=== PATIENT | female | born 1945 | race Caucasian/White ===

== ENCOUNTER → 2019-03-08 14:11 | Outpatient (BNVA) | payer MEDICARE, BC, MEDICAID, SELFPAY | PROVIDERS: Family Provider Nurse Practitioner Family; PCP Nurse Practitioner Family; Visit Provider Nurse Practitioner Family | DX: I82.409 Acute embolism and thrombosis of unspecified deep veins of unspecified lower extremity (principal) | CPT/HCPCS: 85610 ==

== ENCOUNTER 2019-04-11 08:24 | Outpatient (CLI) | payer MEDICARE, BC, MEDICAID, SELFPAY ==
[2019-04-11] MEDS: iohexol 300 mg/mL 50 mL Btl PO (08:48)
[2019-04-11 09:27] LABS: Blood Urea Nitrogen 18 mg/dL (8-23)
--- NOTE | 2019-04-11 10:00 | CT_ITS ---
WS: [id number] CT ABDOMEN PELVIS TECHNIQUE: Contrast-enhanced CT of the abdomen and pelvis with coronal and sagittal reformatted image s. CLINICAL INFORMATION: annual ct scan for h/o colon cancer COMPARISON: DLP: 1613.[address] scans at [facility] use at least one of these dose optimization techniques: automat ed exposure control; mA and/or kV adjustment per patient size (includes targeted exams where dose is matched to clinical indication); or iterative reconstruction. FINDINGS: Mild diffuse fatty infiltration the liver. Portal vein and splenic vein are patent. Normal spleen. A few splenic granulomas. Lung bases are well aerated. Prior postoperative changes left hemicolectomy w ith rectosigmoid anastomosis. No evidence of recurrent mass or lesion at the anastomosis. No evidence of small or large bowel obstruction. Scattered stool in the colon. Mild prominence of the common david e duct is unchanged. Common bile duct measures 12 mm in maximum dimension and is stable. Normal pancr eatic parenchymal enhancement. Normal gastroesophageal junction. Mesenteric calcification. Adrenal gl ands are normal. Normal renal parenchymal enhancement. A few tiny renal cortical cysts. No upper abdominal or pelvic s idewall lymphadenopathy. No inguinal lymphadenopathy. Diffuse mottled sclerotic appearance to the low er thoracic and lumbar spine likely due to prior treated metastatic disease. A few lytic lesions. The se are unchanged from previous. Also consider multiple myeloma. Bony structures are unchanged in appe arance since 2017. CT/CT abdomen pelvis w con* [id number] IMPRESSION: 1. No evidence of recurrent or progressive disease. 2. Prior postoperative changes left hemicolectomy with rectosigmoid anastomosi s. No local recurrence at the anastomosis. 3. No periaortic or pelvic sidewall lymphadenopathy. 4. Mild diffuse fatty infiltration liver unchanged. 5. Diffuse mottled appearance to the lower thoracic and lumbar spine may be du e to prior treated metastatic disease. Also consider multiple myeloma. Appearan ce is unchanged since 2017
[2019-04-11] MEDS: iodixanol 320 mg/mL 100mL Btl IV (10:42)
== END 2019-04-11 08:25 | disposition home or self-care (01) ==
LOC: RAD 08:26
PROVIDERS: Visit Provider Surgery
DX: Z85.038 Personal history of other malignant neoplasm of large intestine (principal); K76.0 Fatty (change of) liver, not elsewhere classified
CPT/HCPCS: 36415; 74177; 82565; 84520

== ENCOUNTER → 2019-04-14 12:44 | Outpatient (BNVA) | payer MEDICARE, BC, MEDICAID, SELFPAY | PROVIDERS: Visit Provider Family Medicine | DX: E11.9 Type 2 diabetes mellitus without complications (principal); I10 Essential (primary) hypertension; Z79.4 Long term (current) use of insulin; E03.9 Hypothyroidism, unspecified; I48.91 Unspecified atrial fibrillation; D50.9 Iron deficiency anemia, unspecified; I26.99 Other pulmonary embolism without acute cor pulmonale; E78.2 Mixed hyperlipidemia | CPT/HCPCS: 80053; 80061; 84443 ==

== ENCOUNTER → 2019-04-29 15:18 | Outpatient (BNVA) | payer MEDICARE, BC, MEDICAID, SELFPAY | PROVIDERS: Visit Provider Family Medicine | DX: I26.99 Other pulmonary embolism without acute cor pulmonale (principal) | CPT/HCPCS: 85610 ==

== ENCOUNTER 2019-05-02 06:18 | Day surgery (SDC) | payer MEDICARE, BC, MEDICAID, SELFPAY ==
[2019-04-29 12:39] VITALS: BMI 34.8
[2019-05-02 06:44] VITALS: BP 148/63; PULSE 72; RESP 8; TEMP 36.2; O2SAT 97
[2019-05-02 06:56] LABS: Glucose Point of Care 141 mg/dL (70-110)
[2019-05-02] MEDS: sodium chloride 0.9% 1,000 ML 30 ML (06:59)
--- NOTE | 2019-05-02 07:16 | W.PM.OPSUD ---
Surgery/Procedure H&P Update DATE OF PROCEDURE: May 02, 2019 DATE H&P PERFORMED: 04/15/19 H&P UPDATE INFORMATION: I have reviewed H&P completed within last 30 days, I have examined patient prior to procedure and No changes to prior documentation PREOP DIAGNOSIS: Colon cancer history PLANNED PROCEDURE: Operation Date: 05/02/19 07:30 Proposed Procedures p Colonoscopy 80038 Z85.038(Not Applicable) - Isac Mora MD
--- NOTE | 2019-05-02 07:24 | ANES.PREANE2 ---
Pre-Anesthetic Assessment Pre-Anesthetic Assessment: Height/Weight: Height 1.68 m Weight 97.976 kg Temp Pulse Resp BP Pulse Ox 97.2 F L 72 8 L 148/63 97 05/02/19 06:44 05/02/19 06:44 05/02/19 06:44 05/02/19 06:44 05/02/19 06:44 Preop Diagnosis: Colon cancer history Proposed Procedure: Operation Date: 05/02/19 07:30 Proposed Procedures p Colonoscopy 41328 Z85.038(Not Applicable) - Isac Mora MD Was Beta [place] taken within 24 hours: N/A Last intake: Intake Last Liquid Date 05/01/19 Last Liquid Time 23:00 Last Solid Date 04/30/19 Last Solid Time 17:00 Social: Social History: No alcohol and No tobacco Exam: Pre-Anes Outpt Exam: alert, oriented x 3, clear to auscultation bilaterally and regular rate & rhythm Airway: Submandibular: WNL Cervical ROM: WNL MP: 2 History/ROS: No significant history except as noted Pulmonary: Pulmonary: None reported CV/HEM: CV/HEM: DVT and HTN : : None reported Hepatic: Hepatic: None reported GI: GI: None reported Metabolic: Metabolic: DM and Thyroid Musc/skel: Musc/skel: OA/DJD Anesthetic Plan: ASA status: 2 Anesthesia: Anesthesia Evaluation and MAC Risk of > 500 ml blood loss (7ml/kg in children): No PFSH Anesthesia PFSH: Social History Smoking and tobacco status: never smoked Alcohol intake: never Household members: family Marital status: / Current occupational status: retired History of recent travel: No Data Anesthesia Other Labs: Laboratory Results - last 48 hr 05/02/19 06:53 POC Glucose 141 Cardiac Studies: No Data to Display
[2019-05-02 07:55] VITALS: BP 108/53; PULSE 57; RESP 16; TEMP 36.1; O2SAT 97
[2019-05-02 08:07] VITALS: BP 107/53; PULSE 60; RESP 16; O2SAT 98
[2019-05-02 08:27] VITALS: BP 123/64; PULSE 60; RESP 16; O2SAT 97
--- NOTE | 2019-05-02 09:38 | ANE.PACU2 ---
 Inpatient post-anesthesia follow up: Airway intact: Yes Vital signs: Temperature 97 F Pulse Rate 60 Respiratory Rate 16 Blood Pressure 123/64 Pulse Oximetry 97 Oxygen Delivery Me thod Room Air Oxygen Flow Rate 3 Fraction of Inspir ed Oxygen Hydration adequate: Yes Nausea and vomiting: No Mental status: Baseline
[2019-05-02 09:47] LABS: Carcinoembryonic Antigen 0.9 ng/mL (0.0-4.7)
== END 2019-05-02 08:32 | disposition home or self-care (01) ==
PROVIDERS: Visit Provider Surgery
PROC: 0DJD8ZZ Inspection of Lower Intestinal Tract, Via Natural or Artificial Opening Endoscopic (ICD-10-PCS; CPT 45378; principal; 2019-05-02 07:30)
DX: T18.108A Unspecified foreign body in esophagus causing other injury, initial encounter (principal); K29.70 Gastritis, unspecified, without bleeding; D12.2 Benign neoplasm of ascending colon; K57.30 Diverticulosis of large intestine without perforation or abscess without bleeding; D12.4 Benign neoplasm of descending colon; N18.9 Chronic kidney disease, unspecified; E11.9 Type 2 diabetes mellitus without complications; Z79.84 Long term (current) use of oral hypoglycemic drugs; Z86.718 Personal history of other venous thrombosis and embolism; Z85.038 Personal history of other malignant neoplasm of large intestine; E78.5 Hyperlipidemia, unspecified; I10 Essential (primary) hypertension; Z86.711 Personal history of pulmonary embolism
CPT/HCPCS: 12345; 36415; 36416; 45385; 82378; 82962; 88305; J2704; J7030

== ENCOUNTER → 2019-07-18 09:24 | Outpatient (BNVA) | payer MEDICARE, MEDICAID, SELFPAY | PROVIDERS: PCP Family Medicine; Visit Provider Internal Medicine Hematology & Oncology | DX: I82.409 Acute embolism and thrombosis of unspecified deep veins of unspecified lower extremity (principal); Z85.038 Personal history of other malignant neoplasm of large intestine | CPT/HCPCS: 80053; 82378; 85025; 85610 ==

== ENCOUNTER 2019-07-19 06:45 | Outpatient (CLI) | payer MEDICARE, MEDICAID, SELFPAY ==
--- NOTE | 2019-07-19 16:37 | ONC FU_ITS ---
Dr. Shipman follow up note Patient: Maddy Beavers Unit #: [id number]: 1945 Dicatated By: Leni Shipman M.D.Date of Visit:July 19, 2019 Onc Med Follow-up/Prog Note History of Present Illness: Mrs Maddy Beavers, 73-year-old female with h/o sigmoid colon infiltrating adenocarcinoma status post laparoscopic left hemicolectomy done on 07/09/2016. Final path report showed infiltrating adenocarcinoma SIGMOID colon low-grade grade 2 tumor size 2 x 1.7 cm tumor invades full thickness of muscularis propria pT2 Margins clear 14 mesenteric lymph nodes all free of metastatic tumor N0 no lymphovascular/ Venous invasion seen T2, No Stage Diaz A / or 1 Evaluated via phone, patient denies any specific complaints, no fever or chills, no nausea or vomiting, no diarrhea constipation , no jaundice, no abdominal pain, appetite is good Medications: Colace 1 Tablet (of 100 mg) Capsule Oral b.i.d., Coumadin 1 Tablet (of 3 mg) Oral daily, GlipiZIDE 1 Tablet (of 10 mg) Oral daily, Iron 1 (65 mg) Tablet Oral daily, Lantus 15 Units (of 100 Units/mL) Subcutaneous every am, Levothyroxine Sodium 1 Tablet (of 100 mcg) Oral daily, Lisinopril 1 Tablet (of 20 mg) Oral daily, MetFORMIN HCl 1 Tablet (of 500 mg) Oral b.i.d. Allergies: Diovan and Penicillins. Review of Systems: Review of Systems is not available for this patient. Vital Signs: Vitals are not available for this patient. Performance Status: 0 - Fully active, able to carry on all predisease activities without restrictions. (ECOG) Physical Examination: ENMT - denies mouth sores, or jaundice, Respiratory - denies shortness of breath or wheezing, Cardiovascular - denies palpitation or tachycardia, Abdomen - denies abdominal pain or fullness, Extremities - denies edema or rash. Lab/Imaging: Test performed on Jan 24, 2019 07:32 Sodium 137 mmol/L Potassium 4.7 mmol/L Chloride 102 mmol/L CO2 21 mmol/L Anion Gap 18.7 BUN 30 mg/dL Creatinine 1.4 mg/dL Cr Clearance (Est) 54.5900 mL/min Glucose 170 mg/dl Calcium 9.5 mg/dL Protein, Total 6.6 g/dL Albumin 4.7 g/dL Globulin 1.9 gm/dL Bilirubin, Total 0.3 mg/dL ALT (SGPT) 15 U/L AST (SGOT) 16 U/L Alkaline Phosphatase 107 U/L WBC 7.3 10 3/uL RBC 3.80 10 6/uL HGB 12.0 g/dL HCT 36.2 % MCV 95.3 fl MCH 31.6 pg MCHC 33.1 g/dl RDW 13.1 % Platelet Count 201 10 3/cmm MPV 9.2 fl Neutrophils 4.1 10 3/uL Lymphocytes 2.0 10 3/uL Monocytes 0.6 10 3/uL Eosinophils 0.6 10 3/uL Basophils 0.1 10 3/uL Neutrophil % 55.9 % Lymphocyte % 27.1 % Monocyte % 7.7 % Eosinophil % 8.3 % Basophils % 0.7 % CEA 1.3 ng/mL Impression: 1. Infiltrating adenocarcinoma of sigmoid colon T2,NO,Mx stage Diaz A /or 1 , low-grade, no lymphovascular/Venous invasion seen , status post laparoscopic left hemicolectomy on 07/09/2016 CT scan of abdomen pelvis done on 07/11/2016 showed no evidence of disease 3, Anemia etiology uncertain could be multifactorial including due to chronic blood loss , now resolved On chronic Coumadin therapy for more than 40 years for history of pulmonary embolism/lower extremity DVT at age 37 and sister with history of pulmonary embolism.Anticoagulation being managed by PMD Plan: Discussed with patient regarding her labs white blood count 6.5 hemoglobin 12.1 crit 36.2 platelets 197,000 CMP within normal limit except creatinine 1.5 compared to 1.4 earlier and CEA 1.5 Clinically, patient is doing well with no signs symptom suggestive of recurrence of disease , and tumor marker is within normal limits as well as liver function test and hemoglobin. We'll continue to monitor and return to clinic in 6 months with labs CBC CMP CEA Signed By: Leni Shipman M.D. <<Signature on File>>
== END 2019-07-19 06:46 | disposition home or self-care (01) ==
LOC: ONCMED 06:47
PROVIDERS: PCP Family Medicine; Visit Provider Internal Medicine Hematology & Oncology
DX: Z08 Encounter for follow-up examination after completed treatment for malignant neoplasm (principal); Z85.038 Personal history of other malignant neoplasm of large intestine; Z79.01 Long term (current) use of anticoagulants; Z86.718 Personal history of other venous thrombosis and embolism

== ENCOUNTER → 2019-07-20 11:40 | Outpatient (BNVA) | payer MEDICARE, MEDICAID, SELFPAY | PROVIDERS: PCP Family Medicine; Visit Provider Family Medicine | DX: I26.99 Other pulmonary embolism without acute cor pulmonale (principal) | CPT/HCPCS: 85610 ==

== ENCOUNTER → 2019-08-29 09:46 | Outpatient (BNVA) | payer MEDICARE, MEDICAID, SELFPAY | PROVIDERS: PCP Family Medicine; Visit Provider Family Medicine | DX: I82.409 Acute embolism and thrombosis of unspecified deep veins of unspecified lower extremity (principal) | CPT/HCPCS: 85610 ==

== ENCOUNTER → 2019-10-10 11:20 | Outpatient (BNVA) | payer MEDICARE, MEDICAID, SELFPAY | PROVIDERS: PCP Family Medicine; Visit Provider Family Medicine | DX: I26.99 Other pulmonary embolism without acute cor pulmonale (principal) | CPT/HCPCS: 85610 ==

== ENCOUNTER → 2019-10-12 08:47 | Outpatient (BNVA) | payer MEDICARE, MEDICAID, SELFPAY | PROVIDERS: PCP Family Medicine; Visit Provider Family Medicine | DX: E03.9 Hypothyroidism, unspecified (principal); I10 Essential (primary) hypertension; E11.9 Type 2 diabetes mellitus without complications; Z79.4 Long term (current) use of insulin; E78.2 Mixed hyperlipidemia | CPT/HCPCS: 80053; 80061; 83036; 84443; 85025 ==

== ENCOUNTER → 2019-11-04 10:03 | Outpatient (BNVA) | payer MEDICARE, MEDICAID, SELFPAY | PROVIDERS: PCP Family Medicine; Visit Provider Family Medicine | DX: I26.99 Other pulmonary embolism without acute cor pulmonale (principal) | CPT/HCPCS: 85610 ==

== ENCOUNTER 2019-11-24 08:41 | Outpatient (CLI) | payer MEDICARE, MEDICAID, SELFPAY ==
--- NOTE | 2019-11-24 08:50 | MM_ITS ---
WS: [id number] BILATERAL SCREENING DIGITAL MAMMOGRAM WITH CAD HISTORY: SCREENING COMPARISON: 10/21/2018 and 10/21/2017 and 04/30/2016 Bilateral CC and MLO views submitted. Computer aided detection analyzed. Breast composition: There are scattered areas of fibroglandular density. No suspicious masses, microc alcifications or architectural distortion. Multiple bilateral asymmetries. Some of these asymmetries are partially obscured. Various sizes but no interval change. No distortion. MM/[place] [id number] IMPRESSION: BI-RADS: 2-Benign FOLLOW UP: 1 Year Follow-up
== END 2019-11-24 08:42 | disposition home or self-care (01) ==
LOC: RADSHAW 08:46
PROVIDERS: PCP Family Medicine; Visit Provider Family Medicine
DX: Z12.31 Encounter for screening mammogram for malignant neoplasm of breast (principal)
CPT/HCPCS: 77067

== ENCOUNTER → 2020-01-17 14:29 | Outpatient (BNVA) | payer MEDICARE, BC, MEDICAID, SELFPAY | PROVIDERS: PCP Family Medicine; Visit Provider Internal Medicine Hematology & Oncology | DX: I82.409 Acute embolism and thrombosis of unspecified deep veins of unspecified lower extremity (principal); Z85.038 Personal history of other malignant neoplasm of large intestine | CPT/HCPCS: 80053; 82378; 85025; 85610 ==

== ENCOUNTER 2020-01-19 14:09 | Outpatient (CLI) | payer MEDICARE, MEDICAID, SELFPAY ==
--- NOTE | 2020-01-19 15:12 | ONC FU_ITS ---
Dr. Shipman follow up note Patient: Maddy Beavers Unit #: [id number]: 1945 Dicatated By: Leni Shipman M.D.Date of Visit:Jan 19, 2020 Onc Med Follow-up/Prog Note History of Present Illness: Mrs Maddy Beavers, 74-year-old female with h/o sigmoid colon infiltrating adenocarcinoma status post laparoscopic left hemicolectomy done on 07/09/2016. Final path report showed infiltrating adenocarcinoma SIGMOID colon low-grade grade 2 tumor size 2 x 1.7 cm tumor invades full thickness of muscularis propria pT2 Margins clear 14 mesenteric lymph nodes all free of metastatic tumor N0 no lymphovascular/ Venous invasion seen T2, No Stage Diaz A / or 1 Came for follow-up, denies any specific complaints, no fever chills, no nausea or vomiting, no diarrhea or constipation, no melena or hematochezia, no jaundice, no abdominal pain, appetite is good Medications: Colace 1 Tablet (of 100 mg) Capsule Oral b.i.d., Coumadin 1 Tablet (of 3 mg) Oral daily, GlipiZIDE 1 Tablet (of 10 mg) Oral daily, Iron 1 (65 mg) Tablet Oral daily, Lantus 15 Units (of 100 Units/mL) Subcutaneous every am, Levothyroxine Sodium 1 Tablet (of 100 mcg) Oral daily, Lisinopril 1 Tablet (of 20 mg) Oral daily, MetFORMIN HCl 1 Tablet (of 500 mg) Oral b.i.d. Allergies: Diovan and Penicillins. Review of Systems: Review of Systems is not available for this patient. Vital Signs: Performed on Jan 19, 2020 14:16 Height - 66.00 in Weight - 213.0 lbs (HIGH) BSA - 2.05 sq.m BMI - 34.38 (HIGH) Temperature - 99.2 F (HIGH) Pulse - 67 /min Respiration - 24 /min BP - 175/66 mm(hg) (HIGH) O2 Sat - % Pain - 0 Performance Status: 0 - Fully active, able to carry on all predisease activities without restrictions. (ECOG) Physical Examination: ENMT - No mouth sores, no thrush, no jaundice, Respiratory - Lungs are clear to auscultation, Cardiovascular - Regular rate and rhythm of heart , Abdomen - Soft, bowel sounds present, Extremities - No visible edema. Lab/Imaging: Test performed on Jan 19, 2020 09:49 Glucose 172 mg/dL BUN 21 mg/dL Creatinine 1.3 mg/dL Cr Clearance (Est) 57.91 mL/min Sodium 139 mmol/L Potassium 4.2 mmol/L Chloride 101 mmol/L CO2 24 mmol/L Calcium 8.8 mg/dL Protein, Total 6.4 g/dL Albumin 4.0 g/dL Globulin 2.4 g/dL Bilirubin, Total 0.2 mg/dL Alkaline Phosphatase 100 IU/L AST (SGOT) 12 IU/L ALT (SGPT) 14 IU/L PT 36.5 sec WBC 6.1 10^9/L INR 3.00 RBC 3.91 10^12/L HGB 12.3 g/dL HCT 36.2 % MCV 92.7 fl MCH 31.5 pg MCHC 34.0 g/dL RDW 13.8 % Platelet Count 235 10^9/L Neutrophils (Gran) 3.8918 10^9/L Lymphocytes 1.7 10^9/L Monocytes 0.5 10^9/L CEA 1.8 ng/mL Impression: 1. Infiltrating adenocarcinoma of sigmoid colon T2,NO,Mx stage Diaz A /or 1 , low-grade, no lymphovascular/Venous invasion seen , status post laparoscopic left hemicolectomy on 07/09/2016 CT scan of abdomen pelvis done on 07/11/2016 showed no evidence of disease 3, Anemia etiology uncertain could be multifactorial including due to chronic blood loss , now resolved On chronic Coumadin therapy for more than 40 years for history of pulmonary embolism/lower extremity DVT at age 37 and sister with history of pulmonary embolism.Anticoagulation being managed by PMD Plan: Discussed with patient regarding her labs white blood count 6.1 hemoglobin 12.3 hematocrit 36.2 platelets 235,000 CMP within normal limit except glucose 172 and creatinine 1.3 and CEA is 1.8 Clinically, patient doing well with no new signs symptoms suggestive of recurrence of disease her tumor markers within normal limits. We will continue to monitor return to clinic in 6 months with CBC CMP and CEA Signed By: Leni Shipman M.D. <<Signature on File>>
== END 2020-01-19 14:10 | disposition home or self-care (01) ==
LOC: ONCMED 14:14
PROVIDERS: PCP Family Medicine; Visit Provider Internal Medicine Hematology & Oncology
DX: Z08 Encounter for follow-up examination after completed treatment for malignant neoplasm (principal); Z85.038 Personal history of other malignant neoplasm of large intestine; D64.9 Anemia, unspecified; Z90.49 Acquired absence of other specified parts of digestive tract; Z79.01 Long term (current) use of anticoagulants; Z86.718 Personal history of other venous thrombosis and embolism; Z86.711 Personal history of pulmonary embolism
CPT/HCPCS: G0463

== ENCOUNTER → 2020-03-29 11:24 | Outpatient (BNVA) | payer MEDICARE, MEDICAID, SELFPAY | PROVIDERS: PCP Family Medicine; Visit Provider Family Medicine | DX: I82.409 Acute embolism and thrombosis of unspecified deep veins of unspecified lower extremity (principal) | CPT/HCPCS: 85610 ==

== ENCOUNTER → 2020-04-23 15:57 | Outpatient (BNVA) | payer MEDICARE, MEDICAID, SELFPAY | PROVIDERS: PCP Family Medicine; Visit Provider Family Medicine | DX: I26.99 Other pulmonary embolism without acute cor pulmonale (principal) | CPT/HCPCS: 85610 ==

== ENCOUNTER → 2020-05-03 10:14 | Outpatient (BNVA) | payer MEDICARE, MEDICAID, SELFPAY | PROVIDERS: PCP Family Medicine; Visit Provider Family Medicine | DX: I10 Essential (primary) hypertension (principal); E11.9 Type 2 diabetes mellitus without complications; Z79.4 Long term (current) use of insulin; E03.9 Hypothyroidism, unspecified; I26.99 Other pulmonary embolism without acute cor pulmonale | CPT/HCPCS: 80053; 80061; 83036; 84443; 85025; 85610 ==

== ENCOUNTER → 2020-05-22 13:50 | Outpatient (BNVA) | payer MEDICARE, MEDICAID, SELFPAY | PROVIDERS: PCP Family Medicine; Visit Provider Family Medicine | DX: I26.99 Other pulmonary embolism without acute cor pulmonale (principal) | CPT/HCPCS: 85610 ==

== ENCOUNTER → 2020-06-01 13:16 | Outpatient (BNVA) | payer MEDICARE, MEDICAID, SELFPAY | PROVIDERS: PCP Family Medicine; Visit Provider Surgery | DX: Z20.822 Contact with and (suspected) exposure to COVID-19 (principal) | CPT/HCPCS: 87635 ==

== ENCOUNTER → 2020-06-04 08:52 | Outpatient (BNVA) | payer MEDICARE, MEDICAID, SELFPAY | PROVIDERS: PCP Family Medicine; Visit Provider Surgery | DX: I82.409 Acute embolism and thrombosis of unspecified deep veins of unspecified lower extremity (principal) | CPT/HCPCS: 85610 ==

== ENCOUNTER 2020-06-05 08:44 | Day surgery (SDC) | payer MEDICARE, MEDICAID, SELFPAY ==
[2020-06-04 12:16] VITALS: BMI 33.0
--- NOTE | 2020-06-05 07:55 | W.PM.OPSUD ---
Surgery/Procedure H&P Update DATE OF PROCEDURE: June 05, 2020 DATE H&P PERFORMED: 05/09/19 H&P UPDATE INFORMATION: I have reviewed H&P completed within last 30 days, I have examined patient prior to procedure and No changes to prior documentation PREOP DIAGNOSIS: Colon cancer history PLANNED PROCEDURE: Operation Date: 06/05/20 10:30 Proposed Procedures p Colonoscopy 99069 Z85.038(Not Applicable) - Isac Mora MD
--- NOTE | 2020-06-05 09:05 | ANES.PREANE2 ---
Pre-Anesthetic Assessment Pre-Anesthetic Assessment: Height/Weight: Height 1.68 m Weight 92.986 kg Preop Diagnosis: Colon cancer history Proposed Procedure: Operation Date: 06/05/20 10:30 Proposed Procedures p Colonoscopy 07957 Z85.038(Not Applicable) - Isac Mora MD Familial anesthetic complications: None Was Beta [place] taken within 24 hours: N/A Was Clonidine taken within 24 hours: N/A Last intake: NPO > 8 hrs Social: Social History: No alcohol and No tobacco Exam: Pre-Anes Outpt Exam: alert, oriented x 3, clear to auscultation bilaterally and regular rate & rhythm Airway: Cervical ROM: WNL MP: 4 Dentition: Chipped Pulmonary: Comments: Hx PE CV/HEM: CV/HEM: DVT and HTN Comments: holding warfarin for 4 days unknown etiology Metabolic: Metabolic: DM and Thyroid Anesthetic Plan: ASA status: 2 Anesthesia: MAC Risk of > 500 ml blood loss (7ml/kg in children): No PFSH Anesthesia PFSH: Medical History (Updated 05/11/20 @ 17:50 by Isac Mora MD) Chronic anticoagulation Diabetes mellitus, insulin dependent (IDDM), controlled DVT (deep venous thrombosis) History of colon cancer T2N0M0 - 2017 Hyperlipidemia, mixed Hypertension Hypothyroidism Pulmonary embolism Surgical History H/O colonoscopy 05/02/19: polyps ascending and descending colon History of hysterectomy History of subtotal thyroidectomy S/P appendectomy S/P arthroscopic surgery of left knee S/P colon resection Laparoscopic left hemicolectomy: July 09, 2016 Family History Other Bleeding disorder CAD (coronary artery disease) Diabetes Hypertension Denies family history of Anesthesia complication Social History Smoking and tobacco status: never smoked Alcohol intake: never Household members: family Marital status: / Current occupational status: retired History of recent travel: No Data Anesthesia Cardiac Studies: No Data to Display
[2020-06-05 09:52] VITALS: BP 162/94; PULSE 68; RESP 16; TEMP 36.6; O2SAT 98
[2020-06-05] MEDS: sodium chloride 0.9% 1,000 ML 30 ML IV (10:13)
[2020-06-05 10:41] LABS: Glucose Point of Care 151 mg/dL (70-110)
[2020-06-05 11:43] VITALS: BP 99/44; PULSE 56; RESP 18; TEMP 36.2; O2SAT 98
[2020-06-05 11:53] VITALS: BP 134/74; PULSE 54; RESP 18; O2SAT 100
--- NOTE | 2020-06-05 12:26 | ANE.PACU2 ---
Inpatient post-anesthesia follow up: Airway intact: Yes Vital signs: Temperature 97.2 F Pulse Rate 54 Respiratory Rate 18 Blood Pressure 134/74 Pulse Oximetry 100 Oxygen Delivery Me thod Room Air Oxygen Flow Rate Fraction of Inspir ed Oxygen Hydration adequate: Yes Nausea and vomiting: No Pain level: 1 Mental status: Baseline
== END 2020-06-05 12:05 | disposition home or self-care (01) ==
PROVIDERS: PCP Family Medicine; Visit Provider Surgery
PROC: 0DJD8ZZ Inspection of Lower Intestinal Tract, Via Natural or Artificial Opening Endoscopic (ICD-10-PCS; CPT 45378; principal; 2020-06-05 10:30)
DX: Z85.038 Personal history of other malignant neoplasm of large intestine (principal); Z86.010 Personal history of colon polyps; D12.4 Benign neoplasm of descending colon; Z79.01 Long term (current) use of anticoagulants; E11.9 Type 2 diabetes mellitus without complications; Z86.718 Personal history of other venous thrombosis and embolism; E03.9 Hypothyroidism, unspecified; I10 Essential (primary) hypertension; Z86.711 Personal history of pulmonary embolism; Z90.49 Acquired absence of other specified parts of digestive tract
CPT/HCPCS: 45380; 45384; 36416; 82962; 88305; 96360; 96361; J2704; J7030

== ENCOUNTER → 2020-06-12 12:24 | Outpatient (BNVA) | payer MEDICARE, MEDICAID, SELFPAY | PROVIDERS: PCP Family Medicine; Visit Provider Family Medicine | DX: I82.409 Acute embolism and thrombosis of unspecified deep veins of unspecified lower extremity (principal) | CPT/HCPCS: 85610 ==

== ENCOUNTER → 2020-07-13 09:17 | Outpatient (BNVA) | payer MEDICARE, MEDICAID, SELFPAY | PROVIDERS: PCP Family Medicine; Visit Provider Nurse Practitioner Family | DX: I26.99 Other pulmonary embolism without acute cor pulmonale (principal); H66.92 Otitis media, unspecified, left ear | CPT/HCPCS: 85610 ==

== ENCOUNTER → 2020-07-25 10:49 | Outpatient (BNVA) | payer MEDICARE, MEDICAID, SELFPAY | PROVIDERS: PCP Family Medicine; Visit Provider Family Medicine | DX: I82.409 Acute embolism and thrombosis of unspecified deep veins of unspecified lower extremity (principal); E11.42 Type 2 diabetes mellitus with diabetic polyneuropathy; H66.002 Acute suppurative otitis media without spontaneous rupture of ear drum, left ear | CPT/HCPCS: 85610 ==

== ENCOUNTER 2020-07-27 14:09 | Emergency (ER) | payer MEDICARE, MEDICAID, SELFPAY ==
[2020-07-27 14:33] VITALS: BP 156/68; PULSE 67; RESP 18; TEMP 36.6; O2SAT 95; BMI 33.4
--- NOTE | 2020-07-27 15:04 | USR_ITS ---
PROCEDURE INFORMATION: Exam: US Duplex Left Lower Extremity Veins, Limited Exam date and time: 07/27/2020 3:05 PM Age: 74 years old Clinical indication: Pain; Leg, lower; Left; Additional info: Lle swelling, calf pain, h/o of dvt TECHNIQUE: Imaging protocol: Real-time Duplex ultrasound of the Left Lower Extremity with 2-D romero scale, color Doppler flow and spectral waveform analysis with image documentation. Limited exam focused on the left lower extremity veins. Total images: 1902 COMPARISON: No relevant prior studies available. FINDINGS: Left deep veins: Unremarkable. The common femoral, femoral, proximal profunda femoral and popliteal veins are patent without thrombus. Normal Doppler waveforms. Normal compressibility and/or augmentation response. Left superficial veins: Unremarkable. Saphenofemoral junction is patent without thrombus. Soft tissues: Unremarkable. US/CV venous duplex [facility] [id number] IMPRESSION: No evidence of deep vein thrombosis.
--- NOTE | 2020-07-27 15:06 | W.ED.EXTPRO ---
HPI - Extremity Problem General: Chief complaint: Extremity Problem,Nontraumatic Stated complaint: left leg swelling and pain Time Seen by Provider: 07/27/20 14:47 History of Present Illness: HPI Narrative: This is a 74-year-old female patient who has had 3 episodes of DVT and is currently on 3 mg of warfarin daily. She presents today with left leg swelling and pain. She has had left leg pain for about 3 months but this morning when she woke up she noticed some pain around her left calf. Because she has a significant history of DVTs and PEs she decided to come to the emergency department to be evaluated. She denies any shortness of breath. Last time she checked her INR was 3.5 and she has been off her warfarin for a few days. She is due to resume warfarin today. MD Complaint: extremity pain and extremity swelling Onset (ago): day(s) (1) Pain Consistency: constant Location: left and lower extremity Quality: aching Radiation: none Relieving factors: nothing Exacerbating factors: nothing Associated symptoms: Deny arthralgias, chest pain, fever(s), myalgias, rash or short of breath Context: history of DVT Review of Systems General: Reports: 10 or more systems reviewed and unremarkable except in HPI and below Const: Denies: fever(s) Card: Denies: chest pain Skin/Breast: Denies: rash [facility] ED PFSH: Medical History Chronic anticoagulation Diabetes mellitus, insulin dependent (IDDM), controlled DVT (deep venous thrombosis) History of colon cancer T2N0M0 - 2017 Hyperlipidemia, mixed Hypertension Hypothyroidism Pulmonary embolism Surgical History H/O colonoscopy (06/05/20) 05/02/19: polyps ascending and descending colon 06/04/20: IC valve and descending colon polyp History of hysterectomy History of subtotal thyroidectomy S/P appendectomy S/P arthroscopic surgery of left knee S/P colon resection Laparoscopic left hemicolectomy: July 09, 2016 Family History Other Bleeding disorder CAD (coronary artery disease) Diabetes Hypertension Denies family history of Anesthesia complication Social History Smoking and tobacco status: never smoked Second hand smoke exposure: No Alcohol intake: never Caregiver/support person: Yes (sisters) Lives independently: Yes (son lives with her) Household members: children Marital status: / service: No Current occupational status: retired History of recent travel: No Current gender identity: Female Special mark needs: No Agree to transfusion: Yes Physical Exam Const: COMMON NORMALS: no acute distress, average body habitus, patient oriented x3, no limitations, healthy appearing, alert and well nourished HENMT: COMMON NORMALS: normocephalic, atraumatic and moist oral mucous membranes HEAD & SCALP: normocephalic and atraumatic Neck/C-Spine: COMMON NORMALS: no meningeal signs and no JVD Resp: COMMON NORMALS: normal respiratory effort, No retractions, No use of accessory muscles, clear to auscultation bilaterally and percussion normal AUSCULTATION: clear to auscultation bilaterally PERCUSSION: percussion normal Cardio: COMMON NORMALS: no JVD, regular rate, regular rhythm, S1 normal heart sound present, S2 normal heart sound present, No gallops present (Cardio), No clicks present (Cardio), No murmurs present (Cardio), No rub (Cardio) and Peripheral pulses 2+ throughout RATE: regular rate RHYTHM: regular rhythm HEART SOUNDS: S1 normal heart sound present and S2 normal heart sound present PERIPHERAL PULSES: Peripheral pulses 2+ throughout GI: COMMON NORMALS: Normal to inspection, nondistended, normoactive bowel sounds present, Soft to palpation, non-tender, No hepatosplenomegaly present, no masses and no bruits PALPATION: Yes Soft to palpation and Yes No hepatosplenomegaly present Extremity: COMMON NORMALS: normal to inspection, full ROM, capillary refill normal, no calf tenderness and no pedal edema LEFT LOWER EXTREMITY: Yes lower leg Left lower leg: Yes inspection (mild swelling just distal to the knee), Yes palpation (calf tenderness) and Yes neurovascular exam (intact) Neuro: COMMON NORMALS: patient oriented x3 SENSORIUM/ORIENTATION: Yes alert MENINGEAL SIGNS: Yes no meningeal signs Course Reevaluation(s): Reevaluation #1: Discussed her lab and imaging findings with her. Negative for acute findings. INR is therapeutic, venous Doppler negative for DVT. We will discharge her home with no new orders. She voiced understanding and is in agreement with the plan. Time: 16:16 Vital Signs: Vital signs: Vital Signs Temperature 97.8 F 07/27/20 14:33 Pulse Rate 62 07/27/20 16:39 Respiratory Rate 18 07/27/20 14:33 Blood Pressure 145/63 07/27/20 16:39 Pulse Oximetry 97 07/27/20 16:39 MDM - Extremity (Nontraumatic) MDM Narrative: Medical decision making narrative: 74-year-old female patient with a history of multiple DVTs who presents to the emergency department with left leg swelling and pain. She had concerns for a new DVT. She is currently on warfarin. Venous Doppler was negative for DVT. She is discharged home with no new orders. Medical Records: Attestation: I reviewed the patient's medical records. Lab Data: Attestation: I reviewed the patient's lab results. Labs: Lab Results 07/27/20 Range/Units 15:26 PT 24.60 H (12.1-14.9) SECO NDS INR 2.17 H (0.8-1.2) Imaging Data^: US Vascular: Attestation: I personally reviewed and interpreted this imaging study as follows: Radiologist's impression: [address] [id number] ReportSigned Patient: Maddy Beavers #: [id number]: 1945cct#:[id number]/Sex: 74 / FADM Date: 07/27/20Loc: ERRoom/Bed:Attending Dr: Ordering Provider/Ordering MD: Nadia Yin MD, [facility] Date of Service: 07/27/20 Procedure(s): [place] [address] Accession Number(s): [id number] Report Number: [id number] PROCEDURE INFORMATION: Exam: US Duplex Left Lower Extremity Veins, Limited Exam date and time: 07/27/2020 3:05 PM Age: 74 years old Clinical indication: Pain; Leg, lower; Left; Additional info: Lle swelling, calf pain, h/o of dvt TECHNIQUE: Imaging protocol: Real-time Duplex ultrasound of the Left Lower Extremity with 2-D romero scale, color Doppler flow and spectral waveform analysis with image documentation. Limited exam focused on the left lower extremity veins. Total images: 1902 COMPARISON: No relevant prior studies available. FINDINGS: Left deep veins: Unremarkable. The common femoral, femoral, proximal profunda femoral and popliteal veins are patent without thrombus. Normal Doppler waveforms. Normal compressibility and/or augmentation response. Left superficial veins: Unremarkable. Saphenofemoral junction is patent without thrombus. Soft tissues: Unremarkable. US/[place] [address] IMPRESSION: No evidence of deep vein thrombosis. Dictated By:Naun Atkins By:Naun Atkins Date/Time:07/27/201636DD/ 34 Discharge Plan Discharge Patient Disposition: Home Clinical Impression: Left leg swelling, Left leg pain Condition: Stable Prescriptions: Continued docusate sodium [Colace] 100 mg capsule 100 mg PO BID RF: 0 ferrous sulfate [FeroSul] 325 mg (65 mg iron) tablet 325 mg PO DAILY@0800 RF: 0 True Metrix Glucose Test Strip Strip See Rx Instructions .ROUTE .COMPLEX Qty: 100 RF: 12 warfarin 2 mg tablet 2 mg PO DIRECTED Qty: 20 RF: 1 warfarin 3 mg tablet 3 mg PO DAILY@1600 RF: 0 furosemide 20 mg tablet 20 mg PO QAM PRN (Reason: edema) Qty: 30 RF: 4 (DME) pen needle, diabetic [ReliOn [place]] 31 gauge x 1/4 needle See Rx Instructions .ROUTE .MEDSUPPLY Qty: 100 RF: 3 lancets [TRUEplus Lancets] 30 gauge misc See Rx Instructions .ROUTE .COMPLEX Qty: 100 RF: 2 metformin 500 mg tablet 500 mg PO DAILY@0800 RF: 0 glipizide 10 mg tablet extended release 24hr 10 mg PO DAILY RF: 0 lisinopril 20 mg tablet 20 mg PO DAILY@0900 RF: 0 levothyroxine 100 mcg tablet 100 mcg PO DAILY@0800 RF: 0 Lantus Solostar U-100 Insulin 100 unit/mL (3 mL) insulin pen 15 unit SUBCUT DAILY@0800 RF: 0 Discharge Orders: Discharge ED (Routine); Ordered 07/27/20 Ordered By: Nadia Yin Referrals: Penny Sanchez MD [Primary Care Provider] - 1-3 days Discharge Diet: Usual diet Discharge Activity: Increase activity as tolerated Patient Instructions: Leg Cramps (ED), Leg Edema (ED) Activity Restrictions/Additional Instructions: Return for any new or worsening symptoms. Follow-up with your primary care provider within 3 days. Keep your leg elevated to reduce swelling. Continue home medications including your warfarin. 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
[2020-07-27 15:59] LABS: INR 2.17 (0.8-1.2)
[2020-07-27 16:39] VITALS: BP 145/63; PULSE 62; O2SAT 97
== END 2020-07-27 16:49 | disposition home or self-care (01) ==
PROVIDERS: Emergency Provider Family Medicine; PCP Family Medicine
DX: M79.89 Other specified soft tissue disorders (principal); M79.605 Pain in left leg; Z79.01 Long term (current) use of anticoagulants; Z79.4 Long term (current) use of insulin; E11.9 Type 2 diabetes mellitus without complications; Z85.038 Personal history of other malignant neoplasm of large intestine; E78.2 Mixed hyperlipidemia; I10 Essential (primary) hypertension
CPT/HCPCS: 36415; 85610; 93971; 99283

== ENCOUNTER → 2020-08-03 09:30 | Outpatient (BNVA) | payer MEDICARE, MEDICAID, SELFPAY | PROVIDERS: PCP Family Medicine; Visit Provider Family Medicine | DX: I82.409 Acute embolism and thrombosis of unspecified deep veins of unspecified lower extremity (principal) | CPT/HCPCS: 85610 ==

== ENCOUNTER → 2020-08-10 09:42 | Outpatient (BNVA) | payer MEDICARE, MEDICAID, SELFPAY | PROVIDERS: PCP Family Medicine; Visit Provider Family Medicine | DX: I82.409 Acute embolism and thrombosis of unspecified deep veins of unspecified lower extremity (principal) | CPT/HCPCS: 85610 ==

== ENCOUNTER → 2020-08-13 10:58 | Outpatient (BNVA) | payer MEDICARE, MEDICAID, SELFPAY | PROVIDERS: PCP Family Medicine; Visit Provider Internal Medicine Hematology & Oncology | DX: I10 Essential (primary) hypertension (principal); E03.9 Hypothyroidism, unspecified; E78.2 Mixed hyperlipidemia; E11.9 Type 2 diabetes mellitus without complications; Z85.038 Personal history of other malignant neoplasm of large intestine | CPT/HCPCS: 80053; 85025 ==

== ENCOUNTER 2020-08-15 14:30 | Outpatient (CLI) | payer MEDICARE, MEDICAID, SELFPAY ==
--- NOTE | 2020-08-30 15:42 | ONC FU_ITS ---
Dr. Shipman follow up note Patient: Maddy Beavers Unit #: [id number]: 1945 Dicatated By: Leni Shipman M.D.Date of Visit:Aug 15, 2020 Onc Med Follow-up/Prog Note History of Present Illness: Mrs Maddy Beavers, 74-year-old female with h/o sigmoid colon infiltrating adenocarcinoma status post laparoscopic left hemicolectomy done on 07/09/2016. Final path report showed infiltrating adenocarcinoma SIGMOID colon low-grade grade 2 tumor size 2 x 1.7 cm tumor invades full thickness of muscularis propria pT2 Margins clear 14 mesenteric lymph nodes all free of metastatic tumor N0 no lymphovascular/ Venous invasion seen T2, No Stage Diaz A / or 1 Came for follow-up, denies any specific complaints, no fever chills, no nausea or vomiting, no diarrhea or constipation, no jaundice, no abdominal pain, appetite is good Medications: Colace 1 Tablet (of 100 mg) Capsule Oral b.i.d., Coumadin 1 Tablet (of 3 mg) Oral daily, GlipiZIDE 1 Tablet (of 10 mg) Oral daily, Iron 1 (65 mg) Tablet Oral daily, Lantus 15 Units (of 100 Units/mL) Subcutaneous every am, Levothyroxine Sodium 1 Tablet (of 100 mcg) Oral daily, Lisinopril 1 Tablet (of 20 mg) Oral daily, MetFORMIN HCl 1 Tablet (of 500 mg) Oral b.i.d. Allergies: Diovan and Penicillins. Review of Systems: Review of Systems is not available for this patient. Vital Signs: Performed on Aug 15, 2020 16:13 Height - 66.00 in Temperature - 97.3 F (LOW) Pulse - 66 /min Respiration - 18 /min BP - 130/70 mm(hg) O2 Sat - 97 % Pain - 7 Fatigue - 0 Performance Status: 0 - Fully active, able to carry on all predisease activities without restrictions. (ECOG) Physical Examination: ENMT - No mouth sores, no thrush, no jaundice, Respiratory - Lungs are clear to auscultation, Cardiovascular - Regular rate and rhythm of heart, Abdomen - Soft, bowel sounds present, Extremities - No visible edema. Lab/Imaging: Most recent lab results are not available for this patient. Impression: 1. Infiltrating adenocarcinoma of sigmoid colon T2,NO,Mx stage Diaz A /or 1 , low-grade, no lymphovascular/Venous invasion seen , status post laparoscopic left hemicolectomy on 07/09/2016 CT scan of abdomen pelvis done on 07/11/2016 showed no evidence of disease 3, Anemia etiology uncertain could be multifactorial including due to chronic blood loss , now resolved On chronic Coumadin therapy for more than 40 years for history of pulmonary embolism/lower extremity DVT at age 37 and sister with history of pulmonary embolism.Anticoagulation being managed by PMD Plan: Discussed with patient regarding her labs white blood count 6.3 hemoglobin 11.6 hematocrit 33.8 platelets 240,000 CMP within normal limits except creatinine 1.6 compared to 1.3 and January 2020 and BUN 27, glucose 147, CEA is pending Clinically, patient doing well with no new signs symptoms such as recurrence of disease or follow-up labs shows LFTs within normal range hemoglobin within normal range but there is a mild progression chronic renal insufficiency which could be due to dehydration, patient was advised to hydrate well and follow-up with the PMD regarding her renal function tests, as if this is worsening she may benefit from nephrology evaluation. Return to clinic in 6 months with CBC CMP and CEA Signed By: Leni Shipman M.D. <<Signature on File>>
== END 2020-08-15 14:31 | disposition home or self-care (01) ==
LOC: ONCMED 08-16 11:46
PROVIDERS: PCP Family Medicine; Visit Provider Internal Medicine Hematology & Oncology
DX: Z08 Encounter for follow-up examination after completed treatment for malignant neoplasm (principal); Z85.038 Personal history of other malignant neoplasm of large intestine; Z86.711 Personal history of pulmonary embolism; Z79.01 Long term (current) use of anticoagulants; Z79.899 Other long term (current) drug therapy
CPT/HCPCS: G0463

== ENCOUNTER → 2020-08-17 09:24 | Outpatient (BNVA) | payer MEDICARE, MEDICAID, SELFPAY | PROVIDERS: PCP Family Medicine; Visit Provider Family Medicine | DX: E03.9 Hypothyroidism, unspecified (principal); E11.9 Type 2 diabetes mellitus without complications; E78.2 Mixed hyperlipidemia; I10 Essential (primary) hypertension; I82.409 Acute embolism and thrombosis of unspecified deep veins of unspecified lower extremity; Z79.4 Long term (current) use of insulin | CPT/HCPCS: 80053; 80061; 82043; 83036; 84443; 85610 ==

== ENCOUNTER → 2020-08-22 08:57 | Outpatient (BNVA) | payer MEDICARE, MEDICAID, SELFPAY | PROVIDERS: PCP Family Medicine; Visit Provider Family Medicine | DX: I82.409 Acute embolism and thrombosis of unspecified deep veins of unspecified lower extremity (principal); E78.2 Mixed hyperlipidemia; N18.1 Chronic kidney disease, stage 1; Z79.01 Long term (current) use of anticoagulants | CPT/HCPCS: 85610 ==

== ENCOUNTER → 2020-08-29 08:35 | Outpatient (BNVA) | payer MEDICARE, MEDICAID, SELFPAY | PROVIDERS: PCP Family Medicine; Visit Provider Family Medicine | DX: I82.409 Acute embolism and thrombosis of unspecified deep veins of unspecified lower extremity (principal); Z79.01 Long term (current) use of anticoagulants | CPT/HCPCS: 85610 ==

== ENCOUNTER → 2020-09-07 09:56 | Outpatient (BNVA) | payer MEDICARE, MEDICAID, SELFPAY | PROVIDERS: PCP Family Medicine; Visit Provider Family Medicine | DX: I82.409 Acute embolism and thrombosis of unspecified deep veins of unspecified lower extremity (principal); Z79.01 Long term (current) use of anticoagulants | CPT/HCPCS: 85610 ==

== ENCOUNTER → 2020-09-14 09:01 | Outpatient (BNVA) | payer MEDICARE, MEDICAID, SELFPAY | PROVIDERS: PCP Family Medicine; Visit Provider Family Medicine | DX: I26.99 Other pulmonary embolism without acute cor pulmonale (principal); I82.409 Acute embolism and thrombosis of unspecified deep veins of unspecified lower extremity; Z79.01 Long term (current) use of anticoagulants | CPT/HCPCS: 85610 ==

== ENCOUNTER → 2020-09-19 08:36 | Outpatient (BNVA) | payer MEDICARE, MEDICAID, SELFPAY | PROVIDERS: PCP Family Medicine; Visit Provider Family Medicine | DX: E11.9 Type 2 diabetes mellitus without complications (principal); I10 Essential (primary) hypertension; E03.9 Hypothyroidism, unspecified; E78.2 Mixed hyperlipidemia; Z79.01 Long term (current) use of anticoagulants; Z79.4 Long term (current) use of insulin; Z79.899 Other long term (current) drug therapy | CPT/HCPCS: 80048; 82607; 85610 ==

== ENCOUNTER → 2020-10-03 08:32 | Outpatient (BNVA) | payer MEDICARE, MEDICAID, SELFPAY | PROVIDERS: PCP Family Medicine; Visit Provider Family Medicine | DX: I82.409 Acute embolism and thrombosis of unspecified deep veins of unspecified lower extremity (principal) | CPT/HCPCS: 85610 ==

== ENCOUNTER → 2020-10-19 08:26 | Outpatient (BNVA) | payer MEDICARE, MEDICAID, SELFPAY | PROVIDERS: PCP Family Medicine; Visit Provider Family Medicine | DX: I82.409 Acute embolism and thrombosis of unspecified deep veins of unspecified lower extremity (principal); Z79.01 Long term (current) use of anticoagulants | CPT/HCPCS: 85610 ==

== ENCOUNTER → 2020-10-26 08:30 | Outpatient (BNVA) | payer MEDICARE, MEDICAID, SELFPAY | PROVIDERS: PCP Family Medicine; Visit Provider Family Medicine | DX: I26.99 Other pulmonary embolism without acute cor pulmonale (principal); Z79.01 Long term (current) use of anticoagulants | CPT/HCPCS: 85610 ==

== ENCOUNTER → 2020-11-07 08:45 | Outpatient (BNVA) | payer MEDICARE, MEDICAID, SELFPAY | PROVIDERS: PCP Family Medicine; Visit Provider Family Medicine | DX: I26.99 Other pulmonary embolism without acute cor pulmonale (principal); Z79.01 Long term (current) use of anticoagulants | CPT/HCPCS: 85610 ==

== ENCOUNTER 2020-12-28 13:44 | Outpatient (CLI) | payer MEDICARE, MEDICAID, SELFPAY ==
--- NOTE | 2020-12-28 13:52 | MM_ITS ---
WS: [id number] BILATERAL SCREENING DIGITAL MAMMOGRAM WITH CAD HISTORY: SCREEN COMPARISON: 11/24/2019, 11/21/2018 and 04/30/2016 Bilateral CC and MLO views submitted. Computer aided detection analyzed. Breast composition: There are scattered areas of fibroglandular density. No suspicious masses, microc alcifications or architectural distortion. Scattered fibroglandular tubular structures are stable ove r multiple prior years. No new or increasing size of these asymmetries. Bilateral vascular calcificat ions. MM/[place] [id number] IMPRESSION: BI-RADS: 2-Benign FOLLOW UP: 1 Year Follow-up
== END 2020-12-28 13:45 | disposition home or self-care (01) ==
LOC: RADSHAW 13:45
PROVIDERS: PCP Family Medicine; Visit Provider Family Medicine
DX: Z12.31 Encounter for screening mammogram for malignant neoplasm of breast (principal)
CPT/HCPCS: 77067

== ENCOUNTER → 2021-01-02 09:38 | Outpatient (BNVA) | payer MEDICARE, MEDICAID, SELFPAY | PROVIDERS: PCP Family Medicine; Visit Provider Family Medicine | DX: E03.9 Hypothyroidism, unspecified (principal); E11.9 Type 2 diabetes mellitus without complications; E78.2 Mixed hyperlipidemia; I10 Essential (primary) hypertension; I82.409 Acute embolism and thrombosis of unspecified deep veins of unspecified lower extremity; Z79.4 Long term (current) use of insulin | CPT/HCPCS: 80053; 80061; 83036; 84443; 85025; 85610 ==

== ENCOUNTER → 2021-01-04 11:25 | Outpatient (BNVA) | payer MEDICARE, MEDICAID, SELFPAY | PROVIDERS: PCP Family Medicine; Visit Provider Family Medicine | DX: S99.922A Unspecified injury of left foot, initial encounter (principal); X58.XXXA Exposure to other specified factors, initial encounter | CPT/HCPCS: 73630 ==

== ENCOUNTER → 2021-01-14 11:47 | Outpatient (BNVA) | payer MEDICARE, MEDICAID, SELFPAY | PROVIDERS: PCP Family Medicine; Visit Provider Nurse Practitioner Family | DX: S92.415A Nondisplaced fracture of proximal phalanx of left great toe, initial encounter for closed fracture (principal); I82.409 Acute embolism and thrombosis of unspecified deep veins of unspecified lower extremity; X58.XXXA Exposure to other specified factors, initial encounter | CPT/HCPCS: 73630; 80053; 84550; 85025; 85610 ==

== ENCOUNTER → 2021-01-28 08:25 | Outpatient (BNVA) | payer MEDICARE, MEDICAID, SELFPAY | PROVIDERS: PCP Family Medicine; Visit Provider Family Medicine | DX: N18.1 Chronic kidney disease, stage 1 (principal); M10.9 Gout, unspecified; Z79.01 Long term (current) use of anticoagulants | CPT/HCPCS: 80048; 84550; 85610 ==

== ENCOUNTER 2021-02-18 10:51 | Outpatient (CLI) | payer MEDICARE, MEDICAID, SELFPAY ==
[2021-02-18 11:28] LABS: Basophils % 0.3 %; Eosinophils # 0.2 10^3/uL (0.0-0.8); Eosinophils % 3.5 %; Hematocrit 33.8 % (37.0-47.0); Hemoglobin 11.4 g/dL (11.5-15.3); Lymphocytes % 30.4 %; Mean Corpuscular HGB Conc 33.7 g/dL (30.0-36.0); Mean Corpuscular Hemoglobin 31.1 pg (28.0-34.0); Mean Corpuscular Volume 92.1 fl (81-99); Mean Platelet Volume 9.3 fL (7.4-10.4); Monocytes # 0.5 10^3/uL (0.2-0.9); Monocytes % 7.3 %; Neutrophils # 3.78 10^3/uL (1.8-7.7); Neutrophils % 58.3 %; Nucleated Red Blood Cells % 0 %; Platelet Count 237 10^3/cmm (130-400); Red Blood Count 3.67 10^6/uL (4.1-5.3); Red Cell Distribution Width 12.6 % (12.1-15.1); White Blood Count 6.5 10^3/uL (4.0-10.0)
[2021-02-18 12:02] LABS: Carcinoembryonic Antigen 1.3 ng/mL (0.0-4.7)
[2021-02-18 12:14] LABS: Alanine Aminotransferase 12 U/L (0-33); Albumin Level 4.1 g/dL (3.5-5.2); Alkaline Phosphatase 72 IU/L (35-105); Anion Gap 20.1 (5-19); Aspartate Amino Transferase 12 U/L (0-32); Blood Urea Nitrogen 17 mg/dL (8-23); Calcium 8.7 mg/dL (8.5-10.5); Carbon Dioxide 22 mmol/L (22-29); Chloride 102 mmol/L (98-107); Globulin 2.7 g/dL (1.3-4.6); Glucose 149 mg/dL (65-115); Osmolality Calculated 294 mOsm/kg (285-295); Potassium 4.1 mmol/L (3.5-5.1); Sodium 140 mmol/L (136-145); Total Bilirubin 0.4 mg/dL (0.15-1.2); Total Protein 6.8 g/dL (6.6-8.7)
--- NOTE | 2021-02-18 16:26 | ONC FU_ITS ---
Dr. Shipman follow up note Patient: Maddy Beavers Unit #: [id number]: 1945 Dicatated By: Leni Shipman M.D.Date of Visit:Feb 18, 2021 Onc Med Follow-up/Prog Note History of Present Illness: Mrs Maddy Beavers, 75-year-old female with h/o sigmoid colon infiltrating adenocarcinoma status post laparoscopic left hemicolectomy done on 07/09/2016. Final path report showed infiltrating adenocarcinoma SIGMOID colon low-grade grade 2 tumor size 2 x 1.7 cm tumor invades full thickness of muscularis propria pT2 Margins clear 14 mesenteric lymph nodes all free of metastatic tumor N0 no lymphovascular/ Venous invasion seen T2, No Stage Diaz A / or 1 Came for follow-up, denies any specific complaints, no fever chills, no nausea or vomiting, no diarrhea constipation, no melena or hematochezia, no abdominal pain, no jaundice, no weight loss Medications: Colace 1 Tablet (of 100 mg) Capsule Oral b.i.d., Coumadin 1 Tablet (of 3 mg) Oral daily, GlipiZIDE 1 Tablet (of 10 mg) Oral daily, Iron 1 (65 mg) Tablet Oral daily, Lantus 15 Units (of 100 Units/mL) Subcutaneous every am, Levothyroxine Sodium 1 Tablet (of 100 mcg) Oral daily, Lisinopril 1 Tablet (of 20 mg) Oral daily, MetFORMIN HCl 1 Tablet (of 500 mg) Oral b.i.d. Allergies: Diovan and Penicillins. Review of Systems: Review of Systems is not available for this patient. Vital Signs: Performed on Feb 18, 2021 12:43 Height - 66.00 in Weight - 203.4 lbs (LOW) BSA - 2.01 sq.m BMI - 32.83 (HIGH) Temperature - 97.8 F (LOW) Pulse - 69 /min Respiration - 18 /min BP - 155/70 mm(hg) (HIGH) O2 Sat - 97 % Pain - 4 Fatigue - 0 Performance Status: 0 - Fully active, able to carry on all predisease activities without restrictions. (ECOG) Physical Examination: ENMT - No mouth sores, no thrush, No jaundice, Respiratory - Lungs are clear to auscultation, Cardiovascular - Regular rate and rhythm of heart, Abdomen - Soft, bowel sounds present, Extremities - No visible edema. Lab/Imaging: Most recent lab results are not available for this patient. Impression: 1. Infiltrating adenocarcinoma of sigmoid colon T2,NO,Mx stage Diaz A /or 1 , low-grade, no lymphovascular/Venous invasion seen , status post laparoscopic left hemicolectomy on 07/09/2016 CT scan of abdomen pelvis done on 07/11/2016 showed no evidence of disease 3, Anemia etiology uncertain could be multifactorial including due to chronic blood loss , now resolved On chronic Coumadin therapy for more than 40 years for history of pulmonary embolism/lower extremity DVT at age 37 and sister with history of pulmonary embolism.Anticoagulation being managed by PMD Screening mammogram done on December 28, 2020 shows BI-RADS 2, benign Plan: Discussed with patient regarding her labs white blood count 6.5 hemoglobin 11.4 g normal being 11.5 or above hematocrit 33.8 platelets 237,000 CMP within normal limit except creatinine 1.4 CEA 1.3 Clinically, patient is doing well with no new signs suggestive of recurrence of disease her lab work-up is within normal range including tumor marker CEA, will continue to monitor and she will return to clinic in 6 months with CBC CMP and CEA, her screening mammogram done on December 28, 2020 shows BI-RADS 2, benign Mild anemia, stable, will continue to monitor if there is a progression, will consider anemia work-up Signed By: Leni Shipman M.D. <<Signature on File>>
== END 2021-02-18 10:52 | disposition home or self-care (01) ==
LOC: ONCMED 10:53
PROVIDERS: PCP Family Medicine; Visit Provider Internal Medicine Hematology & Oncology
DX: Z85.038 Personal history of other malignant neoplasm of large intestine (principal); D64.9 Anemia, unspecified; Z79.01 Long term (current) use of anticoagulants; Z79.899 Other long term (current) drug therapy; Z86.718 Personal history of other venous thrombosis and embolism; Z86.711 Personal history of pulmonary embolism
CPT/HCPCS: 36415; 80053; 82378; 85025; 99214

== ENCOUNTER → 2021-02-28 09:42 | Outpatient (BNVA) | payer MEDICARE, MEDICAID, SELFPAY | PROVIDERS: PCP Family Medicine; Visit Provider Family Medicine | DX: E03.9 Hypothyroidism, unspecified (principal); E11.9 Type 2 diabetes mellitus without complications; E78.2 Mixed hyperlipidemia; Z79.4 Long term (current) use of insulin; M10.9 Gout, unspecified; I26.99 Other pulmonary embolism without acute cor pulmonale; I10 Essential (primary) hypertension | CPT/HCPCS: 80053; 80061; 83036; 85025; 85610 ==

== ENCOUNTER → 2021-03-05 13:58 | Outpatient (BNVA) | payer MEDICARE, MEDICAID, SELFPAY | PROVIDERS: PCP Family Medicine; Visit Provider Family Medicine | DX: M10.9 Gout, unspecified (principal); I26.99 Other pulmonary embolism without acute cor pulmonale; E03.9 Hypothyroidism, unspecified; I10 Essential (primary) hypertension; E78.2 Mixed hyperlipidemia; E11.9 Type 2 diabetes mellitus without complications; Z79.4 Long term (current) use of insulin | CPT/HCPCS: 84443; 84550 ==

== ENCOUNTER → 2021-04-19 11:16 | Outpatient (BNVA) | payer MEDICARE, MEDICAID, SELFPAY | PROVIDERS: PCP Family Medicine; Visit Provider Family Medicine | DX: I26.99 Other pulmonary embolism without acute cor pulmonale (principal) | CPT/HCPCS: 85610 ==

== ENCOUNTER → 2021-05-15 08:22 | Outpatient (BNVA) | payer MEDICARE, MEDICAID, SELFPAY | PROVIDERS: PCP Family Medicine; Visit Provider Family Medicine | DX: I82.409 Acute embolism and thrombosis of unspecified deep veins of unspecified lower extremity (principal); M10.9 Gout, unspecified; E03.9 Hypothyroidism, unspecified; I10 Essential (primary) hypertension; E78.2 Mixed hyperlipidemia; E11.9 Type 2 diabetes mellitus without complications; Z79.4 Long term (current) use of insulin | CPT/HCPCS: 80053; 80061; 83036; 84443; 84550; 85025; 85610 ==

== ENCOUNTER → 2021-08-07 09:57 | Outpatient (BNVA) | payer MEDICARE, MEDICAID, SELFPAY | PROVIDERS: PCP Family Medicine; Visit Provider Family Medicine | DX: I82.409 Acute embolism and thrombosis of unspecified deep veins of unspecified lower extremity (principal) | CPT/HCPCS: 85610 ==

== ENCOUNTER → 2021-08-26 09:55 | Outpatient (BNVA) | payer MEDICARE, MEDICAID, SELFPAY | PROVIDERS: PCP Family Medicine; Visit Provider Family Medicine | DX: I82.409 Acute embolism and thrombosis of unspecified deep veins of unspecified lower extremity (principal); Z79.01 Long term (current) use of anticoagulants | CPT/HCPCS: 85610 ==

== ENCOUNTER → 2021-09-18 09:15 | Outpatient (BNVA) | payer MEDICARE, MEDICAID, SELFPAY | PROVIDERS: PCP Family Medicine; Visit Provider Podiatrist Foot & Ankle Surgery | DX: E11.42 Type 2 diabetes mellitus with diabetic polyneuropathy (principal); M21.41 Flat foot [pes planus] (acquired), right foot; M21.42 Flat foot [pes planus] (acquired), left foot; M21.611 Bunion of right foot; M21.612 Bunion of left foot; M21.621 Bunionette of right foot; M21.622 Bunionette of left foot; M72.2 Plantar fascial fibromatosis | CPT/HCPCS: 99204 ==

== ENCOUNTER 2021-10-08 10:34 | Oncology outpatient (recurring) (ONCR) | payer MEDICARE, MEDICAID, SELFPAY ==
[2021-10-08 11:12] LABS: Basophils % 0.7 %; Eosinophils # 0.2 10^3/uL (0.0-0.8); Eosinophils % 2.8 %; Hematocrit 37.7 % (37.0-47.0); Hemoglobin 12.4 g/dL (11.5-15.3); Lymphocytes # 1.4 10^3/uL (0.8-4.8); Lymphocytes % 25.2 %; Mean Corpuscular HGB Conc 32.9 g/dL (30.0-36.0); Mean Corpuscular Hemoglobin 30.5 pg (28.0-34.0); Mean Corpuscular Volume 92.6 fl (81-99); Mean Platelet Volume 9.6 fL (7.4-10.4); Monocytes # 0.4 10^3/uL (0.2-0.9); Monocytes % 6.9 %; Neutrophils # 3.62 10^3/uL (1.8-7.7); Neutrophils % 64.2 %; Nucleated Red Blood Cells % 0 %; Platelet Count 190 10^3/cmm (130-400); Red Blood Count 4.07 10^6/uL (4.1-5.3); Red Cell Distribution Width 12.6 % (12.1-15.1); White Blood Count 5.6 10^3/uL (4.0-10.0)
[2021-10-08 12:08] LABS: Carcinoembryonic Antigen 1.5 ng/mL (0.0-4.7)
[2021-10-08 12:19] LABS: Alanine Aminotransferase 13 U/L (0-33); Albumin Level 4.1 g/dL (3.5-5.2); Alkaline Phosphatase 83 IU/L (35-105); Anion Gap 17.5 (5-19); Aspartate Amino Transferase 16 U/L (0-32); Blood Urea Nitrogen 29 mg/dL (8-23); Calcium 8.9 mg/dL (8.5-10.5); Carbon Dioxide 25 mmol/L (22-29); Chloride 101 mmol/L (98-107); Globulin 2.8 g/dL (1.3-4.6); Glucose 153 mg/dL (65-115); Osmolality Calculated 297 mOsm/kg (285-295); Potassium 4.5 mmol/L (3.5-5.1); Sodium 139 mmol/L (136-145); Total Bilirubin 0.5 mg/dL (0.15-1.2); Total Protein 6.9 g/dL (6.6-8.7)
== END 2021-10-30 23:59 | disposition home or self-care (01) ==
PROVIDERS: PCP Family Medicine; Visit Provider Internal Medicine Hematology & Oncology
DX: Z08 Encounter for follow-up examination after completed treatment for malignant neoplasm (principal); Z85.038 Personal history of other malignant neoplasm of large intestine
CPT/HCPCS: 36415; 80053; 82378; 85025; 99214; G0463

== ENCOUNTER → 2021-10-09 10:49 | Outpatient (BNVA) | payer MEDICARE, MEDICAID, SELFPAY | PROVIDERS: PCP Family Medicine; Visit Provider Surgery | DX: C18.9 Malignant neoplasm of colon, unspecified (principal) | CPT/HCPCS: 99213 ==

== ENCOUNTER → 2021-10-15 15:21 | Outpatient (BNVA) | payer MEDICARE, MEDICAID, SELFPAY | PROVIDERS: PCP Family Medicine; Visit Provider Family Medicine | DX: I26.99 Other pulmonary embolism without acute cor pulmonale (principal); E03.9 Hypothyroidism, unspecified; I10 Essential (primary) hypertension; E78.2 Mixed hyperlipidemia; E11.9 Type 2 diabetes mellitus without complications; Z79.4 Long term (current) use of insulin; E11.42 Type 2 diabetes mellitus with diabetic polyneuropathy; E11.8 Type 2 diabetes mellitus with unspecified complications | CPT/HCPCS: 80053; 80061; 83036; 84443; 85025; 85610 ==

== ENCOUNTER → 2021-11-05 09:19 | Outpatient (BNVA) | payer MEDICARE, MEDICAID, SELFPAY | PROVIDERS: PCP Family Medicine; Visit Provider Family Medicine | DX: J02.9 Acute pharyngitis, unspecified (principal); Z11.52 Encounter for screening for COVID-19; U07.1 COVID-19 | CPT/HCPCS: 87071; 87426; 87880 ==

== ENCOUNTER → 2021-11-11 10:26 | Outpatient (BNVA) | payer MEDICARE, MEDICAID, SELFPAY | PROVIDERS: PCP Family Medicine; Visit Provider Family Medicine | DX: I26.99 Other pulmonary embolism without acute cor pulmonale (principal); U07.1 COVID-19 | CPT/HCPCS: 85610; 87426 ==

== ENCOUNTER → 2021-11-15 11:21 | Outpatient (BNVA) | payer MEDICARE, MEDICAID, SELFPAY | PROVIDERS: PCP Family Medicine; Visit Provider Nurse Practitioner Family | DX: U07.1 COVID-19 (principal) | CPT/HCPCS: 87635 ==

== ENCOUNTER → 2021-12-16 09:05 | Outpatient (BNVA) | payer MEDICARE, MEDICAID, SELFPAY | PROVIDERS: PCP Family Medicine; Visit Provider Family Medicine | DX: I26.99 Other pulmonary embolism without acute cor pulmonale (principal) | CPT/HCPCS: 85610 ==

== ENCOUNTER → 2022-01-27 11:26 | Outpatient (BNVA) | payer MEDICARE, MEDICAID, SELFPAY | PROVIDERS: PCP Family Medicine; Visit Provider Family Medicine | DX: I26.99 Other pulmonary embolism without acute cor pulmonale (principal) | CPT/HCPCS: 85610 ==

== ENCOUNTER 2022-01-30 05:30 | Day surgery (SDC) | payer MEDICARE, MEDICAID, SELFPAY ==
[2022-01-28 08:44] VITALS: BMI 31.9
[2022-01-30 06:12] VITALS: BP 137/68; PULSE 53; RESP 18; TEMP 36.5; O2SAT 99
[2022-01-30] MEDS: sodium chloride 0.9% 1,000 ML 30 ML IV (06:23)
[2022-01-30 06:26] LABS: Glucose Point of Care 112 mg/dL (70-110)
--- NOTE | 2022-01-30 06:35 | W.PM.OPSFHP ---
Same Day Surgery H&P Indication for Procedure/HPI DATE OF PROCEDURE: January 30, 2022 CHIEF COMPLAINT/INDICATIONFOR SURGICAL PROCEDURE: History of colon cancer PREOP DIAGNOSIS: Colon cancer PLANNED PROCEDURE: Operation Date: 01/30/22 07:00 Proposed Procedures p Colonoscopy 52385,C18.9(Not Applicable) - Karlos Palacios MD September 2021 This is a pleasant 75 years old.? Patient undergone sigmoid colon resection for infiltrating adenocarcinoma by my partner back in July 09, 2016, patient undergone surveillance colonoscopy more than a year ago and she comes today to establish care for surveillance colonoscopy Patient would like to continue her surveillance colonoscopy. 01/30/2022 Patient comes today for surveillance colonoscopy status post left hemicolectomy resection for infiltrating adenocarcinoma that was done back 07/09/2016 ROS All systems have been reviewed negative except as for the above or per problem list. Medications/Allergies* Home Medications Medication Instructions Recorded Confirmed Type docusate sodium 100 mg capsule 100 mg PO BID 03/08/19 01/30/22 History (Colace) ferrous sulfate 325 mg (65 mg 325 mg PO DAILY@0800 03/08/19 01/30/22 History iron) tablet (FeroSul) warfarin 3 mg tablet 3 mg PO DAILY@1600 07/25/20 01/30/22 History febuxostat 40 mg tablet 80 mg PO DAILY 01/30/22 01/30/22 History furosemide 20 mg tablet 20 mg PO DAILY PRN Edema 01/30/22 01/30/22 History insulin glargine 100 unit/mL (3 15 unit SUBCUT DAILY 01/30/22 01/30/22 History mL) subcutaneous pen (Lantus Solostar U-100 Insulin) levothyroxine 88 mcg tablet 88 mcg PO DAILY 01/30/22 01/30/22 History lisinopril 20 mg tablet 20 mg PO DAILY 01/30/22 01/30/22 History Allergies/Adverse Reactions Allergy/AdvReac Type Severity Reaction Status Date / Time Penicillins Allergy Unknown ALGY-Rash Verified 01/30/22 06:38 valsartan [From Diovan] Allergy Unknown ADR/ALGY-Pa Verified 01/30/22 06:38 lpitations Current Medications: Generic Name Dose Route Start Last Admin Trade Name Freq PRN Reason Stop Dose Admin Sodium Chloride 1,000 mls @ 30 mls/hr 01/30/22 06:00 01/30/22 06:23 Sodium Chloride 0.9% IV 01/31/22 05:59 30 mls/hr .Q24H CARLOS MANUEL Administration Pertinent History/Comorbid Conditions* Medical History (Updated 11/05/21 @ 09:45 by Penny Sanchez MD) Chronic anticoagulation Colon cancer Diabetes mellitus, insulin dependent (IDDM), controlled DVT (deep venous thrombosis) History of colon cancer T2N0M0 - 2017 Hyperlipidemia, mixed Hypertension Hypothyroidism Pulmonary embolism Surgical History (Updated 06/05/20 @ 11:33 by Isac Mora MD) H/O colonoscopy (06/05/20) 05/02/19: polyps ascending and descending colon 06/04/20: IC valve and descending colon polyp History of hysterectomy History of subtotal thyroidectomy S/P appendectomy S/P arthroscopic surgery of left knee S/P colon resection Laparoscopic left hemicolectomy: July 09, 2016 Family History (Updated 10/08/21 @ 12:51 by Isabel Mederos LPN) Diabetes CAD (coronary artery disease) Clotting disorder Bleeding disorder Cancer Father Hypertension Denies family history of Dementia Hyperlipidemia Psychiatric illness Chronic kidney disease (CKD) Suicide Anesthesia complication Lung disease Stroke Social History Smoking and tobacco status: never smoked Second hand smoke exposure: No Alcohol intake: never Caregiver/support person: Yes (sisters) Lives independently: Yes (son lives with her) Household members: children Marital status: / service: No Current occupational status: retired History of recent travel: No Current gender identity: Female Special mark needs: No Agree to transfusion: Yes Pertinent Exam Findings alert, oriented x 3, regular rate & rhythm and procedure specific exam findings (Abdominal exam nontender nondistended soft) Recommendations Surgery/Procedure today (Colonoscopy with possible biopsy) Coding Level of Care Code Acute 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
--- NOTE | 2022-01-30 06:59 | ANES.PREANE2 ---
Pre-Anesthetic Assessment Height/Weight: Height 1.68 m Weight 89.811 kg Temp Pulse Resp BP Pulse Ox O2 Del Method 97.7 F 53 L 18 137/68 99 01/30/22 06:12 01/30/22 06:12 01/30/22 06:12 01/30/22 06:12 01/30/22 06:12 01/30/22 06:12 Preop Diagnosis: Colon cancer Operation Date: 01/30/22 07:00 Proposed Procedures p Colonoscopy 94330,C18.9(Not Applicable) - Karlos Palacios MD Familial anesthetic complications: none Was Beta [place] taken within 24 hours: Yes Was Clonidine taken within 24 hours: N/A Last intake: Intake Last Liquid Date 01/29/22 Last Liquid Time 23: Last Solid Date 01/28/22 Last Intake: 23:30 Social No alcohol and No tobacco Exam alert, oriented x 3, clear to auscultation bilaterally and regular rate & rhythm Airway Submandibular: within normal limits Cervical ROM: within normal limits Mallampati: Class I Dentition: full Pulmonary None reported PE CV/HEM Deep Vein Thrombosis and Hypertension None reported Hepatic None reported GI None reported Metabolic Diabetes Mellitus and Morbid Obesity [facility] [place] None reported Neuropsych None reported Anesthetic Plan ASA status: 3 Anesthesia: MAC Medications/Allergies Home Medications Medication Instructions Recorded Confirmed Last Taken Type docusate sodium 100 mg capsule 100 mg PO BID 03/08/19 01/30/22 01/26/22 History (Colace) ferrous sulfate 325 mg (65 mg 325 mg PO DAILY@0800 03/08/19 01/30/22 01/26/22 History iron) tablet (FeroSul) warfarin 3 mg tablet 3 mg PO DAILY@1600 07/25/20 01/30/22 01/26/22 History Diabetic Shoes with 3 Pairs of #1 ea 09/18/21 11/05/21 Unknown Rx Inserts pen needle, diabetic 32 gauge x #100 ea 09/30/21 11/05/21 Unknown Rx 5/32 Diabetic shoes with inserts #1 ea 10/15/21 11/05/21 Unknown Rx blood sugar diagnostic (True See Rx Instructions .Route 10/15/21 01/30/22 Unknown Rx Metrix Glucose Test Strip) .COMPLEX ##100 warfarin 2 mg tablet See Rx Instructions .Route 12/11/21 01/30/22 01/26/22 Rx .COMPLEX #60 tabs lancets 30 gauge (TRUEplus Lancets) ##100 01/06/22 Unknown Rx febuxostat 40 mg tablet 80 mg PO DAILY 01/30/22 01/30/22 01/26/22 History furosemide 20 mg tablet 20 mg PO DAILY PRN Edema 01/30/22 01/30/22 Unknown History insulin glargine 100 unit/mL (3 15 unit SUBCUT DAILY 01/30/22 01/30/22 01/26/22 History mL) subcutaneous pen (Lantus Solostar U-100 Insulin) levothyroxine 88 mcg tablet 88 mcg PO DAILY 01/30/22 01/30/22 01/30/22 History lisinopril 20 mg tablet 20 mg PO DAILY 01/30/22 01/30/22 01/29/22 History Allergies Allergy/AdvReac Type Severity Reaction Status Date / Time Penicillins Allergy Unknown ALGY-Rash Verified 01/30/22 06:38 valsartan [From Diovan] Allergy Unknown ADR/ALGY-Pa Verified 01/30/22 06:38 lpitations Current Medications Generic Name Dose Route Start Last Admin Trade Name Freq PRN Reason Stop Dose Admin Sodium Chloride 1,000 mls @ 30 mls/hr 01/30/22 06:00 01/30/22 06:23 Sodium Chloride 0.9% IV 01/31/22 05:59 30 mls/hr .Q24H CARLOS MANUEL Administration PFSH Anesthesia Medical History Chronic anticoagulation Colon cancer Diabetes mellitus, insulin dependent (IDDM), controlled DVT (deep venous thrombosis) History of colon cancer T2N0M0 - 2017 Hyperlipidemia, mixed Hypertension Hypothyroidism Pulmonary embolism Surgical History H/O colonoscopy (06/05/20) 05/02/19: polyps ascending and descending colon 06/04/20: IC valve and descending colon polyp History of hysterectomy History of subtotal thyroidectomy S/P appendectomy S/P arthroscopic surgery of left knee S/P colon resection Laparoscopic left hemicolectomy: July 09, 2016 Family History Father Cancer Other Bleeding disorder CAD (coronary artery disease) Clotting disorder Diabetes Hypertension Denies family history of Dementia Hyperlipidemia Psychiatric illness Chronic kidney disease (CKD) Suicide Anesthesia complication Lung disease Stroke Social History Smoking and tobacco status: never smoked Second hand smoke exposure: No Alcohol intake: never Caregiver/support person: Yes (sisters) Lives independently: Yes (son lives with her) Household members: children Marital status: / service: No Current occupational status: retired History of recent travel: No Current gender identity: Female Special mark needs: No Agree to transfusion: Yes Data Anesthesia Cardiac Studies: No Data to Display
[2022-01-30 07:22] VITALS: BP 125/58; PULSE 50; RESP 18; TEMP 36.1; O2SAT 99
[2022-01-30 07:40] VITALS: BP 145/89; PULSE 52; RESP 16; O2SAT 100
--- NOTE | 2022-01-30 15:45 | ANE.PACU2 ---
Inpatient post-anesthesia follow up: Airway intact: Yes Vital signs: Temperature 97.0 F Pulse Rate 52 Respiratory Rate 16 Blood Pressure 145/89 Pulse Oximetry 100 Oxygen Delivery Me thod Room Air Oxygen Flow Rate Fraction of Inspir ed Oxygen Hydration adequate: Yes Nausea and vomiting: No Pain level: 1 Mental status: Baseline
== END 2022-01-30 08:05 | disposition home or self-care (01) ==
PROVIDERS: PCP Family Medicine; Visit Provider Surgery
PROC: 0DJD8ZZ Inspection of Lower Intestinal Tract, Via Natural or Artificial Opening Endoscopic (ICD-10-PCS; CPT 45378; principal; 2022-01-30 07:00)
DX: Z12.11 Encounter for screening for malignant neoplasm of colon (principal); C18.9 Malignant neoplasm of colon, unspecified; D12.2 Benign neoplasm of ascending colon; D12.4 Benign neoplasm of descending colon; Z90.49 Acquired absence of other specified parts of digestive tract; Z79.01 Long term (current) use of anticoagulants; E11.9 Type 2 diabetes mellitus without complications; Z86.718 Personal history of other venous thrombosis and embolism; E78.2 Mixed hyperlipidemia; I10 Essential (primary) hypertension; E03.9 Hypothyroidism, unspecified
CPT/HCPCS: 36416; 45380; 82962; 88305; J2704; J7030

== ENCOUNTER → 2022-02-03 13:56 | Outpatient (BNVA) | payer MEDICARE, MEDICAID, SELFPAY | PROVIDERS: PCP Family Medicine; Visit Provider Family Medicine | DX: I26.99 Other pulmonary embolism without acute cor pulmonale (principal) | CPT/HCPCS: 85610 ==

== ENCOUNTER → 2022-02-07 09:14 | Outpatient (BNVA) | payer MEDICARE, SELFPAY | PROVIDERS: PCP Family Medicine; Visit Provider Family Medicine | DX: I26.99 Other pulmonary embolism without acute cor pulmonale (principal) | CPT/HCPCS: 85610 ==

== ENCOUNTER → 2022-02-12 08:47 | Outpatient (BNVA) | payer MEDICARE, MEDICAID, SELFPAY | PROVIDERS: PCP Family Medicine; Visit Provider Family Medicine | DX: I26.99 Other pulmonary embolism without acute cor pulmonale (principal) | CPT/HCPCS: 85610; 99212 ==

== ENCOUNTER → 2022-03-05 09:15 | Outpatient (BNVA) | payer MEDICARE, SELFPAY | PROVIDERS: PCP Family Medicine; Visit Provider Family Medicine | DX: I26.99 Other pulmonary embolism without acute cor pulmonale (principal) | CPT/HCPCS: 85610 ==

== ENCOUNTER → 2022-03-25 09:04 | Outpatient (BNVA) | payer MEDICARE, MEDICAID, SELFPAY | PROVIDERS: PCP Family Medicine; Visit Provider Podiatrist Foot & Ankle Surgery | DX: E11.8 Type 2 diabetes mellitus with unspecified complications (principal); E11.42 Type 2 diabetes mellitus with diabetic polyneuropathy; M21.41 Flat foot [pes planus] (acquired), right foot; M21.42 Flat foot [pes planus] (acquired), left foot; M72.2 Plantar fascial fibromatosis; M21.621 Bunionette of right foot; M21.622 Bunionette of left foot; M21.611 Bunion of right foot; M21.612 Bunion of left foot; Z79.84 Long term (current) use of oral hypoglycemic drugs | CPT/HCPCS: 99214 ==

== ENCOUNTER → 2022-04-14 15:46 | Outpatient (BNVA) | payer MEDICARE, SELFPAY | PROVIDERS: PCP Family Medicine; Visit Provider Family Medicine | DX: I26.99 Other pulmonary embolism without acute cor pulmonale (principal) | CPT/HCPCS: 85610 ==

== ENCOUNTER → 2022-05-02 13:43 | Outpatient (BNVA) | payer MEDICARE, MEDICAID, SELFPAY | PROVIDERS: PCP Family Medicine; Visit Provider Family Medicine | DX: L23.9 Allergic contact dermatitis, unspecified cause (principal); R21 Rash and other nonspecific skin eruption; I26.99 Other pulmonary embolism without acute cor pulmonale | CPT/HCPCS: 85610 ==

== ENCOUNTER → 2022-05-28 11:44 | Outpatient (BNVA) | payer MEDICARE, MEDICAID, SELFPAY | PROVIDERS: PCP Family Medicine; Visit Provider Family Medicine | DX: I26.99 Other pulmonary embolism without acute cor pulmonale (principal) | CPT/HCPCS: 85610 ==

== ENCOUNTER → 2022-06-03 14:10 | Outpatient (BNVA) | payer MEDICARE, MEDICAID, SELFPAY | PROVIDERS: PCP Family Medicine; Visit Provider Family Medicine | DX: Z79.01 Long term (current) use of anticoagulants (principal) | CPT/HCPCS: 85610 ==

== ENCOUNTER → 2022-06-09 09:50 | Outpatient (BNVA) | payer MEDICARE, SELFPAY | PROVIDERS: PCP Family Medicine; Visit Provider Family Medicine | DX: I26.99 Other pulmonary embolism without acute cor pulmonale (principal) | CPT/HCPCS: 85610 ==

== ENCOUNTER → 2022-07-03 14:17 | Outpatient (BNVA) | payer MEDICARE, MEDICAID, SELFPAY | PROVIDERS: PCP Family Medicine; Visit Provider Family Medicine | DX: B02.9 Zoster without complications (principal); I26.99 Other pulmonary embolism without acute cor pulmonale | CPT/HCPCS: 85610 ==

== ENCOUNTER 2022-07-12 12:41 | Emergency (ER) | payer MEDICARE, MEDICAID, SELFPAY ==
[2022-07-12 12:47] VITALS: BP 188/68; PULSE 82; RESP 18; TEMP 36.6; O2SAT 98
--- NOTE | 2022-07-12 13:25 | XRR_ITS ---
PROCEDURE INFORMATION: Exam: XR Lumbosacral Spine Exam date and time: 07/12/2022 1:35 PM Age: 76 years old Clinical indication: Low back pain; Additional info: Pain left lower back TECHNIQUE: Imaging protocol: Radiologic exam of the lumbosacral spine. Views: 2 or 3 views. COMPARISON: CT abdomen pelvis w con* [id number] 04/11/2019 10:51 AM FINDINGS: Bones/joints: Normal. No acute fracture. Normal alignment. Soft tissues: Unremarkable. XR/XR lumbar spine 2-3V* [id number] IMPRESSION: No acute findings.
--- NOTE | 2022-07-12 13:27 | W.ED.BACK ---
HPI - Back Pain/Injury General: Chief Complaint: Back Pain/Injury Stated Complaint: back pain Time Seen by Provider: 07/12/22 12:55 History of Present Illness: 76-year-old female presents emergency department chief complaint of a 5-day history of progressive lower lumbar back pain. Patient reports she does not recall any recent trauma or injury she reports no prior history of injury noted to the back or lumbar issues she reports a history previous of recent postherpetic neuralgia located to her right lateral chest patient reports that she was placed on gabapentin however has been too strong which made her feel quite fatigued which she discontinued patient is now calling recent trauma or injury she reports moderate pain located to the left lateral flank she reports no recent hematuria urinary frequency or concerns of UTI symptoms patient does not endorse any nausea or vomiting associated with her pain reports sharp in nature worse with movement and increased with rest patient presents to the ER with family for further assessment management. Associated symptoms: Deny abdominal pain, chills, fatigue, fever(s), nausea or vomiting Review of Systems General: Reports: 10 or more systems reviewed and unremarkable except in HPI and below Const: Denies: fever(s), chills, fatigue or malaise Eyes: Denies: change in vision or blurry vision Card: Denies: chest pain or palpitations Resp: Denies: dyspnea or productive cough GI: Denies: abdominal pain, nausea or vomiting : Denies: flank pain Musc: Reports: back pain; Denies: extremity pain or extremity swelling Skin/Breast: Denies: rash or pruritus Neuro: Denies: headache(s) Psych: Denies: anxiety or depression [place]/Lymph: Denies: easy bleeding All/Imm: Denies: urticaria, throat swelling or facial swelling PFSH ED PFSH: Medical History Chronic anticoagulation Colon cancer Diabetes mellitus, insulin dependent (IDDM), controlled DVT (deep venous thrombosis) History of colon cancer T2N0M0 - 2017 Hyperlipidemia, mixed Hypertension Hypothyroidism Pulmonary embolism Surgical History H/O colonoscopy (06/05/20) 05/02/19: polyps ascending and descending colon 06/04/20: IC valve and descending colon polyp History of hysterectomy History of subtotal thyroidectomy S/P appendectomy S/P arthroscopic surgery of left knee S/P colon resection Laparoscopic left hemicolectomy: July 09, 2016 Family History Father Cancer Other Bleeding disorder CAD (coronary artery disease) Clotting disorder Diabetes Hypertension Denies family history of Dementia Hyperlipidemia Psychiatric illness Chronic kidney disease (CKD) Suicide Anesthesia complication Lung disease Stroke Social History Smoking and tobacco status: never smoked Second hand smoke exposure: No Alcohol intake: never Substance/Drug Use: never Caregiver/support person: Yes (sisters) Lives independently: Yes (son lives with her) Household members: children Marital status: / service: No Current occupational status: retired Current gender identity: Female Special mark needs: No Agree to transfusion: Yes Physical Exam Const: COMMON NORMALS: no acute distress, patient oriented x3 and healthy appearing HENMT: COMMON NORMALS: normocephalic and atraumatic HEAD & SCALP: normocephalic and atraumatic Eye: COMMON NORMALS: Equal, round and reactive pupils present and EOMs intact bilaterally PUPIL: Yes Equal, round and reactive pupils present Neck/C-Spine: COMMON NORMALS: full ROM, supple and no JVD Lymph: LYMPHATIC: no lymphadenopathy noted Chest: COMMONS NORMALS: normal inspection of the chest and normal palpation of entire chest wall Resp: COMMON NORMALS: normal respiratory effort, No retractions and clear to auscultation bilaterally EFFORT & INSPECTION: Yes able to speak in complete sentences and Yes symmetric chest movement AUSCULTATION: clear to auscultation bilaterally Cardio: COMMON NORMALS: no JVD, regular rate and regular rhythm RATE: regular rate RHYTHM: regular rhythm GI: COMMON NORMALS: Normal to inspection, nondistended, normoactive bowel sounds present, Soft to palpation and non-tender INSPECTION: Yes normal to inspection PALPATION: Yes Soft to palpation : COMMON NORMALS: Yes no CVA tenderness BLADDER/KIDNEY EXAM: Yes no CVA tenderness Back/Pelvis: COMMON NORMALS: no CVA tenderness; negative for no thoracic nor lumbar tenderness (Thoracolumbar tenderness appreciated the right side with mild spasm noted n) Extremity: COMMON NORMALS: normal to inspection and full ROM Neuro: COMMON NORMALS: patient oriented x3, CN's II-XII intact bilaterally, moves all extremities and no focal motor deficits Psych: COMMON NORMALS: mental status grossly normal, Normal thought process present, cooperative and normal affect THOUGHT PROCESS: Normal thought process present Skin: COMMON NORMALS: no rashes or lesions noted GENERAL SKIN EXAM: no rashes or lesions noted Course Vital Signs: Vital signs: Vital Signs Temperature 97.9 F 07/12/22 12:47 Pulse Rate 82 07/12/22 12:47 Respiratory Rate 18 07/12/22 12:47 Blood Pressure 188/68 07/12/22 12:47 Pulse Oximetry 98 07/12/22 12:47 Oxygen Delivery Me thod Room Air 07/12/22 12:47 MDM - Back Pain/Injury Medical Decision Making Due to patient symptom condition x-ray imaging lumbar spine will be obtained urinalysis will also be obtained we will continue to follow. X-ray imaging came back unremarkable start the patient on additional medications for her lumbar strain advised further follow-up with primary care in 3 to 5 days in which she was advised to return the interim if any of her symptoms persist or worse. Labs Radiology Impressions Lumbar Spine X-Ray 07/12/22 13:25 IMPRESSION: No acute findings. Laboratory Results Urine Color Colorless (Yellow) 07/12/22 14:10 Urine Appearance Clear (CLEAR) 07/12/22 14:10 Urine pH 5 (5-7) 07/12/22 14:10 Ur Specific [place] 1.010 (1.005-1.030) 07/12/22 14:10 Urine Protein Neg (Negative) 07/12/22 14:10 Urine Glucose (UA) Norm (Normal) 07/12/22 14:10 Urine Ketones Negative (Negative) 07/12/22 14:10 Urine Blood Neg (Negative) 07/12/22 14:10 Urine Nitrate Negative (Negative) 07/12/22 14:10 Urine Bilirubin Neg (Negative) 07/12/22 14:10 Urine Urobilinogen Norm mg/dL (Negative) 07/12/22 14:10 Ur Leukocyte Esterase Trace (Negative) H 07/12/22 14:10 Discharge Plan Discharge Patient Disposition: Home Clinical Impression: Acute lumbar myofascial strain Condition: Stable Prescriptions: New tramadol 50 mg tablet 50 mg PO Q8H PRN (Reason: pain) Qty: 20 0RF methocarbamol 500 mg tablet 500 mg PO Q8H PRN (Reason: spasms) Qty: 14 0RF No Action docusate sodium [Colace] 100 mg capsule 100 mg PO BID ferrous sulfate [FeroSul] 325 mg (65 mg iron) tablet 325 mg PO DAILY@0800 warfarin 3 mg tablet 3 mg PO DAILY@1600 Hold Instructions: Resume on 01/31/22. Protocol: Dose Management Condition: Thursday Dose/Route: 2 mg Instruction: 1 x 2 mg tablet Condition: Thursday Dose/Route: 2 mg Instruction: 1 x 2 mg tablet Condition: Thursday Dose/Route: 2 mg Instruction: 1 x 2 mg tablet Condition: Thursday Dose/Route: 2 mg Instruction: 1 x 2 mg tablet Condition: Dose/Route: 2 mg Instruction: 1 x 2 mg tablet Condition: Thursday Dose/Route: 2 mg Instruction: 1 x 2 mg tablet Condition: Thursday Dose/Route: 2 mg Instruction: 1 x 2 mg tablet Protocol Text: Adjustment Start Date: 07/03/22 INR Value: 21.60 SECONDS INR Date: 07/03/22 Recheck Date: 07/17/22 Rx Instructions: *see pharmacy comment* (DME) Diabetic Shoes with 3 Pairs of Inserts See Rx Instructions .Route .MEDSUPPLY Qty: 1 0RF Rx Instructions: As directed by HOME triamcinolone acetonide 0.1 % cream 1 applic topical BID Qty: 30 0RF warfarin 2 mg tablet See Rx Instructions .ROUTE .COMPLEX Qty: 60 0RF Hold Instructions: Resume on 02/01/22. Protocol: Dose Management Condition: Thursday Dose/Route: 2 mg Instruction: 1 x 2 mg tablet Condition: Thursday Dose/Route: 2 mg Instruction: 1 x 2 mg tablet Condition: Thursday Dose/Route: 2 mg Instruction: 1 x 2 mg tablet Condition: Thursday Dose/Route: 2 mg Instruction: 1 x 2 mg tablet Condition: Dose/Route: 2 mg Instruction: 1 x 2 mg tablet Condition: Thursday Dose/Route: 2 mg Instruction: 1 x 2 mg tablet Condition: Thursday Dose/Route: 2 mg Instruction: 1 x 2 mg tablet Protocol Text: Adjustment Start Date: 07/03/22 INR Value: 21.60 SECONDS INR Date: 07/03/22 Recheck Date: 05/18/23 Dose Instruction: TAKE 1 & 1/2 (ONE & ONE-HALF) TABLETS BY MOUTH ONCE DAILY Rx Instructions: TAKE 1 & 1/2 (ONE & ONE-HALF) TABLETS BY MOUTH ONCE DAILY lidocaine [Lidoderm] 5 % adhesive patch,medicated 1 patch topical DAILY Qty: 15 0RF Rx Instructions: leave on most painful area for up to 12 hrs furosemide 40 mg tablet 40 mg PO DAILY PRN (Reason: Edema) Qty: 30 3RF Rx Instructions: TAKE 1 TABLET BY MOUTH IN THE MORNING NEEDED FOR EDEMA potassium chloride 10 mEq capsule, extended release 10 meq PO DAILY Qty: 30 3RF (DME) Diabetic shoes with inserts See Rx Instructions .Route .MEDSUPPLY Qty: 1 0RF Rx Instructions: As directed True Metrix Glucose Test Strip Strip See Rx Instructions .ROUTE .COMPLEX Qty: 100 12RF Dose Instruction: USE DIRECTED FOUR TIMES DAILY Rx Instructions: USE DIRECTED FOUR TIMES DAILY valacyclovir [Valtrex] 1 gram tablet 1,000 mg PO TID Qty: 21 0RF gabapentin 300 mg capsule 300 mg PO TID Qty: 90 0RF (DME) lancets [TRUEplus Lancets] 30 gauge misc See Rx Instructions .ROUTE .COMPLEX Qty: 100 12RF Dose Instruction: USE TO test FOUR times DAILY Rx Instructions: USE TO test FOUR times DAILY (DME) pen needle, diabetic 32 gauge x 5/32 needle See Rx Instructions .ROUTE .COMPLEX Qty: 100 4RF Dose Instruction: USE DIRECTED Rx Instructions: USE DIRECTED febuxostat 80 mg tablet 80 mg PO DAILY Qty: 30 3RF levothyroxine 88 mcg tablet 88 mcg PO DAILY Qty: 90 0RF Rx Instructions: Take 1 tablet by mouth once daily lisinopril 20 mg tablet See Rx Instructions .ROUTE .COMPLEX Qty: 90 0RF Dose Instruction: Take 1 tablet by mouth once daily Rx Instructions: Take 1 tablet by mouth once daily hydrocodone-acetaminophen 5-325 mg tablet 1 tab PO Q4H PRN (Reason: pain) 5 Days Qty: 30 0RF cetirizine [Zyrtec] 10 mg tablet 10 mg PO DAILY Qty: 30 2RF diphenhydramine HCl [Benadryl] 25 mg capsule 50 mg PO .HS Qty: 60 2RF famotidine [Pepcid] 20 mg tablet 20 mg PO DAILY Qty: 30 2RF Lantus Solostar U-100 Insulin 100 unit/mL (3 mL) insulin pen 15 unit SUBCUT DAILY Rx Instructions: INJECT 15 UNITS SUBCUTANEOUSLY ONCE DAILY AT 8AM Discharge Orders: Discharge ED (Routine); Ordered 07/12/22 Ordered By: Evans Zuleta Referrals: Penny Sanchez MD [Primary Care Provider] - 1-3 days Discharge Diet: Advance as tolerated Discharge Activity: Increase activity as tolerated Patient Instructions: Low Back Strain (ED), Core Strengthening Exercises (ED), Opioid Safety, Pain Management Activity Restrictions/Additional Instructions: Please further follow-up with your primary care doctor in 3 to 5 days, take medication as prescribed and please return in the interim if any of her symptoms persist or worse. Coding Level of Care Code ED Register Repairer for Yanick Bauer
[2022-07-12 14:22] LABS: Add Urine Microscopic? NO; Charge for UA Resulting for Rev
[2022-07-12 14:44] LABS: Urine Color Colorless (Yellow)
[2022-07-12 14:45] LABS: Bilirubin Urine Neg (Negative); Blood Urine Neg (Negative); Glucose Urine UA Norm (Normal); Ketones Urine Negative (Negative); Leukocyte Esterase Urine Trace (Negative); Nitrate Urine Negative (Negative); Protein Urine Neg (Negative); Urine Appearance Clear (CLEAR); Urobilinogen Urine Norm (Negative); pH Urine 5 (5-7)
== END 2022-07-12 15:42 | disposition home or self-care (01) ==
PROVIDERS: Emergency Provider Emergency Medicine; PCP Family Medicine
DX: S39.012A Strain of muscle, fascia and tendon of lower back, initial encounter (principal); Z79.01 Long term (current) use of anticoagulants; Z79.4 Long term (current) use of insulin; Z85.038 Personal history of other malignant neoplasm of large intestine; E11.9 Type 2 diabetes mellitus without complications; E78.2 Mixed hyperlipidemia; X58.XXXA Exposure to other specified factors, initial encounter
CPT/HCPCS: 72100; 81003; 99284

== ENCOUNTER → 2022-07-15 10:19 | Outpatient (BNVA) | payer MEDICARE, MEDICAID, SELFPAY | PROVIDERS: PCP Family Medicine; Visit Provider Family Medicine | DX: I26.99 Other pulmonary embolism without acute cor pulmonale (principal) | CPT/HCPCS: 85610 ==

== ENCOUNTER → 2022-07-17 10:30 | Outpatient (BNVA) | payer MEDICARE, MEDICAID, SELFPAY | PROVIDERS: PCP Family Medicine; Visit Provider Family Medicine | DX: I26.99 Other pulmonary embolism without acute cor pulmonale (principal) | CPT/HCPCS: 85610 ==

== ENCOUNTER → 2022-07-22 12:54 | Outpatient (BNVA) | payer MEDICARE, MEDICAID, SELFPAY | PROVIDERS: PCP Family Medicine; Visit Provider Family Medicine | DX: I26.99 Other pulmonary embolism without acute cor pulmonale (principal) | CPT/HCPCS: 85610 ==

== ENCOUNTER → 2022-08-21 08:52 | Outpatient (BNVA) | payer MEDICARE, MEDICAID, SELFPAY | PROVIDERS: PCP Family Medicine; Visit Provider Student in an Organized Health Care Education/Training Program | DX: B02.29 Other postherpetic nervous system involvement (principal); B02.9 Zoster without complications | CPT/HCPCS: 99205 ==

== ENCOUNTER → 2022-08-25 10:12 | Outpatient (BNVA) | payer MEDICARE, MEDICAID, SELFPAY | PROVIDERS: PCP Family Medicine; Visit Provider Family Medicine | DX: I26.99 Other pulmonary embolism without acute cor pulmonale (principal) | CPT/HCPCS: 80076; 85610 ==

== ENCOUNTER 2022-10-10 09:07 | Inpatient (IN) | payer MEDICARE, MEDICAID, SELFPAY ==
[2022-10-10] VITALS (25 sets, daily range): BP systolic 101–176; BP diastolic 46–81; PULSE 58–94; RESP 15–25; TEMP 36.4–37; O2SAT 94–100; BMI 32.8
--- NOTE | 2022-10-10 09:08 | W.ED.GENADLT ---
HPI - General Adult General: Chief complaint: Recheck/Abnormal Lab/Rx Stated complaint: sent by Dr Sánchez/abn labs Time Seen by Provider: 10/10/22 09:08 History of Present Illness: Ms. Beavers is a 76-year-old lady with remote history of colon cancer status post completion of therapy, chronic anticoagulation with history of thromboembolic disease presenting to the emergency department for evaluation of abnormal labs. She notes increased shortness of breath, lightheadedness, fatigue, generalized weakness for a few weeks. Apparently she was seen by primary care and thought to have some increased swelling and initiated on Lasix. Despite that she has not felt better. She was seen for routine appointment at the oncology clinic and labs were reported low hemoglobin. Patient denies sources of bleeding. Denies history of GI bleeds. Course has worsened overall. Moderate to severe in intensity. No other specific changes in health, exacerbating, or alleviating factors identified. Onset (ago): week(s) Severity: moderate Exacerbating factors: other (Exertion) Associated symptoms: Reports dyspnea, malaise, short of breath and weakness Review of Systems General: Reports: 10 or more systems reviewed and unremarkable except in HPI and below Const: Reports: malaise Resp: Reports: dyspnea PFSH ED PFSH: Medical History Chronic anticoagulation Colon cancer Diabetes mellitus, insulin dependent (IDDM), controlled DVT (deep venous thrombosis) History of colon cancer T2N0M0 - 2017 Hyperlipidemia, mixed Hypertension Hypothyroidism Pulmonary embolism Surgical History H/O colonoscopy (06/05/20) 05/02/19: polyps ascending and descending colon 06/04/20: IC valve and descending colon polyp History of hysterectomy History of subtotal thyroidectomy S/P appendectomy S/P arthroscopic surgery of left knee S/P colon resection Laparoscopic left hemicolectomy: July 09, 2016 Family History Father Cancer Other Bleeding disorder CAD (coronary artery disease) Clotting disorder Diabetes Hypertension Denies family history of Dementia Hyperlipidemia Psychiatric illness Chronic kidney disease (CKD) Suicide Anesthesia complication Lung disease Stroke Social History Smoking and tobacco status: never smoked Second hand smoke exposure: No Alcohol intake: never Substance/Drug Use: never Caregiver/support person: Yes (sisters) Lives independently: Yes (son lives with her) Household members: children Marital status: / service: No Current occupational status: retired Current gender identity: Female Special mark needs: No Agree to transfusion: Yes Physical Exam Const: COMMON NORMALS: alert GENERAL APPEARANCE: cooperative and well developed HENMT: COMMON NORMALS: normocephalic and atraumatic HEAD & SCALP: normocephalic and atraumatic Eye: COMMON NORMALS: conjunctivae normal CONJUNCTIVA: Yes conjunctivae normal SCLERA: sclerae normal Neck/C-Spine: COMMON NORMALS: supple GENERAL: Yes trachea midline Resp: COMMON NORMALS: clear to auscultation bilaterally EFFORT & INSPECTION: Yes able to speak in complete sentences AUSCULTATION: clear to auscultation bilaterally OTHER: Mildly labored Cardio: COMMON NORMALS: regular rate and regular rhythm RATE: regular rate RHYTHM: regular rhythm GI: COMMON NORMALS: Soft to palpation PALPATION: Yes Soft to palpation and No Tenderness to palpation present (GI) OTHER: Rectal exam performed with food demonstrator present. External hemorrhoids without evidence of irritation or bleeding. Brown stool with no evidence of balaji blood. Guaiac positive. Extremity: GENERAL: Yes normal exam except as noted and No edema Neuro: COMMON NORMALS: moves all extremities SENSORIUM/ORIENTATION: Yes alert and No Orientation impaired Psych: COMMON NORMALS: mental status grossly normal and Normal thought process present THOUGHT PROCESS: Normal thought process present Course Vital Signs: Vital signs: Vital Signs Temperature 98.3 F 10/12/22 15:20 Pulse Rate 58 L 10/12/22 15:20 Respiratory Rate 17 10/12/22 15:20 Blood Pressure 149/73 10/12/22 15:20 Pulse Oximetry 97 10/12/22 15:20 Oxygen Delivery Me thod Room Air 10/11/22 09:30 Oxygen Flow Rate 4 10/11/22 09:19 [facility] - General Adult Medical Decision Making 76-year-old lady presenting with abnormal labs. Symptoms consistent with low hemoglobin. Exam as above. EKG demonstrates sinus rhythm with left axis deviation, normal intervals, no STEMI. Labs confirm anemia which is present on prior. INR is somewhat elevated. Elevated creatinine. Negative range 2-hour delta troponin. No UTI. Chest x-ray with no lobar consolidation or pneumothorax. CT with no clear etiology of symptoms, no active hemorrhage identified. Patient again noted to have bony abnormalities. Discussed with patient he was unaware of this. Subsequently discussed with oncology and additional labs ordered. Seems less likely to have multiple myeloma given mix of lesions however remains in differential. Consented for transfusion and transfusion ordered. Also given Protonix. The results of ED evaluation were discussed with the patient including plan for admission due to requirement for level of care not available if discharged to prevent significant worsening/deterioration. Patient agreeable with plan. Discussed with hospitalist service who was agreeable to admit patient. Medical Records I reviewed the patient's medical records. Lab Data I reviewed the patient's lab results. 10/12/22 05:45 10/12/22 05:45 Laboratory Results WBC 7.5 10^3/uL (4.0-10.0) 10/11/22 04:26 RBC 3.36 10^6/uL (4.1-5.3) L 10/11/22 04:26 Hgb 8.6 g/dL (11.5-15.3) L 10/11/22 04:26 Hct 27.9 % (37.0-47.0) L 10/11/22 04:26 MCV 83.0 fl (81-99) 10/11/22 04:26 MCH 25.6 pg (28.0-34.0) L 10/11/22 04:26 MCHC 30.8 g/dL (30.0-36.0) D 10/11/22 04:26 RDW 16.1 % (12.1-15.1) H 10/11/22 04:26 Plt Count 193 10^3/cmm (130-400) 10/11/22 04:26 Plt Count 195 10^3/cmm (130-400) 10/11/22 04:26 MPV 9.0 fL (7.4-10.4) 10/11/22 04:26 Neut % (Auto) 66.6 % 10/11/22 04:26 Lymph % (Auto) 18.8 % 10/11/22 04:26 [place] % (Auto) 9.8 % 10/11/22 04:26 Eos % (Auto) 4.0 % 10/11/22 04:26 Baso % (Auto) 0.4 % 10/11/22 04:26 Neut # (Auto) 4.96 10^3/uL (1.8-7.7) 10/11/22 04:26 Lymph # (Auto) 1.4 10^3/uL (0.8-4.8) 10/11/22 04:26 [place] # (Auto) 0.7 10^3/uL (0.2-0.9) 10/11/22 04: Eos # (Auto) 0.3 10^3/uL (0.0-0.8) 10/11/22 04:26 Baso # (Auto) 0.0 10^3/uL (0.0-0.1) 10/11/22 04: Nucleated RBC % (auto) 0 % 10/11/22 04: Nucleated RBCs # 0.0 /100WBC 10/11/22 04:26 Haptoglobin 173.0 mg/L (30-200) 10/10/22 09:10 PT 21.00 SECONDS (12.1-14.9) H 10/11/22 04:26 INR 1.74 (0.8-1.2) H 10/11/22 04:26 APTT 34.5 SECONDS (23.9-36.7) 10/11/22 04:26 Fibrinogen 281 mg/dL (174-498) 10/11/22 04:26 Sodium 139 mmol/L (136-145) 10/11/22 04:26 Potassium 4.7 mmol/L (3.5-5.1) 10/11/22 04:26 Chloride 110 mmol/L (98-107) H 10/11/22 04:26 Carbon Dioxide 19 mmol/L (22-29) L 10/11/22 04:26 Anion Gap 14.7 (5-19) 10/11/22 04:26 BUN 26 mg/dL (8-23) H 10/11/22 04:26 Creatinine 1.8 mg/dL (0.5-0.9) H 10/11/22 04:26 GFR Calculation Not Reportable 10/11/22 04:26 Glucose 120 mg/dL (65-115) H 10/11/22 04:26 POC Glucose 113 mg/dL (70-110) H 10/11/22 11:13 Calculated Osmolality 294 mOsm/kg (285-295) 10/11/22 04:26 Calcium 8.0 mg/dL (8.5-10.5) L 10/11/22 04:26 Magnesium 1.8 mg/dL (1.7-2.3) 10/11/22 04:26 Total Bilirubin 0.9 mg/dL (0.15-1.2) 10/11/22 04:26 AST 20 U/L (0-32) 10/11/22 04:26 ALT 16 U/L (0-33) 10/11/22 04:26 Alkaline Phosphatase 69 U/L (35-105) 10/11/22 04:26 Lactate Dehydrogenase 147 U/L (135-214) 10/10/22 09:10 Troponin T Baseline 21 ng/L (0-10) H 10/10/22 09:10 Troponin T Hi Sens 6Hr 19.12 ng/L (0-10) H 10/10/22 18:22 Troponin T Hi Sens 6Hr Delta -1.88 ng/L (0-12) L 10/10/22 18:22 NT-Pro-B Natriuret Pep 250 pg/mL (0-450) 10/10/22 09:10 Total Protein 5.6 g/dL (6.6-8.7) L 10/11/22 04:26 Albumin 3.4 g/dL (3.5-5.2) L 10/11/22 04:26 Globulin 2.2 g/dL (1.3-4.6) 10/11/22 04:26 Aavie-3-Tsmzefift 0.4 g/dL (0.2-0.3) H 10/10/22 09:10 Mjgog-9-Ntxomhsck 0.7 g/dL (0.5-0.9) 10/10/22 09:10 Pwbr-9-Ycmuqoei 0.4 g/dL (0.4-0.6) 10/10/22 09:10 Xivq-5-Gdihzewo 0.3 g/dL (0.2-0.5) 10/10/22 09:10 Gamma Globulins 0.6 g/dL (0.8-1.7) L 10/10/22 09:10 Abnorm Protein Band 1 Not Reportable 10/10/22 09:10 Vitamin B12 188 pg/mL (232-1245) L 10/10/22 09:10 Folate 12.4 ng/mL (4.8-37.3) 10/10/22 09:10 TSH 0.92 uIU/mL (0.27-4.20) 10/10/22 07:45 Urine Color Yellow (Yellow) 10/10/22 10:30 Urine Appearance Clear (CLEAR) 10/10/22 10:30 Urine pH 5 (5-7) 10/10/22 10:30 Ur Specific [place] 1.010 (1.005-1.030) 10/10/22 10:30 Urine Protein Neg (Negative) 10/10/22 10:30 Urine Glucose (UA) Norm (Normal) 10/10/22 10:30 Urine Ketones Negative (Negative) 10/10/22 10:30 Urine Blood Neg (Negative) 10/10/22 10:30 Urine Nitrate Negative (Negative) 10/10/22 10:30 Urine Bilirubin Neg (Negative) 10/10/22 10:30 Urine Urobilinogen Norm mg/dL (Negative) 10/10/22 10:30 Ur Leukocyte Esterase Negative (Negative) 10/10/22 10:30 U Abnormal Prot Band 2 Not Reportable 10/10/22 09:10 U Abnormal Prot Band 3 Not Reportable 10/10/22 09:10 Pro Electrophoresis Int See note 10/10/22 09:10 Free [place] Light Chains 44.4 mg/L (3.3-19.4) H 10/10/22 09:10 Free Lambda Light Chain 27.7 mg/L (5.7-26.3) H 10/10/22 09:10 Free [place]/Lambda Ratio 1.60 (0.26-1.65) 10/10/22 09:10 Blood Type O Negative 10/10/22 09:10 Rho(D) Type Negative 10/10/22 09:10 Antibody Screen Negative 10/10/22 09:10 Crossmatch See Detail 10/10/22 09:10 Discharge Plan Discharge Patient Disposition: Placed in Observation Admit Provider: Cailin Golden Clinical Impression: Signs and symptoms of anemia, Warfarin-induced coagulopathy, GI bleed, CKD (chronic kidney disease) Discharge Diet: Usual diet Discharge Activity: Resume usual activity Coding Level of Care Code ED Test Automation Architect for g Lizette
--- NOTE | 2022-10-10 09:09 | XR_ITS ---
WS: [id number] XR chest 1V portable [id number] REASON FOR EXAM: sob FINDINGS: The chest is unchanged compared to 01/29/2018. The heart and the mediastinum are within normal limits. Calcified granulomas disease in both hemithoraces. No acute pulmonary parenchymal or pleural abnormality. Significant degenerative spondylosis in the thoracic spine. IMPRESSION: Stable chest without acute abnormality.
--- NOTE | 2022-10-10 09:10 | ECG_ITS ---
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 Measurements Intervals [place] Rate: 76 P: 76 MS: 159 QRS: -30 QRSD: 94 T: 64 QT: 383 QTc: 433 Interpretive Statements SINUS RHYTHM WITH OCCASIONAL VENTRICULAR PREMATURE COMPLEXES BORDERLINE LEFT AXIS DEVIATION [QRS AXIS < -20] LOW QRS VOLTAGE IN PRECORDIAL LEADS [QRS DEFLECTION < 1.0 mV IN CHEST LEADS] INCOMPLETE RIGHT BUNDLE BRANCH BLOCK [90+ ms QRS DURATION, TERMINAL R IN V1/V2, 40+ ms S IN I/aVL/V4/V5/V6] Compared to ECG 01/29/2018 11:56:57 Ventricular premature complex(es) now present Low QRS voltage now present Sinus arrhythmia no longer present Left anterior fascicular block no longer present Electronically Signed On 10-10-2022 9:24:58 CDT by Yon Velázquez M.D. [id number]
[2022-10-10 09:34] LABS: Hematocrit 18.4 % (37.0-47.0); Hemoglobin 5.3 g/dL (11.5-15.3)
[2022-10-10 09:39] LABS: INR 1.96 (0.8-1.2)
[2022-10-10 09:41] LABS: Partial Thromboplastin Time 35.2 SECONDS (23.9-36.7)
--- NOTE | 2022-10-10 09:44 | CT_ITS ---
WS: [id number] CTA ABDOMEN TECHNIQUE: Contrast enhanced CTA of the abdominal aorta with coronal and sagittal reformatted images and additional MIP Images. CLINICAL INFORMATION: GI bleed COMPARISON: 2019 DLP: 855.[address] scans at [facility] use at least one of these dose optimization techniques: automated e xposure control; mA and/or kV adjustment per patient size (includes targeted exams where dose is matc hed to clinical indication); or iterative reconstruction. FINDINGS: Normal caliber abdominal aorta. Mild aortic calcification. Celiac and SMA are patent. Mesen teric artery calcification. Moderate stenosis at the celiac origin which remains patent. Splenic cherelle ry calcification. No evidence of active GI bleed in the small or large bowel. Calcification of the renal artery origins which remain patent. Densely calcified JOSE MANUEL appears chronically occluded. Mild diffuse fatty infiltration the liver. Portal vein and splenic vein are patent. Normal spleen. A few splenic granulomas. Lung bases are well aerated. Prior postoperative changes left hemicolectomy with rectosigmoid anastomosis. Tiny esophageal hiatal hernia. Prominence of the common bile duct is unchanged. Normal pancreatic parenchymal enhancement. Adrenal glands are normal. Normal renal parenchymal enhancement. A few tiny renal cortical cysts. Previously described diffuse mottled lytic and sclerotic appearance to the visualized bony structures including the lower thoracic and lumbar spine extending into the pelvis and sacrum is unchanged and may be due to prior treated metastatic disease versus multiple myeloma. Disc osteophyte complex L3-4 with moderate central canal stenosis. IMPRESSION: 1. Normal caliber abdominal aorta. No aortic calcification. Moderate narrowing of the celiac origin which remains patent. SMA is patent. 2. No evidence of active contrast extravasation in the remaining large bowel or small bowel. 3. Splenic artery calcification. 4. Small esophageal hernia. 5. Prior postoperative changes left hemicolectomy with rectosigmoid anastomosis. 6. Previously described mottled lytic and sclerotic appearance to the visualized bony structures inc luding the lower thoracic and lumbar spine extending into the pelvic and sacrum is unchanged and may be due to prior treated metastatic disease versus multiple myeloma.
[2022-10-10 09:52] LABS: Troponin(5th) Baseline 21 ng/L (0-10)
[2022-10-10] MEDS: pantoprazole 40 mg SDV 80 MG IVP (09:52)
[2022-10-10 10:00] LABS: NT Pro B Type Natriuretic Pept 250 pg/mL (0-450)
[2022-10-10] MEDS: iohexol 350 mg/mL 500 mL Btl (per mL) IV (10:02)
[2022-10-10 11:04] LABS: Lactate Dehydrogenase 147 U/L (135-214)
[2022-10-10 11:08] LABS: Add Urine Microscopic? NO; Charge for UA Resulting for Rev
--- NOTE | 2022-10-10 11:10 | ECG_ITS ---
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 Measurements Intervals [place] Rate: 61 P: -10 HI: 169 QRS: 70 QRSD: 92 T: 4 QT: 416 QTc: 420 Interpretive Statements SINUS RHYTHM INCOMPLETE RIGHT BUNDLE BRANCH BLOCK [90+ ms QRS DURATION, TERMINAL R IN V1/V2, 40+ ms S IN I/aVL/V4/V5/V6] Compared to ECG 10/10/2022 09:22:22 Ventricular premature complex(es) no longer present Electronically Signed On 10-10-2022 14:24:26 CDT by Yon Velázquez M.D. [id number]
[2022-10-10 11:13] LABS: Bilirubin Urine Neg (Negative); Blood Urine Neg (Negative); Glucose Urine UA Norm (Normal); Ketones Urine Negative (Negative); Leukocyte Esterase Urine Negative (Negative); Nitrate Urine Negative (Negative); Protein Urine Neg (Negative); Urine Appearance Clear (CLEAR); Urine Color Yellow (Yellow); Urobilinogen Urine Norm (Negative); pH Urine 5 (5-7)
[2022-10-10 11:20] LABS: Vitamin B12 188 pg/mL (232-1245)
--- NOTE | 2022-10-10 11:21 | P.HP_ITS ---
Providers/Chief Complaint Admitting Physician: Cailin Golden MD Primary Care Provider: Penny Sanchez MD Chief Complaint: sent by Dr Sánchez/abn labs History of Present Illness Maddy Beavers is a 76 year old female presenting to the hospital after laboratory in oncology clinic was noted to have severe anemia. Patient reports for the last month or so she has been short of breath, decreased energy, dizziness on exertion with some resolution with resting. She has not had any fevers. She has not seen any blood in her stool. She states she is occasionally constipated. She has a past history of colon cancer, and last colonoscopy was done in January 2022 identifying some colon polyps removed by cold forcep. She has not had any nosebleeds. She is on Coumadin, for past history of PE/DVT at 37 years of age. She believes this may have been associated with her hysterectomy. Stool in the emergency department appeared normal, brown but was heme positive. Review of Systems General: Reports: 10 or more systems reviewed and unremarkable except in HPI and below Resp: Reports: dyspnea GI: Denies: abdominal pain, nausea, vomiting, hematochezia or melena Medications/Allergies Home Medications Medication Instructions Recorded Confirmed Last Taken Type docusate sodium 100 mg capsule 100 mg PO BID 03/08/19 10/10/22 01/26/22 History (Colace) ferrous sulfate 325 mg (65 mg 325 mg PO DAILY@0800 03/08/19 10/10/22 01/26/22 History iron) tablet (FeroSul) Diabetic Shoes with 3 Pairs of #1 ea 09/18/21 10/10/22 Unknown Rx Inserts Diabetic shoes with inserts #1 ea 10/15/21 10/10/22 Unknown Rx lancets 30 gauge (TRUEplus Lancets) ##100 01/06/22 10/10/22 Unknown Rx pen needle, diabetic 32 gauge x #100 ea 04/02/22 10/10/22 Unknown Rx / furosemide 40 mg tablet 40 mg PO DAILY PRN Edema #30 tabs 06/09/22 10/10/22 Unknown Rx potassium chloride 10 mEq 10 meq PO DAILY #30 caps 06/09/22 10/10/22 Unknown Rx capsule,extended release lysine 1,000 mg tablet 1,000 mg PO DAILY 90 days #90 tabs 07/31/22 10/10/22 Unknown Rx Lantus Solostar U-100 Insulin 100 See Rx Instructions .Route 09/29/22 10/10/22 10/10/22 Rx unit/mL (3 mL) subcutaneous pen .COMPLEX #3 mL (insulin glargine) febuxostat 80 mg tablet 80 mg PO DAILY 10/10/22 10/10/22 10/10/22 History levothyroxine 88 mcg tablet 88 mcg PO DAILY 10/10/22 10/10/22 10/10/22 History lisinopril 20 mg tablet 20 mg PO DAILY 10/10/22 10/10/22 10/10/22 History warfarin 2 mg tablet 2 mg PO DAILY 10/10/22 10/10/22 Unknown History Allergies Allergy/AdvReac Type Severity Reaction Status Date / Time gabapentin Allergy Severe tremors Verified 10/10/22 08:57 Penicillins Allergy Unknown ALGY-Rash Verified 10/10/22 08:57 valsartan [From Diovan] Allergy Unknown ADR/ALGY-Pa Verified 10/10/22 08:57 lpitations lidocaine Allergy ALGY-Redness Verified 10/10/22 08:57 of Skin triamcinolone Allergy ALGY-Redness Verified 10/10/22 10:34 of Skin pregabalin [From Lyrica] AdvReac Unknown Verified 10/10/22 08:57 PFSH Acute PFSH: Medical History Chronic anticoagulation Colon cancer Diabetes mellitus, insulin dependent (IDDM), controlled DVT (deep venous thrombosis) History of colon cancer T2N0M0 - 2017 Hyperlipidemia, mixed Hypertension Hypothyroidism Pulmonary embolism Surgical History H/O colonoscopy (06/05/20) 05/02/19: polyps ascending and descending colon 06/04/20: IC valve and descending colon polyp History of hysterectomy History of subtotal thyroidectomy S/P appendectomy S/P arthroscopic surgery of left knee S/P colon resection Laparoscopic left hemicolectomy: July 09, 2016 Family History Father Cancer Other Bleeding disorder CAD (coronary artery disease) Clotting disorder Diabetes Hypertension Denies family history of Dementia Hyperlipidemia Psychiatric illness Chronic kidney disease (CKD) Suicide Anesthesia complication Lung disease Stroke Social History Smoking and tobacco status: never smoked Second hand smoke exposure: No Alcohol intake: never Substance/Drug Use: never Caregiver/support person: Yes (sisters) Lives independently: Yes (son lives with her) Household members: children Marital status: / service: No Current occupational status: retired Current gender identity: Female Special mark needs: No Agree to transfusion: Yes Vitals/I&O/Wt Last Vital Signs Temp 98.2 F 10/10/22 11:05 Pulse 84 10/10/22 11:10 Resp 23 H 10/10/22 11:10 BP 147/75 10/10/22 11:10 Pulse Ox 100 10/10/22 11:10 O2 Del Method Room Air 10/10/22 10:28 10/09/22 10/10/22 10/10/22 22:59 06:59 14:59 Intake Total 0 / 0 Balance 0 / 0 Weight last 48 hrs Weight 92.079 kg Physical Exam Narrative: General exam is white female, no distress. She does report she is very sensitive on the skin on the right side of her neck and chest secondary to shingles in April HEENT: Atraumatic normocephalic. Oropharynx clear. Neck is supple no lymphadenopathy or thyromegaly Cardiovascular regular rate and rhythm, no murmur Lungs clear no wheezing or crackles Abdomen is soft nontender with positive bowel sounds. No obvious organomegaly exams deferred Extremities no cyanosis clubbing or edema, cap refill brisk Skin no rash Neuro no obvious focal deficits Data 10/10/22 09:10 Other Labs: MCV, platelets, white blood cell count is normal Electrolyte panel is also reviewed. Creatinine is 1.7. Calcium, iron saturation, bilirubin, LFTs, BNP are all normal. Serum protein electrophoresis was ordered. B12 low at 188, CEA level normal, folate level pending, urinalysis negative, free kappa lambda light chains has been ordered. Haptoglobin is normal. Abdomen pelvis CTA demonstrate splenic artery calcification, small esophageal hernia, postoperative changes with left hemicolectomy, mottled lytic and sclerotic appearance to the lower thoracic lumbar spine, pelvis and sacrum unchanged from 2017 Chest x-ray which I reviewed no infiltrate EKG which I reviewed demonstrates sinus rhythm, left axis deviation. Incomplete right bundle. A&P Assessment and plan (1) Anemia: Patient with severe symptomatic anemia Stool is heme positive in the emergency department but is not bloody in a ppearance or even dark or tarry Initiate Protonix 40 mg IV every 12 hours Clear liquids Surgery consult for possible EGD Note colonoscopy was done in January 2022 Hold Coumadin INR in the morning SCDs for DVT prophylaxis Haptoglobin, serum electrophoresis, anemia panel all ordered Avoid all anti-inflammatories. (2) Chronic anticoagulation: Hold Coumadin currently Will have to determine if she is a candidate or even needs this in the future. She indicates to me that her DVT and PE were associated with hysterectomy at 37 years of age (3) History of colon cancer: CEA level not elevated CT abdomen and pelvis show no mass Sclerotic lesions in pelvis/spine present since 2017 (4) Diabetes mellitus, insulin dependent (IDDM), controlled: Consistent carb diet when diet is initiated Sliding scale insulin Plan Multiple other medical problems as outlined in past medical history Full code SCDs for DVT prophylaxis. Anticoagulation contraindicated secondary to severe anemia Attestations Medical Necessity Statement*: Will likely require less than 2 midnight stay for evaluation of severe symptomatic anemia Diagnoses Anemia D64.9 Chronic anticoagulation Z79.01 History of colon cancer Z85.038 Diabetes mellitus, insulin dependent (IDDM), controlled E11.9; Z79.4 Time Spent (min) 50
[2022-10-10 11:42] LABS: Folate Level 12.4 ng/mL (4.8-37.3)
[2022-10-10 12:30] LABS: Thyroid Stimulating Hormone 0.92 uIU/mL (0.27-4.20)
[2022-10-10] MEDS: cyanocobalamin 1,000 mcg/mL SDV 1000 MCG SUBCUT (13:45)
[2022-10-10] MEDS: sodium chloride 0.9% 1,000 ML 50 ML IV (13:45)
--- NOTE | 2022-10-10 15:10 | ECG_ITS ---
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 Measurements Intervals [place] Rate: 59 P: 45 TN: 165 QRS: -10 QRSD: 86 T: 53 QT: 413 QTc: 411 Interpretive Statements SINUS BRADYCARDIA WITH SINUS ARRHYTHMIA LOW QRS VOLTAGE IN PRECORDIAL LEADS [QRS DEFLECTION < 1.0 mV IN CHEST LEADS] POSSIBLE RIGHT VENTRICULAR CONDUCTION DELAY [RSR (QR) IN V1/V2] Compared to ECG 10/10/2022 14:15:46 Low QRS voltage now present Sinus rhythm no longer present Incomplete right bundle-branch block no longer present Electronically Signed On 10-10-2022 18:58:03 CDT by Elizabeth Horn M.D. [id number]
[2022-10-10 16:38] LABS: Glucose Point of Care 111 mg/dL (70-110)
--- NOTE | 2022-10-10 18:07 | PM.CONSULT ---
Providers/Reason For Consult Consulting Physician/Specialty*: Dr. Nayan Fay, DO/General surgery Reason for Consult*: GI bleed/anemia Attending Physician: Shakeel Golden MD Primary Care Provider: Penny Sanchez MD History of Present Illness History of Present Illness Maddy Beavers is a 76 year old female who presented to the hospital with weakness, fatigue, dizziness and anemia. She reports that she had 1 episode of bright red blood per rectum in the last week but otherwise has not noticed any blood in her stool. Denies any nausea, emesis, diarrhea, constipation and/or melena. Denies any abdominal pain. Review of Systems General: Reports: 10 or more systems reviewed and unremarkable except in HPI and below Medications/Allergies Home Medications Medication Instructions Recorded Confirmed Last Taken Type docusate sodium 100 mg capsule 100 mg PO BID 03/08/19 10/10/22 01/26/22 History (Colace) ferrous sulfate 325 mg (65 mg 325 mg PO DAILY@0800 03/08/19 10/10/22 01/26/22 History iron) tablet (FeroSul) Diabetic Shoes with 3 Pairs of #1 ea 09/18/21 10/10/22 Unknown Rx Inserts Diabetic shoes with inserts #1 ea 10/15/21 10/10/22 Unknown Rx lancets 30 gauge (TRUEplus Lancets) ##100 01/06/22 10/10/22 Unknown Rx pen needle, diabetic 32 gauge x #100 ea 04/02/22 10/10/22 Unknown Rx 5/32 furosemide 40 mg tablet 40 mg PO DAILY PRN Edema #30 tabs 06/09/22 10/10/22 Unknown Rx potassium chloride 10 mEq 10 meq PO DAILY #30 caps 06/09/22 10/10/22 Unknown Rx capsule,extended release lysine 1,000 mg tablet 1,000 mg PO DAILY 90 days #90 tabs 07/31/22 10/10/22 Unknown Rx Lantus Solostar U-100 Insulin 100 See Rx Instructions .Route 09/29/22 10/10/22 10/10/22 Rx unit/mL (3 mL) subcutaneous pen .COMPLEX #3 mL (insulin glargine) febuxostat 80 mg tablet 80 mg PO DAILY 10/10/22 10/10/22 10/10/22 History levothyroxine 88 mcg tablet 88 mcg PO DAILY 10/10/22 10/10/22 10/10/22 History lisinopril 20 mg tablet 20 mg PO DAILY 10/10/22 10/10/22 10/10/22 History warfarin 2 mg tablet 2 mg PO DAILY 10/10/22 10/10/22 Unknown History Allergies Allergy/AdvReac Type Severity Reaction Status Date / Time gabapentin Allergy Severe tremors Verified 10/10/22 08:57 Penicillins Allergy Unknown ALGY-Rash Verified 10/10/22 08:57 valsartan [From Diovan] Allergy Unknown ADR/ALGY-Pa Verified 10/10/22 08:57 lpitations lidocaine Allergy ALGY-Redness Verified 10/10/22 08:57 of Skin triamcinolone Allergy ALGY-Redness Verified 10/10/22 10:34 of Skin pregabalin [From Lyrica] AdvReac Unknown Verified 10/10/22 08:57 Current Medications Generic Name Dose Route Start Last Admin Trade Name Freq PRN Reason Stop Dose Admin Sodium Chloride 1,000 mls @ 50 mls/hr 10/10/22 11:45 10/10/22 17:29 Sodium Chloride 0.9% IV 50 mls/hr .Q20H CARLOS MANUEL Infusion Insulin Human Lispro 0 unit 10/10/22 18:00 10/10/22 17:29 Insulin Lispro 100 Unit/1 Ml SUBCUT Not Given WM&BEDTIME CARLOS MANUEL Protocol PFSH Acute PFSH: Medical History Chronic anticoagulation Colon cancer Diabetes mellitus, insulin dependent (IDDM), controlled DVT (deep venous thrombosis) History of colon cancer T2N0M0 - 2017 Hyperlipidemia, mixed Hypertension Hypothyroidism Pulmonary embolism Surgical History H/O colonoscopy (06/05/20) 05/02/19: polyps ascending and descending colon 06/04/20: IC valve and descending colon polyp History of hysterectomy History of subtotal thyroidectomy S/P appendectomy S/P arthroscopic surgery of left knee S/P colon resection Laparoscopic left hemicolectomy: July 09, 2016 Family History Father Cancer Other Bleeding disorder CAD (coronary artery disease) Clotting disorder Diabetes Hypertension Denies family history of Dementia Hyperlipidemia Psychiatric illness Chronic kidney disease (CKD) Suicide Anesthesia complication Lung disease Stroke Social History Smoking and tobacco status: never smoked Second hand smoke exposure: No Alcohol intake: never Substance/Drug Use: never Caregiver/support person: Yes (sisters) Lives independently: Yes (son lives with her) Household members: children Marital status: / service: No Current occupational status: retired Current gender identity: Female Special mark needs: No Agree to transfusion: Yes Vitals/I&O/Wt Last Vital Signs Temp 98.3 F 10/10/22 16:30 Pulse 58 L 10/10/22 16:30 Resp 25 H 10/10/22 16:30 BP 122/64 10/10/22 16:30 Pulse Ox 100 10/10/22 16:30 O2 Del Method Room Air 10/10/22 15:21 10/10/22 10/10/22 10/10/22 06:59 14:59 22:59 Intake Total 950.833 / 950.833 950 / 1900.833 Output Total 200 / 200 350 / 550 Balance 750.833 / 750.833 600 / 1350.833 Weight last 48 hrs Weight 203 lb Physical Exam Narrative: General : Patient is well developed , no acute distress, oriented x3 Head : Normal cephalic, a-traumatic. Ears : Pinnae and external canal are normal. Hearing is normal. Eyes : PERRLA, Sclera and injection are normal. No conjunctival discharge. Nose : Mucous membranes are without erythema. Throat : buccal mucosa is normal, gums are without significant recession or hypertrophy. Lungs : Equal chest rise bilaterally, no use of accessory muscles, trachea is midline. Cor : Rate and rhythm are normal. Abdomen : Soft, ND, NT, no g/r/m Extremities : No edema, no cyanosis or clubbing, dorsalis pedis pulses are present bilaterally, non-tender to palpation of calves. Upper extremities are normal bilaterally. Back : non-tender to palpation, no CVA tenderness. Neuro : CN II - XII intact, Upper and lower extremities have equal and full strength Data 10/10/22 09:10 A&P Assessment and plan (1) Chronic anticoagulation: (2) Anemia: Plan EGD in the morning The risks and benefits of the procedure, including bleeding, infection, intestinal perforation requiring surgery, missed lesion were explained to the patient. The patient is understanding of the risks and wishes to proceed. Need to see if she needs to be given FFP Coding Level of Care Code 66533 Diagnoses Chronic anticoagulation Z79.01 Anemia D64.9
[2022-10-10] MEDS: docusate sodium 100 mg Capsule PO (18:32)
[2022-10-10 18:42] LABS: Hematocrit 24.6 % (37.0-47.0); Hemoglobin 7.4 g/dL (11.5-15.3)
[2022-10-10 19:08] LABS: Troponin 5 6HR 19.12 ng/L (0-10)
[2022-10-10 19:14] LABS: Troponin 5 6HR Delta -1.88 ng/L (0-12)
[2022-10-10 20:11] LABS: INR 1.85 (0.8-1.2)
[2022-10-10] MEDS: pantoprazole 40 mg SDV IVP (20:14)
[2022-10-10 21:31] LABS: Glucose Point of Care 119 mg/dL (70-110)
[2022-10-11] VITALS (16 sets, daily range): BP systolic 120–173; BP diastolic 50–76; PULSE 58–102; RESP 13–18; TEMP 36.4–36.9; O2SAT 91–99
[2022-10-11 04:58] LABS: Platelet Count 195 10^3/cmm (130-400)
[2022-10-11 04:59] LABS: Basophils % 0.4 %; Eosinophils # 0.3 10^3/uL (0.0-0.8); Hematocrit 27.9 % (37.0-47.0); Hemoglobin 8.6 g/dL (11.5-15.3); Lymphocytes # 1.4 10^3/uL (0.8-4.8); Lymphocytes % 18.8 %; Mean Corpuscular Hemoglobin 25.6 pg (28.0-34.0); Monocytes # 0.7 10^3/uL (0.2-0.9); Monocytes % 9.8 %; Neutrophils # 4.96 10^3/uL (1.8-7.7); Neutrophils % 66.6 %; Nucleated Red Blood Cells % 0 %; Platelet Count 193 10^3/cmm (130-400); Red Blood Count 3.36 10^6/uL (4.1-5.3); Red Cell Distribution Width 16.1 % (12.1-15.1); White Blood Count 7.5 10^3/uL (4.0-10.0)
[2022-10-11 05:08] LABS: Mean Corpuscular HGB Conc 30.8 g/dL (30.0-36.0)
[2022-10-11 05:12] LABS: INR 1.74 (0.8-1.2); Partial Thromboplastin Time 34.5 SECONDS (23.9-36.7)
[2022-10-11 05:13] LABS: Fibrinogen 281 mg/dL (174-498)
[2022-10-11 05:30] LABS: Alanine Aminotransferase 16 U/L (0-33); Albumin Level 3.4 g/dL (3.5-5.2); Alkaline Phosphatase 69 U/L (35-105); Anion Gap 14.7 (5-19); Aspartate Amino Transferase 20 U/L (0-32); Carbon Dioxide 19 mmol/L (22-29); Chloride 110 mmol/L (98-107); Globulin 2.2 g/dL (1.3-4.6); Glucose 120 mg/dL (65-115); Magnesium 1.8 mg/dL (1.7-2.3); Potassium 4.7 mmol/L (3.5-5.1); Sodium 139 mmol/L (136-145); Total Bilirubin 0.9 mg/dL (0.15-1.2); Total Protein 5.6 g/dL (6.6-8.7)
[2022-10-11 05:54] LABS: Blood Urea Nitrogen 26 mg/dL (8-23); Osmolality Calculated 294 mOsm/kg (285-295)
[2022-10-11 06:55] LABS: Glucose Point of Care 122 mg/dL (70-110)
[2022-10-11] MEDS: pantoprazole 40 mg SDV IVP ×2 (08:18→10:38)
--- NOTE | 2022-10-11 08:26 | P.ANESASSM_ITS ---
Pre-Anesthetic Assessment Height/Weight: Height 1.68 m Weight 92.079 kg Temp Pulse Resp BP Pulse Ox O2 Del Method 98.1 F 60 16 157/76 96 Room Air 10/11/22 07:50 10/11/22 07:50 10/11/22 07:50 10/11/22 07:50 10/11/22 07:50 10/11/22 04:00 Operation Date: 10/11/22 09:00 Proposed Procedures p EGD(Not Applicable) - Nayan Fay DO Familial anesthetic complications: Lidocaine - redness over upper half of blody Was Beta [place] taken within 24 hours: N/A Was Clonidine taken within 24 hours: N/A Last intake: Intake Last Liquid Date 10/10/22 Last Liquid Time 23:45 Last Solid Date 10/10/22 Last Solid Time 17:00 Social No alcohol and No tobacco Exam alert, oriented x 3, clear to auscultation bilaterally and regular rate & rhythm Airway Mallampati: Class II Dentition: full Pulmonary hx DVT w/ PE at age 37 following surgery CV/HEM Anemia and Hypertension Chronic Renal Insufficiency GI GI bleed Metabolic Diabetes Mellitus and Thyroid Disease Anesthetic Plan ASA status: 3 Anesthesia: MAC Risk of > 500 ml blood loss (7ml/kg in children): No Medications/Allergies Home Medications Medication Instructions Recorded Confirmed Last Taken Type docusate sodium 100 mg capsule 100 mg PO BID 03/08/19 10/10/22 01/26/22 History (Colace) ferrous sulfate 325 mg (65 mg 325 mg PO DAILY@0800 03/08/19 10/10/22 01/26/22 History iron) tablet (FeroSul) Diabetic Shoes with 3 Pairs of #1 ea 09/18/21 10/10/22 Unknown Rx Inserts Diabetic shoes with inserts #1 ea 10/15/21 10/10/22 Unknown Rx lancets 30 gauge (TRUEplus Lancets) ##100 01/06/22 10/10/22 Unknown Rx pen needle, diabetic 32 gauge x #100 ea 04/02/22 10/10/22 Unknown Rx 5/32 furosemide 40 mg tablet 40 mg PO DAILY PRN Edema #30 tabs 06/09/22 10/10/22 Unknown Rx potassium chloride 10 mEq 10 meq PO DAILY #30 caps 06/09/22 10/10/22 Unknown Rx capsule,extended release lysine 1,000 mg tablet 1,000 mg PO DAILY 90 days #90 tabs 07/31/22 10/10/22 Unknown Rx Lantus Solostar U-100 Insulin 100 See Rx Instructions .Route 09/29/22 10/10/22 10/10/22 Rx unit/mL (3 mL) subcutaneous pen .COMPLEX #3 mL (insulin glargine) febuxostat 80 mg tablet 80 mg PO DAILY 10/10/22 10/10/22 10/10/22 History levothyroxine 88 mcg tablet 88 mcg PO DAILY 10/10/22 10/10/22 10/10/22 History lisinopril 20 mg tablet 20 mg PO DAILY 10/10/22 10/10/22 10/10/22 History warfarin 2 mg tablet 2 mg PO DAILY 10/10/22 10/10/22 Unknown History Allergies Allergy/AdvReac Type Severity Reaction Status Date / Time gabapentin Allergy Severe tremors Verified 10/10/22 08:57 Penicillins Allergy Unknown ALGY-Rash Verified 10/10/22 08:57 valsartan [From Diovan] Allergy Unknown ADR/ALGY-Pa Verified 10/10/22 08:57 lpitations lidocaine Allergy ALGY-Redness Verified 10/10/22 08:57 of Skin triamcinolone Allergy ALGY-Redness Verified 10/10/22 10:34 of Skin pregabalin [From Lyrica] AdvReac Unknown Verified 10/10/22 08:57 Current Medications Generic Name Dose Route Start Last Admin Trade Name Yuryq PRN Reason Stop Dose Admin Docusate Sodium 100 mg 10/10/22 18:00 10/10/22 18:32 Docusate Sodium 100 Mg Capsule PO 100 mg BID CARLOS MANUEL Administration Sodium Chloride 1,000 mls @ 50 mls/hr 10/10/22 11:45 10/10/22 17:29 Sodium Chloride 0.9% IV 50 mls/hr .Q20H CARLOS MANUEL Infusion Insulin Human Lispro 0 unit 10/10/22 18:00 10/11/22 07:41 Insulin Lispro 100 Unit/1 Ml SUBCUT Not Given WM&BEDTIME CARLOS MANUEL Protocol Pantoprazole Sodium 40 mg 10/10/22 20:00 10/11/22 08:18 Pantoprazole 40 Mg Sdv IVP 40 mg Q12H CARLOS MANUEL Administration PFSH Anesthesia Medical History Chronic anticoagulation Colon cancer Diabetes mellitus, insulin dependent (IDDM), controlled DVT (deep venous thrombosis) History of colon cancer T2N0M0 - 2017 Hyperlipidemia, mixed Hypertension Hypothyroidism Pulmonary embolism Surgical History H/O colonoscopy (06/05/20) 05/02/19: polyps ascending and descending colon 06/04/20: IC valve and descending colon polyp History of hysterectomy History of subtotal thyroidectomy S/P appendectomy S/P arthroscopic surgery of left knee S/P colon resection Laparoscopic left hemicolectomy: July 09, 2016 Family History Father Cancer Other Bleeding disorder CAD (coronary artery disease) Clotting disorder Diabetes Hypertension Denies family history of Dementia Hyperlipidemia Psychiatric illness Chronic kidney disease (CKD) Suicide Anesthesia complication Lung disease Stroke Social History Smoking and tobacco status: never smoked Second hand smoke exposure: No Alcohol intake: never Substance/Drug Use: never Caregiver/support person: Yes (sisters) Lives independently: Yes (son lives with her) Household members: children Marital status: / service: No Current occupational status: retired Current gender identity: Female Special mark needs: No Agree to transfusion: Yes Data Anesthesia 10/11/22 04:26 10/11/22 04:26 Short CBC 10/10/22 10/10/22 10/11/22 Range/Units 09:10 18:22 04:26 WBC 7.5 (4.0-10.0) 10^3/uL Hgb 5.3 L* 7.4 L D 8.6 L (11.5-15.3) g/dL Hct 18.4 L* 24.6 L D 27.9 L (37.0-47.0) % MCV 83.0 (81-99) fl Plt Count 193 (130-400) 10^3/cmm Neut % (Auto) 66.6 % Neut # (Auto) 4.96 (1.8-7.7) 10^3/uL 10/11/22 Range/Units 04:26 WBC (4.0-10.0) 10^3/uL Hgb (11.5-15.3) g/dL Hct (37.0-47.0) % MCV (81-99) fl Plt Count 195 (130-400) 10^3/cmm Neut % (Auto) % Neut # (Auto) (1.8-7.7) 10^3/uL BMP 10/11/22 04:26 Sodium 139 Potassium 4.7 Chloride 110 H Carbon Dioxide 19 L BUN 26 H Creatinine 1.8 H Glucose 120 H Calcium 8.0 L Cardiac Enzymes 10/10/22 10/10/22 10/10/22 Range/Units 09:10 09:10 18:22 Troponin T Baseline 21 H (0-10) ng/L Troponin T Hi Sens 6Hr 19.12 H (0-10) ng/L Troponin T Hi Sens 6Hr Delta -1.88 L (0-12) ng/L NT-Pro-B Natriuret Pep 250 (0-450) pg/mL Liver Function 10/11/22 Range/Units 04:26 Total Bilirubin 0.9 (0.15-1.2) mg/dL AST 20 (0-32) U/L ALT 16 (0-33) U/L Alkaline Phosphatase 69 (35-105) U/L Albumin 3.4 L (3.5-5.2) g/dL Urine 10/10/22 Range/Units 10:30 Urine Color Yellow (Yellow) Urine Appearance Clear (CLEAR) Urine pH 5 (5-7) Ur Specific [place] 1.010 (1.005-1.030) Urine Protein Neg (Negative) Urine Glucose (UA) Norm (Normal) Urine Ketones Negative (Negative) Urine Nitrate Negative (Negative) Urine Bilirubin Neg (Negative) Ur Leukocyte Esterase Negative (Negative) Blood Bank 10/10/22 09:10 Blood Type O Negative Rho(D) Type Negative Antibody Screen Negative Coags 10/10/22 10/10/22 10/11/22 09:10 19:33 04:26 PT 23.10 H 22.00 H 21.00 H INR 1.96 H 1.85 H 1.74 H APTT 35.2 34.5 Fibrinogen 281 Cardiac Studies: No Data to Display
--- NOTE | 2022-10-11 08:42 | PM.PN ---
Vitals/I&O/Wt Last Vital Signs Temp 98.1 F 10/11/22 07:50 Pulse 60 10/11/22 07:50 Resp 16 10/11/22 07:50 BP 157/76 10/11/22 07:50 Pulse Ox 96 10/11/22 07:50 O2 Del Method Room Air 10/11/22 04:00 10/10/22 10/11/22 10/11/22 22:59 06:59 14:59 Intake Total 950 / 1900.833 350 / 2250.833 Output Total 850 / 1050 350 / 1400 Balance 100 / 850.833 0 / 850.833 Weight last 48 hrs Weight 203 lb Data 10/11/22 04:26 10/11/22 04:26 A&P Assessment and plan (1) Chronic anticoagulation: (2) Anemia: Plan EGD The risks and benefits of the procedure, including bleeding, infection, intestinal perforation requiring surgery, missed lesion were explained to the patient. The patient is understanding of the risks and wishes to proceed. Attestations Medical Necessity Statement*: per primary Coding Level of Care Code Acute Code for Chg Fwd Diagnoses Chronic anticoagulation Z79.01 Anemia D64.9
[2022-10-11] MEDS: sodium chloride 0.9% 1,000 ML 30 ML IV (08:55)
--- NOTE | 2022-10-11 09:32 | ANE.PACU2 ---
Inpatient post-anesthesia follow up: Airway intact: Yes Vital signs: Temperature 97.5 F Pulse Rate 66 Respiratory Rate 16 Blood Pressure 127/55 Pulse Oximetry 98 Oxygen Delivery Me thod Room Air Oxygen Flow Rate 4 Fraction of Inspir ed Oxygen Hydration adequate: Yes Nausea and vomiting: No Pain level: 1 Mental status: Baseline
[2022-10-11 09:54] LABS: PROTEIN, TOTAL 5.7 g/dL (6.1-8.1)
[2022-10-11 11:33] LABS: Glucose Point of Care 113 mg/dL (70-110)
[2022-10-11] MEDS: sodium chloride 0.9% 1,000 ML 50 ML IV (14:56)
--- NOTE | 2022-10-11 15:59 | P.PN_ITS ---
Subjective Subjective: Hemoglobin at 8.6 today. Underwent upper GI endoscopy today which showed a normal esophagus stomach and duodenum. No bleeding was encountered. She has been started on a regular diet which she is currently tolerating. Medications: Reviewed: Yes Vitals/I&O/Wt Last Vital Signs Temp 98.2 F 10/11/22 15:10 Pulse 68 10/11/22 15:10 Resp 16 10/11/22 15:10 BP 148/64 10/11/22 15:10 Pulse Ox 94 10/11/22 15:10 O2 Del Method Room Air 10/11/22 09:30 O2 Flow Rate 4 10/11/22 09:19 10/11/22 10/11/22 10/11/22 06:59 14:59 22:59 Intake Total 350 / 2250.833 1459.167 / 1459.167 Output Total 350 / 1400 Balance 0 / 428.020 7554.167 / 1459.167 Weight last 48 hrs Weight 92.079 kg Physical Exam Narrative: General: No acute distress, AO x3 HEENT: PERRLA, pupils bilaterally equal and reactive, pallors not present Chest: Normal vesicular breath sounds, no added sounds, equal good air entry bilaterally CVS: S1-S2 regular, no murmurs, no tachycardia, no gallops, no rubs Abdomen: Soft, nontender, no organomegaly, bowel sounds present Neuro: No focal deficits, no facial deformity, AO x3, power 5/5 in all limbs Data 10/11/22 04:26 10/11/22 04:26 A&P Assessment and plan (1) Anemia: Patient with severe symptomatic anemia Stool is heme positive in the emergency department s/p UGIE endoscopy today which was grossly without any signs of bleeding. No gross abnormalities were seen in the esophagus stomach or duodenum. Note colonoscopy was done in January 2022- noted polyps at that time. INR in the morning SCDs for DVT prophylaxis Pending serum electrophoresis Iron levels 123 TIBC 344 grossly within range, haptoglobin normal. Pending methylmalonic acid, low B12 at 188 Will refer patient to GI for capsule endoscopy at time of discharge - referral to Dr. Summers in [place] outpatient follow up with hematology recommended - if pending w/up negative, may need BM biopsy. (2) Chronic anticoagulation: Hold Coumadin currently. Will have to determine if she is a candidate or even needs this in the future. She indicates to me that her DVT and PE were associated with hysterectomy at 37 years of age. Other than that she had superficial thrombophlebitis around childbirth for which she also received a/c. (3) History of colon cancer: CEA level not elevated CT abdomen and pelvis show no mass or bleeding Sclerotic lesions in pelvis/spine present since 2017 (4) Diabetes mellitus, insulin dependent (IDDM), controlled: Consistent carb diet when diet is initiated Sliding scale insulin Plan Multiple other medical problems as outlined in past medical history Full code SCDs for DVT prophylaxis. Anticoagulation contraindicated secondary to severe anemia Attestations Medical Necessity Statement*: hb recheck in am, s/p UGIe today, diet advanced Coding Level of Care Code Acute Code for Chg Fwd Diagnoses Anemia D64.9 Chronic anticoagulation Z79.01 History of colon cancer Z85.038 Diabetes mellitus, insulin dependent (IDDM), controlled E11.9; Z79.4
[2022-10-11 17:41] LABS: Glucose Point of Care 149 mg/dL (70-110)
[2022-10-11] MEDS: insulin lispro 100 unit/1 mL SUBCUT ×2 (18:04→21:15)
[2022-10-11] MEDS: docusate sodium 100 mg Capsule PO (18:04)
[2022-10-11 20:51] LABS: Glucose Point of Care 167 mg/dL (70-110)
[2022-10-12 04:00] VITALS: BP 145/73; PULSE 59; RESP 17; TEMP 36.5; O2SAT 97
[2022-10-12 06:06] LABS: Basophils % 0.5 %; Eosinophils # 0.3 10^3/uL (0.0-0.8); Eosinophils % 4.3 %; Lymphocytes # 1.2 10^3/uL (0.8-4.8); Lymphocytes % 18.8 %; Mean Corpuscular Hemoglobin 26.2 pg (28.0-34.0); Mean Corpuscular Volume 84.5 fl (81-99); Mean Platelet Volume 8.8 fL (7.4-10.4); Monocytes # 0.7 10^3/uL (0.2-0.9); Monocytes % 10.8 %; Neutrophils # 4.29 10^3/uL (1.8-7.7); Neutrophils % 65.3 %; Nucleated Red Blood Cells % 0 %; Platelet Count 186 10^3/cmm (130-400); Red Blood Count 3.43 10^6/uL (4.1-5.3); Red Cell Distribution Width 16.8 % (12.1-15.1); White Blood Count 6.6 10^3/uL (4.0-10.0)
[2022-10-12 06:29] LABS: Alanine Aminotransferase 13 U/L (0-33); Albumin Level 3.5 g/dL (3.5-5.2); Alkaline Phosphatase 72 U/L (35-105); Anion Gap 15.7 (5-19); Aspartate Amino Transferase 18 U/L (0-32); Blood Urea Nitrogen 28 mg/dL (8-23); Calcium 7.9 mg/dL (8.5-10.5); Carbon Dioxide 20 mmol/L (22-29); Chloride 109 mmol/L (98-107); Globulin 2.3 g/dL (1.3-4.6); Glucose 127 mg/dL (65-115); Osmolality Calculated 297 mOsm/kg (285-295); Potassium 4.7 mmol/L (3.5-5.1); Sodium 140 mmol/L (136-145); Total Bilirubin 0.5 mg/dL (0.15-1.2); Total Protein 5.8 g/dL (6.6-8.7)
[2022-10-12 06:41] LABS: Glucose Point of Care 117 mg/dL (70-110)
[2022-10-12 08:00] VITALS: BP 143/52; PULSE 70; RESP 16; TEMP 36.8; O2SAT 97
[2022-10-12] MEDS: cyanocobalamin 1,000 mcg Tablet 1000 MCG PO (08:34)
[2022-10-12] MEDS: levothyroxine 88 mcg Tablet PO (08:34)
[2022-10-12] MEDS: docusate sodium 100 mg Capsule PO (08:34)
[2022-10-12] MEDS: sodium chloride 0.9% 1,000 ML 50 ML IV (08:42)
[2022-10-12] MEDS: pantoprazole DR 40 mg Tablet PO (09:17)
[2022-10-12 10:59] LABS: Glucose Point of Care 192 mg/dL (70-110)
[2022-10-12] MEDS: insulin lispro 100 unit/1 mL SUBCUT (11:59)
[2022-10-12 12:00] VITALS: BP 149/73; PULSE 58; RESP 17; TEMP 36.8; O2SAT 97
--- NOTE | 2022-10-12 14:14 | P.DS_ITS ---
Discharge Providers Date of Admission: 10/11/22 16:41 Date of Discharge: October 12, 2022 Attending Provider at Admission: Cailin Golden MD Attending Provider at Discharge: Madyson Batres MD Primary Care Provider: Penny Sanchez MD Diagnoses at Discharge Discharge Diagnosis (1) Anemia: Status: Acute (2) Chronic anticoagulation: Status: Acute (3) History of colon cancer: Status: Acute Permanent problem details: T2N0M0 - 2017 (4) Diabetes mellitus, insulin dependent (IDDM), controlled: Status: Acute Reason for Visit Reason for Visit: sent by Dr Sánchez/abn labs Brief History: Taken from H&P: Maddy Beavers is a 76 year old female presenting to the hospital after laboratory in oncology clinic was noted to have severe anemia.? Patient reports for the last month or so she has been short of breath, decreased energy, dizziness on exertion with some resolution with resting.? She has not had any fevers.? She has not seen any blood in her stool.? She states she is occasionally constipated.? She has a past history of colon cancer, and last colonoscopy was done in January 2022 identifying some colon polyps removed by cold forcep.? She has not had any nosebleeds.? She is on Coumadin, for past history of PE/DVT at 37 years of age.? She believes this may have been associated with her hysterectomy.? Stool in the emergency department appeared normal, brown but was heme positive.\ hospital course as below: Hospital Course Hospital Course (1) Anemia: Patient with severe symptomatic anemia Stool is heme positive in the emergency department s/p UGIE endoscopy which was grossly without any signs of bleeding.? No gross abnormalities were seen in the esophagus stomach or duodenum. Note colonoscopy was done in January 2022- noted polyps at that time. No signs of cancer recurrence. INR was < 2 at time of presentation Pending serum electrophoresis, to follow up as outpatient with heme/onc Iron levels 123 TIBC 344 grossly within range, haptoglobin normal. Pending methylmalonic acid, low B12 at 188 patient given referral to GI for capsule endoscopy at time of discharge - referral to Dr. Summers in [place] outpatient follow up with hematology recommended - if pending w/up negative, may need bone marrow biopsy. she received PRBC transfusion during hospital stay, Hb improved to 9.0 at time of discharge (2) Chronic anticoagulation: Hold Coumadin currently. her DVT and PE were associated with hysterectomy at 37 years of age. Other than that she had superficial thrombophlebitis around childbirth for which she also received a/c. Since her history is remote at this point, recommneded to hold A/c in view of severe anemia until capsule endoscopy can be completed and evaluates for any small bowel bleeding since stool is FOBT +. (3) History of colon cancer: CEA level not elevated CT abdomen and pelvis show no mass or bleeding Sclerotic lesions in pelvis/spine present since 2017, less suspicious for multiple myeloma Physical Exam Narrative: General: No acute distress, AO x3 HEENT: PERRLA, pupils bilaterally equal and reactive, pallors not present Chest: Normal vesicular breath sounds, no added sounds, equal good air entry bilaterally CVS: S1-S2 regular, no murmurs, no tachycardia, no gallops, no rubs Abdomen: Soft, nontender, no organomegaly, bowel sounds present Neuro: No focal deficits, no facial deformity, AO x3, power 5/5 in all limbs Discharge Data Studies Completed and Pending Completed Studies During Hospitalization Category Date Time Status CTA abdomen pelvis [CT angio abdomen pelvis 51356] Stat Cat Scan 10/10/22 09:44 Completed XR chest 1V portable [id number] Stat Exams 10/10/22 09:09 Completed Pending at discharge Category Date Time Status FREE LIGHT CHAIN SERUM [KAPPA/LAMBDA LIGHT FREE SERUM] Lab 10/10/22 09:10 Received Routine MMA [Methylmalonic Acid] Routine Lab 10/10/22 18:22 Received Serum Protien Electrophoresis [Total Protein Lab 10/10/22 09:10 Results Electrophoresis] Routine Laboratory Results WBC 6.6 10^3/uL (4.0-10.0) 10/12/22 05:45 RBC 3.43 10^6/uL (4.1-5.3) L 10/12/22 05:45 Hgb 9.0 g/dL (11.5-15.3) L 10/12/22 05:45 Hct 29.0 % (37.0-47.0) L 10/12/22 05:45 MCV 84.5 fl (81-99) 10/12/22 05:45 MCH 26.2 pg (28.0-34.0) L 10/12/22 05:45 MCHC 31.0 g/dL (30.0-36.0) 10/12/22 05:45 RDW 16.8 % (12.1-15.1) H 10/12/22 05:45 Plt Count 186 10^3/cmm (130-400) 10/12/22 05:45 MPV 8.8 fL (7.4-10.4) 10/12/22 05:45 Neut % (Auto) 65.3 % 10/12/22 05:45 Lymph % (Auto) 18.8 % 10/12/22 05:45 [place] % (Auto) 10.8 % 10/12/22 05:45 Eos % (Auto) 4.3 % 10/12/22 05:45 Baso % (Auto) 0.5 % 10/12/22 05:45 Neut # (Auto) 4.29 10^3/uL (1.8-7.7) 10/12/22 05:45 Lymph # (Auto) 1.2 10^3/uL (0.8-4.8) 10/12/22 05:45 [place] # (Auto) 0.7 10^3/uL (0.2-0.9) 10/12/22 05:45 Eos # (Auto) 0.3 10^3/uL (0.0-0.8) 10/12/22 05:45 Baso # (Auto) 0.0 10^3/uL (0.0-0.1) 10/12/22 05:45 Nucleated RBC % (auto) 0 % 10/12/22 05:45 Nucleated RBCs # 0.0 /100WBC 10/12/22 05:45 Haptoglobin 173.0 mg/L (30-200) 10/10/22 09:10 PT 21.00 SECONDS (12.1-14.9) H 10/11/22 04:26 INR 1.74 (0.8-1.2) H 10/11/22 04:26 APTT 34.5 SECONDS (23.9-36.7) 10/11/22 04:26 Fibrinogen 281 mg/dL (174-498) 10/11/22 04:26 Sodium 140 mmol/L (136-145) 10/12/22 05:45 Potassium 4.7 mmol/L (3.5-5.1) 10/12/22 05:45 Chloride 109 mmol/L (98-107) H 10/12/22 05:45 Carbon Dioxide 20 mmol/L (22-29) L 10/12/22 05:45 Anion Gap 15.7 (5-19) 10/12/22 05:45 BUN 28 mg/dL (8-23) H 10/12/22 05:45 Creatinine 1.7 mg/dL (0.5-0.9) H 10/12/22 05:45 GFR Calculation Not Reportable 10/12/22 05:45 Glucose 127 mg/dL (65-115) H 10/12/22 05:45 POC Glucose 192 mg/dL (70-110) H 10/12/22 10:47 Calculated Osmolality 297 mOsm/kg (285-295) H 10/12/22 05:45 Calcium 7.9 mg/dL (8.5-10.5) L 10/12/22 05:45 Magnesium 1.8 mg/dL (1.7-2.3) 10/11/22 04:26 Total Bilirubin 0.5 mg/dL (0.15-1.2) 10/12/22 05:45 AST 18 U/L (0-32) 10/12/22 05:45 ALT 13 U/L (0-33) 10/12/22 05:45 Alkaline Phosphatase 72 U/L (35-105) 10/12/22 05:45 Lactate Dehydrogenase 147 U/L (135-214) 10/10/22 09:10 Troponin T Baseline 21 ng/L (0-10) H 10/10/22 09:10 Troponin T Hi Sens 6Hr 19.12 ng/L (0-10) H 10/10/22 18:22 Troponin T Hi Sens 6Hr Delta -1.88 ng/L (0-12) L 10/10/22 18:22 NT-Pro-B Natriuret Pep 250 pg/mL (0-450) 10/10/22 09:10 Total Protein 5.8 g/dL (6.6-8.7) L 10/12/22 05:45 Albumin 3.5 g/dL (3.5-5.2) 10/12/22 05:45 Globulin 2.3 g/dL (1.3-4.6) 10/12/22 05:45 Vitamin B12 188 pg/mL (232-1245) L 10/10/22 09:10 Folate 12.4 ng/mL (4.8-37.3) 10/10/22 09:10 TSH 0.92 uIU/mL (0.27-4.20) 10/10/22 07:45 Urine Color Yellow (Yellow) 10/10/22 10:30 Urine Appearance Clear (CLEAR) 10/10/22 10:30 Urine pH 5 (5-7) 10/10/22 10:30 Ur Specific [place] 1.010 (1.005-1.030) 10/10/22 10:30 Urine Protein Neg (Negative) 10/10/22 10:30 Urine Glucose (UA) Norm (Normal) 10/10/22 10:30 Urine Ketones Negative (Negative) 10/10/22 10:30 Urine Blood Neg (Negative) 10/10/22 10:30 Urine Nitrate Negative (Negative) 10/10/22 10:30 Urine Bilirubin Neg (Negative) 10/10/22 10:30 Urine Urobilinogen Norm mg/dL (Negative) 10/10/22 10:30 Ur Leukocyte Esterase Negative (Negative) 10/10/22 10:30 Blood Type O Negative 10/10/22 09:10 Rho(D) Type Negative 10/10/22 09:10 Antibody Screen Negative 10/10/22 09:10 Crossmatch See Detail 10/10/22 09:10 Vitals Last Vital Signs Temp 98.3 F 10/12/22 12:00 Pulse 58 L 10/12/22 12:00 Resp 17 10/12/22 12:00 BP 149/73 10/12/22 12:00 Pulse Ox 97 10/12/22 12:00 O2 Del Method Room Air 10/11/22 09:30 Discharge Plan Discharge Patient Disposition: Home Condition: Stable Prescriptions: Continued docusate sodium [Colace] 100 mg capsule 100 mg PO BID ferrous sulfate [FeroSul] 325 mg (65 mg iron) tablet 325 mg PO DAILY@0800 (DME) Diabetic Shoes with 3 Pairs of Inserts See Rx Instructions .Route .MEDSUPPLY Qty: 1 0RF Rx Instructions: As directed by HOME furosemide 40 mg tablet 40 mg PO DAILY PRN (Reason: Edema) Qty: 30 3RF lysine 1,000 mg tablet 1,000 mg PO DAILY 90 Days Qty: 90 1RF (DME) Diabetic shoes with inserts See Rx Instructions .Route .MEDSUPPLY Qty: 1 0RF Rx Instructions: As directed (DME) lancets [TRUEplus Lancets] 30 gauge misc See Rx Instructions .ROUTE .COMPLEX Qty: 100 12RF Dose Instruction: USE TO test FOUR times DAILY Rx Instructions: USE TO test FOUR times DAILY (DME) pen needle, diabetic 32 gauge x 5/32 needle See Rx Instructions .ROUTE .COMPLEX Qty: 100 4RF Dose Instruction: USE DIRECTED Rx Instructions: USE DIRECTED Lantus Solostar U-100 Insulin 100 unit/mL (3 mL) insulin pen See Rx Instructions .ROUTE .COMPLEX Qty: 3 0RF Dose Instruction: INJECT 15 UNITS SUBCUTANEOUSLY ONCE DAILY AT 8AM Rx Instructions: INJECT 15 UNITS SUBCUTANEOUSLY ONCE DAILY AT 8AM lisinopril 20 mg tablet 20 mg PO DAILY levothyroxine 88 mcg tablet 88 mcg PO DAILY febuxostat 80 mg tablet 80 mg PO DAILY Discontinued potassium chloride 10 mEq capsule, extended release 10 meq PO DAILY Qty: 30 3RF warfarin 2 mg tablet 2 mg PO DAILY Discharge Orders: Discharge Order (Routine); Ordered 10/12/22 Ordered By: Madyson Batres Referrals: Penny Sanchez MD [Primary Care Provider] - Tiburcio Summers MD [Other] - 4-7 days (capsule endoscopy ) Loi Sánchez MD [Hospitalist] - 7-10 days Discharge Diet: Usual diet Discharge Activity: Resume usual activity Patient Instructions: GI Discharge Instructions, Opioid Safety Discharge Attestations Time Spent in Discharge Care*: greater than 30 min Quality Metrics Clinical Quality Measures [ No reported AMI, CVA or VTE this stay] Coding Level of Care Code Acute Code for Chg Fwd Total time (in minutes) for Discharge: 30 Diagnoses Anemia D64.9 Chronic anticoagulation Z79.01 History of colon cancer Z85.038 Diabetes mellitus, insulin dependent (IDDM), controlled E11.9; Z79.4
[2022-10-12 15:20] VITALS: BP 149/73; PULSE 58; RESP 17; TEMP 36.8; O2SAT 97
[2022-10-13 12:35] LABS: ALBUMIN 3.3 g/dL (3.8-4.8); ALPHA 1 GLOBULIN 0.4 g/dL (0.2-0.3); ALPHA 2 GLOBULIN 0.7 g/dL (0.5-0.9); BETA 1 GLOBULIN 0.4 g/dL (0.4-0.6); BETA 2 GLOBULIN 0.3 g/dL (0.2-0.5); GAMMA GLOBULIN 0.6 g/dL (0.8-1.7)
[2022-10-13 13:45] LABS: KAPPA LIGHT CHAIN, FREE, SERUM 44.4 mg/L (3.3-19.4); LAMBDA LIGHT CHAIN, FREE, SERU 27.7 mg/L (5.7-26.3)
[2022-10-17 14:05] LABS: Methylmalonic Acid 3300 nmol/L (87-318)
== END 2022-10-12 15:22 | disposition home or self-care (01) | DRG 812 ==
LOC: ER 10:56 → MEDSURG 11:09
PROVIDERS: Internal Medicine; Surgery; Admitting Provider Family Medicine; Emergency Provider Emergency Medicine; PCP Family Medicine; Visit Provider Student in an Organized Health Care Education/Training Program
PROC: 0DJ08ZZ Inspection of Upper Intestinal Tract, Via Natural or Artificial Opening Endoscopic (ICD-10-PCS; CPT 43235; principal; 2022-10-11 09:00)
DX: D64.9 Anemia, unspecified (principal); Z85.038 Personal history of other malignant neoplasm of large intestine; E11.9 Type 2 diabetes mellitus without complications; Z79.4 Long term (current) use of insulin; Z86.010 Personal history of colon polyps; R19.5 Other fecal abnormalities; Z86.718 Personal history of other venous thrombosis and embolism; E78.2 Mixed hyperlipidemia; E89.0 Postprocedural hypothyroidism; I10 Essential (primary) hypertension; Z86.711 Personal history of pulmonary embolism; Z90.49 Acquired absence of other specified parts of digestive tract
CPT/HCPCS: 36415; 36416; 36430; 43235; 71045; 74174; 80053; 81003; 82378; 82607; 82746; 82962; 83010; 83540; 83550; 83615; 83735; 83880; 83883; 83921; 84155; 84165; 84443; 84484; 85014; 85018; 85025; 85049; 85384; 85610; 85730; 86850; 86900; 86920; 93005; 96372; 96374; 99213; 99285; C9113; G0378; J1815; J2704; J3420; J7030; P9016; Q9967

== ENCOUNTER → 2022-10-15 10:02 | Outpatient (BNVA) | payer MEDICARE, MEDICAID, SELFPAY | PROVIDERS: PCP Family Medicine; Visit Provider Anesthesiology Pain Medicine | DX: B02.22 Postherpetic trigeminal neuralgia | CPT/HCPCS: 99203 ==

== ENCOUNTER → 2022-10-16 13:37 | Outpatient (BNVA) | payer MEDICARE, MEDICAID, SELFPAY | PROVIDERS: PCP Family Medicine; Visit Provider Family Medicine | DX: K92.2 Gastrointestinal hemorrhage, unspecified (principal); Z09 Encounter for follow-up examination after completed treatment for conditions other than malignant neoplasm; D64.9 Anemia, unspecified | CPT/HCPCS: 85025 ==

== ENCOUNTER 2022-10-21 10:00 | Oncology outpatient (recurring) (ONCR) | payer MEDICARE, MEDICAID, SELFPAY ==
[2022-10-10 07:46] VITALS: BP 160/63; PULSE 82; RESP 18; TEMP 36.4; O2SAT 100
[2022-10-10 08:00] LABS: Basophils % 0.5 %; Eosinophils # 0.3 10^3/uL (0.0-0.8); Eosinophils % 4.3 %; Lymphocytes # 1.5 10^3/uL (0.8-4.8); Lymphocytes % 24.2 %; Mean Corpuscular HGB Conc 28.5 g/dL (30.0-36.0); Mean Corpuscular Hemoglobin 24.4 pg (28.0-34.0); Mean Corpuscular Volume 85.7 fl (81-99); Mean Platelet Volume 8.8 fL (7.4-10.4); Monocytes # 0.6 10^3/uL (0.2-0.9); Neutrophils # 3.83 10^3/uL (1.8-7.7); Neutrophils % 61.7 %; Nucleated Red Blood Cells % 0.3 %; Platelet Count 232 10^3/cmm (130-400); Red Blood Count 2.17 10^6/uL (4.1-5.3); Red Cell Distribution Width 15.3 % (12.1-15.1); White Blood Count 6.2 10^3/uL (4.0-10.0)
[2022-10-10 08:11] LABS: Hematocrit 18.6 % (37.0-47.0); Hemoglobin 5.3 g/dL (11.5-15.3)
[2022-10-10 08:28] LABS: Carcinoembryonic Antigen 1.4 ng/mL (0.0-4.7)
[2022-10-10 08:39] LABS: Alanine Aminotransferase 15 U/L (0-33); Albumin Level 3.7 g/dL (3.5-5.2); Alkaline Phosphatase 72 U/L (35-105); Aspartate Amino Transferase 15 U/L (0-32); Blood Urea Nitrogen 27 mg/dL (8-23); Calcium 8.2 mg/dL (8.5-10.5); Carbon Dioxide 19 mmol/L (22-29); Chloride 106 mmol/L (98-107); Globulin 2.2 g/dL (1.3-4.6); Glucose 142 mg/dL (65-115); Osmolality Calculated 296 mOsm/kg (285-295); Sodium 139 mmol/L (136-145); Total Bilirubin 0.2 mg/dL (0.15-1.2); Total Protein 5.9 g/dL (6.6-8.7)
[2022-10-10 08:59] LABS: Iron 123 ug/dL (37-145); Percent Saturation 35.7 % (20-50); Total Iron Binding Capacity 344 mcg/dl; Unsaturated Iron Binding 221 ug/dL (112-347)
[2022-10-21 11:35] LABS: Basophils % 0.8 %; Eosinophils # 0.3 10^3/uL (0.0-0.8); Eosinophils % 5.3 %; Hematocrit 31.3 % (37.0-47.0); Hemoglobin 9.4 g/dL (11.5-15.3); Lymphocytes # 1.2 10^3/uL (0.8-4.8); Lymphocytes % 24.8 %; Mean Corpuscular Hemoglobin 26.6 pg (28.0-34.0); Mean Corpuscular Volume 88.4 fl (81-99); Mean Platelet Volume 9.2 fL (7.4-10.4); Monocytes # 0.4 10^3/uL (0.2-0.9); Monocytes % 8.2 %; Neutrophils # 2.89 10^3/uL (1.8-7.7); Neutrophils % 60.9 %; Nucleated Red Blood Cells % 0 %; Platelet Count 213 10^3/cmm (130-400); Red Blood Count 3.54 10^6/uL (4.1-5.3); Red Cell Distribution Width 17.6 % (12.1-15.1); White Blood Count 4.75 10^3/uL (3.29-11.43)
[2022-10-21 11:53] LABS: Ferritin 81 ng/mL (15-150); Homocysteine 15.97; Iron 42 ug/dL (37-145); Percent Saturation 12.9 % (20-50); Total Iron Binding Capacity 325 mcg/dl; Unsaturated Iron Binding 283 ug/dL (112-347)
[2022-10-22 07:54] LABS: PROTEIN, TOTAL 6.3 g/dL (6.1-8.1)
[2022-10-22 12:36] LABS: ALBUMIN 3.8 g/dL (3.8-4.8); ALPHA 1 GLOBULIN 0.4 g/dL (0.2-0.3); ALPHA 2 GLOBULIN 0.7 g/dL (0.5-0.9); BETA 1 GLOBULIN 0.5 g/dL (0.4-0.6); BETA 2 GLOBULIN 0.4 g/dL (0.2-0.5); GAMMA GLOBULIN 0.7 g/dL (0.8-1.7)
[2022-10-22 13:40] LABS: Creatinine, Random Urine 79 mg/dL (20-275); Protein, Total, Random 7 mg/dL (5-24); Protein/Creatinine Ratio 0.089 (0.024-0.184); Protein/Creatinine Ratio 89 mg/g creat (24-184)
[2022-10-24 08:48] LABS: Albumin,Urine Random 0 %; Alpha-1-Globulins Urine Random 0 %; Alpha-2-Globulins Urine Random 0 %; Beta-Globulin,Urine Random 0 %; Gamma Globulin,Urine Random 0 %
[2022-10-28 11:39] LABS: Soluble Transferrin Receptor 3.51 mg/L (0.76-1.76)
== END 2022-10-30 23:59 | disposition home or self-care (01) ==
PROVIDERS: Internal Medicine Hematology & Oncology; Internal Medicine Medical Oncology; PCP Family Medicine; Visit Provider Internal Medicine Medical Oncology
DX: C18.7 Malignant neoplasm of sigmoid colon (principal); D64.9 Anemia, unspecified; C18.9 Malignant neoplasm of colon, unspecified; E11.42 Type 2 diabetes mellitus with diabetic polyneuropathy; E78.2 Mixed hyperlipidemia
CPT/HCPCS: 36415; 80053; 82180; 82378; 82570; 82728; 83090; 83540; 83550; 84155; 84156; 84165; 84166; 84238; 85025; 86255; 86334; 86340; 99203; 99215

== ENCOUNTER → 2022-10-30 13:31 | Outpatient (BNVA) | payer MEDICARE, SELFPAY | PROVIDERS: PCP Family Medicine; Visit Provider Family Medicine | DX: D64.9 Anemia, unspecified (principal) | CPT/HCPCS: 85025 ==

== ENCOUNTER → 2022-11-06 09:46 | Outpatient (BNVA) | payer MEDICARE, MEDICAID, SELFPAY | PROVIDERS: PCP Family Medicine; Visit Provider Family Medicine | DX: D64.9 Anemia, unspecified (principal) | CPT/HCPCS: 85025 ==

== ENCOUNTER 2022-11-24 14:30 | Oncology outpatient (recurring) (ONCR) | payer MEDICARE, MEDICAID, SELFPAY ==
[2022-11-13] MEDS: sodium chloride 0.9% 250 ML 100 ML IV (15:25)
[2022-11-13] MEDS: iron sucrose 200 MG in sodium chloride 0.9% (100 ml) 100 ML 220 MG IV (15:26)
[2022-11-13 16:20] VITALS: BP 141/62; PULSE 53; TEMP 36.4; O2SAT 99
[2022-11-17 14:20] VITALS: BP 160/55; PULSE 92; RESP 16; TEMP 36.8; O2SAT 98
[2022-11-17] MEDS: iron sucrose 200 MG in sodium chloride 0.9% (100 ml) 100 ML 220 MG IV (14:24)
[2022-11-17 14:54] VITALS: BP 137/78; PULSE 67; RESP 16; TEMP 36.9; O2SAT 98
[2022-11-19 15:20] VITALS: BP 148/57; PULSE 65; RESP 18; TEMP 36.8; O2SAT 99
[2022-11-19] MEDS: iron sucrose 200 MG in sodium chloride 0.9% (100 ml) 100 ML 220 MG IV (15:26)
[2022-11-19 16:15] VITALS: BP 144/73; PULSE 58; RESP 18; TEMP 36.2; O2SAT 99
[2022-11-21 09:15] VITALS: BP 167/69; PULSE 71; RESP 16; TEMP 36.2; O2SAT 99
[2022-11-21] MEDS: iron sucrose 200 MG in sodium chloride 0.9% (100 ml) 100 ML 220 MG IV (09:27)
[2022-11-21 10:00] VITALS: BP 140/66; PULSE 64; RESP 16; TEMP 36.3; O2SAT 95
[2022-11-24 13:00] VITALS: BP 186/71; PULSE 67; RESP 16; TEMP 36.4; O2SAT 98
[2022-11-24] MEDS: iron sucrose 200 MG in sodium chloride 0.9% (100 ml) 100 ML 220 MG IV (13:04)
[2022-11-24 13:35] VITALS: BP 164/71; PULSE 60; RESP 17; TEMP 36.6; O2SAT 96
== END 2022-11-29 23:59 | disposition home or self-care (01) ==
PROVIDERS: PCP Family Medicine; Visit Provider Internal Medicine Medical Oncology
DX: D64.9 Anemia, unspecified
CPT/HCPCS: 96365; J1756; J7050

== ENCOUNTER 2022-12-24 12:48 | Oncology outpatient (recurring) (ONCR) | payer MEDICARE, MEDICAID, SELFPAY ==
[2022-12-24 12:59] VITALS: BP 145/60; PULSE 97; RESP 16; TEMP 36.2; O2SAT 99
[2022-12-24 13:15] LABS: Basophils # 0.1 10^3/uL (0.0-0.1); Basophils % 0.8 %; Eosinophils # 0.3 10^3/uL (0.0-0.8); Eosinophils % 4.6 %; Hematocrit 30.1 % (36-47); Lymphocytes # 1.6 10^3/uL (0.8-4.8); Lymphocytes % 26.1 %; Mean Corpuscular HGB Conc 33.2 g/dL (30-55); Mean Corpuscular Hemoglobin 31.1 pg (27-33); Mean Corpuscular Volume 93.5 fl (85-98); Mean Platelet Volume 9.1 fL (7.4-10.4); Monocytes # 0.4 10^3/uL (0.2-0.9); Monocytes % 6.9 %; Neutrophils # 3.64 10^3/uL (1.8-7.7); Neutrophils % 61.4 %; Nucleated Red Blood Cells % 0 %; Platelet Count 196 10^3/cmm (157-399); Red Blood Count 3.22 10^6/uL (3.85-5.65); Red Cell Distribution Width 15.7 % (12.1-15.1); White Blood Count 5.93 10^3/uL (3.29-11.43)
[2022-12-24 13:49] LABS: Vitamin B12 606 pg/mL (232-1245)
[2022-12-24 14:15] LABS: Alanine Aminotransferase 12 U/L (0-33); Alkaline Phosphatase 74 U/L (35-105); Anion Gap 16.1 (5-19); Aspartate Amino Transferase 15 U/L (0-32); Blood Urea Nitrogen 28 mg/dL (8-23); Calcium 8.8 mg/dL (8.5-10.5); Carbon Dioxide 22 mmol/L (22-29); Chloride 107 mmol/L (98-107); Globulin 2.3 g/dL (1.3-4.6); Glucose 183 mg/dL (65-115); Osmolality Calculated 302 mOsm/kg (285-295); Potassium 4.1 mmol/L (3.5-5.1); Sodium 141 mmol/L (136-145); Total Bilirubin 0.3 mg/dL (0.15-1.2); Total Protein 6.3 g/dL (6.6-8.7)
[2022-12-24 16:41] LABS: Carcinoembryonic Antigen 1.5 ng/mL (0.0-4.7)
== END 2022-12-30 23:59 | disposition home or self-care (01) ==
PROVIDERS: Nurse Practitioner Family; PCP Family Medicine; Visit Provider Internal Medicine Medical Oncology
DX: D64.9 Anemia, unspecified (principal); C18.7 Malignant neoplasm of sigmoid colon; Z08 Encounter for follow-up examination after completed treatment for malignant neoplasm; I82.409 Acute embolism and thrombosis of unspecified deep veins of unspecified lower extremity; Z79.899 Other long term (current) drug therapy; Z53.9 Procedure and treatment not carried out, unspecified reason
CPT/HCPCS: 36415; 80053; 82378; 82607; 85025; 99214

== ENCOUNTER 2023-01-06 09:55 | Outpatient (CLI) | payer MEDICARE, MEDICAID, SELFPAY ==
--- NOTE | 2023-01-06 10:30 | MM_ITS ---
WS: [id number] Bilateral screening 3D tomosynthesis digital mammogram, 01/06/2023 Clinical Data: screening for breast cancer Comparison: 12/28/2020, 11/24/2019, 10/21/2018, 10/21/2017, 10/14/2017, 04/30/2016, 03/23/2013, 01/17/2019, 12/23/2010, 12/13/2010. Findings: The breast parenchymal pattern shows heterogeneous density. No spiculated masses or clustered calcifi cations are seen. There are no secondary signs of carcinoma. There are fibro glandular nodules throug hout both breasts unchanged. There are vascular calcifications. Impression: 1. Negative bilateral mammogram unchanged. 2. Recommend annual screening mammograms. MM/[place] [id number] BIRADS: 1-Negative FOLLOW UP: 1 Year Follow-up The CAD checkering machine operator was used.
== END 2023-01-06 09:56 | disposition home or self-care (01) ==
LOC: MOBLMAM 10:03
PROVIDERS: PCP Family Medicine; Visit Provider Internal Medicine Medical Oncology
DX: Z12.31 Encounter for screening mammogram for malignant neoplasm of breast (principal)
CPT/HCPCS: 77063; 77067

== ENCOUNTER → 2023-01-20 10:17 | Outpatient (BNVA) | payer MEDICARE, MEDICAID, SELFPAY | PROVIDERS: PCP Family Medicine; Visit Provider Nurse Practitioner Family | DX: J02.9 Acute pharyngitis, unspecified (principal) | CPT/HCPCS: 87071; 87880 ==

== ENCOUNTER → 2023-02-17 12:34 | Outpatient (BNVA) | payer MEDICARE, MEDICAID, SELFPAY | PROVIDERS: PCP Family Medicine; Visit Provider Student in an Organized Health Care Education/Training Program | DX: B02.9 Zoster without complications (principal) | CPT/HCPCS: 99213 ==

== ENCOUNTER 2023-02-20 15:48 | Outpatient (CLI) | payer MEDICARE, MEDICAID, SELFPAY ==
--- NOTE | 2023-02-20 15:45 | USCV_ITS ---
Maddy Beavers Age: 77 Gender: F : 1945 Exam Date: 02/20/2023 16:10 Ordering Phys: Eileen Nicholas NP Technologist: CT [place] [facility] [place] Indication: left le pain PROCEDURES: Venous duplex imaging was performed in only the left lower extremity. On the left side, the common femoral, superficial femoral, profunda femoral, popliteal, posterior tibial, greater saphenous veins, and the peroneal trunk were identified and interrogated in the standard fashion. These veins were found to be easily compressible with spontaneous blood flow. No evidence of insufficiency or thrombus noted. FINDINGS: no dvt CONCLUSIONS No evidence of left lower extremity DVT. Umer Miller MD (Electronically Signed) Final Date: 20 February 2023 16:56 S
== END 2023-02-20 15:49 | disposition home or self-care (01) ==
LOC: RAD 15:48
PROVIDERS: PCP Family Medicine; Visit Provider Nurse Practitioner Family
DX: M79.89 Other specified soft tissue disorders (principal); M79.605 Pain in left leg
CPT/HCPCS: 93971

== ENCOUNTER 2023-02-24 13:12 | Oncology outpatient (recurring) (ONCR) | payer MEDICARE, MEDICAID, SELFPAY ==
[2023-02-24 13:48] VITALS: BP 145/62; PULSE 80; RESP 16; TEMP 35.8; O2SAT 98
[2023-02-24 14:09] LABS: Basophils % 0.5 %; Eosinophils # 0.3 10^3/uL (0.0-0.8); Eosinophils % 4.1 %; Hematocrit 27.9 % (36-47); Lymphocytes # 1.4 10^3/uL (0.8-4.8); Lymphocytes % 22.6 %; Mean Corpuscular HGB Conc 32.3 g/dL (30-55); Mean Corpuscular Hemoglobin 31.1 pg (27-33); Mean Corpuscular Volume 96.5 fl (85-98); Mean Platelet Volume 8.9 fL (7.4-10.4); Monocytes # 0.4 10^3/uL (0.2-0.9); Monocytes % 7.1 %; Neutrophils # 3.96 10^3/uL (1.8-7.7); Neutrophils % 65.5 %; Nucleated Red Blood Cells % 0 %; Platelet Count 225 10^3/cmm (157-399); Red Blood Count 2.89 10^6/uL (3.85-5.65); Red Cell Distribution Width 13.4 % (12.1-15.1); White Blood Count 6.05 10^3/uL (3.29-11.43)
[2023-02-24 14:28] LABS: Alanine Aminotransferase 9 U/L (0-33); Albumin Level 4.1 g/dL (3.5-5.2); Alkaline Phosphatase 67 U/L (35-105); Anion Gap 17.6 (5-19); Aspartate Amino Transferase 14 U/L (0-32); Blood Urea Nitrogen 28 mg/dL (8-23); Calcium 8.8 mg/dL (8.5-10.5); Carbon Dioxide 22 mmol/L (22-29); Chloride 108 mmol/L (98-107); Ferritin 99 ng/mL (15-150); Globulin 2.5 g/dL (1.3-4.6); Glucose 131 mg/dL (65-115); Iron 38 ug/dL (37-145); Osmolality Calculated 303 mOsm/kg (285-295); Percent Saturation 14.6 % (20-50); Potassium 4.6 mmol/L (3.5-5.1); Sodium 143 mmol/L (136-145); Total Bilirubin 0.2 mg/dL (0.15-1.2); Total Iron Binding Capacity 259 mcg/dl; Total Protein 6.6 g/dL (6.6-8.7); Unsaturated Iron Binding 221 ug/dL (112-347)
[2023-02-24 14:41] LABS: Carcinoembryonic Antigen 1.5 ng/mL (0.0-4.7)
== END 2023-03-01 23:59 | disposition home or self-care (01) ==
PROVIDERS: Nurse Practitioner Family; PCP Family Medicine; Visit Provider Internal Medicine Medical Oncology
DX: D64.9 Anemia, unspecified (principal); C18.7 Malignant neoplasm of sigmoid colon; Z08 Encounter for follow-up examination after completed treatment for malignant neoplasm
CPT/HCPCS: 36415; 80053; 82378; 82728; 83540; 83550; 85025; 99214

== ENCOUNTER 2023-03-11 14:30 | Oncology outpatient (recurring) (ONCR) | payer MEDICARE, MEDICAID, SELFPAY ==
[2023-03-04] MEDS: ferric carboxy (IVPB) 750 MG in sodium chloride 0.9% (100 ml) 100 ML 345 MG IV (15:16)
[2023-03-04 15:22] VITALS: BP 114/66; PULSE 56; RESP 18; TEMP 36.6; O2SAT 98
[2023-03-04 15:50] VITALS: BP 112/78; PULSE 74; RESP 18; TEMP 36.6; O2SAT 98
[2023-03-11] MEDS: ferric carboxy (IVPB) 750 MG in sodium chloride 0.9% (100 ml) 100 ML 345 MG IV (14:58)
[2023-03-11] MEDS: sodium chloride 0.9% 250 ML 75 ML IV (14:58)
[2023-03-11 15:46] VITALS: BP 151/72; PULSE 81; RESP 17; TEMP 35.8; O2SAT 98
== END 2023-04-01 23:59 | disposition home or self-care (01) ==
PROVIDERS: PCP Family Medicine; Visit Provider Internal Medicine Medical Oncology
DX: Z53.9 Procedure and treatment not carried out, unspecified reason (principal); D50.9 Iron deficiency anemia, unspecified
CPT/HCPCS: 82274; 96365; J1439; J7050

== ENCOUNTER → 2023-03-19 08:17 | Outpatient (BNVA) | payer MEDICARE, MEDICAID, SELFPAY | PROVIDERS: PCP Family Medicine; Referring Provider Nurse Practitioner Family; Visit Provider Surgery | DX: Z79.01 Long term (current) use of anticoagulants; K92.1 Melena | CPT/HCPCS: 99214 ==

== ENCOUNTER 2023-04-15 06:52 | Day surgery (SDC) | payer MEDICARE, MEDICAID, SELFPAY ==
[2023-04-15 07:11] VITALS: BP 158/50; PULSE 63; RESP 18; TEMP 36.2; O2SAT 99; BMI 30.8
--- NOTE | 2023-04-15 07:23 | P.ANESASSM_ITS ---
Pre-Anesthetic Assessment Height/Weight: Height 1.68 m Weight 86.636 kg Temp Pulse Resp BP Pulse Ox O2 Del Method 97.2 F L 63 18 158/50 99 Room Air 04/15/23 07:11 04/15/23 07:11 04/15/23 07:11 04/15/23 07:11 04/15/23 07:11 04/15/23 07:11 Preop Diagnosis: melana Operation Date: 04/15/23 08:15 Proposed Procedures p 62037 colon G0121 screen colon A risk K92.1(Not Applicable) - Nayan Fay, DO Was Beta [place] taken within 24 hours: N/A Was Clonidine taken within 24 hours: N/A Last intake: Intake Last Liquid Date 04/14/23 Last Liquid Time 22:30 Last Solid Date 04/13/23 Social No alcohol and No tobacco Exam alert and oriented x 3 Airway Submandibular: within normal limits Cervical ROM: within normal limits Mallampati: Class II Dentition: full History/ROS No significant history except as noted Pulmonary None reported CV/HEM Hypertension None reported Hepatic None reported GI Gastroesophageal Reflux Disease s/p colo rectal CA history Metabolic Diabetes Mellitus, Hyperlipidemia and Thyroid Disease [facility] [place] None reported Neuropsych None reported Anesthetic Plan ASA status: 3 Anesthesia: MAC Risk of > 500 ml blood loss (7ml/kg in children): No Medications/Allergies Home Medications Medication Instructions Recorded Confirmed Last Taken Type Diabetic Shoes with 3 Pairs of #1 ea 09/18/21 04/07/23 Unknown Rx Inserts Diabetic shoes with inserts #1 ea 10/15/21 04/07/23 Unknown Rx lancets 30 gauge (TRUEplus Lancets) ##100 01/06/22 04/07/23 Unknown Rx pen needle, diabetic 32 gauge x #100 ea 04/02/22 04/07/23 Unknown Rx lysine 1,000 mg tablet 1,000 mg PO DAILY 90 days #90 tabs 07/31/22 04/15/23 04/14/23 Rx insulin syringe-needle U-100 1 mL #100 ea 10/21/22 04/07/23 Unknown Rx 31 gauge x 07/15 ascorbate calcium (vitamin C) 500 500 mg PO DAILY 12/24/22 04/15/23 04/14/23 History mg tablet docusate sodium 100 mg capsule 100 mg PO BID 12/24/22 04/15/23 04/13/23 History febuxostat 80 mg tablet 80 mg PO DAILY #30 tabs 01/29/23 04/15/23 04/14/23 Rx pen needle, diabetic 32 gauge x #100 ea 02/06/23 04/07/23 Unknown Rx 5/16 (Comfort EZ Pen [place]) furosemide 40 mg tablet 40 mg PO DAILY PRN Edema #30 tabs 03/03/23 04/15/23 Unknown Rx cyanocobalamin (vitamin B-12) 1,000 mcg SUBCUT .COMPLEX #10 mL 03/11/23 04/15/23 04/10/23 Rx 1,000 mcg/mL injection solution insulin glargine 100 unit/mL (3 15 unit (0.15 mL) SUBCUT DAILY #15 04/07/23 04/15/23 04/14/23 Rx mL) subcutaneous pen (Lantus mL Solostar U-100 Insulin) levothyroxine 88 mcg tablet 88 mcg PO DAILY 04/15/23 04/15/23 04/14/23 History lisinopril 20 mg tablet 20 mg PO DAILY 04/15/23 04/15/23 04/14/23 History Allergies Allergy/AdvReac Type Severity Reaction Status Date / Time gabapentin Allergy Severe tremors Verified 04/15/23 07:08 Penicillins Allergy Unknown ALGY-Rash Verified 04/15/23 07:08 valsartan [From Diovan] Allergy Unknown ADR/ALGY-Pa Verified 04/15/23 07:08 lpitations lidocaine Allergy ALGY-Redness Verified 04/15/23 07:08 of Skin triamcinolone Allergy ALGY-Redness Verified 04/15/23 07:08 of Skin pregabalin [From Lyrica] AdvReac Unknown Verified 04/15/23 07:08 [facility] Anesthesia Medical History History of DVT (deep vein thrombosis) Colon cancer Chronic anticoagulation Hypothyroidism Pulmonary embolism Hyperlipidemia, mixed History of colon cancer T2N0M0 - 2017 DVT (deep venous thrombosis) Hypertension Diabetes mellitus, insulin dependent (IDDM), controlled Surgical History S/P colon resection Laparoscopic left hemicolectomy: July 09, 2016 History of subtotal thyroidectomy History of hysterectomy S/P appendectomy S/P arthroscopic surgery of left knee H/O colonoscopy (06/05/20) 05/02/19: polyps ascending and descending colon 06/04/20: IC valve and descending colon polyp Family History Father Cancer Other Bleeding disorder CAD (coronary artery disease) Clotting disorder Diabetes Hypertension Denies family history of Dementia Hyperlipidemia Psychiatric illness Chronic kidney disease (CKD) Suicide Anesthesia complication Lung disease Stroke Social History Smoking and tobacco/nicotine status: never used tobacco/nicotine Second hand smoke exposure: No Alcohol intake: never Substance/Drug Use: never Caregiver/support person: Yes (sisters) Lives independently: Yes (son lives with her) Household members: children Marital status: / service: No Current occupational status: retired Current gender identity: Female Special mark needs: No Agree to transfusion: Yes Data Anesthesia Cardiac Studies: No Data to Display
[2023-04-15] MEDS: sodium chloride 0.9% 1,000 ML 30 ML IV (07:25)
[2023-04-15 07:27] LABS: Glucose Point of Care 115 mg/dL (70-110)
--- NOTE | 2023-04-15 08:07 | W.PM.OPSUD ---
Surgery/Procedure H&P Update DATE OF PROCEDURE: April 15, 2023 DATE H&P PERFORMED: 03/19/23 H&P UPDATE INFORMATION: I have reviewed H&P completed within last 30 days, I have examined patient prior to procedure and No changes to prior documentation PREOP DIAGNOSIS: melana PLANNED PROCEDURE: Operation Date: 04/15/23 08:15 Proposed Procedures p 81124 colon G0121 screen colon A risk K92.1(Not Applicable) - Nayan Fay,
[2023-04-15 08:35] VITALS: BP 90/41; PULSE 58; RESP 16; TEMP 36.1; O2SAT 99
[2023-04-15 08:49] VITALS: BP 118/48; PULSE 54; RESP 18; O2SAT 99
--- NOTE | 2023-04-15 14:48 | ANE.PACU2 ---
Inpatient post-anesthesia follow up: Airway intact: Yes Vital signs: Temperature 97 F Pulse Rate 54 Respiratory Rate 18 Blood Pressure 118/48 Pulse Oximetry 99 Oxygen Delivery Me thod Room Air Oxygen Flow Rate Fraction of Inspir ed Oxygen Hydration adequate: Yes Nausea and vomiting: No Pain level: 2 Mental status: Baseline
[2023-04-22 08:13] LABS: Mismatch Repari Proteins-IHC See Report
== END 2023-04-15 09:02 | disposition home or self-care (01) ==
PROVIDERS: PCP Family Medicine; Visit Provider Surgery
PROC: 0DJD8ZZ Inspection of Lower Intestinal Tract, Via Natural or Artificial Opening Endoscopic (ICD-10-PCS; CPT 45378; principal; 2023-04-15 08:15)
DX: K92.1 Melena (principal); C18.2 Malignant neoplasm of ascending colon; I10 Essential (primary) hypertension; K21.9 Gastro-esophageal reflux disease without esophagitis; E11.9 Type 2 diabetes mellitus without complications; Z79.4 Long term (current) use of insulin; Z86.718 Personal history of other venous thrombosis and embolism; Z79.01 Long term (current) use of anticoagulants; E03.9 Hypothyroidism, unspecified; Z86.711 Personal history of pulmonary embolism; E78.2 Mixed hyperlipidemia; Z90.49 Acquired absence of other specified parts of digestive tract
CPT/HCPCS: 36416; 45380; 82962; 88305; 88341; 88342; J2704; J7030

== ENCOUNTER → 2023-04-17 13:04 | Outpatient (BNVA) | payer MEDICARE, MEDICAID, SELFPAY | PROVIDERS: PCP Family Medicine; Visit Provider Surgery | DX: C18.9 Malignant neoplasm of colon, unspecified (principal); N18.1 Chronic kidney disease, stage 1; Z09 Encounter for follow-up examination after completed treatment for conditions other than malignant neoplasm | CPT/HCPCS: 99212 ==

== ENCOUNTER 2023-04-20 13:13 | Outpatient (CLI) | payer MEDICARE, MEDICAID, SELFPAY ==
--- NOTE | 2023-04-20 13:34 | XRR_ITS ---
PROCEDURE INFORMATION: Exam: XR Chest Exam date and time: 04/20/2023 2:11 PM Age: 77 years old Clinical indication: Screening exam; Other screening; Additional info: Colon cancer TECHNIQUE: Imaging protocol: Radiologic exam of the chest. Views: 2 views. COMPARISON: CR XR chest 1V portable [id number] 10/10/2022 9:26 AM FINDINGS: Lungs: Unremarkable. No consolidation. Minimal benign healed granulomatous disease. Pleural spaces: Unremarkable. No pleural effusion. No pneumothorax. Heart/Mediastinum: Unremarkable. No cardiomegaly. Bones/joints: Spondylotic change thoracic spine. Other findings: No significant change with prior exam. XR/XR chest 3V [id number] IMPRESSION: No acute cardiopulmonary abnormality.
[2023-04-20 14:03] LABS: Basophils % 0.4 %; Eosinophils # 0.3 10^3/uL (0.0-0.8); Eosinophils % 5.6 %; Hematocrit 27.6 % (36-47); Lymphocytes # 1.5 10^3/uL (0.8-4.8); Lymphocytes % 28.3 %; Mean Corpuscular HGB Conc 31.9 g/dL (30-55); Mean Corpuscular Hemoglobin 32.4 pg (27-33); Mean Corpuscular Volume 101.5 fl (85-98); Monocytes # 0.4 10^3/uL (0.2-0.9); Monocytes % 7.6 %; Neutrophils # 2.98 10^3/uL (1.8-7.7); Neutrophils % 57.9 %; Nucleated Red Blood Cells % 0 %; Platelet Count 184 10^3/cmm (157-399); Red Blood Count 2.72 10^6/uL (3.85-5.65); Red Cell Distribution Width 13.7 % (12.1-15.1); White Blood Count 5.15 10^3/uL (3.29-11.43)
[2023-04-20 14:43] LABS: Carcinoembryonic Antigen 1.3 ng/mL (0.0-4.7)
[2023-04-20 14:57] LABS: Alanine Aminotransferase 13 U/L (0-33); Albumin Level 3.9 g/dL (3.5-5.2); Alkaline Phosphatase 73 U/L (35-105); Anion Gap 15.5 (5-19); Aspartate Amino Transferase 13 U/L (0-32); Blood Urea Nitrogen 25 mg/dL (8-23); Calcium 8.1 mg/dL (8.5-10.5); Carbon Dioxide 22 mmol/L (22-29); Chloride 111 mmol/L (98-107); Globulin 2.6 g/dL (1.3-4.6); Glucose 106 mg/dL (65-115); Osmolality Calculated 303 mOsm/kg (285-295); Potassium 4.5 mmol/L (3.5-5.1); Sodium 144 mmol/L (136-145); Total Bilirubin 0.2 mg/dL (0.15-1.2); Total Protein 6.5 g/dL (6.6-8.7)
== END 2023-04-20 13:14 | disposition home or self-care (01) ==
PROVIDERS: PCP Family Medicine; Visit Provider Surgery
DX: C18.9 Malignant neoplasm of colon, unspecified (principal)
CPT/HCPCS: 36415; 71047; 80053; 82378; 85025

== ENCOUNTER 2023-04-23 12:02 | Outpatient (CLI) | payer MEDICARE, MEDICAID, SELFPAY ==
--- NOTE | 2023-04-23 13:00 | CT_ITS ---
WS: [id number] CT ABDOMEN PELVIS TECHNIQUE: Contrast-enhanced CT of the abdomen and pelvis with coronal and sagittal reformatted image s. CLINICAL INFORMATION: colon cancer COMPARISON: CT 04/11/2019 and CTA 10/10/2022 DLP: 736.[address] scans at [facility] use at least one of these dose optimization techniques: automated e xposure control; mA and/or kV adjustment per patient size (includes targeted exams where dose is matc hed to clinical indication); or iterative reconstruction. FINDINGS: Prior postoperative changes LEFT hemicolectomy with rectosigmoid anastomosis. Mild thickening and enh ancement involving the distal cecum and ileocecal valve. This could be further evaluated with colonos copy if not previously performed. Prior hysterectomy. Diffuse fatty infiltration of the liver. Normal portal vein and splenic vein. Nor mal spleen. Normal GE junction. Tiny esophageal hiatal hernia. Lung bases are well aerated. Gallbladder is contracted. Dense splenic artery calcification. Adrenal glands are normal. Normal panc reatic parenchymal enhancement. Mild prominence of the common bile duct is unchanged. Normal caliber abdominal aorta. No hydronephrosis in either kidney. Small bilateral renal cysts. No evidence of high-grade small or large bowel obstruction. No adenopathy in the abdomen or pelvis. N o other interval changes. Stable mottled lytic and sclerotic appearance of the visualized bony structures as previously describ ed. IMPRESSION: 1. Stable postoperative changes LEFT hemicolectomy with rectosigmoid anastomosis. 2. No adenopathy in the abdomen or pelvis. 3. Mild thickening and enhancement involving the distal cecum and terminal ileum at the ileocecal va lve. This could be further evaluated with colonoscopy if not previously performed. 4. Diffuse fatty infiltration of the liver. 5. Tiny esophageal hiatal hernia. 6. Stable mottled lytic and sclerotic appearance of the visualized bony structures as previously subhash cribed.
[2023-04-23] MEDS: iohexol 350 mg/mL 100 mL Btl IV (13:08)
== END 2023-04-23 12:03 | disposition home or self-care (01) ==
PROVIDERS: PCP Family Medicine; Visit Provider Surgery
DX: C18.9 Malignant neoplasm of colon, unspecified (principal)
CPT/HCPCS: 74177; 80048; 85025; Q9967

== ENCOUNTER 2023-04-27 17:23 | Inpatient (IN) | payer MEDICARE, MEDICAID, SELFPAY ==
[2023-04-27] VITALS (23 sets, daily range): BP systolic 130–163; BP diastolic 58–99; PULSE 56–84; RESP 14–18; TEMP 36.1–36.8; O2SAT 90–100; BMI 31.8
[2023-04-27 11:58] LABS: Glucose Point of Care 114 mg/dL (70-110)
--- NOTE | 2023-04-27 12:30 | W.PM.OPSUD ---
Surgery/Procedure H&P Update DATE OF PROCEDURE: April 27, 2023 DATE H&P PERFORMED: 04/17/23 H&P UPDATE INFORMATION: I have reviewed H&P completed within last 30 days, I have examined patient prior to procedure and No changes to prior documentation PLANNED PROCEDURE: Operation Date: 04/27/23 12:50 Proposed Procedures p [id number] LAP RIGHT HEMICOLECTOMY C18.9(Right) - Nayan Fay DO
--- NOTE | 2023-04-27 13:39 | ANES.PREANE2 ---
Pre-Anesthetic Assessment Height/Weight: Height 1.68 m Weight 89.358 kg Temp Pulse Resp BP Pulse Ox O2 Del Method 97.0 F L 56 L 17 145/99 99 Room Air 04/27/23 11:39 04/27/23 11:39 04/27/23 11:39 04/27/23 11:39 04/27/23 11:39 04/27/23 11:39 Preop Diagnosis: melana Operation Date: 04/27/23 12:50 Proposed Procedures p 36101 LAP RIGHT HEMICOLECTOMY C18.9(Right) - Nayan Fay, DO Was Beta [place] taken within 24 hours: N/A Was Clonidine taken within 24 hours: N/A Last intake: Intake Last Liquid Date 04/26/23 Last Liquid Time 23:00 Last Solid Date 04/25/23 Last Solid Time 17:00 Social No alcohol and No tobacco Exam alert and oriented x 3 Airway Submandibular: within normal limits Cervical ROM: within normal limits Mallampati: Class II Dentition: full History/ROS No significant history except as noted Pulmonary None reported CV/HEM Hypertension None reported Hepatic None reported GI Gastroesophageal Reflux Disease s/p colo rectal CA history Metabolic Diabetes Mellitus, Hyperlipidemia and Thyroid Disease [facility] None reported Neuropsych None reported Anesthetic Plan ASA status: 3 Anesthesia: General Risk of > 500 ml blood loss (7ml/kg in children): Yes, adequate IV access and fluids planned Medications/Allergies Home Medications Medication Instructions Recorded Confirmed Last Taken Type Diabetic Shoes with 3 Pairs of #1 ea 09/18/21 04/17/23 Unknown Rx Inserts Diabetic shoes with inserts #1 10/15/21 04/17/23 Unknown Rx pen needle, diabetic 32 gauge x #100 ea 04/02/22 04/17/23 Unknown Rx lysine 1,000 mg tablet 1,000 mg PO DAILY 90 days #90 tabs 07/31/22 04/27/23 04/26/23 Rx insulin syringe-needle U-100 1 mL #100 10/21/22 04/17/23 Unknown Rx 31 gauge x 07/15 ascorbate calcium (vitamin C) 500 500 mg PO DAILY 12/24/22 04/27/23 04/26/23 History mg tablet docusate sodium 100 mg capsule 100 mg PO BID 12/24/22 04/24/23 04/24/23 History febuxostat 80 mg tablet 80 mg PO DAILY #30 tabs 01/29/23 04/27/23 04/26/23 Rx pen needle, diabetic 32 gauge x #100 ea 02/06/23 04/17/23 Unknown Rx 07/15 (Comfort EZ Pen [place]) furosemide 40 mg tablet 40 mg PO DAILY PRN Edema #30 tabs 03/03/23 04/24/23 Unknown Rx cyanocobalamin (vitamin B-12) 1,000 mcg SUBCUT .COMPLEX #10 mL 03/11/23 04/24/23 04/10/23 Rx 1,000 mcg/mL injection solution levothyroxine 88 mcg tablet 88 mcg PO DAILY 04/15/23 04/27/23 04/27/23 History lisinopril 20 mg tablet 20 mg PO DAILY 04/15/23 04/27/23 04/26/23 History insulin glargine 100 unit/mL (3 15 unit (0.15 mL) SUBCUT DAILY #15 04/21/23 04/27/23 04/03/23 Rx mL) subcutaneous pen (Lantus mL Solostar U-100 Insulin) lancets 30 gauge (TRUEplus Lancets) #100 ea 04/21/23 Unknown Rx blood sugar diagnostic (Blood #100 ea 04/23/23 04/23/23 Unknown Rx Glucose Test strips) Allergies Allergy/AdvReac Type Severity Reaction Status Date / Time gabapentin Allergy Severe tremors Verified 04/17/23 13:00 Penicillins Allergy Unknown ALGY-Rash Verified 04/17/23 13:00 valsartan [From Diovan] Allergy Unknown ADR/ALGY-Pa Verified 04/17/23 13:00 lpitations lidocaine Allergy ALGY-Redness Verified 04/17/23 13:00 of Skin triamcinolone Allergy ALGY-Redness Verified 04/17/23 13:00 of Skin pregabalin [From Lyrica] AdvReac Unknown Verified 04/17/23 13:00 [facility] Anesthesia Medical History (Updated 04/27/23 @ 12:28 by Nayan Fay DO) Adenocarcinoma of colon History of DVT (deep vein thrombosis) Colon cancer Chronic anticoagulation Hypothyroidism Pulmonary embolism Hyperlipidemia, mixed History of colon cancer [id number] - 2017 DVT (deep venous thrombosis) Hypertension Diabetes mellitus, insulin dependent (IDDM), controlled Surgical History S/P colon resection Laparoscopic left hemicolectomy: July 09, 2016 History of subtotal thyroidectomy History of hysterectomy S/P appendectomy S/P arthroscopic surgery of left knee H/O colonoscopy (06/05/20) 05/02/19: polyps ascending and descending colon 06/04/20: IC valve and descending colon polyp Family History Father Cancer Other Bleeding disorder CAD (coronary artery disease) Clotting disorder Diabetes Hypertension Denies family history of Dementia Hyperlipidemia Psychiatric illness Chronic kidney disease (CKD) Suicide Anesthesia complication Lung disease Stroke Social History Smoking and tobacco/nicotine status: never used tobacco/nicotine Second hand smoke exposure: No Alcohol intake: never Substance/Drug Use: never Caregiver/support person: Yes (sisters) Lives independently: Yes (son lives with her) Household members: children Marital status: / service: No Current occupational status: retired Current gender identity: Female Special mark needs: No Agree to transfusion: Yes Data Anesthesia Cardiac Studies: No Data to Display
[2023-04-27] MEDS: clindamycin 600 MG/50 ML PREMIX 100 MG IV ×2 (14:17→20:41)
[2023-04-27] MEDS: BUPivacaine 0.5% INJ 30 mL INJECTION (15:19)
[2023-04-27 17:24] LABS: Hematocrit 22.5 % (36-47)
[2023-04-27 18:27] LABS: Glucose Point of Care 185 mg/dL (70-110)
--- NOTE | 2023-04-27 18:45 | P.OP_ITS ---
Operative Report Date of procedure: April 27, 2023 Pre-op diagnosis: Colon cancer Post-op diagnosis: same Procedure done: Laparoscopic converted to open right hemicolectomy Extensive laparoscopic lysis of adhesions Implants: None Specimens removed/disposition: Right colon and terminal ileum Surgeon: Nayan Fay DO Anesthesia: General Estimated blood loss (mL): 400 Complications: None apparent Brief History: This very pleasant 77-year-old female who underwent colonoscopy and was found to have adenocarcinoma and the proximal ascending colon. She previously had colon cancer which resulted in a left hemicolectomy. Laparoscopic right hemicolectomy was indicated. The risk and benefits were explained and documented. Procedure: Patient was wheeled operative room placed on the OR table in supine position. General endotracheal ovation was achieved by the department of anesthesia. The abdomen was inspected prepped and draped in usual sterile fashion. A timeout was performed. All present were in agreement. A nasogastric tube was placed to low intermittent suction and a Caicedo catheter was placed. Marcaine was used to anesthetize the skin over Soni's point and a 5 mm incision was made with a 15 blade scalpel. A Veress needle was placed in the abdomen and the abdomen was insufflated to 15 mmHg. A 5 mm trocar was then placed through this site under Optiview. There were extensive adhesions to the anterior abdominal wall as well as down in the pelvis. Under direct visualization, a 5 mm trocar was placed in the left lower quadrant. The anterior adhesions were taken down with the laparoscopic LigaSure. A 12 mm trocar was placed through the umbilicus. Tyler's bands to the cecum were taken down with LigaSure. The right white line of Toldt was taken down sharply and bluntly. The hepatic flexure was taken down with the LigaSure. Meticulous dissection was then performed to mobilize the terminal ileum. Greater than 1 hour of laparoscopic lysis of adhesions was performed to take down the anterior abdominal wall adhesions and adhesions in the pelvis to mobilize the terminal ileum. This area was densely adhered around her previous anastomosis in the pelvis. The decision was made to convert to an open procedure due to the difficulty of mobilizing the away from the adhesions and terminal ileum the pelvis. A 10 blade scalpel was used to extend the midline incision from the umbilicus both cephalad and caudad. Bovie cautery was used to dissect down through the subcutaneous fat and fascia. Electrocautery was then used to completely mobilize the terminal ileum for an appropriate length so as to create an anastomosis. The right colon was then completely freed bluntly and with electrocautery. An appropriate position on the transverse colon was selected as was a portion of ileum approximately 20 cm from the ileocecal valve. Electrocautery was used to make an enterotomy and a colotomy at the sites. A 100 mm MANUEL stapler with a blue load was then used to create a [id number], functional end-to-end anastomosis. The terminal ileum and right colon were then transected using the 100 mm MANUEL stapler with a blue load. Omentum and mesentery were transected with the LigaSure. Special care was taken to seal the right c olic vessels with LigaSure. Specimen was passed off. All bleeding was controlled with LigaSure and electrocautery. The abdomen was inspected and no further bleeding was seen. The midline incision was then closed with looped PDS in a running fashion x 2. Skin was closed with jerri. Patient tolerated procedure well and was wheeled in the postop anesthesia care unit in good condition.
--- NOTE | 2023-04-27 19:34 | ANE.PACU2 ---
Inpatient post-anesthesia follow up: Airway intact: Yes Vital signs: Temperature 98.2 F Pulse Rate 75 Respiratory Rate 17 Blood Pressure 152/63 Pulse Oximetry 92 Oxygen Delivery Me thod Room Air Oxygen Flow Rate 6 Fraction of Inspir ed Oxygen Hydration adequate: Yes Nausea and vomiting: No Pain level: Other Pain level: No complaints of pain in PACU Mental status: Baseline
[2023-04-27] MEDS: sodium chloride 0.9% 1,000 ML 125 ML IV (19:50)
[2023-04-27] MEDS: HYDROmorphone 1 mg/mL INJ 1 mL IVP ×2 (19:50→23:49)
--- NOTE | 2023-04-27 20:02 | PC.NURSE ---
Called Dr. Fay to verify to give SQ Heparin with last known hemoglobin of 7.4 and no recheck until 4 am. Ordered to give SQ Heparin as ordered.
[2023-04-27 20:35] LABS: Glucose Point of Care 261 mg/dL (70-110)
[2023-04-27] MEDS: heparin 5,000 unit/mL INJ 1 mL 5000 UNIT SUBCUT (20:41)
--- NOTE | 2023-04-27 20:55 | PC.NURSE ---
Unable to complete social drivers of health, immunization assessment, or suicide assessment at this time. Patient is drowsy. These questions/assessments will need to be completed at a later time. Sister at bedside is unable to answer these questions. Patient is easily aroused by touch and can tell me where she is at and why she is here.
--- NOTE | 2023-04-27 21:30 | PC.NURSE ---
Unable to complete social drivers of health, immunization assessment, or suicide assessment at this time. Patient is drowsy. These questions/assessments will need to be completed at a later time. Sister at bedside is unable to answer these questions. Patient having short periods of apnea. Patient is easily aroused by touch and can tell me where she is at and why she is here. When asking patietn if she feels okay, patient states yes. Oxygen saturation 97 percent on 2 liters nasal cannula. Patient on telemetry and continuous pulse ox monitoring.
[2023-04-28] VITALS (11 sets, daily range): BP systolic 115–158; BP diastolic 53–72; PULSE 65–81; RESP 16–18; TEMP 36.4–36.8; O2SAT 90–99; BMI 31.7
[2023-04-28 02:52] LABS: Glucose Point of Care 312 mg/dL (70-110)
[2023-04-28] MEDS: phenol oral Spray 177 mL 3 SPRAY MUCOUS MEM ×2 (04:49→20:46)
[2023-04-28] MEDS: clindamycin 600 MG/50 ML PREMIX 100 MG IV ×2 (04:50→14:47)
[2023-04-28] MEDS: sodium chloride 0.9% 1,000 ML 125 ML IV ×3 (04:53→20:09)
[2023-04-28 06:02] LABS: Basophils % 0.1 %; Hematocrit 25.1 % (36-47); Lymphocytes # 0.5 10^3/uL (0.8-4.8); Lymphocytes % 5.4 %; Mean Corpuscular HGB Conc 31.1 g/dL (30-55); Mean Corpuscular Hemoglobin 32.1 pg (27-33); Mean Corpuscular Volume 103.3 fl (85-98); Mean Platelet Volume 9.3 fL (7.4-10.4); Monocytes # 0.5 10^3/uL (0.2-0.9); Monocytes % 5.7 %; Neutrophils # 8.01 10^3/uL (1.8-7.7); Neutrophils % 88.6 %; Nucleated Red Blood Cells % 0 %; Platelet Count 189 10^3/cmm (157-399); Red Blood Count 2.43 10^6/uL (3.85-5.65); Red Cell Distribution Width 14.1 % (12.1-15.1); White Blood Count 9.05 10^3/uL (3.29-11.43)
[2023-04-28 06:22] LABS: Anion Gap 17.1 (5-19); Blood Urea Nitrogen 21 mg/dL (8-23); Calcium 7.2 mg/dL (8.5-10.5); Carbon Dioxide 18 mmol/L (22-29); Chloride 110 mmol/L (98-107); Creatinine Clr Calc Pharmacy 35.3644; Glucose 306 mg/dL (65-115); Magnesium 1.9 mg/dL (1.7-2.3); Osmolality Calculated 305 mOsm/kg (285-295); Potassium 5.1 mmol/L (3.5-5.1); Sodium 140 mmol/L (136-145)
[2023-04-28 07:08] LABS: Slide Review Slide Review Perform
[2023-04-28 07:20] LABS: Glucose Point of Care 348 mg/dL (70-110)
--- NOTE | 2023-04-28 09:28 | PC.CHAP ---
Pastoral Care Encounter/Spiritual Assessment Type of Contact [] Declined group social worker visit [] Patient/Family/Request visit [] Outpatient visit [] Follow-up visit [] Physician referral [] Code/Alert [x] Routine visit [] Staff referral [] Actively dying [] Patient sleeping [x] Family support [] [] Out of room [] Palliative care [] [] Receiving care in room [] Pre-surgical visit [] Trauma [] Long length of stay [] ICU visit [] Other: Relational/Emotional Strength [x] Patient feels connected with others/family/visitors/staff [] Distress [] Loneliness/isolation [] Abandonment Spirituality of Patient [x] Person of [place] [] Attends Hoahaoism of their [place] [x] Believes in Prayer [] Reads Bible or Taoist materials [] There are Spiritual issues to be addressed C Software Developer Interventions [x] Prayer [x] Active listening [] Non-anxious presence [x] Spiritual/emotional support [] Crisis/trauma care [] Spiritual counseling [] Bereavement support [] Provided bereavement packet [] Provided Bible/devotional materials [] Provided toy/stuffed animal, coloring book to patient or family member [] Provided Communion [] Anointing/[place] [] Salvation [x] Completed spiritual assessment [] Other: Impact on Illness or Injury [] Angry [] Fearful [] Anxious [] Often cries [] Exhaustion [] Unable to work [] Unable to attend synagogue [] Unable to walk/stand [] Unable to read [] Unable to drive [] Unable to eat/drink [] Unable to sleep [] Unable to be with family [] Patient intubated [] Other: Summary Time spent with patient 5 min
[2023-04-28] MEDS: HYDROmorphone 1 mg/mL INJ 1 mL IVP ×2 (09:46→17:32)
[2023-04-28] MEDS: heparin 5,000 unit/mL INJ 1 mL 5000 UNIT SUBCUT ×2 (09:52→20:06)
[2023-04-28 11:09] LABS: Glucose Point of Care 340 mg/dL (70-110)
--- NOTE | 2023-04-28 15:45 | P.PN_ITS ---
Subjective 2 Subjective: Patient seen and examined. Pain controlled Vitals/I&O/Wt Last Vital Signs Temp 98.0 F 04/30/23 12:00 Pulse 72 04/30/23 15:41 Resp 16 04/30/23 12:00 BP 160/68 04/30/23 12:00 Pulse Ox 95 04/30/23 15:41 O2 Del Method Room Air 04/30/23 15:41 O2 Flow Rate 1 04/29/23 08:46 04/30/23 04/30/23 04/30/23 06:59 14:59 22:59 Intake Total 1457.083 / 3187.083 943.75 / 943.75 Output Total 600 / 1975 400 / 400 Balance 857.083 / 1212.083 543.75 / 543.75 Weight last 48 hrs Weight 113 lb 4 oz Physical Exam 2 Narrative: General: No acute distress Abdomen: Soft, mildly distended, appropriately tender Dressings clean dry and intact Urinary Catheter Management: Caicedo: Cath Placed During This Visit: yes, but has since been removed by the nurse Reason for Continuing Indwelling Catheter: Decision to DC Catheter Urinary Catheter Date of Insertion: 04/27/23 Urinary Catheter Time of Insertion: 14:30 Date Urinary Catheter Removed: 04/29/23 Time Urinary Catheter Discontinued: 15:30 Data 04/30/23 05:08 04/30/23 05:08 A&P Assessment and plan (1) Colon cancer: (2) Status post right hemicolectomy: Plan Postoperative day #1 status post [id number]-open right hemicolectomy IV fluids NG tube to LIWS Await return of bowel function Subcu heparin Ambulate A.m. labs Attestations 2 Medical Necessity Statement*: Patient requires at least 2 more nights in the hospital for recovery after right hemicolectomy for colon cancer Coding Level of Care Code Acute Code for Chg Fwd Diagnoses Colon cancer C18.9 Status post right hemicolectomy Z90.49
[2023-04-28 16:53] LABS: Glucose Point of Care 272 mg/dL (70-110)
--- NOTE | 2023-04-28 20:15 | PC.NURSE ---
Patient's oxygen saturation ranging 87-92 percent on room air. Patient placed on one liter nasal cannula. Patient has active bowel sounds, however states that she is not passing any gas. Patient states I do this at home. If they would just let me have something warm to drink, I would, but they won't listen to me. Patient's current diet order is NPO.
[2023-04-28 20:53] LABS: Glucose Point of Care 235 mg/dL (70-110)
[2023-04-29] VITALS (21 sets, daily range): BP systolic 125–162; BP diastolic 55–80; PULSE 58–87; RESP 11–18; TEMP 36.6–37; O2SAT 93–100
[2023-04-29] MEDS: phenol oral Spray 177 mL 3 SPRAY MUCOUS MEM ×5 (02:47→20:24)
[2023-04-29] MEDS: HYDROmorphone 1 mg/mL INJ 1 mL IVP ×5 (02:47→21:22)
[2023-04-29] MEDS: sodium chloride 0.9% 1,000 ML 125 ML IV ×2 (02:50→16:26)
[2023-04-29 05:00] LABS: Basophils % 0.1 %; Hematocrit 22.7 % (36-47); Lymphocytes # 0.6 10^3/uL (0.8-4.8); Lymphocytes % 8.3 %; Mean Corpuscular HGB Conc 30.4 g/dL (30-55); Mean Corpuscular Hemoglobin 32.2 pg (27-33); Mean Corpuscular Volume 106.1 fl (85-98); Mean Platelet Volume 8.9 fL (7.4-10.4); Monocytes # 0.5 10^3/uL (0.2-0.9); Monocytes % 6.9 %; Neutrophils # 6.38 10^3/uL (1.8-7.7); Neutrophils % 84.3 %; Nucleated Red Blood Cells % 0 %; Platelet Count 154 10^3/cmm (157-399); Red Blood Count 2.14 10^6/uL (3.85-5.65); Red Cell Distribution Width 14.2 % (12.1-15.1); White Blood Count 7.57 10^3/uL (3.29-11.43)
[2023-04-29 05:31] LABS: Anion Gap 13.6 (5-19); Blood Urea Nitrogen 30 mg/dL (8-23); Carbon Dioxide 19 mmol/L (22-29); Chloride 114 mmol/L (98-107); Creatinine Clr Calc Pharmacy 26.0906; Glucose 194 mg/dL (65-115); Magnesium 2.2 mg/dL (1.7-2.3); Osmolality Calculated 305 mOsm/kg (285-295); Potassium 4.6 mmol/L (3.5-5.1); Sodium 142 mmol/L (136-145)
--- NOTE | 2023-04-29 06:15 | PC.NURSE ---
Patient up to chair with 2 assist.
[2023-04-29 06:32] LABS: Glucose Point of Care 198 mg/dL (70-110)
[2023-04-29] MEDS: lanolin oint 7 gm 1 APPLIC TOPICAL (06:33)
[2023-04-29] MEDS: heparin 5,000 unit/mL INJ 1 mL 5000 UNIT SUBCUT ×2 (08:05→18:27)
--- NOTE | 2023-04-29 11:24 | PC.SOCIAL ---
IMM Update pg 2 of IMM updated and reviewed w/ patient. Copy signed by patient. Copy provided and copy dated and initialed and placed in chart.
[2023-04-29 11:46] LABS: Glucose Point of Care 173 mg/dL (70-110)
--- NOTE | 2023-04-29 15:47 | P.PN_ITS ---
Subjective 2 Subjective: Patient seen and examined. Pain controlled Vitals/I&O/Wt Last Vital Signs Temp 98.0 F 04/30/23 12:00 Pulse 72 04/30/23 15:41 Resp 16 04/30/23 12:00 BP 160/68 04/30/23 12:00 Pulse Ox 95 04/30/23 15:41 O2 Del Method Room Air 04/30/23 15:41 O2 Flow Rate 1 04/29/23 08:46 04/30/23 04/30/23 04/30/23 06:59 14:59 22:59 Intake Total 1457.083 / 3187.083 943.75 / 943.75 Output Total 600 / 1975 400 / 400 Balance 857.083 / 1212.083 543.75 / 543.75 Weight last 48 hrs Weight 113 lb 4 oz Physical Exam 2 Narrative: General: No acute distress Abdomen: Soft, mildly distended, appropriately tender Incisions intact without erythema or exudate Urinary Catheter Management: Caicedo: Cath Placed During This Visit: yes, but has since been removed by the nurse Reason for Continuing Indwelling Catheter: Decision to DC Catheter Urinary Catheter Date of Insertion: 04/27/23 Urinary Catheter Time of Insertion: 14:30 Date Urinary Catheter Removed: 04/29/23 Time Urinary Catheter Discontinued: 15:30 Data 04/30/23 05:08 04/30/23 05:08 A&P Assessment and plan (1) Colon cancer: (2) Status post right hemicolectomy: Plan Postoperative day #2 status post [id number]-tj-open right hemicolectomy IV fluids NG tube to LIWS Await return of bowel function Subcu heparin Ambulate A.m. labs Attestations 2 Medical Necessity Statement*: Patient requires at least 2 more nights in the hospital for recovery after right hemicolectomy for colon cancer Coding Level of Care Code Acute Code for Chg Fwd Diagnoses Colon cancer C18.9 Status post right hemicolectomy Z90.49
[2023-04-29 16:51] LABS: Glucose Point of Care 122 mg/dL (70-110)
[2023-04-29 20:21] LABS: Glucose Point of Care 130 mg/dL (70-110)
[2023-04-30] VITALS (15 sets, daily range): BP systolic 142–161; BP diastolic 60–75; PULSE 67–86; RESP 14–18; TEMP 36.6–37.1; O2SAT 95–99
[2023-04-30] MEDS: sodium chloride 0.9% 1,000 ML 125 ML IV ×3 (00:15→18:57)
[2023-04-30] MEDS: phenol oral Spray 177 mL 3 SPRAY MUCOUS MEM ×5 (00:16→07:55)
[2023-04-30] MEDS: HYDROmorphone 1 mg/mL INJ 1 mL IVP ×4 (01:51→19:00)
[2023-04-30 05:18] LABS: Basophils % 0.1 %; Hematocrit 27.9 % (36-47); Lymphocytes # 0.8 10^3/uL (0.8-4.8); Lymphocytes % 10.7 %; Mean Corpuscular HGB Conc 30.5 g/dL (30-55); Mean Corpuscular Hemoglobin 31.1 pg (27-33); Mean Corpuscular Volume 102.2 fl (85-98); Mean Platelet Volume 8.4 fL (7.4-10.4); Monocytes # 0.5 10^3/uL (0.2-0.9); Neutrophils # 5.83 10^3/uL (1.8-7.7); Neutrophils % 81.8 %; Nucleated Red Blood Cells % 0 %; Platelet Count 158 10^3/cmm (157-399); Red Blood Count 2.73 10^6/uL (3.85-5.65); Red Cell Distribution Width 16.7 % (12.1-15.1); White Blood Count 7.13 10^3/uL (3.29-11.43)
[2023-04-30 05:43] LABS: Anion Gap 14.5 (5-19); Blood Urea Nitrogen 28 mg/dL (8-23); Calcium 7.6 mg/dL (8.5-10.5); Carbon Dioxide 22 mmol/L (22-29); Chloride 112 mmol/L (98-107); Creatinine Clr Calc Pharmacy 29.8178; Glucose 173 mg/dL (65-115); Osmolality Calculated 308 mOsm/kg (285-295); Potassium 4.5 mmol/L (3.5-5.1); Sodium 144 mmol/L (136-145)
[2023-04-30 06:08] LABS: Glucose Point of Care 176 mg/dL (70-110)
[2023-04-30] MEDS: heparin 5,000 unit/mL INJ 1 mL 5000 UNIT SUBCUT ×2 (07:48→18:57)
[2023-04-30 11:08] LABS: Glucose Point of Care 152 mg/dL (70-110)
--- NOTE | 2023-04-30 15:48 | P.PN_ITS ---
Subjective 2 Subjective: Patient seen and examined. Pain controlled. Still no flatus or bowel movement Vitals/I&O/Wt Last Vital Signs Temp 98.0 F 04/30/23 12:00 Pulse 72 04/30/23 15:41 Resp 16 04/30/23 12:00 BP 160/68 04/30/23 12:00 Pulse Ox 95 04/30/23 15:41 O2 Del Method Room Air 04/30/23 15:41 O2 Flow Rate 1 04/29/23 08:46 04/30/23 04/30/23 04/30/23 06:59 14:59 22:59 Intake Total 1457.083 / 3187.083 943.75 / 943.75 Output Total 600 / 1975 400 / 400 Balance 857.083 / 1212.083 543.75 / 543.75 Weight last 48 hrs Weight 113 lb 4 oz Physical Exam 2 Narrative: General: No acute distress Abdomen: Soft, mildly distended, appropriately tender Incisions intact without erythema or exudate Urinary Catheter Management: Caicedo: Cath Placed During This Visit: yes, but has since been removed by the nurse Reason for Continuing Indwelling Catheter: Decision to DC Catheter Urinary Catheter Date of Insertion: 04/27/23 Urinary Catheter Time of Insertion: 14:30 Date Urinary Catheter Removed: 04/29/23 Time Urinary Catheter Discontinued: 15:30 Data 04/30/23 05:08 04/30/23 05:08 A&P Assessment and plan (1) Colon cancer: (2) Status post right hemicolectomy: Plan Postoperative day #3 status post [id number]-[id number]-dy-open right hemicolectomy IV fluids NG tube to LIWS Await return of bowel function Subcu heparin Ambulate A.m. labs Attestations 2 Medical Necessity Statement*: Patient requires at least 2 more nights in the hospital for recovery after right hemicolectomy for colon cancer Coding Level of Care Code Acute Code for Chg Fwd Diagnoses Colon cancer C18.9 Status post right hemicolectomy Z90.49
--- NOTE | 2023-04-30 16:45 | P.CONIM_ITS ---
Providers/Reason For Consult 2 Consulting Physician/Specialty*: General surgery Reason for Consult*: Management of anemia, hypertension, hyperlipidemia, hypothyroidism, history of DVT history of PE,sacral dti Attending Physician: Nayan Fay DO Primary Care Provider: Penny Sanchez MD History of Present Illness History of Present Illness Maddy Beavers is a 77 year old female with a past medical history of infiltrating sigmoid colon adenocarcinoma, status post laparoscopic hemicolectomy, history of B12 deficiency, history of iron deficient anemia, history of hypothyroidism, insulin-dependent type 2 diabetes mellitus, hypertension, history of prior DVT, history of PE, hyperlipidemia, who presents [facility] laparoscopic converted to right hemicolectomy extensive laparoscopic lysis of adhesions, for adenocarcinoma of the proximal ascending colon. Hospitalist team has been consulted, given patient's NANNETTE, hypothyroidism, hypertension, B12, iron deficiency, type 2 diabetes mellitus. Currently patient sitting up in a chair, NG tube in place she is n.p.o., she tells me she has not passed any gas, she has not had a bowel movement, but she did ambulate this morning. Her pain is under control however she does have a stage II deep tissue injury over the sacrum, which is being managed here as inpatient. She does report a prior history of shingles, no current outbreak. She has been anemic here, blood loss 400 mL,, has required blood transfusion. Review of Systems 2 Card: Denies: chest pain Resp: Denies: dyspnea GI: Denies: abdominal pain : Denies: flank pain Musc: Reports: back pain Medications/Allergies Home Medications Medication Instructions Recorded Confirmed Last Taken Type Diabetic Shoes with 3 Pairs of #1 ea 09/18/21 04/28/23 Unknown Rx Inserts Diabetic shoes with inserts #1 ea 10/15/21 04/28/23 Unknown Rx pen needle, diabetic 32 gauge x #100 ea 04/02/22 04/28/23 Unknown Rx lysine 1,000 mg tablet 1,000 mg PO DAILY 90 days #90 tabs 07/31/22 04/27/23 04/26/23 Rx insulin syringe-needle U-100 1 mL #100 ea 10/21/22 04/28/23 Unknown Rx 31 gauge x 07/15 ascorbate calcium (vitamin C) 500 500 mg PO DAILY 12/24/22 04/27/23 04/26/23 History mg tablet docusate sodium 100 mg capsule 100 mg PO BID 12/24/22 04/24/23 04/24/23 History pen needle, diabetic 32 gauge x #100 ea 02/06/23 04/28/23 Unknown Rx 5/16 (Comfort EZ Pen Convent) furosemide 40 mg tablet 40 mg PO DAILY PRN Edema #30 tabs 03/03/23 04/24/23 Unknown Rx cyanocobalamin (vitamin B-12) 1,000 mcg SUBCUT .COMPLEX #10 mL 03/11/23 04/24/23 04/10/23 Rx 1,000 mcg/mL injection solution levothyroxine 88 mcg tablet 88 mcg PO DAILY 04/15/23 04/27/23 04/27/23 History lisinopril 20 mg tablet 20 mg PO DAILY 04/15/23 04/27/23 04/26/23 History insulin glargine 100 unit/mL (3 15 unit (0.15 mL) SUBCUT DAILY #15 04/21/23 04/27/23 04/03/23 Rx mL) subcutaneous pen (Lantus mL Solostar U-100 Insulin) lancets 30 gauge (TRUEplus Lancets) #100 ea 04/21/23 04/28/23 Unknown Rx blood sugar diagnostic (Blood #100 ea 04/23/23 04/28/23 Unknown Rx Glucose Test strips) febuxostat 80 mg tablet 80 mg PO DAILY #30 tabs 04/28/23 Unknown Rx Allergies Allergy/AdvReac Type Severity Reaction Status Date / Time gabapentin Allergy Severe tremors Verified 04/28/23 08:36 Penicillins Allergy Unknown ALGY-Rash Verified 04/28/23 08:36 valsartan [From Diovan] Allergy Unknown ADR/ALGY-Pa Verified 04/28/23 08:36 lpitations lidocaine Allergy ALGY-Redness Verified 04/28/23 08:36 of Skin triamcinolone Allergy ALGY-Redness Verified 04/28/23 08:36 of Skin pregabalin [From Lyrica] AdvReac Unknown Verified 04/28/23 08:36 Current Medications Generic Name Dose Route Start Last Admin Trade Name Freq PRN Reason Stop Dose Admin Heparin Sodium (Porcine) 5,000 unit 04/27/23 19:14 04/30/23 07:48 Heparin 5,000 Unit/Ml Inj 1 Ml SUBCUT 5,000 unit Q12H CARLOS MANUEL Administration Hydromorphone HCl 1 mg 04/27/23 19:14 04/30/23 11:27 Hydromorphone 1 Mg/Ml Inj 1 Ml IVP 1 mg Q3H PRN Administration PAIN Sodium Chloride 1,000 mls @ 125 mls/hr 04/27/23 19:14 04/30/23 07:48 Sodium Chloride 0.9% IV 125 mls/hr .Q8H CARLOS MANUEL Administration Lanolin 1 applic 04/29/23 06:16 04/29/23 06:33 Lanolin Oint 7 Gm TOPICAL 1 applic PRN PRN Administration DRYNESS Phenol 3 spray 04/28/23 04:24 04/30/23 07:55 Phenol Oral Hermon 177 Ml MUCOUS MEM 3 spray Q2H PRN Administration SORE THROAT PFSH Acute 2 PFSH: Medical History Adenocarcinoma of colon History of DVT (deep vein thrombosis) Colon cancer Chronic anticoagulation Hypothyroidism Pulmonary embolism Hyperlipidemia, mixed History of colon cancer [id number] - 2017 DVT (deep venous thrombosis) Hypertension Diabetes mellitus, insulin dependent (IDDM), controlled Surgical History S/P colon resection Laparoscopic left hemicolectomy: July 09, 2016 History of subtotal thyroidectomy History of hysterectomy S/P appendectomy S/P arthroscopic surgery of left knee H/O colonoscopy (06/05/20) 05/02/19: polyps ascending and descending colon 06/04/20: IC valve and descending colon polyp Family History Father Cancer Other Bleeding disorder CAD (coronary artery disease) Clotting disorder Diabetes Hypertension Denies family history of Dementia Hyperlipidemia Psychiatric illness Chronic kidney disease (CKD) Suicide Anesthesia complication Lung disease Stroke Social History Smoking and tobacco/nicotine status: never used tobacco/nicotine Second hand smoke exposure: No Alcohol intake: never Substance/Drug Use: never Caregiver/support person: Yes (sisters) Lives independently: Yes (son lives with her) Household members: children Marital status: / service: No Current occupational status: retired Current gender identity: Female Special mark needs: No Agree to transfusion: Yes Vitals/I&O/Wt Last Vital Signs Temp 98.0 F 04/30/23 12:00 Pulse 72 04/30/23 15:41 Resp 16 04/30/23 12:00 BP 160/68 04/30/23 12:00 Pulse Ox 95 04/30/23 15:41 O2 Del Method Room Air 04/30/23 15:41 O2 Flow Rate 1 04/29/23 08:46 04/30/23 04/30/23 04/30/23 06:59 14:59 22:59 Intake Total 1457.083 / 3187.083 943.75 / 943.75 Output Total 600 / 1975 400 / 400 Balance 857.083 / 1212.083 543.75 / 543.75 Weight last 48 hrs Weight 51.369 kg Physical Exam 2 Const: COMMON NORMALS: no acute distress and patient oriented x3 HENMT: COMMON NORMALS: normocephalic HEAD & SCALP: normocephalic Neck/C-Spine: COMMON NORMALS: no JVD Resp: COMMON NORMALS: normal respiratory effort, No retractions, No use of accessory muscles and clear to auscultation bilaterally AUSCULTATION: clear to auscultation bilaterally Cardio: COMMON NORMALS: no JVD, regular rate, regular rhythm, S1 normal heart sound present and S2 normal heart sound present RATE: regular rate RHYTHM: regular rhythm HEART SOUNDS: S1 normal heart sound present and S2 normal heart sound present GI: OTHER: Abdomen soft, slightly distended, diminished bowel sounds, scattered, no guarding, rebound, rigidity, surgical site looks clean and dry : COMMON NORMALS: Yes no CVA tenderness BLADDER/KIDNEY EXAM: Yes no CVA tenderness Back/Pelvis: COMMON NORMALS: no CVA tenderness Extremity: COMMON NORMALS: no pedal edema NARRATIVE EXTREMITY EXAM: Does have slight bilateral calf tenderness Neuro: COMMON NORMALS: patient oriented x3, CN's II-XII intact bilaterally and moves all extremities Psych: COMMON NORMALS: mental status grossly normal Urinary Catheter Management: Caicedo: Cath Placed During This Visit: yes, but has since been removed by the nurse Reason for Continuing Indwelling Catheter: Decision to DC Catheter Urinary Catheter Date of Insertion: 04/27/23 Urinary Catheter Time of Insertion: 14:30 Date Urinary Catheter Removed: 04/29/23 Time Urinary Catheter Discontinued: 15:30 Data 04/30/23 05:08 04/30/23 05:08 A&P Assessment and plan (1) Hypertension: (2) Hyperlipidemia, mixed: (3) History of DVT (deep vein thrombosis): (4) Diabetes mellitus, insulin dependent (IDDM), controlled: (5) Hypothyroidism: Qualifiers: Hypothyroidism type: unspecified Qualified Code(s): E03.9 - Hypothyroidism, unspecified (6) Kidney disease, chronic, stage I (GFR over 89 ml/min): (7) Postoperative anemia due to acute blood loss: (8) Anemia: (9) Status post right hemicolectomy: (10) Pressure injury of deep tissue of sacral region: Plan s/p right hemicolectomy extensive laparoscopic lysis of adhesions, for adenocarcinoma of the proximal ascending colon. -with history of infiltrating sigmoid colon adenocarcinoma, status post laparoscopic hemicolectomy, 2016 Plan -NG tube in place -N.p.o. -Dilaudid for pain control -Up out of bed -Serial abdominal exams -Monitor for stooling, monitor for passage of flatus -Full code -Heparin for DVT prophylaxis # History of hypothyroidism -IV levothyroxine -Check TSH Postoperative anemia secondary blood loss anemia with underlying B12 and iron deficiency anemia -Check B12, folate, ferritin, iron -Will consider IV infusions, with B12 -Monitor hemoglobin Type 2 diabetes mellitus -As needed labetalol -Will resume home blood pressure medications once patient is able to take p.o. medications Hyperlipidemia History of DVT PE does have bilateral calf tenderness, will order venous ultrasound History of CKD, NANNETTE, and IV fluids Type 2 diabetes mellitus, low-dose sliding scale sacral deep tissue injury -reposition every 2 hours -offloading -can consider ppn based on clinical progress, consult dietary -wound care Consult Attestations 2 Medical Necessity Statement: Patient requires hospitalization, status post right hemicolectomy, required medical management hypothyroidism, hypertension, postop anemia, hyperlipidemia, DVT history, CKD history, sacral DTI Diagnoses Hypertension I10 Hyperlipidemia, mixed E78.2 History of DVT (deep vein thrombosis) Z86.718 Diabetes mellitus, insulin dependent (IDDM), controlled E11.9; Z79.4 Hypothyroidism, unspecified type E03.9 Hypothyroidism type: unspecified Kidney disease, chronic, stage I (GFR over 89 ml/min) N18.1 Postoperative anemia due to acute blood loss D62 Anemia D64.9 Status post right hemicolectomy Z90.49 Pressure injury of deep tissue of sacral region L89.156
[2023-04-30 17:04] LABS: Glucose Point of Care 144 mg/dL (70-110)
[2023-04-30 17:20] LABS: Basophils % 0.1 %; Hematocrit 27.3 % (36-47); Lymphocytes # 0.8 10^3/uL (0.8-4.8); Lymphocytes % 10.5 %; Mean Corpuscular HGB Conc 31.5 g/dL (30-55); Mean Corpuscular Hemoglobin 31.7 pg (27-33); Mean Corpuscular Volume 100.7 fl (85-98); Mean Platelet Volume 9.2 fL (7.4-10.4); Monocytes # 0.6 10^3/uL (0.2-0.9); Monocytes % 7.7 %; Neutrophils # 6.28 10^3/uL (1.8-7.7); Neutrophils % 81.4 %; Nucleated Red Blood Cells % 0 %; Platelet Count 169 10^3/cmm (157-399); Red Blood Count 2.71 10^6/uL (3.85-5.65); Red Cell Distribution Width 16.3 % (12.1-15.1); White Blood Count 7.71 10^3/uL (3.29-11.43)
[2023-04-30 17:32] LABS: Estmated Average Glucose 108; Hemoglobin A1C 5.4 % (4.0-6.0)
[2023-04-30 17:35] LABS: Ferritin 425 ng/mL (15-150); Iron 15 ug/dL (37-145); Thyroid Stimulating Hormone 0.34 uIU/mL (0.27-4.20); Vitamin B12 838 pg/mL (232-1245)
[2023-04-30 20:22] LABS: Glucose Point of Care 169 mg/dL (70-110)
--- NOTE | 2023-04-30 23:10 | PC.NURSE ---
Prior to shift change patient removed NG tube herself. Day shift nurse tried to place a new NG tube in place. After two attempts with meeting resistance NG tube could not be placed. At [address] Fay to see if 3rd attempt should be done to place NG tube. notified this nurse to not attempt a 3rd placement.
[2023-05-01] VITALS (12 sets, daily range): BP systolic 129–154; BP diastolic 61–78; PULSE 51–62; RESP 14–18; TEMP 36.4–36.9; O2SAT 96–99
[2023-05-01] MEDS: HYDROmorphone 1 mg/mL INJ 1 mL IVP ×3 (00:58→19:49)
[2023-05-01] MEDS: sodium chloride 0.9% 1,000 ML 125 ML IV ×3 (04:26→20:49)
[2023-05-01 04:47] LABS: Anion Gap 13.4 (5-19); Blood Urea Nitrogen 29 mg/dL (8-23); Calcium 7.2 mg/dL (8.5-10.5); Carbon Dioxide 21 mmol/L (22-29); Chloride 117 mmol/L (98-107); Creatinine Clr Calc Pharmacy 34.7874; Glucose 169 mg/dL (65-115); Magnesium 2.2 mg/dL (1.7-2.3); Osmolality Calculated 314 mOsm/kg (285-295); Potassium 4.4 mmol/L (3.5-5.1); Sodium 147 mmol/L (136-145)
[2023-05-01] MEDS: phenol oral Spray 177 mL 3 SPRAY MUCOUS MEM (06:23)
[2023-05-01] MEDS: heparin 5,000 unit/mL INJ 1 mL 5000 UNIT SUBCUT ×2 (06:23→19:01)
[2023-05-01 06:38] LABS: Glucose Point of Care 155 mg/dL (70-110)
[2023-05-01] MEDS: levothyroxine 100 mcg SDV 44 MCG IVP (08:11)
--- NOTE | 2023-05-01 10:33 | P.PN_ITS ---
Subjective 2 Subjective: Patient seen and examined. She pulled her NG tube overnight. Still has not passed flatus. Vitals/I&O/Wt Last Vital Signs Temp 97.8 F 05/01/23 08:00 Pulse 57 L 05/01/23 08:00 Resp 16 05/01/23 10:28 BP 154/70 05/01/23 08:00 Pulse Ox 99 05/01/23 10:28 O2 Del Method Room Air 05/01/23 08:00 O2 Flow Rate 1 04/29/23 08:46 04/30/23 05/01/23 05/01/23 22:59 06:59 14:59 Intake Total 1000 / 1943.75 1120 / 3063.75 Output Total 400 / 800 850 / 1650 Balance 600 / 1143.75 270 / 1413.75 Physical Exam 2 Narrative: General: No acute distress Abdomen: Soft, mildly distended, appropriately tender Incisions intact without erythema or exudate Urinary Catheter Management: Caicedo: Cath Placed During This Visit: yes, but has since been removed by the nurse Reason for Continuing Indwelling Catheter: Decision to DC Catheter Urinary Catheter Date of Insertion: 04/27/23 Urinary Catheter Time of Insertion: 14:30 Date Urinary Catheter Removed: 04/29/23 Time Urinary Catheter Discontinued: 15:30 Data 04/30/23 16:52 05/01/23 03:35 A&P Assessment and plan (1) Colon cancer: (2) Status post right hemicolectomy: Plan Postoperative day #4 status post [id number]-[id number]-open right hemicolectomy IV fluids Leave NG tube out Await return of bowel function Subcu heparin Ambulate A.m. labs Attestations 2 Medical Necessity Statement*: Patient requires at least 1 more night in the hospital for return of bowel function after laparoscopic right hemicolectomy for colon cancer Coding Level of Care Code Acute Code for Chg Fwd Diagnoses Colon cancer C18.9 Status post right hemicolectomy Z90.49
--- NOTE | 2023-05-01 10:58 | P.PN_ITS ---
Subjective 2 Subjective: Patient was seen this morning, she has no complaints, except that she is hungry and she wants to eat, she has not had a bowel movement has not passed gas no fevers overnight, she is sitting up in a chair, she accidentally removed NG tube overnight Vitals/I&O/Wt Last Vital Signs Temp 97.8 F 05/01/23 08:00 Pulse 60 05/01/23 10:33 Resp 16 05/01/23 10:28 BP 154/70 05/01/23 08:00 Pulse Ox 99 05/01/23 10:28 O2 Del Method Room Air 05/01/23 08:00 O2 Flow Rate 1 04/29/23 08:46 04/30/23 05/01/23 05/01/23 22:59 06:59 14:59 Intake Total 1000 / 1943.75 1120 / 3063.75 Output Total 400 / 800 850 / 1650 Balance 600 / 1143.75 270 / 1413.75 Physical Exam 2 Const: COMMON NORMALS: no acute distress and patient oriented x3 Resp: COMMON NORMALS: normal respiratory effort, No retractions, No use of accessory muscles and clear to auscultation bilaterally AUSCULTATION: clear to auscultation bilaterally Cardio: COMMON NORMALS: regular rate, regular rhythm, S1 normal heart sound present and S2 normal heart sound present RATE: regular rate RHYTHM: r egular rhythm HEART SOUNDS: S1 normal heart sound present and S2 normal heart sound present GI: COMMON NORMALS: Normal to inspection, nondistended, normoactive bowel sounds present and non-tender OTHER: Surgical site, does have serous drainage from lower abdominal incision area Extremity: COMMON NORMALS: no pedal edema Neuro: COMMON NORMALS: patient oriented x3 Psych: COMMON NORMALS: mental status grossly normal Urinary Catheter Management: Caicedo: Cath Placed During This Visit: yes, but has since been removed by the nurse Reason for Continuing Indwelling Catheter: Decision to DC Catheter Urinary Catheter Date of Insertion: 04/27/23 Urinary Catheter Time of Insertion: 14:30 Date Urinary Catheter Removed: 04/29/23 Time Urinary Catheter Discontinued: 15:30 Data 04/30/23 16:52 05/01/23 03:35 A&P Assessment and plan (1) Colon cancer: (2) Status post right hemicolectomy: (3) Hypertension: (4) Hyperlipidemia, mixed: (5) History of DVT (deep vein thrombosis): (6) Diabetes mellitus, insulin dependent (IDDM), controlled: (7) Hypothyroidism: Qualifiers: Hypothyroidism type: unspecified Qualified Code(s): E03.9 - Hypothyroidism, unspecified (8) Kidney disease, chronic, stage I (GFR over 89 ml/min): (9) Postoperative anemia due to acute blood loss: (10) Anemia: (11) Pressure injury of deep tissue of sacral region: Plan s/p right hemicolectomy extensive laparoscopic lysis of adhesions, for adenocarcinoma of the proximal ascending colon. -with history of infiltrating sigmoid colon adenocarcinoma, status post laparoscopic hemicolectomy, 2017 Plan -NG tube in place -N.p.o. -Dilaudid for pain control -Up out of bed -Serial abdominal exams -Monitor for stooling, monitor for passage of flatus -Full code -Heparin for DVT prophylaxis # History of hypothyroidism -IV levothyroxine Postoperative anemia secondary blood loss anemia with underlying B12 and iron deficiency anemia -Check B12, folate, ferritin, iron -Will consider IV infusions, with B12 -Monitor hemoglobin Type 2 diabetes mellitus, low-dose sliding scale Hypertension -As needed labetalol -Will resume home blood pressure medications once patient is able to take p.o. medications Hyperlipidemia History of DVT PE does have bilateral calf tenderness, will order venous ultrasound History of CKD, NANNETTE, and IV fluids Type 2 diabetes mellitus, low-dose sliding scale sacral deep tissue injury -reposition every 2 hours -offloading -can consider ppn based on clinical progress, consult dietary -wound care Plan for today, continue serial abdominal exams, continue to monitor closely, blood pressure monitoring, Attestations 2 Medical Necessity Statement*: Patient requires hospitalization for right hemicolectomy, presents with results for diabetes, CKD Diagnoses Colon cancer C18.9 Status post right hemicolectomy Z90.49 Hypertension I10 Hyperlipidemia, mixed E78.2 History of DVT (deep vein thrombosis) Z86.718 Diabetes mellitus, insulin dependent (IDDM), controlled E11.9; Z79.4 Hypothyroidism, unspecified type E03.9 Hypothyroidism type: unspecified Kidney disease, chronic, stage I (GFR over 89 ml/min) N18.1 Postoperative anemia due to acute blood loss D62 Anemia D64.9 Pressure injury of deep tissue of sacral region L89.156
--- NOTE | 2023-05-01 11:01 | PC.SOCIAL ---
IMM Update pg 2 of IMM updated and reviewed w/ patient. Copy provided and copy dated, initialed and placed in chart.
[2023-05-01 11:40] LABS: Glucose Point of Care 132 mg/dL (70-110)
[2023-05-01 16:41] LABS: Glucose Point of Care 125 mg/dL (70-110)
--- NOTE | 2023-05-01 16:53 | USCV_ITS ---
Maddy Beavers Age: 77 Gender: F : 1945 Exam Date: 05/01/2023 01:22 Ordering Phys: Jameel Salmon MD Technologist: JENNIFER Exam Location: [facility] Indication: calf tenderness. HISTORY: calf tenderness. PROCEDURES: Venous duplex imaging was performed in bilateral lower extremities. The following venous structures were evaluated: common femoral vein, profunda vein, proximal portion of the greater saphenous vein, superficial femoral vein, and the popliteal vein. In addition, the posterior tibial veins were evaluated. FINDINGS: Normal 2-D Doppler and augmentation and compressibility throughout the lower extremity venous structures. Additional imaging through the proximal calf veins also reveals no thrombus. Limited evaluation of the greater saphenous vein is patent with no thrombus. CONCLUSIONS No DVT bilateral lower extremities. Dr. Marlin Kim DO (Electronically Signed) Final Date: 01 May 2023 07:40 S
[2023-05-01 16:59] LABS: Basophils % 0.3 %; Eosinophils # 0.1 10^3/uL (0.0-0.8); Eosinophils % 0.7 %; Hematocrit 29.2 % (36-47); Lymphocytes # 1.3 10^3/uL (0.8-4.8); Lymphocytes % 17.7 %; Mean Corpuscular HGB Conc 30.5 g/dL (30-55); Mean Corpuscular Hemoglobin 30.8 pg (27-33); Mean Platelet Volume 9.2 fL (7.4-10.4); Monocytes # 0.5 10^3/uL (0.2-0.9); Monocytes % 6.4 %; Neutrophils # 5.26 10^3/uL (1.8-7.7); Neutrophils % 74.6 %; Nucleated Red Blood Cells % 0 %; Platelet Count 191 10^3/cmm (157-399); Red Blood Count 2.89 10^6/uL (3.85-5.65); Red Cell Distribution Width 15.4 % (12.1-15.1); White Blood Count 7.05 10^3/uL (3.29-11.43)
[2023-05-01 21:12] LABS: Glucose Point of Care 125 mg/dL (70-110)
[2023-05-02] VITALS (12 sets, daily range): BP systolic 144–167; BP diastolic 65–78; PULSE 49–59; RESP 16–17; TEMP 36.4–36.9; O2SAT 97–100
[2023-05-02] MEDS: HYDROmorphone 1 mg/mL INJ 1 mL IVP ×3 (04:31→22:22)
[2023-05-02 05:32] LABS: Anion Gap 12.8 (5-19); Blood Urea Nitrogen 24 mg/dL (8-23); Calcium 7.2 mg/dL (8.5-10.5); Carbon Dioxide 22 mmol/L (22-29); Chloride 115 mmol/L (98-107); Creatinine Clr Calc Pharmacy 41.7449; Glucose 112 mg/dL (65-115); Magnesium 1.9 mg/dL (1.7-2.3); Osmolality Calculated 307 mOsm/kg (285-295); Potassium 3.8 mmol/L (3.5-5.1); Sodium 146 mmol/L (136-145)
[2023-05-02] MEDS: sodium chloride 0.9% 1,000 ML 125 ML IV ×2 (06:05→13:16)
[2023-05-02] MEDS: heparin 5,000 unit/mL INJ 1 mL 5000 UNIT SUBCUT ×2 (06:26→19:00)
[2023-05-02 06:50] LABS: Glucose Point of Care 109 mg/dL (70-110)
[2023-05-02] MEDS: levothyroxine 100 mcg SDV 44 MCG IVP (08:33)
--- NOTE | 2023-05-02 10:24 | P.PN_ITS ---
Subjective 2 Subjective: This a 77-year-old female who is postoperative day 5 status post laparoscopic converted to open right hemicolectomy for colon cancer. Postoperative course has been prolonged due to a postoperative ileus. This morning patient has been ambulating, no significant abdominal pain, no nausea or vomiting, has had minimal amount of gas and no significant bowel movement. Vitals/I&O/Wt Last Vital Signs Temp 97.6 F 05/02/23 08:00 Pulse 50 L 05/02/23 08:00 Resp 17 05/02/23 08:00 BP 144/65 05/02/23 08:00 Pulse Ox 100 05/02/23 08:00 O2 Del Method Room Air 05/02/23 04:00 O2 Flow Rate 1 04/29/23 08:46 05/01/23 05/02/23 05/02/23 22:59 06:59 14:59 Intake Total 1000 / 1962.5 1000 / 2962.5 Balance 1000 / 1962.5 1000 / 2962.5 Physical Exam 2 GI: OTHER: Abdominal examination is benign, surgical incisions are healing well, abdomen is soft, appropriately tender to palpation, no rebound tenderness. Urinary Catheter Management: Caicedo: Cath Placed During This Visit: yes, but has since been removed by the nurse Reason for Continuing Indwelling Catheter: Decision to DC Catheter Urinary Catheter Date of Insertion: 04/27/23 Urinary Catheter Time of Insertion: 14:30 Date Urinary Catheter Removed: 04/29/23 Time Urinary Catheter Discontinued: 15:30 Data 05/01/23 16:50 05/02/23 04:30 A&P Assessment and plan (1) Adenocarcinoma of colon: Plan Is a 77-year-old female who is postoperative day 5 status post laparoscopic converted to open right colectomy for colon cancer, who has had a postoperative course complicated by ileus. I will be evaluating patient today and tomorrow as my colleague Dr. Fay is out of town. Still no significant bowel function. I have explained to the patient that she needs to ambulate is much as possible and stayed out of bed, there has been no nausea or vomiting abdominal exam is benign. Therefore no need for NG tube at this moment. Will continue n.p.o. today, if there is bowel function I will plan to advance to clear liquid diet tomorrow and advance as tolerated after that. Vital signs are stable, laboratory workup is stable. Attestations 2 Medical Necessity Statement*: Patient will require 24 to 48 hours more of hospital stay for postoperative ileus Coding Level of Care Code Acute Code for Chg Fwd Diagnoses Adenocarcinoma of colon C18.9
[2023-05-02 11:12] LABS: Glucose Point of Care 85 mg/dL (70-110)
--- NOTE | 2023-05-02 12:23 | PC.NURSE ---
notified Dr. Miranda due to patients blood sugar and being NPO for few days. Verbal orders to give half a cup of orange juice but keep NPO until tomorrow.
--- NOTE | 2023-05-02 15:09 | P.PN_ITS ---
Subjective 2 Subjective: Patient was seen this morning, she is laying in bed, she still has not passed any gas from below, has not had a bowel movement she tells me that she is very hungry Vitals/I&O/Wt Last Vital Signs Temp 98.3 F 05/02/23 12:00 Pulse 57 L 05/02/23 12:00 Resp 17 05/02/23 12:00 BP 167/68 05/02/23 12:00 Pulse Ox 99 05/02/23 12:00 O2 Del Method Room Air 05/02/23 04:00 O2 Flow Rate 1 04/29/23 08:46 05/02/23 05/02/23 05/02/23 06:59 14:59 22:59 Intake Total 1000 / 2962.5 897.917 / 897.917 Balance 1000 / 2962.5 897.917 / 897.917 Physical Exam 2 Const: COMMON NORMALS: no acute distress and patient oriented x3 Resp: COMMON NORMALS: normal respiratory effort, No retractions, No use of accessory muscles and clear to auscultation bilaterally AUSCULTATION: clear to auscultation bilaterally Cardio: COMMON NORMALS: regular rate, regular rhythm, S1 normal heart sound present and S2 normal heart sound present RATE: regular rate RHYTHM: r egular rhythm HEART SOUNDS: S1 normal heart sound present and S2 normal heart sound present GI: OTHER: Abdomen is soft, distended, scattered bowel sounds, no guarding, rebound, rigidity, surgical site looks clean and dry Extremity: COMMON NORMALS: no pedal edema Neuro: COMMON NORMALS: patient oriented x3 Psych: COMMON NORMALS: mental status grossly normal Urinary Catheter Management: Caicedo: Cath Placed During This Visit: yes, but has since been removed by the nurse Reason for Continuing Indwelling Catheter: Decision to DC Catheter Urinary Catheter Date of Insertion: 04/27/23 Urinary Catheter Time of Insertion: 14:30 Date Urinary Catheter Removed: 04/29/23 Time Urinary Catheter Discontinued: 15:30 Data 05/01/23 16:50 05/02/23 04:30 A&P Assessment and plan (1) Colon cancer: (2) Status post right hemicolectomy: (3) Hypertension: (4) Hyperlipidemia, mixed: (5) History of DVT (deep vein thrombosis): (6) Diabetes mellitus, insulin dependent (IDDM), controlled: (7) Hypothyroidism: Qualifiers: Hypothyroidism type: unspecified Qualified Code(s): E03.9 - Hypothyroidism, unspecified (8) Kidney disease, chronic, stage I (GFR over 89 ml/min): (9) Postoperative anemia due to acute blood loss: (10) Anemia: (11) Pressure injury of deep tissue of sacral region: Plan s/p right hemicolectomy extensive laparoscopic lysis of adhesions, for adenocarcinoma of the proximal ascending colon. -with history of infiltrating sigmoid colon adenocarcinoma, status post laparoscopic hemicolectomy, 2017 Plan -NG tube in place -N.p.o. -Dilaudid for pain control -Up out of bed -Serial abdominal exams -Monitor for stooling, monitor for passage of flatus -Full code -Heparin for DVT prophylaxis # History of hypothyroidism -IV levothyroxine Postoperative anemia secondary blood loss anemia with underlying B12 and iron deficiency anemia -Check B12, folate, ferritin, iron -Will consider IV infusions, with B12 -Monitor hemoglobin Type 2 diabetes mellitus, low-dose sliding scale Hypertension -As needed labetalol -Will resume home blood pressure medications once patient is able to take p.o. medications Hyperlipidemia History of DVT PE does have bilateral calf tenderness, will order venous ultrasound History of CKD, NANNETTE, and IV fluids Type 2 diabetes mellitus, low-dose sliding scale sacral deep tissue injury -reposition every 2 hours -offloading -can consider ppn based on clinical progress, consult dietary -wound care Plan for today, continue serial abdominal exams, continue to monitor closely, blood pressure monitoring, Attestations 2 Medical Necessity Statement*: Patient requires hospitalization for right hemicolectomy requiring blood pressure monitoring, monitoring hemoglobin, sacral decubitus ulcer requiring repositioning Diagnoses Colon cancer C18.9 Status post right hemicolectomy Z90.49 Hypertension I10 Hyperlipidemia, mixed E78.2 History of DVT (deep vein thrombosis) Z86.718 Diabetes mellitus, insulin dependent (IDDM), controlled E11.9; Z79.4 Hypothyroidism, unspecified type E03.9 Hypothyroidism type: unspecified Kidney disease, chronic, stage I (GFR over 89 ml/min) N18.1 Postoperative anemia due to acute blood loss D62 Anemia D64.9 Pressure injury of deep tissue of sacral region L89.156
[2023-05-02 16:11] LABS: Glucose Point of Care 101 mg/dL (70-110)
[2023-05-02 17:07] LABS: Basophils % 0.2 %; Eosinophils # 0.1 10^3/uL (0.0-0.8); Eosinophils % 2.7 %; Hematocrit 24.2 % (36-47); Lymphocytes % 22.9 %; Mean Corpuscular HGB Conc 31.8 g/dL (30-55); Mean Corpuscular Hemoglobin 31.3 pg (27-33); Mean Corpuscular Volume 98.4 fl (85-98); Mean Platelet Volume 9.4 fL (7.4-10.4); Monocytes # 0.3 10^3/uL (0.2-0.9); Monocytes % 7.2 %; Neutrophils # 2.98 10^3/uL (1.8-7.7); Neutrophils % 66.8 %; Nucleated Red Blood Cells % 0 %; Platelet Count 153 10^3/cmm (157-399); Red Blood Count 2.46 10^6/uL (3.85-5.65); Red Cell Distribution Width 14.6 % (12.1-15.1); White Blood Count 4.46 10^3/uL (3.29-11.43)
[2023-05-02 17:23] LABS: Glucose Point of Care 107 mg/dL (70-110)
[2023-05-02] MEDS: phenol oral Spray 177 mL 3 SPRAY MUCOUS MEM (20:16)
[2023-05-02] MEDS: D5-NS 0.45% + KCL 20 mEq 20 MEQ/1,000 ML BAG 75 MEQ IV (21:11)
[2023-05-02 21:53] LABS: Glucose Point of Care 122 mg/dL (70-110)
[2023-05-03] VITALS (11 sets, daily range): BP systolic 125–155; BP diastolic 53–81; PULSE 52–72; RESP 17–18; TEMP 36.1–36.8; O2SAT 96–98
[2023-05-03 05:31] LABS: Anion Gap 10.6 (5-19); Blood Urea Nitrogen 20 mg/dL (8-23); Calcium 7.5 mg/dL (8.5-10.5); Carbon Dioxide 22 mmol/L (22-29); Chloride 111 mmol/L (98-107); Creatinine Clr Calc Pharmacy 37.9499; Glucose 133 mg/dL (65-115); Magnesium 1.9 mg/dL (1.7-2.3); Osmolality Calculated 295 mOsm/kg (285-295); Potassium 3.6 mmol/L (3.5-5.1); Sodium 140 mmol/L (136-145)
[2023-05-03] MEDS: heparin 5,000 unit/mL INJ 1 mL 5000 UNIT SUBCUT ×2 (06:35→19:14)
[2023-05-03] MEDS: phenol oral Spray 177 mL 3 SPRAY MUCOUS MEM (06:36)
[2023-05-03 06:55] LABS: Glucose Point of Care 135 mg/dL (70-110)
--- NOTE | 2023-05-03 07:46 | P.PN_ITS ---
Subjective 2 Subjective: 77-year-old female who is postoperative day 6 status post laparoscopic converted to open right colectomy for colon cancer. Patient doing well over the last 24 hours, no nausea no vomiting. Patient states that she passed gas yesterday and this morning she passed a large amount of gas. Indicating return of bowel function. No significant abdominal pain. Vitals/I&O/Wt Last Vital Signs Temp 97.9 F 05/03/23 04:00 Pulse 53 L 05/03/23 05:03 Resp 17 05/03/23 04:00 BP 130/65 05/03/23 04:00 Pulse Ox 97 05/03/23 04:00 O2 Del Method Room Air 05/03/23 04:00 O2 Flow Rate 1 04/29/23 08:46 05/02/23 05/03/23 05/03/23 22:59 06:59 14:59 Output Total 800 / 800 Balance -800 / 97.917 Physical Exam 2 GI: OTHER: Surgical incisions are healing, midline laparotomy incision without signs of infection. Abdomen soft, nontender nondistended. Urinary Catheter Management: Caicedo: Cath Placed During This Visit: yes, but has since been removed by the nurse Reason for Continuing Indwelling Catheter: Decision to DC Catheter Urinary Catheter Date of Insertion: 04/27/23 Urinary Catheter Time of Insertion: 14:30 Date Urinary Catheter Removed: 04/29/23 Time Urinary Catheter Discontinued: 15:30 Data 05/02/23 16:42 05/03/23 04:25 A&P Assessment and plan (1) Adenocarcinoma of colon: Plan After complete history, physical examination and review of all available clinical data the following is my assessment. Patient has very good progression over the last 24 hours. Ileus appears to have resolved and patient is passing significant amount of gas. We will start patient on clear liquid diet and advance as tolerated. The plan is to discharge in the morning to rehab facility as patient appears to be slightly deconditioned after surgery. Attestations 2 Medical Necessity Statement*: Patient will require 24 to 48 hours of hospital stay for placement and to ensure she is tolerating diet. Coding Level of Care Code Acute Code for [facility] Diagnoses Adenocarcinoma of colon C18.9
[2023-05-03] MEDS: levothyroxine 100 mcg SDV 44 MCG IVP (08:10)
[2023-05-03 11:43] LABS: Glucose Point of Care 161 mg/dL (70-110)
[2023-05-03] MEDS: insulin lispro 100 unit/1 mL SUBCUT (12:20)
--- NOTE | 2023-05-03 13:09 | P.PN_ITS ---
Subjective 2 Subjective: Patient was seen this morning, she reports passing gas, she has been started on clear liquids, she feels significantly better, she does report lower extremity edema no fevers, no chills, no cough, no abdominal pain Vitals/I&O/Wt Last Vital Signs Temp 97.0 F L 05/03/23 09:17 Pulse 57 L 05/03/23 09:17 Resp 17 05/03/23 09:17 BP 155/53 05/03/23 09:17 Pulse Ox 96 05/03/23 09:17 O2 Del Method Room Air 05/03/23 09:17 O2 Flow Rate 1 04/29/23 08:46 05/02/23 05/03/23 05/03/23 22:59 06:59 14:59 Output Total 800 / 800 Balance -800 / 97.917 Physical Exam 2 Const: COMMON NORMALS: no acute distress and patient oriented x3 Resp: COMMON NORMALS: normal respiratory effort, No retractions, No use of accessory muscles and clear to auscultation bilaterally AUSCULTATION: clear to auscultation bilaterally Cardio: COMMON NORMALS: regular rate, regular rhythm, S1 normal heart sound present and S2 normal heart sound present RATE: regular rate RHYTHM: r egular rhythm HEART SOUNDS: S1 normal heart sound present and S2 normal heart sound present GI: OTHER: Abdomen soft, distended, good bowel sounds, no guarding, no rebound, no rigidity, Extremity: COMMON NORMALS: no pedal edema Neuro: COMMON NORMALS: patient oriented x3 Psych: COMMON NORMALS: mental status grossly normal Urinary Catheter Management: Caicedo: Cath Placed During This Visit: yes, but has since been removed by the nurse Reason for Continuing Indwelling Catheter: Decision to DC Catheter Urinary Catheter Date of Insertion: 04/27/23 Urinary Catheter Time of Insertion: 14:30 Date Urinary Catheter Removed: 04/29/23 Time Urinary Catheter Discontinued: 15:30 Data 05/02/23 16:42 05/03/23 04:25 A&P Assessment and plan (1) Colon cancer: (2) Status post right hemicolectomy: (3) Hypertension: (4) Hyperlipidemia, mixed: (5) History of DVT (deep vein thrombosis): (6) Diabetes mellitus, insulin dependent (IDDM), controlled: (7) Hypothyroidism: Qualifiers: Hypothyroidism type: unspecified Qualified Code(s): E03.9 - Hypothyroidism, unspecified (8) Kidney disease, chronic, stage I (GFR over 89 ml/min): (9) Postoperative anemia due to acute blood loss: (10) Anemia: (11) Pressure injury of deep tissue of sacral region: Plan s/p right hemicolectomy extensive laparoscopic lysis of adhesions, for adenocarcinoma of the proximal ascending colon. -with history of infiltrating sigmoid colon adenocarcinoma, status post laparoscopic hemicolectomy, 2017 Plan -NG tube removed -on clears -Dilaudid for pain control -Up out of bed -Serial abdominal exams -Monitor for stooling, monitor for passage of flatus -Full code -Heparin for DVT prophylaxis # History of hypothyroidism -IV levothyroxine Postoperative anemia secondary blood loss anemia with underlying B12 and iron deficiency anemia -Check B12, folate, ferritin, iron -Will consider IV infusions, with B12 -Monitor hemoglobin Type 2 diabetes mellitus, low-dose sliding scale Hypertension -As needed labetalol -Will resume home blood pressure medications once patient is able to take p.o. medications Hyperlipidemia History of DVT PE does have bilateral calf tenderness, will order venous ultrasound, negative for DVT History of CKD, NANNETTE, and IV fluids completed Type 2 diabetes mellitus, low-dose sliding scale sacral deep tissue injury -reposition every 2 hours -offloading -can consider ppn based on clinical progress, consult dietary -wound care Plan for today, continue serial abdominal exams, continue to monitor closely, blood pressure monitoring, follow lower extremity edema Attestations 2 Medical Necessity Statement*: Patient requires hospitalization for right hemicolectomy, monitoring blood pressure, serial abdominal exams Diagnoses Colon cancer C18.9 Status post right hemicolectomy Z90.49 Hypertension I10 Hyperlipidemia, mixed E78.2 History of DVT (deep vein thrombosis) Z86.718 Diabetes mellitus, insulin dependent (IDDM), controlled E11.9; Z79.4 Hypothyroidism, unspecified type E03.9 Hypothyroidism type: unspecified Kidney disease, chronic, stage I (GFR over 89 ml/min) N18.1 Postoperative anemia due to acute blood loss D62 Anemia D64.9 Pressure injury of deep tissue of sacral region L89.156
[2023-05-03 13:26] LABS: Hematocrit 26.2 % (36-47)
[2023-05-03 16:15] LABS: Glucose Point of Care 140 mg/dL (70-110)
[2023-05-03] MEDS: HYDROmorphone 1 mg/mL INJ 1 mL IVP (16:17)
[2023-05-03 20:37] LABS: Glucose Point of Care 191 mg/dL (70-110)
[2023-05-04] MEDS: HYDROcodone-acetaminophen 5-325 mg Tablet 1 TAB PO ×3 (03:24→18:37)
[2023-05-04 03:44] VITALS: BP 165/65; PULSE 61; RESP 18; TEMP 36.8; O2SAT 99
[2023-05-04 05:37] VITALS: PULSE 46
[2023-05-04 05:45] LABS: Basophils % 0.4 %; Eosinophils # 0.2 10^3/uL (0.0-0.8); Eosinophils % 4.1 %; Hematocrit 24.4 % (36-47); Lymphocytes # 1.1 10^3/uL (0.8-4.8); Mean Corpuscular Hemoglobin 30.7 pg (27-33); Mean Corpuscular Volume 96.1 fl (85-98); Mean Platelet Volume 9.4 fL (7.4-10.4); Monocytes # 0.4 10^3/uL (0.2-0.9); Monocytes % 8.6 %; Neutrophils % 62.7 %; Nucleated Red Blood Cells % 0 %; Platelet Count 180 10^3/cmm (157-399); Red Blood Count 2.54 10^6/uL (3.85-5.65); Red Cell Distribution Width 14.4 % (12.1-15.1); White Blood Count 4.63 10^3/uL (3.29-11.43)
[2023-05-04 06:06] LABS: Anion Gap 10.5 (5-19); Blood Urea Nitrogen 13 mg/dL (8-23); Calcium 7.2 mg/dL (8.5-10.5); Carbon Dioxide 22 mmol/L (22-29); Chloride 109 mmol/L (98-107); Creatinine Clr Calc Pharmacy 45.3548; Glucose 118 mg/dL (65-115); Osmolality Calculated 287 mOsm/kg (285-295); Potassium 3.5 mmol/L (3.5-5.1); Sodium 138 mmol/L (136-145)
[2023-05-04 06:18] LABS: Glucose Point of Care 113 mg/dL (70-110)
[2023-05-04] MEDS: heparin 5,000 unit/mL INJ 1 mL 5000 UNIT SUBCUT ×2 (06:21→18:37)
--- NOTE | 2023-05-04 08:27 | P.PN_ITS ---
Subjective 2 Subjective: Patient seen and examined. Tolerating full liquid diet and having bowel movements. Pain controlled Vitals/I&O/Wt Last Vital Signs Temp 97.6 F 05/05/23 03:58 Pulse 51 L 05/05/23 03:58 Resp 17 05/05/23 03:58 BP 145/61 05/05/23 03:58 Pulse Ox 97 05/05/23 03:58 O2 Del Method Room Air 05/04/23 17:35 O2 Flow Rate 1 04/29/23 08:46 05/04/23 05/05/23 05/05/23 22:59 06:59 14:59 Intake Total 480 / 1080 Balance 480 / 1080 Weight last 48 hrs Weight 212 lb 9.6 oz Weight 140 lb Physical Exam 2 Narrative: General: No acute distress, awake alert and oriented x 3 Abdomen: Soft, nontender, nondistended, no guarding rebound or masses Urinary Catheter Management: Caicedo: Cath Placed During This Visit: yes, but has since been removed by the nurse Reason for Continuing Indwelling Catheter: Decision to DC Catheter Urinary Catheter Date of Insertion: 04/27/23 Urinary Catheter Time of Insertion: 14:30 Date Urinary Catheter Removed: 04/29/23 Time Urinary Catheter Discontinued: 15:30 Data 05/05/23 05:25 05/05/23 05:25 A&P Assessment and plan (1) Colon cancer: (2) Status post right hemicolectomy: Plan Status post [id number]-dh-open right hemicolectomy advance to soft diet Plan for discharge in am Attestations 2 Medical Necessity Statement*: if patient tolerates solid food this evening after bowel resection, will discharge home in the morning Coding Level of Care Code Acute Code for [facility] Diagnoses Colon cancer C18.9 Status post right hemicolectomy Z90.49
[2023-05-04 09:47] VITALS: BP 169/68; PULSE 54; RESP 18; TEMP 36.2; O2SAT 96
--- NOTE | 2023-05-04 09:56 | XRR_ITS ---
PROCEDURE INFORMATION: Exam: XR Abdomen Exam date and time: 05/04/2023 10:20 AM Age: 77 years old Clinical indication: Abdominal pain; Generalized; Prior surgery; Surgery date: 6+ months; Surgery type: Colorectal, hyst; Patient HX: HX of colon cancer TECHNIQUE: Imaging protocol: Radiologic exam of the abdomen. Views: Frontal supine view of the abdomen. 1 View. COMPARISON: CT abdomen pelvis w con* [id number] 04/23/2023 1:00 PM FINDINGS: Gastrointestinal tract: No air-filled dilated bowel loops or evidence of bowel thickening. Bones/joints: Degenerative changes along the imaged axial skeletal system. Soft tissues: Vertically oriented presumed anterior abdominal wall skin jerri. Couple left abdominal staple/surgical clips. XR/XR KUB portable [id number] IMPRESSION: 1. Reason postsurgical change. 2. Nonobstructive bowel gas pattern.
[2023-05-04] MEDS: levothyroxine 100 mcg SDV 44 MCG IVP (10:05)
[2023-05-04 10:57] LABS: Glucose Point of Care 151 mg/dL (70-110)
--- NOTE | 2023-05-04 11:35 | P.PN_ITS ---
Subjective 2 Subjective: Patient was seen this morning, she tells me that she had a bowel movement yesterday she continues to pass gas however this morning she has a lot of abdominal bloating, diffuse abdominal pain, no nausea, no vomiting no fevers continues to pass gas from below, compared to yesterday she has persistent bilateral lower extremity edema 2+ pitting edema, will start diuresis today Vitals/I&O/Wt Last Vital Signs Temp 97.2 F L 05/04/23 09:47 Pulse 54 L 05/04/23 09:47 Resp 18 05/04/23 09:47 BP 169/68 05/04/23 09:47 Pulse Ox 96 05/04/23 09:47 O2 Del Method Room Air 05/04/23 09:47 O2 Flow Rate 1 04/29/23 08:46 05/03/23 05/04/23 05/04/23 22:59 06:59 14:59 Intake Total 840 / 2840 240 / 3080 360 / 360 Output Total 300 / 300 Balance 840 / 2840 -60 / 2780 360 / 360 Weight last 48 hrs Weight 63.503 kg Physical Exam 2 Const: COMMON NORMALS: no acute distress and patient oriented x3 Resp: COMMON NORMALS: normal respiratory effort, No retractions, No use of accessory muscles and clear to auscultation bilaterally AUSCULTATION: clear to auscultation bilaterally Cardio: COMMON NORMALS: regular rate, regular rhythm, S1 normal heart sound present and S2 normal heart sound present RATE: regular rate RHYTHM: r egular rhythm HEART SOUNDS: S1 normal heart sound present and S2 normal heart sound present GI: OTHER: Abdomen soft, distended, good bowel sounds in all 4 quadrants, no guarding, no rebound, no rigidity, has nonspecific diffuse tenderness to palpation, surgical site looks clean and dry Extremity: NARRATIVE EXTREMITY EXAM: 2+ pitting edema Neuro: COMMON NORMALS: patient oriented x3 Psych: COMMON NORMALS: mental status grossly normal Urinary Catheter Management: Caicedo: Cath Placed During This Visit: yes, but has since been removed by the nurse Reason for Continuing Indwelling Catheter: Decision to DC Catheter Urinary Catheter Date of Insertion: 04/27/23 Urinary Catheter Time of Insertion: 14:30 Date Urinary Catheter Removed: 04/29/23 Time Urinary Catheter Discontinued: 15:30 Data 05/04/23 05:23 05/04/23 05:23 A&P Assessment and plan (1) Colon cancer: (2) Status post right hemicolectomy: (3) Hypertension: (4) Hyperlipidemia, mixed: (5) History of DVT (deep vein thrombosis): (6) Diabetes mellitus, insulin dependent (IDDM), controlled: (7) Hypothyroidism: Qualifiers: Hypothyroidism type: unspecified Qualified Code(s): E03.9 - Hypothyroidism, unspecified (8) Kidney disease, chronic, stage I (GFR over 89 ml/min): (9) Postoperative anemia due to acute blood loss: (10) Anemia: (11) Pressure injury of deep tissue of sacral region: Plan s/p right hemicolectomy extensive laparoscopic lysis of adhesions, for adenocarcinoma of the proximal ascending colon. -with history of infiltrating sigmoid colon adenocarcinoma, status post laparoscopic hemicolectomy, 2016 Plan -NG tube removed -on clears -Dilaudid for pain control -Up out of bed -Serial abdominal exams -Monitor for stooling, monitor for passage of flatus -Will do KUB today -Full code -Heparin for DVT prophylaxis # History of hypothyroidism -levothyroxine Postoperative anemia secondary blood loss anemia with underlying B12 and iron deficiency anemia -Check B12, folate, ferritin, iron -Will consider IV infusions, with B12 -Monitor hemoglobin Type 2 diabetes mellitus, low-dose sliding scale Hypertension -Norvasc 10 mg daily Hyperlipidemia History of DVT PE does have bilateral calf tenderness, will order venous ultrasound, negative for DVT History of CKD, NANNETTE, and IV fluids completed Type 2 diabetes mellitus, low-dose sliding scale sacral deep tissue injury -reposition every 2 hours -offloading -can consider ppn based on clinical progress, consult dietary -wound care Plan for today, continue serial abdominal exams, start Norvasc, switch to p.o. medications, blood pressure monitoring Lasix for lower extremity edema, repeat KUB await surgical evaluation Attestations 2 Medical Necessity Statement*: Patient requires hospitalization for abdominal pain status post right hemicolectomy, with fluid overload requiring diuresis, Diagnoses Colon cancer C18.9 Status post right hemicolectomy Z90.49 Hypertension I10 Hyperlipidemia, mixed E78.2 History of DVT (deep vein thrombosis) Z86.718 Diabetes mellitus, insulin dependent (IDDM), controlled E11.9; Z79.4 Hypothyroidism, unspecified type E03.9 Hypothyroidism type: unspecified Kidney disease, chronic, stage I (GFR over 89 ml/min) N18.1 Postoperative anemia due to acute blood loss D62 Anemia D64.9 Pressure injury of deep tissue of sacral region L89.156
[2023-05-04 12:00] VITALS: BP 161/61; PULSE 65; RESP 18; TEMP 36.7; O2SAT 98
[2023-05-04] MEDS: potassium chloride ER 20 mEq Tablet PO (13:17)
[2023-05-04] MEDS: amlodipine 10 mg Tablet PO (13:17)
[2023-05-04] MEDS: FUROsemide 10 mg/mL SDV 2mL 20 MG IVP (13:17)
[2023-05-04 17:01] LABS: Glucose Point of Care 138 mg/dL (70-110)
[2023-05-04 17:35] VITALS: BP 161/69; PULSE 59; RESP 19; TEMP 36.5; O2SAT 98
[2023-05-04] MEDS: lisinopril 20 mg Tablet PO (18:36)
[2023-05-04 19:46] VITALS: BP 144/73; PULSE 63; RESP 18; TEMP 36.8; O2SAT 96
[2023-05-04 20:50] LABS: Glucose Point of Care 216 mg/dL (70-110)
[2023-05-05] VITALS: BP 156/70; PULSE 56; RESP 16; TEMP 36.8; O2SAT 97
[2023-05-05] MEDS: HYDROcodone-acetaminophen 5-325 mg Tablet 1 TAB PO ×2 (03:55→09:45)
[2023-05-05 03:58] VITALS: BP 145/61; PULSE 51; RESP 17; TEMP 36.4; O2SAT 97
[2023-05-05 06:03] LABS: Basophils % 0.5 %; Eosinophils # 0.3 10^3/uL (0.0-0.8); Eosinophils % 6.7 %; Hematocrit 25.4 % (36-47); Lymphocytes # 1.1 10^3/uL (0.8-4.8); Lymphocytes % 28.4 %; Mean Corpuscular HGB Conc 32.3 g/dL (30-55); Mean Corpuscular Hemoglobin 31.3 pg (27-33); Mean Corpuscular Volume 96.9 fl (85-98); Mean Platelet Volume 9.6 fL (7.4-10.4); Monocytes # 0.4 10^3/uL (0.2-0.9); Monocytes % 9.3 %; Neutrophils # 2.12 10^3/uL (1.8-7.7); Neutrophils % 54.8 %; Nucleated Red Blood Cells % 0 %; Platelet Count 178 10^3/cmm (157-399); Red Blood Count 2.62 10^6/uL (3.85-5.65); Red Cell Distribution Width 14.6 % (12.1-15.1); White Blood Count 3.87 10^3/uL (3.29-11.43)
[2023-05-05 06:23] LABS: Anion Gap 13.6 (5-19); Blood Urea Nitrogen 12 mg/dL (8-23); Calcium 7.5 mg/dL (8.5-10.5); Carbon Dioxide 24 mmol/L (22-29); Chloride 107 mmol/L (98-107); Creatinine Clr Calc Pharmacy 45.9598; Glucose 161 mg/dL (65-115); Osmolality Calculated 295 mOsm/kg (285-295); Potassium 3.6 mmol/L (3.5-5.1); Sodium 141 mmol/L (136-145)
[2023-05-05] MEDS: heparin 5,000 unit/mL INJ 1 mL 5000 UNIT SUBCUT (06:24)
[2023-05-05 06:39] LABS: Glucose Point of Care 159 mg/dL (70-110)
[2023-05-05 08:00] VITALS: BP 144/67; PULSE 56; RESP 15; TEMP 36.4; O2SAT 97
--- NOTE | 2023-05-05 08:30 | PM.DCS ---
Discharge Providers Date of Admission: 04/27/23 17:23 Date of Discharge: May 05, 2023 Attending Provider at Admission: Nayan Fay DO Attending Provider at Discharge: Nayan Fay DO Primary Care Provider: Penny Sanchez MD Diagnoses at Discharge Discharge Diagnosis (1) Colon cancer: Status: Acute (2) Status post right hemicolectomy: Status: Acute Reason for Visit Reason for Visit: C18.9 Hospital Course Hospital Course Ms. Beavers is a very pleasant 77-year-old female who was found to have ascending colon cancer on colonoscopy. She previously had left-sided colon cancer and received a left hemicolectomy but did not require any chemotherapy afterwards. She has been to the hospital for recovery after laparoscopic converted to open right hemicolectomy. She did well postoperatively and was tolerating a diet moving her bowels prior to discharge Physical Exam Narrative: General : Patient is well developed , no acute distress, oriented x3 Head : Normal cephalic, a-traumatic. Ears : Pinnae and external canal are normal. Hearing is normal. Eyes : PERRLA, Sclera and injection are normal. No conjunctival discharge. Nose : Mucous membranes are without erythema. Throat : buccal mucosa is normal, gums are without significant recession or hypertrophy. Lungs : Equal chest rise bilaterally, no use of accessory muscles, trachea is midline. Cor : Rate and rhythm are normal. Abdomen : Soft, ND, appropriately tender, incisions intact, no g/r/m Extremities : No edema, no cyanosis or clubbing, dorsalis pedis pulses are present bilaterally, non-tender to palpation of calves. Upper extremities are normal bilaterally. Back : non-tender to palpation, no CVA tenderness. Neuro : CN II - XII intact, Upper and lower extremities have equal and full strength Urinary Catheter Management: Caicedo: Cath Placed During This Visit: yes, but has since been removed by the nurse Reason for Continuing Indwelling Catheter: Decision to DC Catheter Urinary Catheter Date of Insertion: 04/27/23 Urinary Catheter Time of Insertion: 14:30 Date Urinary Catheter Removed: 04/29/23 Time Urinary Catheter Discontinued: 15:30 Discharge Data Studies Completed and Pending Completed Studies During Hospitalization Category Date Time Status XR KUB portable [id number] Routine Exams 05/04/23 09:56 [place] [id number] Routine Ultrasound 05/01/23 16:53 Completed Pending at discharge Category Date Time Status Basic Metabolic Panel AM LABS Lab 05/06/23 04:00 Ordered Complete Blood Count w/Auto AM LABS Lab 05/06/23 04:00 Ordered Pathology: Surgical [PTH] Routine Pth 04/27/23 17:02 Received Radiology Impressions KUB X-Ray 05/04/23 09:56 IMPRESSION: 1. Reason postsurgical change. 2. Nonobstructive bowel gas pattern. Laboratory Results WBC 3.87 10^3/uL (3.29-11.43) 05/05/23 05:25 RBC 2.62 10^6/uL (3.85-5.65) L 05/05/23 05:25 Hgb 8.20 g/dL (11.27-16.99) L 05/05/23 05:25 Hct 25.4 % (36-47) L 05/05/23 05:25 MCV 96.9 fl (85-98) 05/05/23 05:25 MCH 31.3 pg (27-33) 05/05/23 05:25 MCHC 32.3 g/dL (30-55) 05/05/23 05:25 RDW 14.6 % (12.1-15.1) 05/05/23 05:25 Plt Count 178 10^3/cmm (157-399) 05/05/23 05:25 MPV 9.6 fL (7.4-10.4) 05/05/23 05:25 Neut % (Auto) 54.8 % 05/05/23 05:25 Lymph % (Auto) 28.4 % 05/05/23 05:25 [facility] [place] % (Auto) 9.3 % 05/05/23 05:25 Eos % (Auto) 6.7 % 05/05/23 05:25 Baso % (Auto) 0.5 % 05/05/23 05:25 Neut # (Auto) 2.12 10^3/uL (1.8-7.7) 05/05/23 05:25 Lymph # (Auto) 1.1 10^3/uL (0.8-4.8) 05/05/23 05:25 [facility] [place] # (Auto) 0.4 10^3/uL (0.2-0.9) 05/05/23 05:25 Eos # (Auto) 0.3 10^3/uL (0.0-0.8) 05/05/23 05:25 Baso # (Auto) 0.0 10^3/uL (0.0-0.1) 05/05/23 05:25 Nucleated RBC % (auto) 0 % 05/05/23 05:25 Nucleated RBCs # 0.0 /100WBC 05/05/23 05:25 Sodium 141 mmol/L (136-145) 05/05/23 05:25 Potassium 3.6 mmol/L (3.5-5.1) 05/05/23 05:25 Chloride 107 mmol/L (98-107) 05/05/23 05:25 Carbon Dioxide 24 mmol/L (22-29) 05/05/23 05:25 Anion Gap 13.6 (5-19) 05/05/23 05:25 BUN 12 mg/dL (8-23) 05/05/23 05:25 Creatinine 1.2 mg/dL (0.5-0.9) H 05/05/23 05:25 GFR Calculation Not Reportable 05/05/23 05:25 Glucose 161 mg/dL (65-115) H 05/05/23 05:25 POC Glucose 159 mg/dL (70-110) H 05/05/23 06:21 Estimat Average Glucose 108 04/30/23 05:08 Hemoglobin A1c 5.4 % (4.0-6.0) 04/30/23 05:08 Calculated Osmolality 295 mOsm/kg (285-295) 05/05/23 05:25 Calcium 7.5 mg/dL (8.5-10.5) L 05/05/23 05:25 Magnesium 1.9 mg/dL (1.7-2.3) 05/03/23 04:25 Iron 15 ug/dL (37-145) L 04/30/23 05:08 Ferritin 425 ng/mL (15-150) H 04/30/23 05:08 Vitamin B12 838 pg/mL (232-1245) 04/30/23 05:08 TSH 0.34 uIU/mL (0.27-4.20) 04/30/23 05:08 Blood Type O Negative 04/27/23 14:15 Rho(D) Type Negative 04/27/23 14:15 Antibody Screen Negative 04/27/23 14:15 Crossmatch See Detail 04/27/23 14:15 Procedures Performed Laparoscopic converted to open right hemicolectomy Vitals Last Vital Signs Temp 97.6 F 05/05/23 03:58 Pulse 51 L 05/05/23 03:58 Resp 17 05/05/23 03:58 BP 145/61 05/05/23 03:58 Pulse Ox 97 05/05/23 03:58 O2 Del Method Room Air 05/04/23 17:35 O2 Flow Rate 1 04/29/23 08:46 Discharge Plan Discharge Patient Disposition: Home Health Service Condition: Stable Prescriptions: New amlodipine 10 mg Tablet 10 mg PO DAILY 30 Days Qty: 30 0RF Novolog FlexPen U-100 Insulin 100 unit/mL (3 mL) insulin pen See Rx Instructions .ROUTE .COMPLEX Qty: 15 0RF Rx Instructions: inject, subcut, TID, after meals, based on sliding scale provided hydrocodone-acetaminophen 10-325 mg tablet 1 tab PO Q6H PRN (Reason: pain) Qty: 20 0RF Rx Instructions: May split pill in half Continued (DME) Diabetic Shoes with 3 Pairs of Inserts See Rx Instructions .Route .MEDSUPPLY Qty: 1 0RF Rx Instructions: As directed by HOME lysine 1,000 mg tablet 1,000 mg PO DAILY 90 Days Qty: 90 1RF (DME) insulin syringe-needle U-100 1 mL 31 gauge x 5/16 syringe See Rx Instructions .Route Qty: 100 0RF Rx Instructions: As directed ascorbate calcium (vitamin C) 500 mg tablet 500 mg PO DAILY docusate sodium 100 mg capsule 100 mg PO BID Rx Instructions: morning and night (DME) Diabetic shoes with inserts See Rx Instructions .Route .MEDSUPPLY Qty: 1 0RF Rx Instructions: As directed (DME) Blood Glucose Test Strip See Rx Instructions miscellaneous .MEDSUPPLY Qty: 100 4RF Rx Instructions: As directed; To test 4 x day (DME) pen needle, diabetic 32 gauge x 5/32 needle See Rx Instructions .ROUTE .COMPLEX Qty: 100 4RF Dose Instruction: USE DIRECTED Rx Instructions: USE DIRECTED (DME) pen needle, diabetic [Comfort EZ Pen [place]] 32 gauge x 5/16 needle See Rx Instructions .Route Qty: 100 0RF Rx Instructions: As directed furosemide 40 mg tablet 40 mg PO DAILY PRN (Reason: Edema) Qty: 30 3RF cyanocobalamin (vitamin B-12) 1,000 mcg/mL solution 1,000 mcg SUBCUT .COMPLEX Qty: 10 0RF Rx Instructions: 1,000 mcg subcutaneously; monthly (DME) lancets [TRUEplus Lancets] 30 gauge misc See Rx Instructions .ROUTE .COMPLEX Qty: 100 12RF Dose Instruction: USE TO test FOUR times DAILY Rx Instructions: USE TO test FOUR times DAILY febuxostat 80 mg tablet 80 mg PO DAILY Qty: 30 2RF lisinopril 20 mg tablet 20 mg PO DAILY Rx Instructions: Take 1 tablet by mouth once daily levothyroxine 88 mcg tablet 88 mcg PO DAILY Rx Instructions: Take 1 tablet by mouth once daily Changed Lantus Solostar U-100 Insulin 100 unit/mL (3 mL) insulin pen 5 unit SUBCUT DAILY Qty: 15 3RF Discharge Orders: Discharge Order (Routine); Ordered 05/05/23 Ordered By: Nayan Fay Referrals: [facility] [Other] Nayan Fay DO [Physician] - 1 week Loi Vega MD [Hospitalist] - 05/12/23 1:30 pm (APPOINTMENT FOR LABS MAY 11 AT 1:[address] VEGA AT 3:00 PM.) Penny Sanchez MD [Primary Care Provider] - 05/12/23 2:00 pm ( ) Discharge Diet: As Directed Discharge Activity: Resume usual activity Patient Instructions: Opioid Safety Activity Restrictions/Additional Instructions: -Please monitor your blood sugars closely -Monitor your blood sugars 3 times daily as after meals -Please record your blood sugars, and a blood sugar log -For your NovoLog -Please inject blood sugar after meals based on sliding scale provided -Do not inject insulin if you do not eat as hypoglycemia kills -This is a NovoLog sliding scale -Insulin sliding ?fingerstick? Insulin ?141-180?0 units/sq 181-220?2 units/sq ?221-260?4 units/sq ?261-300 6 units/sq ?301-350?8 units/sq ?351-400 10 units/sq ?401-450?12 units/sq >450? 14units/sq -If your blood sugar is greater than 500 go to the emergency room -If your blood sugar is less than 60 or at anytime you feel lightheaded or dizzy or diaphoretic or have chest palpitations check your blood sugar, and eat a hard candy or drink orange juice and go immediately to the emergency room -Remember hypoglycemia kills, so if his blood sugar is less than 60 we have to increase it by taking in a sugary meal such as a hard candy or orange juice and go to the emergency room -If you have any questions please call us where here to help Discharge Attestations Time Spent in Discharge Care*: less than 30 min Quality Metrics Clinical Quality Measures [ No reported AMI, CVA or VTE this stay] Coding Level of Care Code Acute Code for Chg Fwd Diagnoses Colon cancer C18.9 Status post right hemicolectomy Z90.49
[2023-05-05] MEDS: lisinopril 20 mg Tablet PO (09:45)
[2023-05-05] MEDS: insulin lispro 100 unit/1 mL SUBCUT (09:45)
[2023-05-05] MEDS: levothyroxine 88 mcg Tablet PO (09:45)
[2023-05-05] MEDS: amlodipine 10 mg Tablet PO (09:45)
--- NOTE | 2023-05-05 10:49 | PM.PN ---
Subjective Subjective: Patient was seen this morning, had a detailed discussion about her discharge, she is planning on going to [facility], initially she thought she was going home, but she has been excepted at [facility], we discussed insulin sliding scale, her reduced dose of Lantus, continue to do serial abdominal exams she continues to pass gas continues to have bowel movements no fevers, chills, she has a history of DVTs in the past but had to be taken off anticoagulant therapy due to GI bleed, discussed continued calf raises Exercises could continue mobility if she develops sudden onset shortness of breath, calf pain or calf swelling to go to emergency room immediately, continue to monitor closely, she is agreeable, I had extensive discussion with patient and her sister at bedside about her sacral DTI she continues to need to be offloading, for her colon cancer, will have to have her follow-up with Dr. Sánchez as outpatient have already spoken to Dr. Sánchez, we have an appointment hopefully in the next few weeks, follow-up with Dr. Fay Vitals/I&O/Wt Last Vital Signs Temp 97.6 F 05/05/23 08:00 Pulse 56 L 05/05/23 08:00 Resp 15 05/05/23 08:00 BP 144/67 05/05/23 08:00 Pulse Ox 97 05/05/23 08:00 O2 Del Method Room Air 05/05/23 08:00 O2 Flow Rate 1 04/29/23 08:46 05/04/23 05/05/23 05/05/23 22:59 06:59 14:59 Intake Total 480 / 1080 240 / 240 Balance 480 / 1080 240 / 240 Weight last 48 hrs Weight 96.434 kg Weight 63.503 kg Physical Exam Const: COMMON NORMALS: no acute distress and patient oriented x3 Resp: COMMON NORMALS: normal respiratory effort, No retractions, No use of accessory muscles and clear to auscultation bilaterally AUSCULTATION: clear to auscultation bilaterally Cardio: COMMON NORMALS: regular rate, regular rhythm, S1 normal heart sound present and S2 normal heart sound present RATE: regular rate RHYTHM: regular rhythm HEART SOUNDS: S1 normal heart sound present and S2 normal heart sound present GI: OTHER: Abdomen soft, slightly distended good bowel sounds, no guarding, no rebound, no rigidity Extremity: COMMON NORMALS: no pedal edema Neuro: COMMON NORMALS: patient oriented x3 Psych: COMMON NORMALS: mental status grossly normal Urinary Catheter Management: Caicedo: Cath Placed During This Visit: yes, but has since been removed by the nurse Reason for Continuing Indwelling Catheter: Decision to DC Catheter Urinary Catheter Date of Insertion: 04/27/23 Urinary Catheter Time of Insertion: 14:30 Date Urinary Catheter Removed: 04/29/23 Time Urinary Catheter Discontinued: 15:30 Data 05/05/23 05:25 05/05/23 05:25 A&P Assessment and plan (1) Colon cancer: (2) Status post right hemicolectomy: (3) Hypertension: (4) Hyperlipidemia, mixed: (5) History of DVT (deep vein thrombosis): (6) Diabetes mellitus, insulin dependent (IDDM), controlled: (7) Hypothyroidism: Qualifiers: Hypothyroidism type: unspecified Qualified Code(s): E03.9 - Hypothyroidism, unspecified (8) Kidney disease, chronic, stage I (GFR over 89 ml/min): (9) Postoperative anemia due to acute blood loss: (10) Anemia: (11) Pressure injury of deep tissue of sacral region: Plan s/p right hemicolectomy extensive laparoscopic lysis of adhesions, for adenocarcinoma of the proximal ascending colon. -with history of infiltrating sigmoid colon adenocarcinoma, status post laparoscopic hemicolectomy, 2016 Plan -Up out of bed -Serial abdominal exams -Monitor for stooling, monitor for passage of flatus -Full code -Heparin for DVT prophylaxis # History of hypothyroidism -levothyroxine Postoperative anemia secondary blood loss anemia with underlying B12 and iron deficiency anemia -Check B12, folate, ferritin, iron -Will consider IV infusions, with B12 -Monitor hemoglobin Type 2 diabetes mellitus, low-dose sliding scale Hypertension -Norvasc 10 mg daily Hyperlipidemia History of DVT PE does have bilateral calf tenderness, will order venous ultrasound, negative for DVT History of CKD, NANNETTE, and IV fluids completed Type 2 diabetes mellitus, low-dose sliding scale sacral deep tissue injury -reposition every 2 hours -offloading -can consider ppn based on clinical progress, consult dietary -wound care Attestations Medical Necessity Statement*: Patient will be discharged today Diagnoses Colon cancer C18.9 Status post right hemicolectomy Z90.49 Hypertension I10 Hyperlipidemia, mixed E78.2 History of DVT (deep vein thrombosis) Z86.718 Diabetes mellitus, insulin dependent (IDDM), controlled E11.9; Z79.4 Hypothyroidism, unspecified type E03.9 Hypothyroidism type: unspecified Kidney disease, chronic, stage I (GFR over 89 ml/min) N18.1 Postoperative anemia due to acute blood loss D62 Anemia D64.9 Pressure injury of deep tissue of sacral region L89.156
[2023-05-05 11:21] VITALS: BP 144/67; PULSE 56; RESP 15; TEMP 36.4; O2SAT 97
== END 2023-05-05 10:30 | disposition skilled nursing facility (03) | DRG 330 ==
LOC: MEDSURG 17:23
PROVIDERS: Family Medicine; Admitting Provider Surgery; PCP Family Medicine; Visit Provider Surgery
PROC: 0DTF0ZZ Resection of Right Large Intestine, Open Approach (ICD-10-PCS; 2023-04-27 12:40)
PROC: 0DTF0ZZ Resection of Right Large Intestine, Open Approach (ICD-10-PCS; 2023-04-27 12:40)
PROC: 0DTF4ZZ Resection of Right Large Intestine, Percutaneous Endoscopic Approach (ICD-10-PCS; CPT 44205; 2023-04-27 12:40)
DX: C18.2 Malignant neoplasm of ascending colon (principal); D62 Acute posthemorrhagic anemia; K56.7 Ileus, unspecified; K91.89 Other postprocedural complications and disorders of digestive system; N17.9 Acute kidney failure, unspecified; L89.156 Pressure-induced deep tissue damage of sacral region; E53.8 Deficiency of other specified B group vitamins; D50.9 Iron deficiency anemia, unspecified; Z86.718 Personal history of other venous thrombosis and embolism; Z86.711 Personal history of pulmonary embolism; Z85.038 Personal history of other malignant neoplasm of large intestine; E03.9 Hypothyroidism, unspecified; E11.22 Type 2 diabetes mellitus with diabetic chronic kidney disease; N18.9 Chronic kidney disease, unspecified; Z79.4 Long term (current) use of insulin; I12.9 Hypertensive chronic kidney disease with stage 1 through stage 4 chronic kidney disease, or unspecified chronic kidney disease; R60.0 Localized edema; E78.5 Hyperlipidemia, unspecified
CPT/HCPCS: 36415; 36416; 36430; 51702; 74018; 80048; 82607; 82728; 82962; 83036; 83540; 83735; 84443; 85014; 85018; 85025; 86850; 86900; 86920; 88309; 93970; 96372; 97110; 97161; J0131; J0330; J1100; J1170; J1644; J1815; J1940; J2371; J2405; J2704; J3010; J3490; J7030; P9040; P9045

== ENCOUNTER → 2023-05-14 14:35 | Outpatient (BNVA) | payer MEDICARE, MEDICAID, SELFPAY | PROVIDERS: PCP Family Medicine; Visit Provider Surgery | DX: Z90.49 Acquired absence of other specified parts of digestive tract (principal); C18.2 Malignant neoplasm of ascending colon; C18.3 Malignant neoplasm of hepatic flexure; Z98.890 Other specified postprocedural states | CPT/HCPCS: 99024 ==

== ENCOUNTER → 2023-05-18 08:03 | Outpatient (BNVA) | payer MEDICARE, MEDICAID, SELFPAY | PROVIDERS: PCP Family Medicine; Visit Provider Nurse Practitioner Family | DX: I96 Gangrene, not elsewhere classified (principal); L89.153 Pressure ulcer of sacral region, stage 3 | CPT/HCPCS: 97597; 99213; A6212 ×2 ==

== ENCOUNTER 2023-05-25 10:00 | Oncology outpatient (recurring) (ONCR) | payer OTHER, SELFPAY ==
[2023-05-12 14:13] LABS: Basophils % 0.5 %; Eosinophils # 0.3 10^3/uL (0.0-0.8); Eosinophils % 3.8 %; Hematocrit 29.4 % (36-47); Lymphocytes # 1.2 10^3/uL (0.8-4.8); Lymphocytes % 17.7 %; Mean Corpuscular Hemoglobin 30.4 pg (27-33); Mean Corpuscular Volume 98.3 fl (85-98); Mean Platelet Volume 9.1 fL (7.4-10.4); Monocytes # 0.5 10^3/uL (0.2-0.9); Monocytes % 8.2 %; Neutrophils # 4.57 10^3/uL (1.8-7.7); Neutrophils % 69.6 %; Nucleated Red Blood Cells % 0 %; Platelet Count 281 10^3/cmm (157-399); Red Blood Count 2.99 10^6/uL (3.85-5.65); Red Cell Distribution Width 14.4 % (12.1-15.1); White Blood Count 6.56 10^3/uL (3.29-11.43)
[2023-05-12 14:56] LABS: Carcinoembryonic Antigen 1.1 ng/mL (0.0-4.7)
[2023-05-12 15:07] LABS: Alanine Aminotransferase 17 U/L (0-33); Albumin Level 3.7 g/dL (3.5-5.2); Alkaline Phosphatase 71 U/L (35-105); Anion Gap 16.2 (5-19); Aspartate Amino Transferase 21 U/L (0-32); Blood Urea Nitrogen 17 mg/dL (8-23); Calcium 8.2 mg/dL (8.5-10.5); Carbon Dioxide 27 mmol/L (22-29); Chloride 101 mmol/L (98-107); Globulin 2.7 g/dL (1.3-4.6); Glucose 158 mg/dL (65-115); Osmolality Calculated 295 mOsm/kg (285-295); Potassium 4.2 mmol/L (3.5-5.1); Sodium 140 mmol/L (136-145); Total Bilirubin 0.4 mg/dL (0.15-1.2); Total Protein 6.4 g/dL (6.6-8.7)
[2023-05-15 10:29] LABS: Iron 34 ug/dL (37-145); Total Iron Binding Capacity 212 mcg/dl; Unsaturated Iron Binding 178 ug/dL (112-347)
[2023-05-15 10:46] LABS: Vitamin B12 1091 pg/mL (232-1245)
[2023-05-25 09:35] VITALS: BP 159/68; PULSE 61; RESP 16; TEMP 36.5; O2SAT 93
[2023-05-25] MEDS: ferric carboxy (IVPB) 750 MG in sodium chloride 0.9% (100 ml) 100 ML 345 MG IV (10:08)
[2023-05-25 10:39] VITALS: BP 141/52; PULSE 52; RESP 18; TEMP 36; O2SAT 95
== END 2023-05-31 23:59 | disposition home or self-care (01) ==
PROVIDERS: PCP Family Medicine; Visit Provider Internal Medicine Medical Oncology
DX: Z53.9 Procedure and treatment not carried out, unspecified reason (principal); D50.9 Iron deficiency anemia, unspecified; L89.153 Pressure ulcer of sacral region, stage 3
CPT/HCPCS: 36415; 80053; 82378; 82607; 83540; 83550; 85025; 96365; 97597; A6212; J1439

== ENCOUNTER 2023-06-01 09:44 | Oncology outpatient (recurring) (ONCR) | payer MEDICARE, MEDICAID, SELFPAY ==
[2023-06-01 10:15] VITALS: BP 149/71; PULSE 57; RESP 18; TEMP 36.1; O2SAT 95
[2023-06-01] MEDS: ferric carboxy (IVPB) 750 MG in sodium chloride 0.9% (100 ml) 100 ML 345 MG IV (10:48)
[2023-06-01 11:14] VITALS: BP 133/57; PULSE 53; RESP 18; TEMP 36; O2SAT 95
== END 2023-06-30 23:59 | disposition home or self-care (01) ==
PROVIDERS: PCP Family Medicine; Visit Provider Internal Medicine Medical Oncology
DX: D50.9 Iron deficiency anemia, unspecified; L89.153 Pressure ulcer of sacral region, stage 3; C18.9 Malignant neoplasm of colon, unspecified; Z79.899 Other long term (current) drug therapy; I96 Gangrene, not elsewhere classified; L97.421 Non-pressure chronic ulcer of left heel and midfoot limited to breakdown of skin
CPT/HCPCS: 87070; 87077; 87176; 87186; 87205; 96365; 97597; 99212; J1439

== ENCOUNTER → 2023-06-08 07:57 | Outpatient (BNVA) | payer MEDICARE, MEDICAID, SELFPAY | PROVIDERS: PCP Family Medicine; Visit Provider Nurse Practitioner Family | DX: I96 Gangrene, not elsewhere classified (principal); L89.153 Pressure ulcer of sacral region, stage 3 | CPT/HCPCS: 97597 ==

== ENCOUNTER → 2023-06-15 09:52 | Outpatient (BNVA) | payer MEDICARE, MEDICAID, SELFPAY | PROVIDERS: PCP Family Medicine; Visit Provider Nurse Practitioner Family | DX: I96 Gangrene, not elsewhere classified (principal); L89.153 Pressure ulcer of sacral region, stage 3 | CPT/HCPCS: 97597 ==

== ENCOUNTER → 2023-06-22 08:49 | Outpatient (BNVA) | payer MEDICARE, MEDICAID, SELFPAY | PROVIDERS: PCP Family Medicine; Visit Provider Nurse Practitioner Family | DX: I96 Gangrene, not elsewhere classified (principal); L89.153 Pressure ulcer of sacral region, stage 3 | CPT/HCPCS: 97597; 99212 ==

== ENCOUNTER → 2023-06-29 08:40 | Outpatient (BNVA) | payer MEDICARE, MEDICAID, SELFPAY | PROVIDERS: PCP Family Medicine; Visit Provider Nurse Practitioner Family | DX: Z09 Encounter for follow-up examination after completed treatment for conditions other than malignant neoplasm (principal); Z87.2 Personal history of diseases of the skin and subcutaneous tissue | CPT/HCPCS: 99212 ==

== ENCOUNTER 2023-07-02 07:02 | Oncology outpatient (recurring) (ONCR) | payer MEDICARE, MEDICAID, SELFPAY ==
[2023-07-02 08:10] LABS: Basophils % 0.6 %; Eosinophils # 0.3 10^3/uL (0.0-0.8); Eosinophils % 4.8 %; Hematocrit 32.6 % (36-47); Lymphocytes # 1.7 10^3/uL (0.8-4.8); Mean Corpuscular HGB Conc 33.1 g/dL (30-55); Mean Corpuscular Hemoglobin 32.1 pg (27-33); Mean Platelet Volume 9.1 fL (7.4-10.4); Monocytes # 0.5 10^3/uL (0.2-0.9); Monocytes % 9.3 %; Neutrophils # 2.86 10^3/uL (1.8-7.7); Neutrophils % 53.1 %; Nucleated Red Blood Cells % 0 %; Platelet Count 175 10^3/cmm (157-399); Red Blood Count 3.36 10^6/uL (3.85-5.65); Red Cell Distribution Width 13.8 % (12.1-15.1); White Blood Count 5.38 10^3/uL (3.29-11.43)
[2023-07-02 08:28] LABS: Alanine Aminotransferase 12 U/L (0-33); Alkaline Phosphatase 84 U/L (35-105); Anion Gap 14.1 (5-19); Aspartate Amino Transferase 14 U/L (0-32); Blood Urea Nitrogen 23 mg/dL (8-23); Calcium 8.3 mg/dL (8.5-10.5); Carbon Dioxide 25 mmol/L (22-29); Chloride 104 mmol/L (98-107); Glucose 151 mg/dL (65-115); Iron 65 ug/dL (37-145); Osmolality Calculated 293 mOsm/kg (285-295); Percent Saturation 34.7 % (20-50); Potassium 5.1 mmol/L (3.5-5.1); Sodium 138 mmol/L (136-145); Total Bilirubin 0.2 mg/dL (0.15-1.2); Total Iron Binding Capacity 187 mcg/dl; Unsaturated Iron Binding 122 ug/dL (112-347)
[2023-07-02 08:30] LABS: Estmated Average Glucose 126
[2023-07-02 08:45] LABS: Ferritin 1087 ng/mL (15-150)
== END 2023-07-31 23:59 | disposition home or self-care (01) ==
PROVIDERS: PCP Family Medicine; Visit Provider Internal Medicine Medical Oncology
DX: C78.5 Secondary malignant neoplasm of large intestine and rectum; D50.9 Iron deficiency anemia, unspecified; Z90.49 Acquired absence of other specified parts of digestive tract; Z85.038 Personal history of other malignant neoplasm of large intestine; E11.9 Type 2 diabetes mellitus without complications; Z79.4 Long term (current) use of insulin; Z86.2 Personal history of diseases of the blood and blood-forming organs and certain disorders involving the immune mechanism
CPT/HCPCS: 36415; 80053; 82728; 83036; 83540; 83550; 85025; 99214

== ENCOUNTER → 2023-07-06 14:07 | Outpatient (BNVA) | payer MEDICARE, MEDICAID, SELFPAY | PROVIDERS: PCP Family Medicine; Visit Provider Surgery | DX: C18.2 Malignant neoplasm of ascending colon (principal); C18.3 Malignant neoplasm of hepatic flexure; Z90.49 Acquired absence of other specified parts of digestive tract | CPT/HCPCS: 99214 ==

== ENCOUNTER 2023-07-14 09:00 | Day surgery (SDC) | payer MEDICARE, SELFPAY ==
[2023-07-14] VITALS (7 sets, daily range): BP systolic 132–155; BP diastolic 56–101; PULSE 50–60; RESP 10–18; TEMP 36–36.4; O2SAT 95–98; BMI 30.5
--- NOTE | 2023-07-14 09:07 | XRR_ITS ---
PROCEDURE INFORMATION: Exam: XR Chest Exam date and time: 07/14/2023 11:52 AM Age: 77 years old Clinical indication: Device placement; Other: Postop mediport placement; Prior surgery; Surgery date: Post-operative (0-2 days) TECHNIQUE: Imaging protocol: Radiologic exam of the chest. Views: 1 view. COMPARISON: CR XR chest 3V [id number] 04/20/2023 2:11 PM FINDINGS: Tubes, catheters and devices: Left chest wall port tip terminates in the proximal SVC. Lungs: No consolidation. Pleural spaces: No sizable pleural effusion or pneumothorax. Heart/Mediastinum: No cardiomegaly. Bones/joints: Unremarkable. XR/XR chest 1V portable [id number] IMPRESSION: Left chest wall port tip terminates in the proximal SVC.
--- NOTE | 2023-07-14 09:07 | SC_ITS ---
WS: [id number] C-ARM RADIOGRAPHS CHEST; 2 IMAGES HISTORY: Mediport placement COMPARISON: None available. Intraoperative imaging during LEFT subclavian Mediport placement. The tip is difficult to see on C ar m imaging. SC/C-arm FL for CVA [id number] IMPRESSION: Intraoperative imaging during LEFT subclavian Mediport placement.
[2023-07-14] MEDS: sodium chloride 0.9% 1,000 ML 30 ML IV (10:03)
--- NOTE | 2023-07-14 10:07 | W.PM.OPSUD ---
Surgery/Procedure H&P Update DATE OF PROCEDURE: July 14, 2023 DATE H&P PERFORMED: 07/06/23 H&P UPDATE INFORMATION: I have reviewed H&P completed within last 30 days, I have examined patient prior to procedure and No changes to prior documentation PLANNED PROCEDURE: Operation Date: 07/14/23 11:20 Proposed Procedures p Portacath Placement 40528(Not Applicable) - Nayan Fay DO
--- NOTE | 2023-07-14 10:15 | ANES.PREANE2 ---
Pre-Anesthetic Assessment Height/Weight: Height 1.68 m Weight 85.842 kg Temp Pulse Resp BP Pulse Ox O2 Del Method 96.8 F L 58 L 18 151/63 97 Room Air 07/14/23 09:38 07/14/23 09:38 07/14/23 09:38 07/14/23 09:38 07/14/23 09:38 07/14/23 09:39 Operation Date: 07/14/23 11:20 Proposed Procedures p Portacath Placement 99110(Not Applicable) - Nayan Fay DO Last intake: Intake Last Liquid Date 07/13/23 Last Liquid Time 22:00 Last Solid Date 07/13/23 Last Solid Time 21:00 Social No tobacco Exam alert, oriented x 3, clear to auscultation bilaterally and regular rate & rhythm Airway Submandibular: within normal limits Cervical ROM: within normal limits Mallampati: Class II CV/HEM Hypertension None reported Hepatic None reported GI None reported Metabolic Diabetes Mellitus and Thyroid Disease [facility] [place] None reported Anesthetic Plan ASA status: 3 Anesthesia: MAC Risk of > 500 ml blood loss (7ml/kg in children): No Medications/Allergies Home Medications Medication Instructions Recorded Confirmed Last Taken Type Diabetic Shoes with 3 Pairs of #1 ea 09/18/21 07/06/23 Unknown Rx Inserts Diabetic shoes with inserts #1 ea 10/15/21 07/06/23 Unknown Rx pen needle, diabetic 32 gauge x #100 ea 04/02/22 07/06/23 Unknown Rx lysine 1,000 mg tablet 1,000 mg PO DAILY 90 days #90 tabs 07/31/22 07/13/23 07/13/23 Rx insulin syringe-needle U-100 1 mL #100 ea 10/21/22 07/06/23 Unknown Rx 31 gauge x 5/16 ascorbate calcium (vitamin C) 500 500 mg PO DAILY 12/24/22 07/13/23 07/13/23 History mg tablet docusate sodium 100 mg capsule 100 mg PO BID 12/24/22 07/13/23 07/13/23 History pen needle, diabetic 32 gauge x #100 ea 02/06/23 07/06/23 Unknown Rx /16 (Comfort EZ Pen [place]) furosemide 40 mg tablet 40 mg PO DAILY PRN Edema #30 tabs 03/03/23 07/13/23 Unknown Rx cyanocobalamin (vitamin B-12) 1,000 mcg SUBCUT .COMPLEX #10 mL 03/11/23 07/13/23 07/10/23 Rx 1,000 mcg/mL injection solution lancets 30 gauge (TRUEplus Lancets) #100 ea 04/21/23 07/06/23 Unknown Rx blood sugar diagnostic (Blood #100 ea 04/23/23 07/06/23 Unknown Rx Glucose Test strips) febuxostat 80 mg tablet 80 mg PO DAILY #30 tabs 04/28/23 07/13/23 07/13/23 Rx insulin aspart U-100 100 unit/mL See Rx Instructions .Route 05/04/23 07/14/23 07/11/23 Rx (3 mL) subcutaneous pen (Novolog .COMPLEX #15 mL FlexPen U-100 Insulin aspart) insulin glargine 100 unit/mL (3 5 unit (0.05 mL) SUBCUT DAILY #15 05/04/23 07/14/23 07/10/23 Rx mL) subcutaneous pen (Lantus mL Solostar U-100 Insulin) hydrocodone 10 mg-acetaminophen 1 tab PO Q6H PRN pain #20 tabs 05/05/23 07/13/23 07/13/23 Rx 325 mg tablet ondansetron 4 mg disintegrating 4 mg PO Q8H PRN nausea and 06/22/23 07/13/23 Unknown Rx tablet vomiting #30 tabs levothyroxine 88 mcg tablet 88 mcg PO DAILY #30 tabs 07/03/23 07/13/23 07/13/23 Rx lisinopril 20 mg tablet 20 mg PO DAILY 07/14/23 07/14/23 07/13/23 History Allergies Allergy/AdvReac Type Severity Reaction Status Date / Time gabapentin Allergy Severe tremors Verified 07/06/23 14:09 Penicillins Allergy Unknown ALGY-Rash Verified 07/06/23 14:09 valsartan [From Diovan] Allergy Unknown ADR/ALGY-Pa Verified 07/06/23 14:09 lpitations lidocaine Allergy ALGY-Redness Verified 07/06/23 14:09 of Skin triamcinolone Allergy ALGY-Redness Verified 07/06/23 14:09 of Skin pregabalin [From Lyrica] AdvReac Unknown Verified 07/06/23 14:09 Current Medications Generic Name Dose Route Start Last Admin Trade Name Freq PRN Reason Stop Dose Admin Sodium Chloride 1,000 mls @ 30 mls/hr 07/14/23 09:15 07/14/23 10:03 Sodium Chloride 0.9% IV 07/15/23 09:14 30 mls/hr .Q24H CARLOS MANUEL Administration PFSH Anesthesia Medical History Adenocarcinoma of colon History of DVT (deep vein thrombosis) Colon cancer Chronic anticoagulation Hypothyroidism Pulmonary embolism Hyperlipidemia, mixed History of colon cancer [id number] - 2017 DVT (deep venous thrombosis) Hypertension Diabetes mellitus, insulin dependent (IDDM), controlled Surgical History S/P colon resection Laparoscopic left hemicolectomy: July 09, 2016 History of subtotal thyroidectomy History of hysterectomy S/P appendectomy S/P arthroscopic surgery of left knee H/O colonoscopy (06/05/20) 05/02/19: polyps ascending and descending colon 06/04/20: IC valve and descending colon polyp Family History Father Cancer Other Bleeding disorder CAD (coronary artery disease) Clotting disorder Diabetes Hypertension Denies family history of Dementia Hyperlipidemia Psychiatric illness Chronic kidney disease (CKD) Suicide Anesthesia complication Lung disease Stroke Social History Smoking and tobacco/nicotine status: never used tobacco/nicotine Second hand smoke exposure: No Alcohol intake: never Substance/Drug Use: never Caregiver/support person: Yes (sisters) Marital status: / service: No Current occupational status: retired Current gender identity: Female Special mark needs: No Agree to transfusion: Yes Data Anesthesia Cardiac Studies: No Data to Display
[2023-07-14] MEDS: vancomycin 1,500 MG/300 ML PIGGYBACK 200 MG IV (10:47)
[2023-07-14] MEDS: heparin, porcine 1,000 unit/mL INJ 10 mL 10000 UNIT IRRIGATION (11:15)
[2023-07-14] MEDS: BUPivacaine 0.5% INJ 30 mL INJECTION (11:37)
--- NOTE | 2023-07-14 11:41 | PM.OP ---
Operative Report Date of procedure: July 14, 2023 Pre-op diagnosis: Colon cancer Post-op diagnosis: same Procedure done: Mediport placement Intraoperative interpretation of fluoroscopy Implants: PowerPort Specimens removed/disposition: None Surgeon: Nayan Fay DO Anesthesia: MAC and Local Estimated blood loss (mL): 5 Complications: None apparent Brief History: This very pleasant 77-year-old female with colon cancer. Mediport placement was indicated for chemotherapy access. The risk benefits were explained and documented. Procedure: They put another order I will do right now things the patient was taken to the operating room and placed supine on the operating room table. All bony prominences were padded. She was given IV sedation and monitored throughout the case by the anesthesia personnel. SCDs were placed and turned on. The arms were tucked to the side. Patient received Ancef 2 g preoperatively IV. The bilateral chest wall was prepped and draped in usual sterile fashion using chlorhexidine base prep. Sterile drapes were applied. We did procedure pause prior to beginning. An 18 gauge needle was placed in the left subclavian vein after multiple attempts. Dark, nonpulsatile blood was aspirated. A guidewire was placed through the needle centrally toward the atrial/vena caval junction. Fluoroscopy visualized good placement. The needle was removed and the guidewire was clipped to the drape with a hemostat. Further local anesthetic was infiltrated in the soft tissues of the left chest wall and a #15 blade was used to make a horizontal skin incision. A subcutaneous Mediport pocket was created using Bovie cautery, dissecting down through the skin and subcutaneous tissues. Meticulous hemostasis was achieved. The Mediport was sutured in position using 3-0 vicryl suture x2 stitches. A #15 blade was used to make a small skin eren around the guidewire insertion area. The Mediport tubing was tunneled through the subcutaneous tissues up to the needle insertion location. A dilator with a peel-away sheath was placed over the guidewire and placed centrally. After measuring the Mediport tubing was cut to length so that the tip would end at the atrial/vena caval junction. The inner cannula and the guidewire were removed, leaving the dilator sheath in place. The Mediport was flushed. The tip of the catheter was inserted through the peel-away sheath and the peel-away sheath removed in the standard fashion. The Mediport was accessed with a straight Valadez needle and dark, nonpulsatile blood was aspirated and flushed using heparinized saline to hep-lock the Mediport. Final fluoroscopy visualization showed no kink in the catheter and the tip of the Mediport tubing near the atrial/vena caval junction. There was no obvious pneumothorax but because of the multiple attempts, all plate close attention to the postoperative x-ray. Both skin incisions were thoroughly irrigated and suctioned dry. Meticulous hemostasis noted. The dermis was approximated with 3-0 Vicryl in an interrupted fashion. Skin was closed with Dermabond. Patient was awakened from anesthesia and transferred via her cart to the recovery room in stable condition. All needle, sponge, and instrument counts were correct per the operating personnel x2 counts.
--- NOTE | 2023-07-14 13:48 | P.ANESPOST_ITS ---
Inpatient post-anesthesia follow up: Vital signs: Temperature 97.0 F Pulse Rate 53 Respiratory Rate 16 Blood Pressure 148/101 Pulse Oximetry 98 Oxygen Delivery Me thod Room Air Oxygen Flow Rate Fraction of Inspir ed Oxygen Hydration adequate: Yes Nausea and vomiting: Yes Pain level: co ntrolled Additional Comments: no apparent anesthetic complcations noted
[2023-07-14 14:03] LABS: Glucose Point of Care 141 mg/dL (70-110)
== END 2023-07-14 12:50 | disposition home or self-care (01) ==
PROVIDERS: PCP Family Medicine; Visit Provider Surgery
PROC: (CPT 36561; principal; 2023-07-14 11:20)
DX: C18.9 Malignant neoplasm of colon, unspecified (principal)
CPT/HCPCS: 36561; 36416; 71045; 76000; 77001; 82962; C1788; J1100; J1644; J2405; J2704; J3010; J3370; J3490; J7030

== ENCOUNTER → 2023-07-31 08:23 | Outpatient (BNVA) | payer MEDICARE, SELFPAY | PROVIDERS: PCP Family Medicine; Visit Provider Surgery | DX: Z95.828 Presence of other vascular implants and grafts (principal); Z90.49 Acquired absence of other specified parts of digestive tract; C18.9 Malignant neoplasm of colon, unspecified | CPT/HCPCS: 99214 ==

== ENCOUNTER 2023-08-27 13:00 | Oncology outpatient (recurring) (ONCR) | payer MEDICARE, SELFPAY ==
--- NOTE | 2023-08-11 09:30 | PETR_ITS ---
PROCEDURE INFORMATION: Exam: PET/CT Skull Base to Mid-thigh Exam date and time: 08/11/2023 9:56 AM Age: 77 years old Clinical indication: Condition or disease; Initial oncological staging assessment; Condition/disease: Colon cancer ascending colon; Prior surgery; Surgery date: 6+ months; Surgery type: Colorectal, hyst LABS AND CLINICAL REPORTS: Glucose: 146 mg/dl Treatment strategy for malignancy (PET staging): Initial Staging (PI) TECHNIQUE: Imaging protocol: Following at least four-hour fasting and following the injection of radiopharmaceutical, low dose CT images were obtained. Then, PET images were obtained. Attenuation corrected images were constructed using the CT scan. Fused images of PET and CT were reviewed. The standardized uptake values (SUV) reported below are maximum values within a region of interest, expressed in gm/ml. Exam includes orbital meatal line to mid-thigh. Radiopharmaceutical: 13.7 mCi F-18 FDG (Fluorodeoxyglucose), IV. Time of imaging post radiopharmaceutical administration: 1 hour Injection site: Right antecubital COMPARISON: CT abdomen pelvis w con* [id number] 04/23/2023 1:00 PM, CTA abdomen and pelvis 10/10/2022 FINDINGS: Tubes, catheters and devices: A left subclavian central venous port catheter terminates in the distal SVC. Brain: Visualized brain has normal physiologic uptake. Pharynx: No abnormal uptake. Larynx: No abnormal uptake. Lungs, pleura and trachea: No abnormal uptake. Mild non radiotracer avid biapical pleural scarring is noted. Right lung calcified granulomas are noted. Heart: Normal physiologic uptake. Mediastinal space: No abnormal uptake. Liver: No abnormal uptake. Gallbladder and bile ducts: No abnormal uptake. Pancreas: No abnormal uptake. Spleen: No abnormal uptake. Calcified granulomas in the spleen are present. Adrenal glands: No abnormal uptake. Kidneys and ureters: Normal physiologic uptake. Stomach and bowel: A surgical anastomotic staple line in the sigmoid colon is noted. Immediately superior to the level of the staple line elevated uptake in the colon is noted, SUV max 5.9 on series 3, image 209. Assessment of the wall of the colon is limited in this region by incomplete distension. This uptake occurs over a distance of approximately 4 cm. No definite mass is noted in this region on the CT images. There is physiologic appearing uptake within the rectum. Reproductive: The uterus is not identified, likely surgically absent. No abnormal uptake. Vasculature: No abnormal uptake. Diffuse atherosclerotic calcifications are present including within the coronary arteries. Lymph nodes: No abnormal uptake. No lymphadenopathy in the head, neck, chest, abdomen, pelvis, and extremities. Small benign-appearing calcified subcarinal lymph nodes are present. An ovoid soft tissue density which may represent a lymph node within the fat between bowel loops in the left anterior pelvis appears similar measuring 1.0 x 0.7 cm on series 3, image 205 without elevated uptake. Skeleton: No abnormal uptake in the visualized axial and appendicular skeleton. The bones appear demineralized. Degenerative changes in the spine are present. There is moderate appearing canal stenosis at C5-C6. Non radiotracer avid ovoid similar lucency with vertically oriented linear regions of sclerotic density in the T12 vertebral body in a region measuring 1.7 x 1.4 cm in the axial plane on series 3, image 133 is compatible with a benign hemangioma. In the T11 vertebral body there is a similar rounded circumscribed focus of non radiotracer avid lucency measuring approximately 6 mm in diameter on series 3, image 126. Soft tissues: No abnormal uptake in the visualized head, neck, chest, abdomen, pelvis, and extremities. Streaky soft tissue density in the region of the rectus abdominis muscular sheath is noted in the abdomen and superior pelvis consistent with scarring related to an abdominal incision site, without elevated uptake. Small foci of asymmetric soft tissue nodularity in the lateral right breast are noted for example measuring up to 1.6 x 0.8 cm on series 3 image 113 without elevated uptake in these areas. METRICS: Mediastinal blood pool: SUV max 1.9 [facility] [id number] IMPRESSION: 1. Superior to the anastomotic staple line involving the sigmoid colon within the pelvis, elevated uptake over a distance of approximately 4 cm is noted without a definite correlating lesion on the CT images. This is likely physiologic or inflammatory in etiology. A malignant etiology cannot be entirely excluded as this segment of bowel is not well assessed secondary to incomplete distension. 2. A non radiotracer avid small soft tissue nodule between bowel loops in the left pelvis is similar in size possibly representing a lymph node. Lack of uptake favors a benign etiology. 3. The osseous structures appear demineralized, with no evidence of abnormal uptake. Degenerative changes are noted with evidence of benign-appearing lucent lesions in the T12 and T11 vertebral bodies. No definitive evidence of osseous metastatic disease. 4. Non radiotracer avid asymmetric soft tissue density nodularity of the right breast is noted. Lack of uptake favors a benign etiology. 5. Old granulomatous changes. 6. Additional nonurgent findings as detailed above.
[2023-08-19 08:55] LABS: Basophils % 0.7 %; Eosinophils # 0.4 10^3/uL (0.0-0.8); Eosinophils % 5.9 %; Hematocrit 34.2 % (36-47); Lymphocytes # 1.6 10^3/uL (0.8-4.8); Mean Corpuscular HGB Conc 34.8 g/dL (30-55); Mean Corpuscular Hemoglobin 32.6 pg (27-33); Mean Corpuscular Volume 93.7 fl (85-98); Mean Platelet Volume 8.7 fL (7.4-10.4); Monocytes # 0.4 10^3/uL (0.2-0.9); Monocytes % 6.7 %; Neutrophils # 3.61 10^3/uL (1.8-7.7); Neutrophils % 60.4 %; Nucleated Red Blood Cells % 0 %; Platelet Count 182 10^3/cmm (157-399); Red Blood Count 3.65 10^6/uL (3.85-5.65); Red Cell Distribution Width 13.2 % (12.1-15.1); White Blood Count 5.97 10^3/uL (3.29-11.43)
[2023-08-19 09:23] LABS: Alanine Aminotransferase 14 U/L (0-33); Albumin Level 4.3 g/dL (3.5-5.2); Alkaline Phosphatase 66 U/L (35-105); Anion Gap 14.7 (5-19); Aspartate Amino Transferase 15 U/L (0-32); Blood Urea Nitrogen 41 mg/dL (8-23); Calcium 9.1 mg/dL (8.5-10.5); Carbon Dioxide 23 mmol/L (22-29); Chloride 109 mmol/L (98-107); Ferritin 905 ng/mL (15-150); Globulin 2.8 g/dL (1.3-4.6); Glucose 147 mg/dL (65-115); Iron 94 ug/dL (37-145); Lactate Dehydrogenase 165 U/L (135-214); Osmolality Calculated 307 mOsm/kg (285-295); Percent Saturation 42.9 % (20-50); Potassium 4.7 mmol/L (3.5-5.1); Sodium 142 mmol/L (136-145); Total Bilirubin 0.4 mg/dL (0.15-1.2); Total Iron Binding Capacity 219 mcg/dl; Total Protein 7.1 g/dL (6.6-8.7); Unsaturated Iron Binding 125 ug/dL (112-347)
[2023-08-19 10:59] LABS: Carcinoembryonic Antigen 1.9 ng/mL (0.0-4.7)
[2023-08-19 15:28] LABS: Thyroid Stimulating Hormone 1.91 uIU/mL (0.27-4.20); Vitamin B12 751 pg/mL (232-1245)
[2023-08-19 15:30] LABS: Folate Level 10.4 ng/mL (4.8-37.3)
[2023-08-20 11:44] LABS: KAPPA LIGHT CHAIN, FREE, SERUM 63.2 mg/L (3.3-19.4); KAPPA/LAMBDA LIGHT CHAINS FREE 2.12 (0.26-1.65); LAMBDA LIGHT CHAIN, FREE, SERU 29.8 mg/L (5.7-26.3)
[2023-08-20 12:20] LABS: PROTEIN, TOTAL 6.7 g/dL (6.1-8.1)
[2023-08-21 12:15] LABS: ALPHA 1 GLOBULIN 0.3 g/dL (0.2-0.3); ALPHA 2 GLOBULIN 0.6 g/dL (0.5-0.9); BETA 1 GLOBULIN 0.4 g/dL (0.4-0.6); BETA 2 GLOBULIN 0.4 g/dL (0.2-0.5)
[2023-08-25 08:16] LABS: Basophils % 0.5 %; Eosinophils # 0.3 10^3/uL (0.0-0.8); Eosinophils % 4.4 %; Hematocrit 31.3 % (36-47); Lymphocytes # 1.5 10^3/uL (0.8-4.8); Mean Corpuscular HGB Conc 34.5 g/dL (30-55); Mean Corpuscular Hemoglobin 32.7 pg (27-33); Mean Corpuscular Volume 94.8 fl (85-98); Mean Platelet Volume 9.1 fL (7.4-10.4); Monocytes # 0.4 10^3/uL (0.2-0.9); Monocytes % 7.2 %; Neutrophils # 3.52 10^3/uL (1.8-7.7); Neutrophils % 61.7 %; Nucleated Red Blood Cells % 0 %; Platelet Count 157 10^3/cmm (157-399); Red Cell Distribution Width 13.2 % (12.1-15.1)
[2023-08-25 08:46] LABS: Carcinoembryonic Antigen 1.6 ng/mL (0.0-4.7)
[2023-08-25 08:58] LABS: Alanine Aminotransferase 11 U/L (0-33); Alkaline Phosphatase 73 U/L (35-105); Anion Gap 18.8 (5-19); Aspartate Amino Transferase 14 U/L (0-32); Blood Urea Nitrogen 47 mg/dL (8-23); Calcium 8.8 mg/dL (8.5-10.5); Carbon Dioxide 20 mmol/L (22-29); Chloride 107 mmol/L (98-107); Globulin 2.7 g/dL (1.3-4.6); Glucose 172 mg/dL (65-115); Osmolality Calculated 308 mOsm/kg (285-295); Potassium 4.8 mmol/L (3.5-5.1); Sodium 141 mmol/L (136-145); Total Bilirubin 0.5 mg/dL (0.15-1.2); Total Protein 6.7 g/dL (6.6-8.7)
[2023-08-25] MEDS: sodium chloride 0.9% 500 ML 999 ML IV (10:17)
[2023-08-25] MEDS: palonosetron 0.25 mg/5 mL SDV IVP (10:19)
[2023-08-25] MEDS: dexamethasone 4 mg/mL INJ 5 mL 12 MG IVP (10:22)
[2023-08-25] MEDS: DEXTROSE 5% IV (10:56)
[2023-08-25] MEDS: leucovorin 770 MG in dextrose 5% 250 ML 62.5 MG IV (10:56)
[2023-08-25] MEDS: OXALIPLATIN IV (10:56)
[2023-08-25] MEDS: dextrose 5% 250 ML 75 ML IV (11:00)
[2023-08-25] MEDS: fluorouraciL 50 mg/ml MDV 100 mL 750 MG IVP (13:19)
[2023-08-25] MEDS: fluorouraciL 4,650 MG in elastomeric pump 1 PUMP IV (13:24)
[2023-08-25 13:30] VITALS: BP 163/76; PULSE 61; RESP 17; TEMP 35.7; O2SAT 97
[2023-08-27] MEDS: sodium chloride 0.9% 1,000 ML 999 ML IV (11:45)
[2023-08-27 11:50] VITALS: BP 139/61; PULSE 68; RESP 17; TEMP 35.8; O2SAT 97
[2023-08-27 13:10] VITALS: BP 164/72; PULSE 56; RESP 17; TEMP 35.7; O2SAT 99
== END 2023-08-30 23:59 | disposition home or self-care (01) ==
PROVIDERS: Internal Medicine; PCP Family Medicine; Visit Provider Internal Medicine Medical Oncology
DX: Z45.2 Encounter for adjustment and management of vascular access device (principal); Z53.9 Procedure and treatment not carried out, unspecified reason; Z79.899 Other long term (current) drug therapy; Z85.038 Personal history of other malignant neoplasm of large intestine
CPT/HCPCS: 36415; 78815; 80053; 82378; 82607; 82728; 82746; 83540; 83550; 83615; 83883; 84155; 84165; 84443; 85025; 85045; 96360; 96365; 96366; 96375; 96409; 96413; 96415; 96416; 96523; 99213; 99215; A9552; J0640; J1100; J2469; J7030; J7040; J7060; J9190; J9263

== ENCOUNTER 2023-09-28 09:21 | Oncology outpatient (recurring) (ONCR) | payer MEDICARE, MEDICAID, SELFPAY ==
[2023-09-01 12:55] LABS: Basophils % 0.4 %; Eosinophils # 0.6 10^3/uL (0.0-0.8); Eosinophils % 10.6 %; Hematocrit 32.7 % (36-47); Lymphocytes # 1.7 10^3/uL (0.8-4.8); Lymphocytes % 31.7 %; Mean Corpuscular HGB Conc 34.6 g/dL (30-55); Mean Corpuscular Hemoglobin 32.1 pg (27-33); Mean Corpuscular Volume 92.9 fl (85-98); Mean Platelet Volume 8.9 fL (7.4-10.4); Monocytes # 0.4 10^3/uL (0.2-0.9); Neutrophils # 2.66 10^3/uL (1.8-7.7); Neutrophils % 50.1 %; Nucleated Red Blood Cells % 0 %; Platelet Count 150 10^3/cmm (157-399); Red Blood Count 3.52 10^6/uL (3.85-5.65); Red Cell Distribution Width 12.7 % (12.1-15.1)
[2023-09-01 13:13] LABS: Alanine Aminotransferase 13 U/L (0-33); Albumin Level 4.2 g/dL (3.5-5.2); Alkaline Phosphatase 73 U/L (35-105); Anion Gap 15.6 (5-19); Aspartate Amino Transferase 14 U/L (0-32); Blood Urea Nitrogen 42 mg/dL (8-23); Calcium 8.7 mg/dL (8.5-10.5); Carbon Dioxide 25 mmol/L (22-29); Chloride 104 mmol/L (98-107); Globulin 2.5 g/dL (1.3-4.6); Glucose 155 mg/dL (65-115); Osmolality Calculated 304 mOsm/kg (285-295); Potassium 4.6 mmol/L (3.5-5.1); Sodium 140 mmol/L (136-145); Total Bilirubin 0.6 mg/dL (0.15-1.2); Total Protein 6.7 g/dL (6.6-8.7)
[2023-09-08 08:58] LABS: Basophils % 0.7 %; Eosinophils # 0.2 10^3/uL (0.0-0.8); Eosinophils % 4.5 %; Hematocrit 30.3 % (36-47); Lymphocytes # 1.2 10^3/uL (0.8-4.8); Mean Corpuscular HGB Conc 33.7 g/dL (30-55); Mean Corpuscular Hemoglobin 32.1 pg (27-33); Mean Corpuscular Volume 95.3 fl (85-98); Mean Platelet Volume 8.9 fL (7.4-10.4); Monocytes # 0.3 10^3/uL (0.2-0.9); Monocytes % 7.8 %; Neutrophils # 2.48 10^3/uL (1.8-7.7); Neutrophils % 58.8 %; Nucleated Red Blood Cells % 0 %; Platelet Count 136 10^3/cmm (157-399); Red Blood Count 3.18 10^6/uL (3.85-5.65); Red Cell Distribution Width 13.1 % (12.1-15.1); White Blood Count 4.22 10^3/uL (3.29-11.43)
[2023-09-08 09:16] LABS: Alanine Aminotransferase 13 U/L (0-33); Alkaline Phosphatase 83 U/L (35-105); Anion Gap 17.2 (5-19); Aspartate Amino Transferase 17 U/L (0-32); Blood Urea Nitrogen 52 mg/dL (8-23); Calcium 8.7 mg/dL (8.5-10.5); Carbon Dioxide 23 mmol/L (22-29); Chloride 104 mmol/L (98-107); Creatinine Clr Calc Pharmacy 32.1421; Globulin 2.5 g/dL (1.3-4.6); Glucose 209 mg/dL (65-115); Osmolality Calculated 310 mOsm/kg (285-295); Potassium 4.2 mmol/L (3.5-5.1); Sodium 140 mmol/L (136-145); Total Bilirubin 0.4 mg/dL (0.15-1.2); Total Protein 6.5 g/dL (6.6-8.7)
[2023-09-08] MEDS: dextrose 5% 250 ML 75 ML IV (10:46)
[2023-09-08] MEDS: dexamethasone 4 mg/mL INJ 5 mL 12 MG IVP (10:46)
[2023-09-08] MEDS: palonosetron 0.25 mg/5 mL SDV IVP (10:47)
[2023-09-08] MEDS: OXALIPLATIN IV (11:33)
[2023-09-08] MEDS: DEXTROSE 5% IV (11:33)
[2023-09-08] MEDS: leucovorin 770 MG in dextrose 5% 250 ML 62.5 MG IV (11:33)
[2023-09-08 14:33] VITALS: BP 136/67; PULSE 61; RESP 17; TEMP 36.1; O2SAT 98
[2023-09-08] MEDS: fluorouraciL 4,650 MG in elastomeric pump 1 PUMP IV (14:36)
[2023-09-08] MEDS: fluorouraciL 50 mg/ml MDV 100 mL 750 MG IVP (14:36)
[2023-09-10 13:22] VITALS: BP 145/71; PULSE 62; RESP 16; TEMP 36.6; O2SAT 98
[2023-09-22 08:48] LABS: Eosinophils # 0.1 10^3/uL (0.0-0.8); Eosinophils % 2.9 %; Hematocrit 29.4 % (36-47); Lymphocytes % 31.4 %; Mean Corpuscular Hemoglobin 33.2 pg (27-33); Mean Corpuscular Volume 97.7 fl (85-98); Monocytes # 0.4 10^3/uL (0.2-0.9); Monocytes % 14.1 %; Neutrophils # 1.55 10^3/uL (1.8-7.7); Neutrophils % 50.6 %; Nucleated Red Blood Cells % 0 %; Platelet Count 94 10^3/cmm (157-399); Red Blood Count 3.01 10^6/uL (3.85-5.65); Red Cell Distribution Width 14.3 % (12.1-15.1); White Blood Count 3.06 10^3/uL (3.29-11.43)
[2023-09-22 09:03] LABS: Alanine Aminotransferase 16 U/L (0-33); Alkaline Phosphatase 86 U/L (35-105); Anion Gap 16.1 (5-19); Aspartate Amino Transferase 18 U/L (0-32); Blood Urea Nitrogen 26 mg/dL (8-23); Calcium 8.5 mg/dL (8.5-10.5); Carbon Dioxide 22 mmol/L (22-29); Chloride 105 mmol/L (98-107); Globulin 2.6 g/dL (1.3-4.6); Glucose 198 mg/dL (65-115); Osmolality Calculated 298 mOsm/kg (285-295); Potassium 4.1 mmol/L (3.5-5.1); Sodium 139 mmol/L (136-145); Total Bilirubin 0.7 mg/dL (0.15-1.2); Total Protein 6.6 g/dL (6.6-8.7)
[2023-09-22 09:05] LABS: Creatinine Clr Calc Pharmacy 36.8301
[2023-09-22] MEDS: dextrose 5% 250 ML 75 ML IV (11:35)
[2023-09-22] MEDS: palonosetron 0.25 mg/5 mL SDV IVP (11:37)
[2023-09-22] MEDS: dexamethasone 4 mg/mL INJ 5 mL 12 MG IVP (11:39)
[2023-09-22] MEDS: OXALIPLATIN IV (12:17)
[2023-09-22] MEDS: DEXTROSE 5% IV (12:17)
[2023-09-22] MEDS: leucovorin 770 MG in dextrose 5% 250 ML 62.5 MG IV (12:18)
[2023-09-22] MEDS: fluorouraciL 50 mg/ml MDV 100 mL 750 MG IVP (14:38)
[2023-09-22] MEDS: fluorouraciL 4,650 MG in elastomeric pump 1 PUMP IV (14:46)
[2023-09-22 14:57] VITALS: BP 156/68; PULSE 60; TEMP 36.2
[2023-09-24 12:43] VITALS: BP 122/63; PULSE 62; RESP 17; TEMP 36.5; O2SAT 96
--- NOTE | 2023-09-28 09:23 | US_ITS ---
WS: [id number] ADDITIONAL VIEWS RIGHT MAMMOGRAM WITH DIGITAL BREAST TOMOSYNTHESIS. RIGHT BREAST ULTRASOUND HISTORY: abnormal PET right breast mass COMPARISON: 01/06/2023, 12/28/2020, 10/21/2018, PET/CT 08/11/2023 RIGHT MAMMOGRAM: Spot compression views and true ML with digital breast tomosynthesis and SM. Benign-appearing PET/CT nodule in the RIGHT breast is identified is an ovoid mass in the lateral RIGH T breast near 10:00 which has been previously described. This mass has been present on multiple prior mammograms dating back for several years. Benign appearance of the lesion due to its long-term stabi lity. Ultrasound to follow. RIGHT BREAST ULTRASOUND 2-D and color Doppler imaging submitted. Mass noted within the RIGHT breast which was nonavid for radiotracer uptake is identified at 10:00, 3 cm from the nipple. This is an ovoid mass measuring 1.9 x 0.9 x 0.6 cm. There are few small low leve l echoes present. No increased vascularity. This mass has been described on multiple prior studies in cluding mammograms and ultrasounds in the past. US/US breast RT limited* [id number] IMPRESSION: BI-RADS: 2-Benign FOLLOW UP: 1 Year Follow-up PET/CT RIGHT breast mass is benign. This mass has been described on multiple pr ior examinations. This is a cyst.
--- NOTE | 2023-09-28 09:30 | MM_ITS ---
WS: [id number] ADDITIONAL VIEWS RIGHT MAMMOGRAM WITH DIGITAL BREAST TOMOSYNTHESIS. RIGHT BREAST ULTRASOUND HISTORY: abnormal PET right breast mass COMPARISON: 01/06/2023, 12/28/2020, 10/21/2018, PET/CT 08/11/2023 RIGHT MAMMOGRAM: Spot compression views and true ML with digital breast tomosynthesis and SM. Benign-appearing PET/CT nodule in the RIGHT breast is identified is an ovoid mass in the lateral RIGH T breast near 10:00 which has been previously described. This mass has been present on multiple prior mammograms dating back for several years. Benign appearance of the lesion due to its long-term stabi lity. Ultrasound to follow. RIGHT BREAST ULTRASOUND 2-D and color Doppler imaging submitted. Mass noted within the RIGHT breast which was nonavid for radiotracer uptake is identified at 10:00, 3 cm from the nipple. This is an ovoid mass measuring 1.9 x 0.9 x 0.6 cm. There are few small low leve l echoes present. No increased vascularity. This mass has been described on multiple prior studies in cluding mammograms and ultrasounds in the past. MM/[place] [id number] IMPRESSION: BI-RADS: 2-Benign FOLLOW UP: 1 Year Follow-up PET/CT RIGHT breast mass is benign. This mass has been described on multiple pr ior examinations. This is a cyst.
== END 2023-09-30 23:59 | disposition home or self-care (01) ==
PROVIDERS: Internal Medicine Medical Oncology; Nurse Practitioner Family; PCP Family Medicine; Visit Provider Internal Medicine
DX: Z53.9 Procedure and treatment not carried out, unspecified reason (principal); N60.01 Solitary cyst of right breast; R92.8 Other abnormal and inconclusive findings on diagnostic imaging of breast
CPT/HCPCS: 36591; 76642; 77061; 80053; 85025; 96368; 96375; 96409; 96411; 96413; 96415; 96416; 96523; 99214; G0279; J0640; J1100; J2469; J7060; J9190; J9263

== ENCOUNTER 2023-10-29 12:15 | Oncology outpatient (recurring) (ONCR) | payer MEDICARE, MEDICAID, SELFPAY ==
[2023-10-06 08:44] LABS: Basophils % 0.7 %; Eosinophils # 0.1 10^3/uL (0.0-0.8); Eosinophils % 3.4 %; Hematocrit 27.8 % (36-47); Lymphocytes # 0.9 10^3/uL (0.8-4.8); Lymphocytes % 35.1 %; Mean Corpuscular HGB Conc 34.2 g/dL (30-55); Mean Corpuscular Hemoglobin 33.7 pg (27-33); Mean Corpuscular Volume 98.6 fl (85-98); Mean Platelet Volume 9.3 fL (7.4-10.4); Monocytes # 0.5 10^3/uL (0.2-0.9); Monocytes % 17.9 %; Neutrophils # 1.15 10^3/uL (1.8-7.7); Neutrophils % 42.9 %; Nucleated Red Blood Cells % 0 %; Platelet Count 80 10^3/cmm (157-399); Red Blood Count 2.82 10^6/uL (3.85-5.65); Red Cell Distribution Width 16.7 % (12.1-15.1); White Blood Count 2.68 10^3/uL (3.29-11.43)
[2023-10-06 09:08] LABS: Alanine Aminotransferase 17 U/L (0-33); Albumin Level 3.8 g/dL (3.5-5.2); Alkaline Phosphatase 88 U/L (35-105); Anion Gap 15.6 (5-19); Aspartate Amino Transferase 23 U/L (0-32); Blood Urea Nitrogen 21 mg/dL (8-23); Calcium 8.4 mg/dL (8.5-10.5); Carbon Dioxide 19 mmol/L (22-29); Chloride 109 mmol/L (98-107); Creatinine Clr Calc Pharmacy 39.8707; Globulin 2.4 g/dL (1.3-4.6); Glucose 199 mg/dL (65-115); Osmolality Calculated 299 mOsm/kg (285-295); Potassium 3.6 mmol/L (3.5-5.1); Sodium 140 mmol/L (136-145); Total Bilirubin 0.9 mg/dL (0.15-1.2); Total Protein 6.2 g/dL (6.6-8.7)
[2023-10-13 09:18] LABS: Basophils % 0.5 %; Eosinophils # 0.1 10^3/uL (0.0-0.8); Eosinophils % 2.8 %; Hematocrit 27.8 % (36-47); Lymphocytes # 1.2 10^3/uL (0.8-4.8); Lymphocytes % 31.2 %; Mean Corpuscular HGB Conc 33.5 g/dL (30-55); Mean Corpuscular Hemoglobin 33.9 pg (27-33); Mean Corpuscular Volume 101.5 fl (85-98); Mean Platelet Volume 9.7 fL (7.4-10.4); Monocytes # 0.8 10^3/uL (0.2-0.9); Monocytes % 19.6 %; Neutrophils # 1.68 10^3/uL (1.8-7.7); Neutrophils % 42.4 %; Nucleated Red Blood Cells % 0.5 %; Platelet Count 113 10^3/cmm (157-399); Red Blood Count 2.74 10^6/uL (3.85-5.65); Red Cell Distribution Width 16.9 % (12.1-15.1); White Blood Count 3.97 10^3/uL (3.29-11.43)
[2023-10-13 09:43] LABS: Carcinoembryonic Antigen 2.8 ng/mL (0.0-4.7)
[2023-10-13 09:54] LABS: Alanine Aminotransferase 20 U/L (0-33); Albumin Level 3.7 g/dL (3.5-5.2); Alkaline Phosphatase 123 U/L (35-105); Anion Gap 15.7 (5-19); Aspartate Amino Transferase 22 U/L (0-32); Blood Urea Nitrogen 19 mg/dL (8-23); Calcium 7.8 mg/dL (8.5-10.5); Carbon Dioxide 22 mmol/L (22-29); Chloride 108 mmol/L (98-107); Creatinine Clr Calc Pharmacy 43.1933; Globulin 2.3 g/dL (1.3-4.6); Glucose 202 mg/dL (65-115); Osmolality Calculated 302 mOsm/kg (285-295); Potassium 3.7 mmol/L (3.5-5.1); Sodium 142 mmol/L (136-145); Total Bilirubin 0.4 mg/dL (0.15-1.2)
[2023-10-13] MEDS: dextrose 5% 250 ML 75 ML IV (12:46)
[2023-10-13] MEDS: dexamethasone 4 mg/mL INJ 5 mL 12 MG IVP (12:51)
[2023-10-13] MEDS: palonosetron 0.25 mg/5 mL SDV IVP (12:52)
[2023-10-13] MEDS: leucovorin 770 MG in dextrose 5% 250 ML 62.5 MG IV (13:27)
[2023-10-13] MEDS: oxaliplatin 100 MG, oxaliplatin 44 MG in dextrose 5% 250 ML 139.4 MG IV (13:27)
[2023-10-13 15:40] VITALS: BP 167/63; PULSE 46; RESP 16; TEMP 36.2; O2SAT 98
[2023-10-13] MEDS: FLUOROURACIL IV (15:52)
[2023-10-13] MEDS: ELASTOMERIC PUMP PUMP IV (15:52)
[2023-10-13] MEDS: SODIUM CHLORIDE IV (15:52)
[2023-10-15 13:50] VITALS: BP 155/69; PULSE 67; RESP 18; TEMP 35.6; O2SAT 96
[2023-10-27 09:17] VITALS: BP 131/57; PULSE 59; RESP 17; TEMP 36.2; O2SAT 97
[2023-10-27 09:27] LABS: Basophils % 0.8 %; Eosinophils # 0.1 10^3/uL (0.0-0.8); Eosinophils % 2.7 %; Hematocrit 32.5 % (36-47); Lymphocytes # 0.9 10^3/uL (0.8-4.8); Lymphocytes % 19.2 %; Mean Corpuscular HGB Conc 33.5 g/dL (30-55); Mean Corpuscular Hemoglobin 34.8 pg (27-33); Mean Corpuscular Volume 103.8 fl (85-98); Mean Platelet Volume 10.1 fL (7.4-10.4); Monocytes # 0.6 10^3/uL (0.2-0.9); Monocytes % 12.1 %; Neutrophils # 3.07 10^3/uL (1.8-7.7); Nucleated Red Blood Cells % 0 %; Platelet Count 139 10^3/cmm (157-399); Red Blood Count 3.13 10^6/uL (3.85-5.65); Red Cell Distribution Width 15.9 % (12.1-15.1); White Blood Count 4.73 10^3/uL (3.29-11.43)
[2023-10-27 10:08] LABS: Alanine Aminotransferase 18 U/L (0-33); Albumin Level 3.9 g/dL (3.5-5.2); Alkaline Phosphatase 99 U/L (35-105); Aspartate Amino Transferase 24 U/L (0-32); Blood Urea Nitrogen 22 mg/dL (8-23); Calcium 8.4 mg/dL (8.5-10.5); Carbon Dioxide 27 mmol/L (22-29); Chloride 101 mmol/L (98-107); Creatinine Clr Calc Pharmacy 37.4085; Globulin 2.4 g/dL (1.3-4.6); Glucose 252 mg/dL (65-115); Osmolality Calculated 302 mOsm/kg (285-295); Sodium 140 mmol/L (136-145); Total Bilirubin 0.4 mg/dL (0.15-1.2); Total Protein 6.3 g/dL (6.6-8.7)
[2023-10-27 10:09] LABS: Anion Gap 16.1 (5-19); Potassium 4.1 mmol/L (3.5-5.1)
[2023-10-27] MEDS: dextrose 5% 250 ML 75 ML IV (11:45)
[2023-10-27] MEDS: palonosetron 0.25 mg/5 mL SDV IVP (11:46)
[2023-10-27] MEDS: dexamethasone 4 mg/mL INJ 5 mL 12 MG IVP (11:51)
[2023-10-27] MEDS: leucovorin 790 MG in dextrose 5% 250 ML 62.5 MG IV (12:39)
[2023-10-27] MEDS: oxaliplatin 100 MG, oxaliplatin 48 MG in dextrose 5% 250 ML 139.8 MG IV (12:39)
[2023-10-27] MEDS: fluorouraciL 3,800 MG, elastomeric pump 1 PUMP in sodium chloride 0.9% (100 ml) 16 ML IV (14:59)
[2023-10-27 15:04] VITALS: BP 175/69; PULSE 73; RESP 17; TEMP 35.6; O2SAT 99
[2023-10-29 11:56] VITALS: BP 127/80; PULSE 64; RESP 16; TEMP 36.6; O2SAT 98
== END 2023-10-31 23:59 | disposition home or self-care (01) ==
PROVIDERS: Nurse Practitioner Family; PCP Family Medicine; Visit Provider Internal Medicine Medical Oncology
DX: Z45.1 Encounter for adjustment and management of infusion pump (principal); Z53.9 Procedure and treatment not carried out, unspecified reason
CPT/HCPCS: 80053; 82378; 85025; 96368; 96375; 96413; 96415; 96416; 96523; 99214; J0640; J1100; J2469; J7060; J9190; J9263

== ENCOUNTER 2023-11-11 06:39 | Outpatient (CLI) | payer MEDICARE, MEDICAID, SELFPAY ==
--- NOTE | 2023-11-11 07:15 | US_ITS ---
WS: [id number] RIGHT UPPER QUADRANT ULTRASOUND HISTORY: bilirubin 1.8 and liver enzymes COMPARISON: 07/10/2016 Liver: 14.4 cm in length. Normal size liver. Surface irregularity and nodularity consistent with cirr hosis. There is additional hepatic steatosis. No mass identified. Portal Vein: Normal hepatopetal flow with monophasic waveform. Gallbladder: Gallbladder is slightly distended. There is minimal wall thickening with no adjacent per icholecystic fluid. CBD: 0.8 cm Pancreas: Poorly visualized. Tail is obscured by bowel gas. Right kidney: 8.7 cm in length. Mild atrophy with no hydronephrosis. Poorly visualized kidney. Aorta and IVC: Unremarkable abdominal aorta and IVC. No ascites. US/US gall bladder [id number] IMPRESSION: 1. Quality of this examination is compromised by patient's body habitus. 2. Gallbladder is very minimally hydropic with mild wall thickening. No stones are identified. 3. Common bile duct is top normal size is just slightly enlarged. This can be further evaluated by MRCP. 4. Mild RIGHT renal atrophy. Kidney is poorly visualized otherwise.
[2023-11-11] MEDS: iohexol 350 mg/mL 500 mL Btl (per mL) IV (07:23)
--- NOTE | 2023-11-11 08:15 | CT_ITS ---
WS: [id number] CT ABDOMEN AND PELVIS WITH CONTRAST HISTORY: elevated liver enzymes, history of colon cancer. TECHNIQUE: Imaging performed of the abdomen and pelvis with IV contrast. Single phase imaging of the abdomen. Coronal and sagittal reformats are submitted. All CT scans at [facility] use at [address] one of these dose optimization techniques: automated exposure control; mA and/or kV adjustment per patient size (includes targeted exams where dose is matched to clinical indication); or iterative re construction. IV CONTRAST: Omnipaque 350; 100 mL IV. Oral contrast: No DLP: 627.83 mGy.cm COMPARISON: 04/23/2023, 04/11/2019 Lower thorax: 3 mm nodule at the RIGHT lung base abutting the diaphragm is unchanged. Heart is normal size. Liver/biliary system: Normal size liver. Surface irregularity of the liver is not quite as apparent b y CT as noted on the ultrasound. Normal portal vein. No intrahepatic bile duct dilatation. Common david e duct is dilated to 12 mm. This dilatation has been present since at least 04/11/2019. Common bile du ct tapers normally to the pancreatic head. No pancreatic duct dilatation. Gallbladder: Nondilated gallbladder. No pericholecystic fluid no inflammation. Pancreas: Normal size pancreas and pancreatic duct. No adjacent inflammation. Spleen: Normal size spleen with several granulomata. Adrenal glands: Normal. Some of these cortical cysts are too small to characterize. Right kidney: Normal size with cortical cysts. No solid mass or obstruction. Left kidney: Normal size with a few too small to characterize cortical hypodensities. There is no obs truction. Aorta: Mild atherosclerosis with no aneurysm. Lymphadenopathy: There are a few small retroperitoneal and mesenteric lymph nodes which do not appear pathologic. Free fluid: None. GI tract: Nondistended stomach. No small bowel obstruction. Patient is status post LEFT hemicolectomy and RIGHT hemicolectomy. No obstruction at the anastomosis. There is no recurrent mass or adenopathy identified. Abdominal wall: Surgical changes are noted along the midline of the abdominal wall. Pelvis: Prior hysterectomy. There is a small amount of edema and soft tissue infiltration posterior t o the coccyx is new. This should be evaluated for developing decubitus ulcer. There is no abscess at this time. Bones: No destructive bone lesions. Mild osteopenia. CT/CT abdomen pelvis w con* [id number] IMPRESSION: 1. No intrahepatic bile duct dilatation or metastatic disease to the liver. 2. Common bile duct is dilated to 12 mm. This is not a new finding. Similar di latation was noted on the study from 04/11/2019. If further evaluation is necess linette consider evaluation by MRCP. 3. Status post LEFT hemicolectomy and RIGHT hemicolectomy. No recurrent mass o r complication at the anastomosis. 4. New soft tissue thickening posterior to the coccyx. Although no abscess at this time this should be evaluated for possible developing decubitus ulcer. 5. No renal obstruction. Bilateral renal too small to characterize hypodensiti es.
== END 2023-11-11 06:40 | disposition home or self-care (01) ==
LOC: RAD 06:39
PROVIDERS: PCP Family Medicine; Visit Provider Nurse Practitioner Family
DX: C18.9 Malignant neoplasm of colon, unspecified (principal); R91.1 Solitary pulmonary nodule; Q61.02 Congenital multiple renal cysts; R93.2 Abnormal findings on diagnostic imaging of liver and biliary tract; R17 Unspecified jaundice; Z90.49 Acquired absence of other specified parts of digestive tract; Z90.710 Acquired absence of both cervix and uterus
CPT/HCPCS: 74177; 76705

== ENCOUNTER 2023-11-19 12:00 | Oncology outpatient (recurring) (ONCR) | payer MEDICARE, MEDICAID, SELFPAY ==
[2023-11-10 09:24] LABS: Basophils % 0.5 %; Eosinophils % 0.7 %; Hematocrit 29.9 % (36-47); Lymphocytes # 0.5 10^3/uL (0.8-4.8); Lymphocytes % 8.2 %; Mean Corpuscular HGB Conc 33.8 g/dL (30-55); Mean Corpuscular Hemoglobin 34.5 pg (27-33); Mean Platelet Volume 9.8 fL (7.4-10.4); Monocytes # 0.8 10^3/uL (0.2-0.9); Monocytes % 15.2 %; Neutrophils # 4.14 10^3/uL (1.8-7.7); Nucleated Red Blood Cells % 0 %; Platelet Count 61 10^3/cmm (157-399); Red Blood Count 2.93 10^6/uL (3.85-5.65); Red Cell Distribution Width 14.4 % (12.1-15.1); White Blood Count 5.52 10^3/uL (3.29-11.43)
[2023-11-10 09:47] LABS: Carcinoembryonic Antigen 2.6 ng/mL (0.0-4.7)
[2023-11-10 09:58] LABS: Alanine Aminotransferase 136 U/L (0-33); Albumin Level 3.5 g/dL (3.5-5.2); Alkaline Phosphatase 132 U/L (35-105); Anion Gap 15.9 (5-19); Aspartate Amino Transferase 121 U/L (0-32); Blood Urea Nitrogen 20 mg/dL (8-23); Carbon Dioxide 24 mmol/L (22-29); Chloride 98 mmol/L (98-107); Globulin 2.5 g/dL (1.3-4.6); Glucose 244 mg/dL (65-115); Osmolality Calculated 289 mOsm/kg (285-295); Potassium 3.9 mmol/L (3.5-5.1); Sodium 134 mmol/L (136-145); Total Bilirubin 1.8 mg/dL (0.15-1.2)
--- NOTE | 2023-11-10 13:50 | PC.NURSE ---
Port left accessed per Son TOSCANO. Pt is scheduled to have CT scan in the morning. Will return to CTC after to be deaccessed.[email or web address]
[2023-11-17 08:35] LABS: Basophils % 0.7 %; Eosinophils # 0.1 10^3/uL (0.0-0.8); Hematocrit 29.5 % (36-47); Lymphocytes # 1.1 10^3/uL (0.8-4.8); Lymphocytes % 25.2 %; Mean Corpuscular HGB Conc 33.2 g/dL (30-55); Mean Corpuscular Hemoglobin 34.8 pg (27-33); Mean Corpuscular Volume 104.6 fl (85-98); Mean Platelet Volume 9.8 fL (7.4-10.4); Monocytes # 0.5 10^3/uL (0.2-0.9); Monocytes % 10.4 %; Nucleated Red Blood Cells % 0 %; Platelet Count 132 10^3/cmm (157-399); Red Blood Count 2.82 10^6/uL (3.85-5.65); White Blood Count 4.33 10^3/uL (3.29-11.43)
[2023-11-17 08:57] LABS: Alanine Aminotransferase 42 U/L (0-33); Albumin Level 3.6 g/dL (3.5-5.2); Alkaline Phosphatase 119 U/L (35-105); Anion Gap 15.1 (5-19); Aspartate Amino Transferase 30 U/L (0-32); Blood Urea Nitrogen 14 mg/dL (8-23); Calcium 8.5 mg/dL (8.5-10.5); Carbon Dioxide 27 mmol/L (22-29); Chloride 105 mmol/L (98-107); Creatinine Clr Calc Pharmacy 39.6632; Globulin 2.8 g/dL (1.3-4.6); Glucose 225 mg/dL (65-115); Osmolality Calculated 304 mOsm/kg (285-295); Potassium 4.1 mmol/L (3.5-5.1); Sodium 143 mmol/L (136-145); Total Bilirubin 0.5 mg/dL (0.15-1.2); Total Protein 6.4 g/dL (6.6-8.7)
[2023-11-17 10:50] VITALS: BP 158/74; PULSE 47; RESP 16; TEMP 35.8; O2SAT 97
[2023-11-17] MEDS: dextrose 5% 250 ML 75 ML IV (10:58)
[2023-11-17] MEDS: palonosetron 0.25 mg/5 mL SDV IVP (10:59)
[2023-11-17] MEDS: dexamethasone 4 mg/mL INJ 5 mL 12 MG IVP (11:00)
[2023-11-17] MEDS: leucovorin 790 MG in dextrose 5% 250 ML 62.5 MG IV (11:36)
[2023-11-17] MEDS: oxaliplatin 100 MG, oxaliplatin 48 MG in dextrose 5% 250 ML 139.8 MG IV (11:37)
[2023-11-17 13:45] VITALS: BP 172/63; PULSE 56; RESP 16; TEMP 35.7; O2SAT 96
[2023-11-17] MEDS: fluorouraciL 3,800 MG, elastomeric pump 1 PUMP in sodium chloride 0.9% (100 ml) 16 ML IV (13:48)
[2023-11-17 14:38] LABS: Iron 49 ug/dL (37-145); Total Iron Binding Capacity 196 mcg/dl; Unsaturated Iron Binding 147 ug/dL (112-347)
[2023-11-17 14:50] LABS: Ferritin 1687 ng/mL (15-150)
== END 2023-11-30 23:59 | disposition home or self-care (01) ==
PROVIDERS: Nurse Practitioner Family; PCP Family Medicine; Visit Provider Internal Medicine Medical Oncology
DX: Z45.1 Encounter for adjustment and management of infusion pump; Z53.9 Procedure and treatment not carried out, unspecified reason
CPT/HCPCS: 80053; 82378; 82728; 83540; 83550; 85025; 96368; 96375; 96413; 96415; 96416; 96523; 99214; J0640; J1100; J2469; J7060; J9190; J9263

== ENCOUNTER → 2023-12-23 11:01 | Outpatient (BNVA) | payer MEDICARE, SELFPAY | PROVIDERS: PCP Nurse Practitioner Family; Visit Provider Nurse Practitioner Family | DX: E78.2 Mixed hyperlipidemia (principal) | CPT/HCPCS: 80061 ==

== ENCOUNTER 2023-12-24 12:30 | Oncology outpatient (recurring) (ONCR) | payer MEDICARE, SELFPAY ==
[2023-12-01 09:47] LABS: Basophils % 0.6 %; Eosinophils # 0.1 10^3/uL (0.0-0.8); Eosinophils % 2.2 %; Hematocrit 32.2 % (36-47); Lymphocytes # 0.8 10^3/uL (0.8-4.8); Lymphocytes % 26.6 %; Mean Corpuscular HGB Conc 33.5 g/dL (30-55); Mean Corpuscular Hemoglobin 34.7 pg (27-33); Mean Corpuscular Volume 103.5 fl (85-98); Mean Platelet Volume 10.4 fL (7.4-10.4); Monocytes # 0.4 10^3/uL (0.2-0.9); Monocytes % 13.1 %; Neutrophils # 1.78 10^3/uL (1.8-7.7); Neutrophils % 57.2 %; Nucleated Red Blood Cells % 0 %; Platelet Count 87 10^3/cmm (157-399); Red Blood Count 3.11 10^6/uL (3.85-5.65); Red Cell Distribution Width 13.9 % (12.1-15.1); White Blood Count 3.12 10^3/uL (3.29-11.43)
[2023-12-01 10:01] LABS: Alanine Aminotransferase 18 U/L (0-33); Albumin Level 3.8 g/dL (3.5-5.2); Alkaline Phosphatase 103 U/L (35-105); Anion Gap 15.2 (5-19); Aspartate Amino Transferase 27 U/L (0-32); Blood Urea Nitrogen 17 mg/dL (8-23); Calcium 8.6 mg/dL (8.5-10.5); Carbon Dioxide 26 mmol/L (22-29); Chloride 105 mmol/L (98-107); Globulin 2.4 g/dL (1.3-4.6); Glucose 229 mg/dL (65-115); Osmolality Calculated 303 mOsm/kg (285-295); Potassium 4.2 mmol/L (3.5-5.1); Sodium 142 mmol/L (136-145); Total Bilirubin 0.6 mg/dL (0.15-1.2); Total Protein 6.2 g/dL (6.6-8.7)
[2023-12-01 12:46] LABS: Estmated Average Glucose 154
[2023-12-01] MEDS: dextrose 5% 250 ML 75 ML IV (13:19)
[2023-12-01] MEDS: dexamethasone 4 mg/mL INJ 5 mL 12 MG IVP (13:24)
[2023-12-01] MEDS: palonosetron 0.25 mg/5 mL SDV IVP (13:29)
[2023-12-01] MEDS: leucovorin 780 MG in dextrose 5% 250 ML 62.5 MG IV (14:05)
[2023-12-01] MEDS: oxaliplatin 100 MG, oxaliplatin 48 MG in dextrose 5% 250 ML 139.8 MG IV (14:06)
[2023-12-01] MEDS: fluorouraciL 3,750 MG, elastomeric pump 1 PUMP in sodium chloride 0.9% (100 ml) 17 ML IV (16:34)
[2023-12-01 16:35] VITALS: BP 190/69; PULSE 58; RESP 16; TEMP 35.6; O2SAT 95
[2023-12-08 14:32] LABS: Basophils % 0.5 %; Eosinophils # 0.1 10^3/uL (0.0-0.8); Eosinophils % 3.8 %; Hematocrit 32.2 % (36-47); Lymphocytes # 1.1 10^3/uL (0.8-4.8); Mean Corpuscular HGB Conc 33.9 g/dL (30-55); Mean Corpuscular Hemoglobin 34.5 pg (27-33); Mean Corpuscular Volume 101.9 fl (85-98); Mean Platelet Volume 9.2 fL (7.4-10.4); Monocytes # 0.6 10^3/uL (0.2-0.9); Monocytes % 15.7 %; Neutrophils # 1.76 10^3/uL (1.8-7.7); Neutrophils % 48.5 %; Nucleated Red Blood Cells % 0 %; Platelet Count 114 10^3/cmm (157-399); Red Blood Count 3.16 10^6/uL (3.85-5.65); Red Cell Distribution Width 13.1 % (12.1-15.1); White Blood Count 3.64 10^3/uL (3.29-11.43)
[2023-12-15 08:40] LABS: Basophils % 0.7 %; Eosinophils # 0.1 10^3/uL (0.0-0.8); Eosinophils % 2.4 %; Hematocrit 31.8 % (36-47); Lymphocytes # 0.8 10^3/uL (0.8-4.8); Lymphocytes % 27.3 %; Mean Corpuscular HGB Conc 33.3 g/dL (30-55); Mean Corpuscular Volume 101.9 fl (85-98); Mean Platelet Volume 9.7 fL (7.4-10.4); Monocytes # 0.5 10^3/uL (0.2-0.9); Monocytes % 17.3 %; Neutrophils # 1.51 10^3/uL (1.8-7.7); Neutrophils % 52.3 %; Nucleated Red Blood Cells % 0 %; Platelet Count 73 10^3/cmm (157-399); Red Blood Count 3.12 10^6/uL (3.85-5.65); Red Cell Distribution Width 13.6 % (12.1-15.1); White Blood Count 2.89 10^3/uL (3.29-11.43)
[2023-12-15 08:51] LABS: Alanine Aminotransferase 19 U/L (0-33); Albumin Level 3.8 g/dL (3.5-5.2); Alkaline Phosphatase 105 U/L (35-105); Aspartate Amino Transferase 28 U/L (0-32); Blood Urea Nitrogen 17 mg/dL (8-23); Calcium 8.1 mg/dL (8.5-10.5); Carbon Dioxide 25 mmol/L (22-29); Chloride 103 mmol/L (98-107); Globulin 2.2 g/dL (1.3-4.6); Glucose 316 mg/dL (65-115); Osmolality Calculated 302 mOsm/kg (285-295); Sodium 139 mmol/L (136-145); Total Bilirubin 0.5 mg/dL (0.15-1.2)
[2023-12-15 08:52] LABS: Anion Gap 15.1 (5-19); Potassium 4.1 mmol/L (3.5-5.1)
[2023-12-22 09:36] LABS: Eosinophils # 0.1 10^3/uL (0.0-0.8); Eosinophils % 1.6 %; Hematocrit 35.4 % (36-47); Lymphocytes # 0.8 10^3/uL (0.8-4.8); Lymphocytes % 25.1 %; Mean Corpuscular HGB Conc 32.2 g/dL (30-55); Mean Corpuscular Hemoglobin 32.5 pg (27-33); Mean Corpuscular Volume 100.9 fl (85-98); Mean Platelet Volume 9.6 fL (7.4-10.4); Monocytes # 0.5 10^3/uL (0.2-0.9); Monocytes % 17.4 %; Neutrophils % 54.6 %; Nucleated Red Blood Cells % 0 %; Platelet Count 114 10^3/cmm (157-399); Red Blood Count 3.51 10^6/uL (3.85-5.65); Red Cell Distribution Width 13.6 % (12.1-15.1); White Blood Count 3.11 10^3/uL (3.29-11.43)
[2023-12-22 09:56] LABS: Alanine Aminotransferase 17 U/L (0-33); Alkaline Phosphatase 90 U/L (35-105); Anion Gap 17.3 (5-19); Aspartate Amino Transferase 25 U/L (0-32); Blood Urea Nitrogen 19 mg/dL (8-23); Carbon Dioxide 27 mmol/L (22-29); Chloride 100 mmol/L (98-107); Creatinine Clr Calc Pharmacy 39.0336; Globulin 2.5 g/dL (1.3-4.6); Glucose 253 mg/dL (65-115); Osmolality Calculated 301 mOsm/kg (285-295); Potassium 4.3 mmol/L (3.5-5.1); Sodium 140 mmol/L (136-145); Total Bilirubin 0.6 mg/dL (0.15-1.2); Total Protein 6.5 g/dL (6.6-8.7)
[2023-12-22] MEDS: dexamethasone 4 mg/mL INJ 5 mL 12 MG IVP (11:21)
[2023-12-22] MEDS: dextrose 5% 250 ML 75 ML IV (11:21)
[2023-12-22] MEDS: palonosetron 0.25 mg/5 mL SDV IVP (11:22)
[2023-12-22] MEDS: leucovorin 780 MG in dextrose 5% 250 ML 62.5 MG IV (12:05)
[2023-12-22] MEDS: oxaliplatin 100 MG, oxaliplatin 48 MG in dextrose 5% 250 ML 139.8 MG IV (12:05)
[2023-12-22 13:51] VITALS: BP 179/99; PULSE 64; RESP 16; TEMP 35.7; O2SAT 95
[2023-12-22] MEDS: fluorouraciL 3,750 MG, elastomeric pump 1 PUMP in sodium chloride 0.9% (100 ml) 17 ML IV (13:52)
[2023-12-24 12:27] VITALS: BP 152/66; PULSE 60; RESP 16; TEMP 36.6; O2SAT 95
[2023-12-24] MEDS: sodium chloride 0.9% 1,000 ML 999 ML IV (12:50)
== END 2023-12-31 23:59 | disposition home or self-care (01) ==
PROVIDERS: Nurse Practitioner; Nurse Practitioner Family; PCP Family Medicine; Visit Provider Internal Medicine Hematology & Oncology
DX: Z45.1 Encounter for adjustment and management of infusion pump (principal)
CPT/HCPCS: 36591; 80053; 83036; 85025; 96360; 96368; 96375; 96413; 96415; 96416; 96523; 99214; J0640; J1100; J2469; J7030; J7060; J9190; J9263

== ENCOUNTER 2024-01-21 14:00 | Oncology outpatient (recurring) (ONCR) | payer MEDICARE, SELFPAY ==
--- NOTE | 2024-01-08 09:00 | PETR_ITS ---
PROCEDURE INFORMATION: Exam: PET/CT Skull Base to Mid-thigh Exam date and time: 01/08/2024 9:38 AM Age: 78 years old Clinical indication: Condition or disease; Primary cancer: Primary adenocarcinoma of ascending colon; Follow-up oncological assessment; Prior surgery; Surgery date: 6+ months; Surgery type: Colon, hyst, port; Patient HX: Post treatment followup; Abnormal CT on 11/11/2023 LABS AND CLINICAL REPORTS: Glucose: 153 mg/dl Treatment strategy for malignancy (PET staging): Restaging (PS) TECHNIQUE: Imaging protocol: Following at least four-hour fasting and following the injection of radiopharmaceutical, low dose CT images were obtained. Then, PET images were obtained. Attenuation corrected images were constructed using the CT scan. Fused images of PET and CT were reviewed. The standardized uptake values (SUV) reported below are maximum values within a region of interest, expressed in gm/ml. Exam includes orbital meatal line to mid-thigh. Radiopharmaceutical: 10.32 mCi F-18 FDG (Fluorodeoxyglucose), IV. Time of imaging post radiopharmaceutical administration: 48 minutes Injection site: Right antecubital COMPARISON: 1. CT angio abdomen pelvis [id number] 10/10/2022 9:57 AM 2. PT PET [facility] INITIAL [id number] 08/11/2023 9:[address] abdomen pelvis w con* [id number] 11/11/2023 7:13 AM FINDINGS: Tubes, catheters and devices: Left chest port terminates near the superior cavoatrial junction. Brain: Visualized brain has normal physiologic uptake. Oral cavity: Bandlike FDG uptake along the midline posterior tongue shows SUV max of 10.2 on axial image 311 of series 202. No underlying CT abnormality. Mild asymmetric nodularity at the right posterior tongue measures 5 mm on axial image 308 of series 202 and shows lower level FDG uptake (SUV max 3.9) symmetric to the left side. Pharynx: No abnormal uptake. Larynx: Symmetric uptake is likely physiologic. Lungs, pleura and trachea: No abnormal uptake. Right lung calcified granulomata. Heart: Normal physiologic uptake. Coronary arteries: Qtti-le-[id number] coronary artery calcification. Mediastinal space: No abnormal uptake. Liver: No abnormal uptake. Gallbladder and biliary ducts: No abnormal uptake. Pancreas: No abnormal uptake. Spleen: No abnormal uptake. Calcified granulomata. Adrenal glands: No abnormal uptake. Kidneys and ureters: Normal physiologic uptake. Stomach and bowel: Stable colonic postsurgical changes without abnormal thickening or FDG uptake adjacent to the suture lines. Segmental FDG uptake along an underdistended small bowel loop in the right pelvis is likely physiologic or inflammatory. Intraperitoneal and retroperitoneal spaces: Non FDG avid small soft tissue nodule between bowel loops in the left pelvis shows stable size with mild calcification likely representing posttreatment change, possibly small area of fat necrosis, more clearly assessed on September 2022 CT. Reproductive: The uterus is surgically absent. Vasculature: No abnormal uptake. Zaiv-[id number] atherosclerotic calcification with heavier peripheral arterial calcifications. Lymph nodes: No abnormal uptake. No lymphadenopathy in the head, neck, chest, abdomen, pelvis, and extremities. Skeleton: Degenerative changes along the axial and proximal appendicular skeletal system. Stable nonaggressive lucency at the T11 vertebral body. Stable intraosseous hemangioma at the T12 vertebral body. Soft tissues: Redemonstrated subcutaneous stranding and dermal thickening at the superior gluteal cleft corresponding to finding on recent comparison CT with low-level FDG uptake extending to the bilateral medial gluteus edison muscles. Ventral abdominal wall postsurgical scarring with associated low-level FDG uptake. Stable non FDG avid right breast nodule. PET/PET skull to thigh SUBS [id number] IMPRESSION: 1. No evidence of recurrent or metastatic disease. 2. Mildly FDG avid dermal thickening and subcutaneous stranding at the superior gluteal cleft extending to bilateral medial gluteus edison muscles may be inflammatory or infectious. Correlate with clinical exam. 3. Segmental FDG uptake along and underdistended small bowel loop at the right pelvis is likely physiologic or inflammatory. 4. Indeterminate FDG uptake along the midline posterior tongue and lower level FDG uptake at mild asymmetric right posterior tongue nodularity. Correlate with direct visualization. 5. Additional chronic and incidental findings as above.
[2024-01-19 09:02] LABS: Basophils % 0.5 %; Eosinophils # 0.1 10^3/uL (0.0-0.8); Eosinophils % 2.7 %; Hematocrit 33.6 % (36-47); Lymphocytes # 0.9 10^3/uL (0.8-4.8); Mean Corpuscular HGB Conc 33.9 g/dL (30-55); Mean Corpuscular Hemoglobin 33.6 pg (27-33); Mean Corpuscular Volume 99.1 fl (85-98); Mean Platelet Volume 9.8 fL (7.4-10.4); Monocytes # 0.4 10^3/uL (0.2-0.9); Neutrophils # 2.59 10^3/uL (1.8-7.7); Neutrophils % 63.6 %; Nucleated Red Blood Cells % 0 %; Platelet Count 88 10^3/cmm (157-399); Red Blood Count 3.39 10^6/uL (3.85-5.65); Red Cell Distribution Width 13.1 % (12.1-15.1); White Blood Count 4.08 10^3/uL (3.29-11.43)
[2024-01-19 09:29] LABS: Carcinoembryonic Antigen 2.2 ng/mL (0.0-4.7)
[2024-01-19 09:40] LABS: Alanine Aminotransferase 19 U/L (0-33); Albumin Level 3.7 g/dL (3.5-5.2); Alkaline Phosphatase 102 U/L (35-105); Aspartate Amino Transferase 31 U/L (0-32); Blood Urea Nitrogen 26 mg/dL (8-23); Calcium 7.9 mg/dL (8.5-10.5); Carbon Dioxide 25 mmol/L (22-29); Chloride 105 mmol/L (98-107); Creatinine Clr Calc Pharmacy 36.0558; Globulin 2.5 g/dL (1.3-4.6); Glucose 258 mg/dL (65-115); Osmolality Calculated 304 mOsm/kg (285-295); Sodium 140 mmol/L (136-145); Total Bilirubin 0.5 mg/dL (0.15-1.2); Total Protein 6.2 g/dL (6.6-8.7)
[2024-01-19] MEDS: palonosetron 0.25 mg/5 mL SDV IVP (12:36)
[2024-01-19] MEDS: dextrose 5% 250 ML 75 ML IV (12:36)
[2024-01-19] MEDS: dexamethasone 10 mg/mL INJ 12 MG IVP (12:41)
[2024-01-19] MEDS: oxaliplatin 100 MG, oxaliplatin 40 MG in dextrose 5% 250 ML 139 MG IV (13:37)
[2024-01-19] MEDS: leucovorin 770 MG in dextrose 5% 250 ML 62.5 MG IV (13:37)
[2024-01-19 15:47] VITALS: BP 182/71; PULSE 58; RESP 16; TEMP 36.1; O2SAT 96
[2024-01-19] MEDS: SODIUM CHLORIDE IV (15:49)
[2024-01-19] MEDS: FLUOROURACIL IV (15:49)
[2024-01-19] MEDS: ELASTOMERIC PUMP PUMP IV (15:49)
[2024-01-19 15:51] VITALS: BP 174/67
[2024-01-21 14:34] VITALS: BP 178/81; PULSE 61; RESP 16; TEMP 36.3; O2SAT 94
== END 2024-01-30 23:59 | disposition home or self-care (01) ==
PROVIDERS: PCP Nurse Practitioner Family; Visit Provider Nurse Practitioner
DX: Z53.9 Procedure and treatment not carried out, unspecified reason; Z45.1 Encounter for adjustment and management of infusion pump
CPT/HCPCS: 78815; 80053; 82378; 85025; 96368; 96413; 96415; 96416; 96523; 99214; A9552; J0640; J1100; J2469; J7060; J9190; J9263

== ENCOUNTER 2024-03-01 08:30 | Oncology outpatient (recurring) (ONCR) | payer MEDICARE, SELFPAY ==
[2024-02-02 09:58] LABS: Basophils % 0.6 %; Eosinophils # 0.1 10^3/uL (0.0-0.8); Eosinophils % 3.1 %; Hematocrit 33.3 % (36-47); Lymphocytes # 0.9 10^3/uL (0.8-4.8); Lymphocytes % 26.1 %; Mean Corpuscular HGB Conc 33.6 g/dL (30-55); Mean Corpuscular Hemoglobin 33.2 pg (27-33); Mean Corpuscular Volume 98.8 fl (85-98); Mean Platelet Volume 9.6 fL (7.4-10.4); Monocytes # 0.4 10^3/uL (0.2-0.9); Monocytes % 10.7 %; Neutrophils # 2.12 10^3/uL (1.8-7.7); Neutrophils % 59.5 %; Nucleated Red Blood Cells % 0 %; Platelet Count 94 10^3/cmm (157-399); Red Blood Count 3.37 10^6/uL (3.85-5.65); White Blood Count 3.56 10^3/uL (3.29-11.43)
[2024-02-02 10:27] LABS: Carcinoembryonic Antigen 2.1 ng/mL (0.0-4.7)
[2024-02-02 10:38] LABS: Alanine Aminotransferase 18 U/L (0-33); Albumin Level 3.9 g/dL (3.5-5.2); Alkaline Phosphatase 107 U/L (35-105); Aspartate Amino Transferase 24 U/L (0-32); Blood Urea Nitrogen 16 mg/dL (8-23); Calcium 8.6 mg/dL (8.5-10.5); Carbon Dioxide 24 mmol/L (22-29); Chloride 101 mmol/L (98-107); Creatinine Clr Calc Pharmacy 46.0553; Globulin 2.5 g/dL (1.3-4.6); Glucose 269 mg/dL (65-115); Osmolality Calculated 297 mOsm/kg (285-295); Sodium 138 mmol/L (136-145); Total Bilirubin 0.4 mg/dL (0.15-1.2); Total Protein 6.4 g/dL (6.6-8.7)
[2024-02-02] MEDS: dextrose 5% 250 ML 50 ML IV (11:09)
[2024-02-02] MEDS: dexamethasone 4 mg/mL INJ 5 mL 12 MG IVP (11:09)
[2024-02-02] MEDS: palonosetron 0.25 mg/5 mL SDV IVP (11:15)
[2024-02-02] MEDS: oxaliplatin 100 MG, oxaliplatin 40 MG in dextrose 5% 250 ML 139 MG IV (12:09)
[2024-02-02] MEDS: leucovorin 770 MG in dextrose 5% 250 ML 62.5 MG IV (12:09)
[2024-02-02] MEDS: SODIUM CHLORIDE IV (14:36)
[2024-02-02] MEDS: FLUOROURACIL IV (14:36)
[2024-02-02] MEDS: ELASTOMERIC PUMP PUMP IV (14:36)
[2024-02-02 14:55] VITALS: BP 184/74; PULSE 62; RESP 17; TEMP 35.8; O2SAT 97
[2024-02-16 08:32] LABS: Basophils % 0.3 %; Eosinophils # 0.1 10^3/uL (0.0-0.8); Hematocrit 31.5 % (36-47); Lymphocytes # 0.8 10^3/uL (0.8-4.8); Mean Corpuscular HGB Conc 34.6 g/dL (30-55); Mean Corpuscular Hemoglobin 33.9 pg (27-33); Mean Corpuscular Volume 97.8 fl (85-98); Mean Platelet Volume 9.4 fL (7.4-10.4); Monocytes # 0.5 10^3/uL (0.2-0.9); Monocytes % 14.5 %; Neutrophils # 2.04 10^3/uL (1.8-7.7); Neutrophils % 58.9 %; Nucleated Red Blood Cells % 0 %; Platelet Count 76 10^3/cmm (157-399); Red Blood Count 3.22 10^6/uL (3.85-5.65); Red Cell Distribution Width 13.2 % (12.1-15.1); White Blood Count 3.46 10^3/uL (3.29-11.43)
[2024-02-16 08:54] LABS: Carcinoembryonic Antigen 2.6 ng/mL (0.0-4.7)
[2024-02-16 09:05] LABS: Alanine Aminotransferase 21 U/L (0-33); Albumin Level 3.8 g/dL (3.5-5.2); Alkaline Phosphatase 126 U/L (35-105); Aspartate Amino Transferase 29 U/L (0-32); Blood Urea Nitrogen 15 mg/dL (8-23); Calcium 8.4 mg/dL (8.5-10.5); Carbon Dioxide 24 mmol/L (22-29); Chloride 104 mmol/L (98-107); Creatinine Clr Calc Pharmacy 39.1613; Globulin 2.5 g/dL (1.3-4.6); Glucose 348 mg/dL (65-115); Osmolality Calculated 303 mOsm/kg (285-295); Sodium 139 mmol/L (136-145); Total Bilirubin 0.5 mg/dL (0.15-1.2); Total Protein 6.3 g/dL (6.6-8.7)
[2024-03-01 08:46] LABS: Basophils % 0.6 %; Eosinophils # 0.1 10^3/uL (0.0-0.8); Eosinophils % 2.6 %; Hematocrit 35.3 % (36-47); Lymphocytes % 19.6 %; Mean Corpuscular HGB Conc 33.7 g/dL (30-55); Mean Corpuscular Hemoglobin 33.1 pg (27-33); Mean Corpuscular Volume 98.1 fl (85-98); Mean Platelet Volume 8.6 fL (7.4-10.4); Monocytes # 0.6 10^3/uL (0.2-0.9); Monocytes % 10.7 %; Neutrophils # 3.52 10^3/uL (1.8-7.7); Neutrophils % 66.3 %; Nucleated Red Blood Cells % 0 %; Platelet Count 87 10^3/cmm (157-399); Red Cell Distribution Width 13.1 % (12.1-15.1); White Blood Count 5.31 10^3/uL (3.29-11.43)
[2024-03-01 09:10] LABS: Carcinoembryonic Antigen 2.4 ng/mL (0.0-4.7)
[2024-03-01 09:21] LABS: Alanine Aminotransferase 23 U/L (0-33); Albumin Level 3.8 g/dL (3.5-5.2); Alkaline Phosphatase 110 U/L (35-105); Aspartate Amino Transferase 36 U/L (0-32); Blood Urea Nitrogen 20 mg/dL (8-23); Calcium 9.1 mg/dL (8.5-10.5); Carbon Dioxide 24 mmol/L (22-29); Chloride 105 mmol/L (98-107); Creatinine Clr Calc Pharmacy 38.8676; Globulin 2.8 g/dL (1.3-4.6); Glucose 238 mg/dL (65-115); Osmolality Calculated 306 mOsm/kg (285-295); Sodium 143 mmol/L (136-145); Total Bilirubin 0.6 mg/dL (0.15-1.2); Total Protein 6.6 g/dL (6.6-8.7)
[2024-03-01 09:23] VITALS: BP 172/78; PULSE 76; RESP 18; TEMP 36.6; O2SAT 94
[2024-03-01 09:40] LABS: Anion Gap 18.1 (5-19); Potassium 4.1 mmol/L (3.5-5.1)
[2024-03-01] MEDS: dexamethasone 4 mg/mL INJ 5 mL 12 MG IVP (10:45)
[2024-03-01] MEDS: dextrose 5% 250 ML 75 ML IV (10:45)
[2024-03-01] MEDS: palonosetron 0.25 mg/5 mL SDV IVP (10:46)
[2024-03-01] MEDS: leucovorin 770 MG in dextrose 5% 250 ML 62.5 MG IV (11:33)
[2024-03-01] MEDS: oxaliplatin 100 MG, oxaliplatin 40 MG in dextrose 5% 250 ML 139 MG IV (11:33)
[2024-03-01] MEDS: SODIUM CHLORIDE IV (13:54)
[2024-03-01] MEDS: FLUOROURACIL IV (13:54)
[2024-03-01] MEDS: ELASTOMERIC PUMP PUMP IV (13:54)
[2024-03-01 13:57] VITALS: BP 187/76; PULSE 64; O2SAT 93
== END 2024-03-01 23:59 | disposition home or self-care (01) ==
PROVIDERS: Internal Medicine Medical Oncology; PCP Nurse Practitioner Family; Visit Provider Nurse Practitioner
DX: Z51.11 Encounter for antineoplastic chemotherapy (principal); Z53.9 Procedure and treatment not carried out, unspecified reason; Z85.038 Personal history of other malignant neoplasm of large intestine; Z79.899 Other long term (current) drug therapy; Z79.52 Long term (current) use of systemic steroids; C18.2 Malignant neoplasm of ascending colon
CPT/HCPCS: 80053; 82378; 85025; 96365; 96366; 96367; 96368; 96375; 96413; 96415; 96416; 96523; 99214; J0640; J1100; J2469; J7060; J9190; J9263

== ENCOUNTER 2024-03-28 14:15 | Oncology outpatient (recurring) (ONCR) | payer MEDICARE, MEDICAID, SELFPAY ==
[2024-03-03 13:30] VITALS: BP 147/74; PULSE 87; RESP 16; TEMP 36.6; O2SAT 96
[2024-03-15 09:38] LABS: Basophils % 0.6 %; Eosinophils # 0.1 10^3/uL (0.0-0.8); Hematocrit 33.4 % (36-47); Lymphocytes # 0.9 10^3/uL (0.8-4.8); Lymphocytes % 26.6 %; Mean Corpuscular HGB Conc 34.1 g/dL (30-55); Mean Corpuscular Hemoglobin 34.1 pg (27-33); Mean Platelet Volume 9.2 fL (7.4-10.4); Monocytes # 0.4 10^3/uL (0.2-0.9); Monocytes % 11.2 %; Neutrophils # 1.93 10^3/uL (1.8-7.7); Neutrophils % 58.3 %; Nucleated Red Blood Cells % 0 %; Platelet Count 142 10^3/cmm (157-399); Red Blood Count 3.34 10^6/uL (3.85-5.65); Red Cell Distribution Width 13.2 % (12.1-15.1); White Blood Count 3.31 10^3/uL (3.29-11.43)
[2024-03-15 10:06] LABS: Carcinoembryonic Antigen 2.3 ng/mL (0.0-4.7)
[2024-03-15 10:17] LABS: Alanine Aminotransferase 27 U/L (0-33); Albumin Level 3.8 g/dL (3.5-5.2); Alkaline Phosphatase 157 U/L (35-105); Anion Gap 16.1 (5-19); Aspartate Amino Transferase 30 U/L (0-32); Blood Urea Nitrogen 22 mg/dL (8-23); Calcium 9.4 mg/dL (8.5-10.5); Carbon Dioxide 26 mmol/L (22-29); Chloride 100 mmol/L (98-107); Creatinine Clr Calc Pharmacy 38.5228; Globulin 2.8 g/dL (1.3-4.6); Glucose 273 mg/dL (65-115); Osmolality Calculated 299 mOsm/kg (285-295); Potassium 4.1 mmol/L (3.5-5.1); Sodium 138 mmol/L (136-145); Total Bilirubin 0.8 mg/dL (0.15-1.2); Total Protein 6.6 g/dL (6.6-8.7)
[2024-03-15] MEDS: dextrose 5% 250 ML 75 ML IV (11:13)
[2024-03-15] MEDS: palonosetron 0.25 mg/5 mL SDV IVP (11:14)
[2024-03-15] MEDS: dexamethasone 10 mg/mL INJ 12 MG IVP (11:47)
[2024-03-15] MEDS: leucovorin 770 MG in dextrose 5% 250 ML 62.5 MG IV (12:30)
[2024-03-15] MEDS: oxaliplatin 100 MG, oxaliplatin 40 MG in dextrose 5% 250 ML 139 MG IV (12:30)
[2024-03-15] MEDS: SODIUM CHLORIDE IV (14:50)
[2024-03-15] MEDS: ELASTOMERIC PUMP PUMP IV (14:50)
[2024-03-15] MEDS: FLUOROURACIL IV (14:50)
[2024-03-15 15:02] VITALS: BP 172/77; PULSE 61; RESP 17; TEMP 35.8; O2SAT 96
[2024-03-28] MEDS: iohexol 350 mg/mL 500 mL Btl (per mL) PO (13:37)
--- NOTE | 2024-03-28 14:15 | CTR_ITS ---
PROCEDURE INFORMATION: Exam: CT Chest With Contrast; Diagnostic Exam date and time: 03/28/2024 2:07 PM Age: 78 years old Clinical indication: Condition or disease; Other: Colon cancer; Prior surgery; Surgery date: 6+ months; Surgery type: Colon, hyst. Port; Additional info: Compare to previous TECHNIQUE: Imaging protocol: Diagnostic computed tomography of the chest with contrast. Sagittal and coronal reformatted images were also reviewed. Radiation optimization: All CT scans at this facility use at least one of these dose optimization techniques: automated exposure control; mA and/or kV adjustment per patient size (includes targeted exams where dose is matched to clinical indication); or iterative reconstruction. Contrast material: OMNI 350; Contrast volume: 100 ml; Contrast route: INTRAVENOUS (IV); COMPARISON: PT PET skull to thigh SUBS [id number] 01/08/2024 9:38 AM RADIATION DOSE METRICS: Total DLP (mGy-cm): 1012.45 FINDINGS: Tubes, catheters and devices: Left subclavian Port-A-Cath is stable in position with the tip in the superior vena cava. Trachea: Tracheobronchial structures are patent. Lungs: Lungs are clear bilaterally. Calcified granulomas in the right middle lobe and right lower lobe. No noncalcified pulmonary parenchymal nodules or masses. Pleural spaces: No pneumothorax. No pleural effusion. Heart: Stable mild enlargement of the heart. Esophagus: The esophagus is unremarkable. Mediastinal space: No mediastinal hematoma. No pneumomediastinum. Lymph nodes: No lymphadenopathy. Vasculature: Mild atherosclerotic changes in the visualized arteries. No evidence for aortic aneurysm or aortic dissection. Pulmonary arteries are unremarkable. Pulmonary veins are unremarkable. Bones/joints: Degenerative changes in the spine and shoulders. No suspicious lytic or sclerotic bony lesions. Stable vertebral body hemangiomas at T11 and T12. Soft tissues: No acute abnormality in the extrathoracic soft tissues. PROCEDURE INFORMATION: Exam: CT Abdomen And Pelvis With Contrast Exam date and time: 03/28/2024 2:07 PM Age: 78 years old Clinical indication: Condition or disease; Other: Colon cancer; Prior surgery; Surgery date: 6+ months; Surgery type: Colon, hyst. Port; Additional info: Compare to previous TECHNIQUE: Imaging protocol: Computed tomography of the abdomen and pelvis with contrast. Sagittal and coronal reformatted images were also reviewed. Radiation optimization: All CT scans at this facility use at least one of these dose optimization techniques: automated exposure control; mA and/or kV adjustment per patient size (includes targeted exams where dose is matched to clinical indication); or iterative reconstruction. Contrast material: OMNI 350; Contrast volume: 100 ml; Contrast route: INTRAVENOUS (IV); COMPARISON: PT PET skull to thigh SUBS [id number] 01/08/2024 9:38 AM RADIATION DOSE METRICS: Total DLP (mGy-cm): 1012.45 FINDINGS: Liver: Diffuse, mildly decreased attenuation in the liver. Findings are consistent with mild fatty infiltration. Gallbladder and biliary ducts: The gallbladder is unremarkable. No biliary ductal dilatation. Pancreas: The pancreas is unremarkable. No pancreatic ductal dilatation. Spleen: Calcified granuloma in the spleen. Adrenal glands: The right and left adrenal glands are unremarkable. Kidneys and ureters: Stable subcentimeter hypodense foci in both right and left kidneys that are too small to characterize, however likely represent small cysts. The right and left ureters are unremarkable. Stomach and bowel: Stable changes consistent with a previous sigmoidectomy and right partial colectomy with ileocolic anastomosis. No acute abnormality in the stomach, small bowel, or colon. Appendix: Stable changes consistent with a previous appendectomy. Intraperitoneal space: No free intraperitoneal air. No ascites. No loculated fluid collections to suggest an abscess. Vasculature: Mild to moderate atherosclerotic changes. No evidence for aortic aneurysm or aortic dissection. Hepatic veins, portal veins, splenic vein, and SMV are patent. Lymph nodes: No lymphadenopathy. Urinary bladder: The bladder is unremarkable for the degree of distension. Reproductive: Stable changes consistent with a previous hysterectomy. Two dominant follicles in the right ovary are stable, the larger measures 2.6 x 1.8 cm (series 5, image 64). The left ovary is unremarkable. Bones/joints: Multilevel degenerative changes of varying severity in the visualized spine. Mild degenerative changes at the right and left hips. No lytic or sclerotic bony lesions. Soft tissues: Stable inflammatory changes in the subcutaneous tissues posterior to the lower sacrum/coccyx. CT/CT chest abdpel w/*[id number] IMPRESSION: 1. No acute cardiopulmonary process. 2. No evidence for metastatic disease in the chest. 3. Incidental/nonacute findings are listed in the report. IMPRESSION: 1. Stable inflammatory changes in the subcutaneous tissues posterior to the lower sacrum/coccyx. 2. Stable changes consistent with a previous sigmoidectomy and right partial colectomy with ileocolic anastomosis. 3. Mild fatty infiltration of the liver. 4. Two dominant follicles in the right ovary are stable. 5. No evidence for metastatic disease in the abdomen or pelvis. 6. Incidental/nonacute findings are listed in the report.
[2024-03-28] MEDS: iohexol 350 mg/mL 500 mL Btl (per mL) IV (14:17)
== END 2024-04-01 23:59 | disposition home or self-care (01) ==
LOC: RAD 03-29 → ONCMED 03-31 09:28
PROVIDERS: PCP Nurse Practitioner Family; Visit Provider Internal Medicine Medical Oncology
DX: Z53.9 Procedure and treatment not carried out, unspecified reason; C18.2 Malignant neoplasm of ascending colon; C18.3 Malignant neoplasm of hepatic flexure; C18.9 Malignant neoplasm of colon, unspecified; Z90.49 Acquired absence of other specified parts of digestive tract; K76.0 Fatty (change of) liver, not elsewhere classified
CPT/HCPCS: 36591; 71260; 74177; 80053; 82378; 85025; 96365; 96366; 96375; 96413; 96415; 96523; 99214; J0640; J1100; J2469; J7060; J9190; J9263

== ENCOUNTER → 2024-04-14 11:00 | Outpatient (BNVA) | payer MEDICARE, MEDICAID, SELFPAY | PROVIDERS: Family Provider Nurse Practitioner Family; PCP Nurse Practitioner Family; Visit Provider Surgery | DX: I26.99 Other pulmonary embolism without acute cor pulmonale (principal); C18.2 Malignant neoplasm of ascending colon; C18.3 Malignant neoplasm of hepatic flexure; Z90.49 Acquired absence of other specified parts of digestive tract | CPT/HCPCS: 99214 ==

== ENCOUNTER 2024-04-28 14:30 | Oncology outpatient (recurring) (ONCR) | payer MEDICARE, SELFPAY | END 2024-04-29 23:59 | disposition home or self-care (01) | PROVIDERS: PCP Nurse Practitioner Family; Visit Provider Internal Medicine | DX: Z53.9 Procedure and treatment not carried out, unspecified reason; Z45.2 Encounter for adjustment and management of vascular access device | CPT/HCPCS: 96523; 99214 ==

== ENCOUNTER → 2024-05-18 10:51 | Outpatient (BNVA) | payer MEDICARE, SELFPAY | PROVIDERS: Family Provider Nurse Practitioner Family; PCP Nurse Practitioner Family; Visit Provider Surgery | DX: Z12.11 Encounter for screening for malignant neoplasm of colon (principal) | CPT/HCPCS: 99024; 99214 ==

== ENCOUNTER 2024-05-26 12:40 | Oncology outpatient (recurring) (ONCR) | payer MEDICARE, SELFPAY | END 2024-05-30 23:59 | disposition home or self-care (01) | LOC: ONCMED 12:41 | PROVIDERS: Family Provider Nurse Practitioner Family; PCP Nurse Practitioner Family; Visit Provider Internal Medicine | DX: Z45.2 Encounter for adjustment and management of vascular access device (principal); Z95.828 Presence of other vascular implants and grafts | CPT/HCPCS: 96523 ==

== ENCOUNTER 2024-06-08 06:16 | Day surgery (SDC) | payer MEDICARE, SELFPAY ==
--- NOTE | 2024-06-08 06:03 | P.HPUD_ITS ---
Surgery/Procedure H&P Update DATE OF PROCEDURE: June 08, 2024 DATE H&P PERFORMED: 05/18/24 H&P UPDATE INFORMATION: I have reviewed H&P completed within last 30 days, I have examined patient prior to procedure, No changes to prior documentation, H&P is in [facility] EMR on date indicated and Risks and benefits of the procedure reviewed PLANNED PROCEDURE: Operation Date: 06/08/24 07:40 Proposed Procedures p Colonoscopy [id number] G0105 Z12.11(Not Applicable) - Justo Miranda MD
[2024-06-08 06:38] VITALS: BP 149/72; PULSE 66; RESP 18; TEMP 36.1; O2SAT 97; BMI 18.8
--- NOTE | 2024-06-08 07:01 | ANES.PREANE2 ---
Pre-Anesthetic Assessment Height/Weight: Height 5 ft 6 in Preop Diagnosis: Colorectal cancer Operation Date: 06/08/24 07:40 Proposed Procedures p Colonoscopy 23314 G0105 Z12.11(Not Applicable) - Justo Miranda MD Was Beta [place] taken within 24 hours: N/A Was Clonidine taken within 24 hours: N/A Social No alcohol and No tobacco Exam alert, oriented x 3, clear to auscultation bilaterally and regular rate & rhythm Airway Submandibular: within normal limits Cervical ROM: within normal limits Mallampati: Class II Dentition: full Anesthetic Plan ASA status: 3 Anesthesia: General Other: Slow to wake up from colorectal surgery Completed bowel prep Insulin-dependent diabetes, BS 150s this morning Hypertension on lisinopril CKD Patient has port in place, has completed chemotherapy Labs from March. Thrombocytopenia noted Plan for MAC anesthesia Medications/Allergies Home Medications ?Medication ?Instructions ?Recorded ?Confirmed ?Last Taken ?Type Diabetic Shoes with 3 Pairs of #1 ea 09/18/21 06/02/24 Unknown Rx Inserts pen needle, diabetic 32 gauge x #100 ea 04/02/22 06/02/24 Unknown Rx 5/32 insulin syringe-needle U-100 1 mL #100 ea 10/21/22 06/02/24 Unknown Rx 31 gauge x 5/16 pen needle, diabetic 32 gauge x #100 ea 02/06/23 06/02/24 Unknown Rx 5/16 (Comfort EZ Pen [place]) furosemide 40 mg tablet 40 mg PO DAILY PRN Edema #30 tabs 03/03/23 06/06/24 06/06/24 Rx lancets 30 gauge (TRUEplus Lancets) #100 ea 04/21/23 06/02/24 Unknown Rx blood sugar diagnostic (Blood #100 ea 04/23/23 06/02/24 Unknown Rx Glucose Test strips) ondansetron 4 mg disintegrating 4 mg PO Q8H PRN nausea and 06/22/23 06/06/24 06/06/24 Rx tablet vomiting #30 tabs levothyroxine 88 mcg tablet 88 mcg PO DAILY #90 tabs 12/23/23 06/08/24 06/08/24 Rx lisinopril 20 mg tablet See Rx Instructions .Route 12/23/23 06/06/24 06/06/24 Rx .COMPLEX #90 tabs cyanocobalamin (vitamin B-12) 1,000 mcg SUBCUT .COMPLEX #10 mL 02/16/24 06/06/24 06/06/24 Rx 1,000 mcg/mL injection solution febuxostat 80 mg tablet 80 mg PO DAILY 05/09/24 06/06/24 06/06/24 History insulin glargine 100 unit/mL (3 17 unit (0.17 mL) SUBCUT DAILY #15 06/02/24 06/06/24 06/06/24 Rx mL) subcutaneous pen (Lantus mL Solostar U-100 Insulin) [id number] 8 mg-folic 400 1 tab PO DAILY 06/06/24 06/06/24 06/06/24 History mcg-K 50 mcg-lutein 300 mcg tablet (Multivitamin Women 50 Plus) Allergies Allergy/AdvReac Type Severity Reaction Status Date / Time gabapentin Allergy Severe tremors Verified 06/08/24 06:41 Penicillins Allergy Unknown ALGY-Rash Verified 06/08/24 06:41 valsartan (From Diovan) Allergy Unknown ADR/ALGY-Pa Verified 06/08/24 06:41 lpitations triamcinolone Allergy ALGY-Redness Verified 06/08/24 06:41 of Skin pregabalin (From Lyrica) AdvReac Unknown Verified 06/08/24 06:41 [facility] Anesthesia Medical History Port-A-Cath in place Adenocarcinoma of colon History of DVT (deep vein thrombosis) Colon cancer Chronic anticoagulation Hypothyroidism Pulmonary embolism Hyperlipidemia, mixed History of colon cancer T2N0M0 - 2017 DVT (deep venous thrombosis) Hypertension Diabetes mellitus, insulin dependent (IDDM), controlled Surgical History S/P colon resection Laparoscopic left hemicolectomy: July 09, 2016 History of subtotal thyroidectomy History of hysterectomy S/P appendectomy S/P arthroscopic surgery of left knee H/O colonoscopy (06/05/20) 05/02/19: polyps ascending and descending colon 06/04/20: IC valve and descending colon polyp Family History Father Cancer Other Bleeding disorder CAD (coronary artery disease) Clotting disorder Diabetes Hypertension Denies family history of Dementia Hyperlipidemia Psychiatric illness Chronic kidney disease (CKD) Suicide Anesthesia complication Lung disease Stroke Social History Smoking and tobacco/nicotine status: never used tobacco/nicotine Second hand smoke exposure: No Alcohol intake: never Substance/Drug Use: never Caregiver/support person: Yes (sisters) Marital status: / service: No Current occupational status: retired Current gender identity: Female Special mark needs: No Agree to transfusion: Yes Data Anesthesia Cardiac Studies: No Data to Display
[2024-06-08] MEDS: sodium chloride 0.9% 1,000 ML 15 ML IV (07:03)
[2024-06-08 07:04] LABS: Glucose Point of Care 152 mg/dL (70-110)
[2024-06-08 07:56] VITALS: BP 114/45; PULSE 54; RESP 12; TEMP 36.1; O2SAT 98
[2024-06-08 08:12] VITALS: BP 123/55; PULSE 61; RESP 16; O2SAT 99
[2024-06-08 08:25] VITALS: BP 119/52; PULSE 57; RESP 16; O2SAT 98
--- NOTE | 2024-06-08 08:50 | ANE.PACU2 ---
Inpatient post-anesthesia follow up: Airway intact: Yes Vital signs: Temperature 97 F Pulse Rate 57 Respiratory Rate 16 Blood Pressure 119/52 Pulse Oximetry 98 Oxygen Delivery Me thod Room Air Oxygen Flow Rate Fraction of Inspir ed Oxygen Hydration adequate: Yes Nausea and vomiting: No Pain level: 1 Mental status: Baseline
== END 2024-06-08 08:50 | disposition home or self-care (01) ==
PROVIDERS: PCP Nurse Practitioner Family; Visit Provider Surgery
PROC: 0DJD8ZZ Inspection of Lower Intestinal Tract, Via Natural or Artificial Opening Endoscopic (ICD-10-PCS; CPT 45378; principal; 2024-06-08 07:40)
DX: Z12.11 Encounter for screening for malignant neoplasm of colon (principal); E11.9 Type 2 diabetes mellitus without complications; I12.9 Hypertensive chronic kidney disease with stage 1 through stage 4 chronic kidney disease, or unspecified chronic kidney disease; N18.9 Chronic kidney disease, unspecified; E78.2 Mixed hyperlipidemia; Z79.899 Other long term (current) drug therapy; Z79.4 Long term (current) use of insulin; Z88.0 Allergy status to penicillin; Z88.8 Allergy status to other drugs, medicaments and biological substances; Z85.038 Personal history of other malignant neoplasm of large intestine; Z86.718 Personal history of other venous thrombosis and embolism; Z86.711 Personal history of pulmonary embolism; E03.9 Hypothyroidism, unspecified; Z79.890 Hormone replacement therapy; Z90.49 Acquired absence of other specified parts of digestive tract
CPT/HCPCS: 36416; 45380; 82962; 88305; J2704; J7030

== ENCOUNTER 2024-06-13 10:30 | Oncology outpatient (recurring) (ONCR) | payer MEDICARE, MEDICAID, SELFPAY ==
[2024-06-13] MEDS: iohexol 350 mg/mL 500 mL Btl (per mL) PO (11:05)
--- NOTE | 2024-06-13 12:00 | CT_ITS ---
WS: [id number] CT CHEST, ABDOMEN AND PELVIS WITH CONTRAST HISTORY: malignant neoplasm of colon TECHNIQUE: Contiguous 5 mm axial imaging performed through the chest, abdomen and pelvis with IV contrast, oral contrast has been provided. Coronal and sagittal reformats chest. Coronal and sagittal reformats through the abdomen and pelvis. All CT scans at [facility] use at least one of these dose optimization techniques: automated exposure control; mA and/or kV adjustment per patient size (includes targeted exams where dose is matched to clinical indication); or iterative reconstruction. CONTRAST: Omnipaque 350; 100 mL IV. DLP: 995.69 mGy.cm COMPARISON: 03/28/2024, 11/11/2023, PET/CT 01/08/[address]: Lungs are clear. There are a few benign granulomata and a few tiny scattered micronodules. No mass or pneumonia. No pericardial or pleural effusions. No mediastinal or hilar adenopathy. Normal size aorta and pulmonary artery. LEFT subclavian Mediport. Osteopenia. AC joint arthritis. Osteophytic ridging around the LEFT humeral head. Abdomen CT: Normal size liver and spleen. No metastatic lesions in the liver. Normal portal vein. Splenic granulomata. Normal gallbladder. Normal common bile duct and pancreatic duct. Normal adrenal glands. Low normal size kidneys. There are a few too small to characterize hypodensities in the cortex of each kidney. No solid mass or obstruction. Mild atherosclerosis aortic, no aneurysm. Normally enhancing SMA and celiac axis. Heavy calcifications in the celiac axis and splenic artery. Heavy calcification JOSE MANUEL. JOSE MANUEL may actually be occluded. No ascites or adenopathy. Normally distended stomach. RIGHT hemicolectomy. Partial LEFT hemicolectomy also. Sigmoid anastomosis is identified. No recurrent masses or obstructive pattern. Pelvic CT: No free fluid in the pelvis. RIGHT adnexal 2.2 cm stable low- attenuation mass. No adenopathy or ascites. Bones are diffusely heterogeneous. Heterogeneous pattern is similar to 03/28/2024. CT/CT chest abdpel w/*[id number] IMPRESSION: 1. No metastatic disease in the chest, abdomen or pelvis identified. 2. Status post RIGHT hemicolectomy. Status post LEFT hemicolectomy. 3. No ascites. 4. No metastatic disease in the liver or adrenal glands. 5. Prior hysterectomy.
[2024-06-13] MEDS: iohexol 350 mg/mL 500 mL Btl (per mL) IV (12:39)
[2024-06-13 12:41] LABS: Blood Urea Nitrogen 20 mg/dL (8-23)
== END 2024-06-29 23:59 | disposition home or self-care (01) ==
PROVIDERS: PCP Nurse Practitioner Family; Visit Provider Internal Medicine Medical Oncology
DX: C18.9 Malignant neoplasm of colon, unspecified (principal); D50.9 Iron deficiency anemia, unspecified; Z90.710 Acquired absence of both cervix and uterus; Z90.49 Acquired absence of other specified parts of digestive tract
CPT/HCPCS: 36591; 71260; 74177; 82565; 84520

== ENCOUNTER → 2024-06-21 14:09 | Outpatient (BNVA) | payer MEDICARE, MEDICAID, SELFPAY | PROVIDERS: PCP Nurse Practitioner Family; Visit Provider Surgery | DX: Z09 Encounter for follow-up examination after completed treatment for conditions other than malignant neoplasm (principal); R03.0 Elevated blood-pressure reading, without diagnosis of hypertension | CPT/HCPCS: 99213 ==

== ENCOUNTER → 2024-06-29 11:04 | Outpatient (BNVA) | payer MEDICARE, MEDICAID, SELFPAY | PROVIDERS: PCP Nurse Practitioner Family; Visit Provider Nurse Practitioner Family | DX: I10 Essential (primary) hypertension (principal); E11.9 Type 2 diabetes mellitus without complications; Z79.4 Long term (current) use of insulin; E78.2 Mixed hyperlipidemia; E55.9 Vitamin D deficiency, unspecified; E11.42 Type 2 diabetes mellitus with diabetic polyneuropathy | CPT/HCPCS: 80053; 80061; 82306; 82607; 82728; 82746; 83036; 83735; 84443; 85025 ==

== ENCOUNTER 2024-07-12 12:21 | Oncology outpatient (recurring) (ONCR) | payer MEDICARE, MEDICAID, SELFPAY ==
[2024-07-12 12:44] LABS: Basophils % 0.6 %; Eosinophils # 0.2 10^3/uL (0.0-0.8); Eosinophils % 2.7 %; Hematocrit 37.4 % (36-47); Lymphocytes # 1.4 10^3/uL (0.8-4.8); Lymphocytes % 20.8 %; Mean Corpuscular HGB Conc 34.2 g/dL (30-55); Mean Corpuscular Hemoglobin 32.6 pg (27-33); Mean Corpuscular Volume 95.2 fl (85-98); Mean Platelet Volume 8.6 fL (7.4-10.4); Monocytes # 0.6 10^3/uL (0.2-0.9); Monocytes % 8.7 %; Neutrophils # 4.48 10^3/uL (1.8-7.7); Neutrophils % 67.1 %; Nucleated Red Blood Cells % 0 %; Platelet Count 135 10^3/cmm (157-399); Red Blood Count 3.93 10^6/uL (3.85-5.65); Red Cell Distribution Width 12.5 % (12.1-15.1); White Blood Count 6.68 10^3/uL (3.29-11.43)
[2024-07-12 13:15] LABS: Carcinoembryonic Antigen 1.8 ng/mL (0.0-4.7); Thyroid Stimulating Hormone 2.01 uIU/mL (0.27-4.20)
[2024-07-12 13:26] LABS: Alanine Aminotransferase 31 U/L (0-33); Albumin Level 4.1 g/dL (3.5-5.2); Alkaline Phosphatase 108 U/L (35-105); Anion Gap 18.5 (5-19); Aspartate Amino Transferase 39 U/L (0-32); Blood Urea Nitrogen 37 mg/dL (8-23); Calcium 9.1 mg/dL (8.5-10.5); Carbon Dioxide 24 mmol/L (22-29); Chloride 98 mmol/L (98-107); Chol HDL Ratio 4.57 mg/dL (0.0-4.40); Cholesterol 210 mg/dL (0-200); Creatinine Clr Calc Pharmacy 26.3577; Globulin 3.1 g/dL (1.3-4.6); Glucose 212 mg/dL (65-115); HDL Cholesterol 46 mg/dL (60-100); LDL Cholesterol Calculated 130 mg/dL (50-129); LDL HDL Ratio 2.83 RATIO (0.00-3.22); Osmolality Calculated 297 mOsm/kg (285-295); Potassium 4.5 mmol/L (3.5-5.1); Sodium 136 mmol/L (136-145); Total Protein 7.2 g/dL (6.6-8.7); Triglycerides 169 mg/dL (0-150)
== END 2024-07-30 23:59 | disposition home or self-care (01) ==
PROVIDERS: PCP Nurse Practitioner Family; Visit Provider Internal Medicine Medical Oncology
DX: Z08 Encounter for follow-up examination after completed treatment for malignant neoplasm (principal); Z85.038 Personal history of other malignant neoplasm of large intestine; E03.9 Hypothyroidism, unspecified; E11.9 Type 2 diabetes mellitus without complications; E78.2 Mixed hyperlipidemia; D75.9 Disease of blood and blood-forming organs, unspecified; G62.9 Polyneuropathy, unspecified; Z79.4 Long term (current) use of insulin; Z95.828 Presence of other vascular implants and grafts; Z92.21 Personal history of antineoplastic chemotherapy
CPT/HCPCS: 36591; 80053; 80061; 82378; 84443; 85025; 99213

== ENCOUNTER → 2024-08-16 09:01 | Outpatient (BNVA) | payer MEDICARE, MEDICAID, SELFPAY | PROVIDERS: PCP Nurse Practitioner Family; Visit Provider Nurse Practitioner Family | DX: M10.9 Gout, unspecified (principal); N18.1 Chronic kidney disease, stage 1 | CPT/HCPCS: 80048; 84550 ==

== ENCOUNTER 2024-09-27 11:00 | Oncology outpatient (recurring) (ONCR) | payer MEDICARE, SELFPAY ==
[2024-08-30 11:42] LABS: Anion Gap 18.7 (5-19); Blood Urea Nitrogen 26 mg/dL (8-23); Calcium 9.0 mg/dL (8.5-10.5); Carbon Dioxide 24 mmol/L (22-29); Chloride 102 mmol/L (98-107); Glucose 132 mg/dL (65-115); Osmolality Calculated 297 mOsm/kg (285-295); Potassium 4.7 mmol/L (3.5-5.1); Sodium 140 mmol/L (136-145)
[2024-08-31 10:11] LABS: Uric Acid 6.6 mg/dL (2.4-5.7)
[2024-09-27 11:20] LABS: Anion Gap 19.8 (5-19); Blood Urea Nitrogen 60 mg/dL (8-23); Calcium 9.0 mg/dL (8.5-10.5); Carbon Dioxide 22 mmol/L (22-29); Chloride 101 mmol/L (98-107); Glucose 141 mg/dL (65-115); Osmolality Calculated 305 mOsm/kg (285-295); Potassium 4.8 mmol/L (3.5-5.1); Sodium 138 mmol/L (136-145); Thyroid Stimulating Hormone 0.88 uIU/mL (0.27-4.20); Uric Acid 6.3 mg/dL (2.4-5.7)
== END 2024-09-29 23:59 | disposition home or self-care (01) ==
PROVIDERS: PCP Nurse Practitioner Family; Visit Provider Internal Medicine Medical Oncology
DX: Z53.9 Procedure and treatment not carried out, unspecified reason; N18.1 Chronic kidney disease, stage 1; E03.9 Hypothyroidism, unspecified; Z45.2 Encounter for adjustment and management of vascular access device; Z95.828 Presence of other vascular implants and grafts; M10.9 Gout, unspecified
CPT/HCPCS: 36591; 80048; 84443; 84550; 96523

== ENCOUNTER → 2024-10-06 11:59 | Outpatient (BNVA) | payer MEDICARE, SELFPAY | PROVIDERS: PCP Nurse Practitioner Family; Visit Provider Nurse Practitioner Family | DX: C18.9 Malignant neoplasm of colon, unspecified (principal); M10.9 Gout, unspecified; Z85.038 Personal history of other malignant neoplasm of large intestine | CPT/HCPCS: 80053; 82378; 84550 ==

== ENCOUNTER → 2024-10-12 15:19 | Outpatient (BNVA) | payer MEDICARE, MEDICAID, SELFPAY | PROVIDERS: PCP Nurse Practitioner Family; Visit Provider Nurse Practitioner Family | DX: M79.632 Pain in left forearm (principal) | CPT/HCPCS: 73090 ==

== ENCOUNTER 2024-10-24 12:45 | Oncology outpatient (recurring) (ONCR) | payer MEDICARE, SELFPAY ==
[2024-10-17 12:02] LABS: Hematocrit 33.7 % (36-47); Hemoglobin 11.60 g/dL (11.27-16.99); Mean Corpuscular HGB Conc 34.4 g/dL (30-55); Mean Corpuscular Hemoglobin 33.1 pg (27-33); Mean Corpuscular Volume 96.3 fl (85-98); Nucleated Red Blood Cells % 0 %; Platelet Count 120 10^3/cmm (157-399); Red Blood Count 3.50 10^6/uL (3.85-5.65); White Blood Count 6.38 10^3/uL (3.29-11.43)
[2024-10-17 12:22] LABS: Alanine Aminotransferase 24 U/L (0-33); Albumin Level 4.2 g/dL (3.5-5.2); Alkaline Phosphatase 83 U/L (35-105); Anion Gap 16.4 (5-19); Aspartate Amino Transferase 23 U/L (0-32); Blood Urea Nitrogen 65 mg/dL (8-23); Calcium 9.2 mg/dL (8.5-10.5); Carbon Dioxide 18 mmol/L (22-29); Chloride 110 mmol/L (98-107); Globulin 2.9 g/dL (1.3-4.6); Glucose 134 mg/dL (65-115); Osmolality Calculated 309 mOsm/kg (285-295); Potassium 5.4 mmol/L (3.5-5.1); Sodium 139 mmol/L (136-145); Total Protein 7.1 g/dL (6.6-8.7)
[2024-10-17 13:05] LABS: Carcinoembryonic Antigen 1.6 ng/mL (0.0-4.7)
[2024-10-17 14:01] LABS: Uric Acid 9.6 mg/dL (2.4-5.7)
--- NOTE | 2024-10-24 12:45 | USCV_ITS ---
Nimesh Maddy Age: 78 Gender: F : 1945 Exam Date: 10/24/2024 11:35 Ordering Phys: Tammy Guzmán INK PRINTER-Raina Technologist: YOVANA [place] [facility] [place]: left ue swelling pain HISTORY: Upper extremity swelling-LEFT PROCEDURES: Venous duplex imaging was performed in only the left upper extremity. The following venous structures were evaluated: internal jugular vein, subclavian vein, axillary vein, and brachial veins. In addition, the basilic vein and cephalic vein. In addition, the radial vein and ulnar vein. FINDINGS: No evidence of deep vein thrombosis or superficial thrombophlebitis in the left upper extremity. CONCLUSIONS No evidence of thrombus of the left upper extremity veins. Umer Miller MD (Electronically Signed) Final Date: 24 October 2024 13:41 S
== END 2024-10-30 23:59 | disposition home or self-care (01) ==
LOC: RAD 10-25 00:01 → ONCMED 10-25 09:02
PROVIDERS: Internal Medicine; Nurse Practitioner; PCP Nurse Practitioner Family; Visit Provider Internal Medicine Medical Oncology
DX: M79.632 Pain in left forearm; Z53.9 Procedure and treatment not carried out, unspecified reason
CPT/HCPCS: 36591; 80053; 82378; 84550; 85025; 93971; 99215

== ENCOUNTER → 2024-11-10 12:50 | Outpatient (BNVA) | payer MEDICARE, SELFPAY | PROVIDERS: PCP Nurse Practitioner Family; Referring Provider Nurse Practitioner; Visit Provider Internal Medicine Cardiovascular Disease | DX: I25.10 Atherosclerotic heart disease of native coronary artery without angina pectoris (principal); I10 Essential (primary) hypertension; E78.2 Mixed hyperlipidemia; Z82.49 Family history of ischemic heart disease and other diseases of the circulatory system; R06.02 Shortness of breath; R07.9 Chest pain, unspecified | CPT/HCPCS: 36415; 83880; 93005; 99204 ==

== ENCOUNTER 2024-11-17 13:10 | Oncology outpatient (recurring) (ONCR) | payer MEDICARE, SELFPAY | END 2024-11-29 23:59 | disposition home or self-care (01) | LOC: ONCMED 13:11 | PROVIDERS: PCP Nurse Practitioner Family; Visit Provider Internal Medicine Medical Oncology | DX: Z45.2 Encounter for adjustment and management of vascular access device (principal); Z95.828 Presence of other vascular implants and grafts | CPT/HCPCS: 96523 ==

== ENCOUNTER → 2024-11-28 10:54 | Outpatient (BNVA) | payer MEDICARE, SELFPAY | PROVIDERS: PCP Nurse Practitioner Family; Visit Provider Nurse Practitioner Family | DX: L89.153 Pressure ulcer of sacral region, stage 3 (principal) | CPT/HCPCS: 80069; 81003; 82570; 84156 ==

== ENCOUNTER 2024-12-13 11:39 | Oncology outpatient (recurring) (ONCR) | payer MEDICARE, SELFPAY ==
[2024-12-13 12:16] LABS: Uric Acid 8.8 mg/dL (2.4-5.7)
== END 2024-12-30 23:59 | disposition home or self-care (01) ==
PROVIDERS: PCP Nurse Practitioner Family; Visit Provider Internal Medicine Medical Oncology
DX: Z53.9 Procedure and treatment not carried out, unspecified reason; M10.9 Gout, unspecified
CPT/HCPCS: 36591; 84550

== ENCOUNTER 2024-12-13 12:04 | Outpatient (CLI) | payer MEDICARE, SELFPAY ==
--- NOTE | 2024-12-13 13:30 | USCV_ITS ---
Nimesh Maddy Age: 79 Gender: F : 1945 Exam Date: 12/13/2024 12:56 Ordering Phys: Pedro Ma MD ([email or web address]) Technologist: [place] [facility] [place]: SoB BP: 120 / 70 HR: 58 Rhythm: Sinus Technical Quality: Adequate MEASUREMENTS (Male / Female) Normal Values 2D ECHO LV Diastolic Diameter PLAX 3.8 cm 4.2 - 5.9 / 3.9 - 5.3 cm IVS Diastolic Thickness 1.2 cm 0.6 - 1.0 / 0.6 - 0.9 cm IVS Systolic Thickness 1.4 cm LVPW Diastolic Thickness 1.1 cm 0.6 - 1.0 / 0.6 - 0.9 cm LVPW Systolic Thickness 1.3 cm LVOT Diameter 2.0 cm LV Ejection Fraction 2D Teich 59.4 % LV Ejection Fraction MOD 4C 65.1 % LV Ejection Fraction MOD 2C 69.2 % LV Ejection Fraction 2C AL 68.6 % LA Diameter 3.3 cm RA Systolic Volume 4C AL 48.9 ml RA Systolic Volume 4C MOD 46.2 ml Aorta at Sinotubular Diameter 2.7 cm IVC Diameter 2.1 cm M-MODE LA Ao Ratio MM 1.0 AV Cusp Separation MM 1.5 cm DOPPLER AV Peak Velocity 139.0 cm/s LVOT Peak Velocity 101.0 cm/s AV Area Cont Eq vti 2.5 cm squared AV Area Cont Eq pk 2.4 cm squared MV Peak Velocity 105.0 cm/s MV Area PHT 3.3 cm squared Mitral E to A Ratio 1.0 TV Peak Velocity 205.5 cm/s TR Peak Velocity 247.0 cm/s TR Peak Gradient 24.4 mmHg TV Peak E Velocity 81.0 cm/s PV Peak Velocity 98.0 cm/s FINDINGS Left Ventricle Normal left ventricular size and systolic function. Left ventricular ejection fraction is 64%. Normal left ventricular diastolic function. Mild left ventricular hypertrophy. Right Ventricle Normal right ventricular size and systolic function. Right Atrium Normal right atrial size. Left Atrium Normal left atrial size. IA Septum Normal appearance of the interatrial septum. Mitral Valve Normal mitral valve structure. No mitral valve stenosis. Mild mitral valve regurgitation. Aortic Valve Normal aortic valve structure. No aortic valve stenosis or regurgitation. Tricuspid Valve Normal tricuspid valve structure. No tricuspid valve stenosis. Trace regurgitation. Normal pulmonary pressure. Pulmonic Valve Normal pulmonic valve structure. No pulmonic valve stenosis or regurgitation. Pericardium No pericardial effusion. Aorta Normal diameter of the aortic root and ascending thoracic aorta. IVC Normal IVC diameter. CONCLUSIONS Normal left ventricular size and systolic function. Left ventricular ejection fraction is 64%. Normal left ventricular diastolic function. Mild left ventricular hypertrophy. Normal right ventricular size and systolic function. Mild mitral valve regurgitation. Pedro Ma MD, FACC (Electronically Signed) Final Date: 17 December 2024 17:33 S
== END 2024-12-13 12:05 | disposition home or self-care (01) ==
LOC: RAD 12:05
PROVIDERS: PCP Nurse Practitioner Family; Visit Provider Internal Medicine Cardiovascular Disease
DX: R06.02 Shortness of breath (principal); I51.7 Cardiomegaly; I34.0 Nonrheumatic mitral (valve) insufficiency
CPT/HCPCS: 93306

== ENCOUNTER → 2025-01-10 11:11 | Outpatient (BNVA) | payer MEDICARE, SELFPAY | PROVIDERS: PCP Nurse Practitioner Family; Visit Provider Nurse Practitioner Family | DX: E11.9 Type 2 diabetes mellitus without complications (principal); Z79.4 Long term (current) use of insulin; E11.42 Type 2 diabetes mellitus with diabetic polyneuropathy; E78.2 Mixed hyperlipidemia | CPT/HCPCS: 80053; 80061; 82607; 83036; 84443; 84550; 85025 ==

== ENCOUNTER 2025-01-17 13:43 | Oncology outpatient (recurring) (ONCR) | payer MEDICARE, SELFPAY | END 2025-01-29 23:59 | disposition home or self-care (01) | PROVIDERS: PCP Nurse Practitioner Family; Visit Provider Internal Medicine Medical Oncology | DX: Z45.2 Encounter for adjustment and management of vascular access device (principal); Z95.828 Presence of other vascular implants and grafts | CPT/HCPCS: 96523 ==

== ENCOUNTER → 2025-02-07 09:33 | Outpatient (BNVA) | payer MEDICARE, MEDICAID, SELFPAY | PROVIDERS: PCP Nurse Practitioner Family; Visit Provider Surgery | DX: Z95.828 Presence of other vascular implants and grafts (principal); R03.0 Elevated blood-pressure reading, without diagnosis of hypertension | CPT/HCPCS: 99213 ==

== ENCOUNTER → 2025-02-09 09:22 | Outpatient (BNVA) | payer MEDICARE, MEDICAID, SELFPAY | PROVIDERS: PCP Nurse Practitioner Family; Visit Provider Nurse Practitioner Family | DX: N18.1 Chronic kidney disease, stage 1 (principal); Z79.899 Other long term (current) drug therapy | CPT/HCPCS: 80069; 82306; 82310; 82570; 83970; 84156; 84439; 84443; 85025 ==

== ENCOUNTER 2025-02-13 05:39 | Day surgery (SDC) | payer MEDICARE, SELFPAY ==
--- NOTE | 2025-02-12 10:34 | ANES.PREANE2 ---
Pre-Anesthetic Assessment Height/Weight: Height 5 ft 6 in Preop Diagnosis: requesting port removal Operation Date: 02/13/25 07:00 Proposed Procedures p Portacath Removal 11785 Z95.828(Not Applicable) - Justo Miranda MD Was Beta [place] taken within 24 hours: N/A Was Clonidine taken within 24 hours: N/A Social No alcohol and No tobacco Exam alert, oriented x 3, clear to auscultation bilaterally and regular rate & rhythm Airway Submandibular: within normal limits Cervical ROM: within normal limits Mallampati: Class II Dentition: full Anesthetic Plan ASA status: 3 Anesthesia: MAC Other: Slow to wake up from colorectal surgery Patient did well with colonoscopy in May Insulin-dependent diabetes, BS Hypertension on lisinopril CKD Patient states that she had an episode 2 weeks ago where she felt like her legs were weak. She did not fall down, did not get dizzy. This lasted about a day and then went away. No issues since. Ambulating fine. Patient has port in place, has completed chemotherapy Labs from 02/09/2025 reviewed and acceptable for procedure today Plan for MAC anesthesia Medications/Allergies Home Medications ?Medication ?Instructions ?Recorded ?Confirmed ?Last Taken ?Type Diabetic Shoes with 3 Pairs of #1 ea 09/18/21 02/07/25 Unknown Rx Inserts pen needle, diabetic 32 gauge x #100 ea 04/02/22 02/07/25 Unknown Rx 5/32 insulin syringe-needle U-100 1 mL #100 ea 10/21/22 02/07/25 Unknown Rx 31 gauge x 5/16 pen needle, diabetic 32 gauge x #100 ea 02/06/23 02/07/25 Unknown Rx 5/16 (Comfort EZ Pen [place]) blood sugar diagnostic (Blood #100 ea 08/01/24 02/07/25 Unknown Rx Glucose Test strips) lancets 30 gauge (TRUEplus Lancets) #100 ea 08/01/24 02/07/25 Unknown Rx furosemide 40 mg tablet 40 mg PO DAILY PRN Edema #30 tabs 08/15/24 02/13/25 02/09/25 Rx cyanocobalamin (vitamin B-12) 1,000 mcg SUBCUT .COMPLEX #10 mL 09/13/24 02/10/25 01/14/25 Rx 1,000 mcg/mL injection solution aspirin 81 mg tablet,delayed 81 mg PO DAILY #90 tabs 11/10/24 02/10/25 02/11/25 Rx release (Adult Aspirin Regimen) atorvastatin 20 mg tablet (Lipitor) 20 mg PO .q hs #90 tabs 11/10/24 02/10/25 02/11/25 Rx insulin glargine 100 unit/mL (3 12 unit (0.12 mL) SUBCUT DAILY #15 01/10/25 02/10/25 02/11/25 Rx mL) subcutaneous pen (Lantus mL Solostar U-100 Insulin) levothyroxine 100 mcg tablet 100 mcg PO DAILY 02/10/25 02/10/25 02/13/25 History Allergies Allergy/AdvReac Type Severity Reaction Status Date / Time gabapentin Allergy Severe tremors Verified 02/07/25 09:34 Penicillins Allergy Unknown ALGY-Rash Verified 02/07/25 09:34 valsartan (From Diovan) Allergy Unknown ADR/ALGY-Pa Verified 02/07/25 09:34 lpitations loratadine (From Claritin) Allergy ALGY-Hives Verified 02/07/25 09:34 triamcinolone Allergy ALGY-Redness Verified 02/07/25 09:34 of Skin pregabalin (From Lyrica) AdvReac Unknown Verified 02/07/25 09:34 [facility] Anesthesia Medical History (Updated 02/07/25 @ 09:41 by MARIA C Hoover) Port-A-Cath in place Adenocarcinoma of colon History of DVT (deep vein thrombosis) Colon cancer Chronic anticoagulation Hypothyroidism Pulmonary embolism Hyperlipidemia, mixed History of colon cancer T2N0M0 - 2017 DVT (deep venous thrombosis) Hypertension Diabetes mellitus, insulin dependent (IDDM), controlled Surgical History S/P colon resection Laparoscopic left hemicolectomy: July 09, 2016 History of subtotal thyroidectomy History of hysterectomy S/P appendectomy S/P arthroscopic surgery of left knee H/O colonoscopy (06/05/20) 05/02/19: polyps ascending and descending colon 06/04/20: IC valve and descending colon polyp Family History Father Cancer Other Bleeding disorder CAD (coronary artery disease) Clotting disorder Diabetes Hypertension Denies family history of Dementia Hyperlipidemia Psychiatric illness Chronic kidney disease (CKD) Suicide Anesthesia complication Lung disease Stroke Social History Smoking and tobacco/nicotine status: never used tobacco/nicotine Second hand smoke exposure: No Alcohol intake: never Substance/Drug Use: never Caregiver/support person: Yes (sisters) Marital status: / service: No Current occupational status: retired Current gender identity: Female Special mark needs: No Agree to transfusion: Yes Data Anesthesia Cardiac Studies: Echocardiogram 12/13/24
[2025-02-13] VITALS (7 sets, daily range): BP systolic 104–143; BP diastolic 28–73; PULSE 50–60; RESP 16–18; TEMP 36.2–36.4; O2SAT 95–99; BMI 27.6
--- NOTE | 2025-02-13 06:44 | P.HPUD_ITS ---
Surgery/Procedure H&P Update DATE OF PROCEDURE: February 13, 2025 DATE H&P PERFORMED: 02/07/25 H&P UPDATE INFORMATION: I have reviewed H&P completed within last 30 days, I have examined patient prior to procedure, No changes to prior documentation, H&P is in [facility] EMR on date indicated and Risks and benefits of the procedure reviewed PREOP DIAGNOSIS: requesting port removal PLANNED PROCEDURE: Operation Date: 02/13/25 07:00 Proposed Procedures p Portacath Removal 44237 Z95.828(Not Applicable) - Justo Miranda MD
[2025-02-13] MEDS: lidocaine-epi 1% PF 1:200,000 30 mL SDV INJECTION (07:15)
[2025-02-13] MEDS: BUPivacaine 0.25% INJ 10 mL INJECTION (07:15)
--- NOTE | 2025-02-13 07:30 | PM.OP ---
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 After discussion of all risks and benefits decided to proceed Procedure: Patient was brought into the OR, she was placed in the supine position. Monitored anesthesia care was initiated. The left upper chest was prepped and draped in the usual sterile fashion. A timeout was conducted. Local anesthesia was infiltrated around the area of the port. A 3.5 cm incision was made over the previous surgical incision in the left upper chest. The incision was deepened until the catheter was identified, the catheter capsule was opened with electrocautery and attachments liberated with electrocautery also. The catheter was delivered through the skin. While holding pressure in the subclavian vein the catheter was pulled out, catheter was complete. The tract was then closed with a #3-0 Vicryl [id number] suture. The capsule was excised with electrocautery to prevent seroma. Hemostasis was verified. The wound was closed in layers using 3-0 Vicryl for subcutaneous tissue #4 Monocryl for the skin and Dermabond was applied. At the end of the procedure all counts were correct the patient tolerated well the procedure was transferred to the PACU in stable condition
--- NOTE | 2025-02-13 08:30 | ANE.PACU2 ---
Inpatient post-anesthesia follow up: Airway intact: Yes Vital signs: Temperature 97.1 F Pulse Rate 50 Respiratory Rate 16 Blood Pressure 143/49 Pulse Oximetry 96 Oxygen Delivery Me thod Room Air Oxygen Flow Rate Fraction of Inspir ed Oxygen Hydration adequate: Yes Nausea and vomiting: No Pain level: 1 Mental status: Baseline
== END 2025-02-13 08:30 | disposition home or self-care (01) ==
PROVIDERS: PCP Nurse Practitioner Family; Visit Provider Surgery
PROC: (CPT 36590; principal; 2025-02-13 07:00)
DX: Z85.038 Personal history of other malignant neoplasm of large intestine (principal); E11.22 Type 2 diabetes mellitus with diabetic chronic kidney disease; I12.9 Hypertensive chronic kidney disease with stage 1 through stage 4 chronic kidney disease, or unspecified chronic kidney disease; N18.9 Chronic kidney disease, unspecified; Z86.718 Personal history of other venous thrombosis and embolism; E03.9 Hypothyroidism, unspecified; E78.2 Mixed hyperlipidemia; Z79.4 Long term (current) use of insulin; Z79.82 Long term (current) use of aspirin; Z80.9 Family history of malignant neoplasm, unspecified
CPT/HCPCS: 36590; 36416; 82962; J2704; J3490; J7030; J9999